=== PATIENT | female | born 1970 | race Caucasian/White ===

== ENCOUNTER → 2017-11-04 08:54 | Outpatient (CLI) | payer MEDICAID, SELFPAY ==
--- NOTE | 2017-11-04 08:58 | ECHOCS_ITS ---
Reason For Study: PULMONARY STENOSIS Procedure This was a 2D Doppler, Color Flow transthoracic echocardiogram. Contrast injection was performed. Exam performed in department. Left Ventricle Normal size and thickness. The estimated ejection fraction is 65 %. Normal diastology for age. No regional wall motion abnormalities noted. Right Ventricle Normal size and thickness. Normal systolic function. Atria Normal left atrium. Normal right atrium. Normal atrial septum. Mitral Valve The mitral valve is structurally normal. No prolapse or stenosis seen. Tricuspid Valve Normal tricuspid valve. Trivial tricuspid valve insufficiency. Right ventricular systolic pressure estimated to be 39 mmHg. Mild pulmonary hypertension. Aortic Valve Normal aortic valve. Trisinus/trileaflet aortic valve. Pulmonic Valve Normal pulmonic valve. Great Vessels Normal aortic root. Normal arch. Normal inferior vena cava. Inferior vena cava collapse with sniff. Pericardium/Pleural No pericardial effusion. Medication 22 gauge I.V. with prn adaptor inserted into right arm. Diluted definity 3ml given slow IV push to enhance endocardial definition. MMode/2D Measurements & Calculations LVIDd: 3.8 cm IVSd: 0.85 cm Ao root diam: 2.8 cm LVIDs: 2.4 cm LVPWd: 1.00 cm LA dimension: 3.1 cm RVDd: 3.0 cm FS: 38.1 % LAV(MOD-bp): 40.0 ml EDV(MOD-sp4): 90.1 ml EDV(MOD-sp2): 87.1 ml LAV(MOD-bp) Indexed: 22.1 ml/m2 ESV(MOD-sp4): 29.7 ml EF(MOD-sp2): 69.0 % LAV(MOD-sp2): 32.7 ml EF(MOD-sp4): 67.1 % LAV(MOD-sp4): 43.7 ml SV(MOD-sp4): 60.5 ml SV(MOD-sp2): 60.1 ml LA A4 area: 17.0 cm2 RA A4 area: 12.7 cm2 Doppler Measurements & Calculations MV E max alex: 89.2 cm/sec Ao V2 max: 160.3 cm/sec LV V1 max: 109.5 cm/sec MV A max alex: 74.1 cm/sec Ao max P.3 mmHg LV V1 max P.8 mmHg MV E/A: 1.2 Ao V2 mean: 101.9 cm/sec LV V1 mean P.7 mmHg Ao mean P.9 mmHg LV V1 mean: 77.6 cm/sec Ao V2 VTI: 30.3 cm LV V1 VTI: 23.4 cm TV V2 max: 67.8 cm/sec PA V2 max: 178.7 cm/sec TR max alex: 275.8 cm/sec TV max P.8 mmHg PA V2 mean: 171.9 cm/sec TR max P.5 mmHg TV V2 mean: 45.0 cm/sec PA V2 VTI: 52.9 cm TV mean P.91 mmHg Interpretation Summary The estimated ejection fraction is 65 %. Normal diastology for age. Trivial tricuspid valve insufficiency. Right ventricular systolic pressure estimated to be 39 mmHg. Mild pulmonary hypertension. The study was technically difficult. There is no comparison study available. Contrast injection was performed. Ordering Physician: ROGE QUILES Referring Physician: DOCTOR, OUT OF TOWN Performed By: Riddhi Webber, JACKY, RVT
== END ==
DX: I37.0 Nonrheumatic pulmonary valve stenosis (principal)
CPT/HCPCS: 93306; Q9957; A4216; C8929

== ENCOUNTER → 2017-12-16 | Outpatient (CLI) | payer MEDICAID, SELFPAY ==
[2017-12-16 08:59] LABS: Hemoglobin A1c 8.4 % (4.2-6.3)
[2017-12-16 09:24] LABS: ALB/GLOB Ratio 0.7 RATIO (0.9-2.4); AST(SGOT) 37 U/L (15-37); Alanine Aminotransfer ALT/SGPT 43 U/L (13-56); Albumin, Serum 3.5 g/dL (3.2-5.0); Alkaline Phosphatase 87 U/L (45-117); Anion Gap 9 (5-15); BUN 14 mg/dL (7-18); BUN/Creat Ratio 17.3 RATIO (10-20); Chloride 104 mmol/L (98-107); Cholesterol 142 mg/dL (200); Creatinine, Serum 0.81 mg/dL (0.55-1.02); EST Glomerular Filtration Rate 81 mL/min (>60); Est Glom Filt Rate - Afr Amer 98 mL/min (>60); Globulin 4.7 g/dL (2.2-4.2); Glucose 188 mg/dL (74-106); High Density Lipoprotein 31 mg/dL; Potassium 4.1 mmol/L (3.5-5.1); Protein, Total 8.2 g/dL (6.4-8.2); Sodium Level 139 mmol/L (136-145); Thyroid Stim Hormone (TSH) 5.99 uIU/mL (0.358-3.74); Triglycerides 212 mg/dL; Very Low Density Lipoprotein 42 mg/dL (5-40)
== END | disposition home or self-care (01) ==
LOC: LAB 07:59
PROVIDERS: Visit Provider Internal Medicine Endocrinology, Diabetes & Metabolism
DX: E11.65 Type 2 diabetes mellitus with hyperglycemia (principal)
CPT/HCPCS: 36415; 80053; 80061; 83036; 84443

== ENCOUNTER → 2018-02-28 10:35 | Outpatient (CLI) | payer MEDICAID, SELFPAY ==
[2018-02-28 11:33] LABS: Hemoglobin A1c 6.1 % (4.2-6.3)
[2018-02-28 11:43] LABS: AST(SGOT) 44 U/L (15-37); Alanine Aminotransfer ALT/SGPT 46 U/L (13-56); Albumin, Serum 3.9 g/dL (3.2-5.0); Alkaline Phosphatase 75 U/L (45-117); Anion Gap 8 (5-15); BUN 10 mg/dL (7-18); BUN/Creat Ratio 13.2 RATIO (10-20); Calcium,Total 9.1 mg/dL (8.5-10.1); Chloride 105 mmol/L (98-107); Cholesterol 136 mg/dL (200); Creatinine, Serum 0.76 mg/dL (0.55-1.02); EST Glomerular Filtration Rate 87 mL/min (>60); Est Glom Filt Rate - Afr Amer 106 mL/min (>60); Glucose 104 mg/dL (74-106); High Density Lipoprotein 36 mg/dL; Potassium 4.5 mmol/L (3.5-5.1); Protein, Total 7.9 g/dL (6.4-8.2); Sodium Level 140 mmol/L (136-145); T4 Free Direct 1.14 ng/dL (0.76-1.46); Thyroid Stim Hormone (TSH) 1.99 uIU/mL (0.358-3.74); Triglycerides 129 mg/dL; Very Low Density Lipoprotein 26 mg/dL (5-40)
== END ==
PROVIDERS: Visit Provider Internal Medicine Endocrinology, Diabetes & Metabolism
DX: E89.0 Postprocedural hypothyroidism (principal)
CPT/HCPCS: 36415; 80053; 80061; 83036; 84439; 84443

== ENCOUNTER → 2018-07-19 08:55 | Outpatient (CLI) | payer SELFPAY ==
[2018-07-19 10:47] LABS: Basophil# 0.02 X10^3/uL; Basophil% 0.3 % (0-1); Eosinophil# 0.19 X10^3/uL; Eosinophils% 2.4 % (0-5); Hematocrit 35.5 % (37-47); Hemoglobin 11.6 g/dl (12.0-15.0); Mean Corp Hgb Conc 32.7 g/gl (32-36); Mean Corpuscular Hgb 28.4 pg (27.0-32.0); Mean Corpuscular Volume 86.8 fL (81-99); Mean Platelet Vol. 11.7 fl (6.2-12.0); Monocyte# 0.44 X10^3/uL; Monocyte% 5.6 % (0-10); Neutrophil # 4.97 X10^3/uL (2.7-7.7); Neutrophil % 63.2 % (47-70); Platelet Count 284 K/mm3 (150-450); RBC Distribution Width CV 14.1 % (11.6-14.6); RBC Distribution Width SD 43.3 fl (35.1-43.9); Red Blood Count 4.09 M/mm3 (4.2-5.4); White Blood Count 7.9 K/mm3 (4.4-11.0)
[2018-07-19 10:48] LABS: POSITIVE COUNT NO; POSITIVE DIFFERENTIAL NO; POSITIVE MORPHOLOGY NO
[2018-07-19 11:17] LABS: AST(SGOT) 12 U/L (15-37); Alanine Aminotransfer ALT/SGPT 22 U/L (13-56); Albumin, Serum 3.8 g/dL (3.2-5.0); Alkaline Phosphatase 63 U/L (45-117); Anion Gap 7 (5-15); BUN 12 mg/dL (7-18); BUN/Creat Ratio 15.8 RATIO (10-20); Chloride 105 mmol/L (98-107); Creatinine, Serum 0.76 mg/dL (0.55-1.02); EST Glomerular Filtration Rate 87 mL/min (>60); Est Glom Filt Rate - Afr Amer 105 mL/min (>60); Glucose 170 mg/dL (74-106); Lipase 179 U/L (73-393); Potassium 4.2 mmol/L (3.5-5.1); Protein, Total 7.8 g/dL (6.4-8.2); Sodium Level 138 mmol/L (136-145)
== END ==
LOC: LAB.FUTURE 08:59
PROVIDERS: Family Provider Family Medicine; PCP Family Medicine; Referring Provider Internal Medicine Endocrinology, Diabetes & Metabolism; Visit Provider Internal Medicine Endocrinology, Diabetes & Metabolism
DX: R10.9 Unspecified abdominal pain (principal)
CPT/HCPCS: 36415; 80053; 83690; 85025

== ENCOUNTER → 2018-10-11 17:30 | Outpatient (CLI) | payer MEDICAID, SELFPAY ==
--- NOTE | 2018-10-11 17:11 | BI_ITS ---
MAMMOGRAPHY - BILATERAL SCREENING REASON FOR EXAM: Female, 48 years old. Routine annual screening examination. PERTINENT HISTORY: Mother with breast cancer. TECHNIQUE: Digital bilateral breast haleigh (3D mammographic acquisition) in the CC and MLO projections. 2-D mediolateral oblique (MLO) and craniocaudad (CC) views of both breasts were obtained. CAD: Full Field Digital Mammography with Computer Added Detection was performed. COMPARISON: Comparison is made with prior mammogram dated March 23, 2017. FINDINGS: Breast Composition: There are scattered areas of fibroglandular density. Stable 7 mm well-defined nodule in the upper lateral aspect of the left breast. Prior ultrasound demonstrated this to be a lymph node. Stable small bilateral axillary lymph nodes. No other significant abnormalities are identified. There has been no significant change since the prior study. BI/SCREENING MAMM (CAD), BILAT IMPRESSION: Stable bilateral screening mammogram. Yearly follow-up mammogram recommended. (A) ASSESSMENT CATEGORY: BIRADS Category 2: Benign. A letter regarding these results will be sent to the patient by the facility within 30 days. Approximately 10% of breast cancers are not detected by mammography. A normal mammogram should not delay biopsy of a clinically suspicious abnormality. [id number] Electronically Signed: Matthias Rashid MD at 9:00 EST , Service support ,
== END ==
PROVIDERS: Family Provider Family Medicine; PCP Family Medicine; Referring Provider Family Medicine; Visit Provider Family Medicine
DX: Z12.31 Encounter for screening mammogram for malignant neoplasm of breast (principal)
CPT/HCPCS: 77063; 77067

== ENCOUNTER 2018-11-17 18:24 | Emergency (ER) | payer MEDICAID, SELFPAY ==
[2018-11-17 18:25] VITALS: BP 188/108; PULSE 116; RESP 16; TEMP 36.8; O2SAT 98; BMI 34.4
--- NOTE | 2018-11-17 19:35 | RAD_ITS ---
STUDY: X-RAY CHEST REASON FOR EXAM: Female, 48 years old. Anxiety. Tightness in the chest. TECHNIQUE: Single AP portable view of the chest. COMPARISON: None. FINDINGS: Telemetry wires overlie the chest. The lungs are clear and expanded. There is no demonstrated pleural abnormality. Normal size heart. Normal mediastinum and paul. Normal visualized pulmonary arteries. Normal visualized aortic arch and descending thoracic aorta. Normal visualized thoracic spine. Normal visualized ribs, clavicles, and shoulders. There is no demonstrated abnormality of the visualized soft tissue structures of the upper abdomen. RAD/Chest 1 View (Portable) IMPRESSION: Normal x-ray examination of the chest. Electronically Signed: Chato Schrader DO at 19:56 EDT Tel [phone], Service support ,
--- NOTE | 2018-11-17 19:35 | EKG12_ITS ---
Test Reason : ANXIETY Blood Pressure : / mmHG Vent. Rate : 113 BPM Atrial Rate : 113 BPM P-R Int : 144 ms QRS Dur : 082 ms QT Int : 360 ms P-R-T Axes : 041 027 005 degrees QTc Int : 493 ms Sinus tachycardia Otherwise normal ECG Confirmed by CAS LEO ([id number]), science editor HALI LAZARO ([id number]) on 11/21/2018 4:48:48 PM Referred By: OCTAVIANO Confirmed By:CAS LEO
[2018-11-17] MEDS: Mag Hydrox/Al Hydrox/Simeth 30 ML UDC PO (19:45)
[2018-11-17 19:52] VITALS: O2SAT 98
[2018-11-17] MEDS: LORazepam 2 MG/ML Syringe 0.5 MG IV (19:53)
[2018-11-17 20:04] LABS: Absolute Neutrophil Count 5.5 X10^3/uL (2.0-7.7); Basophil# 0.02 X10^3/uL; Basophil% 0.3 % (0-1); Eosinophil# 0.08 X10^3/uL; Eosinophils% 1.1 % (0-5); Hematocrit 36.4 % (37-47); Hemoglobin 11.8 g/dl (12.0-15.0); Lymphocyte % 19.7 % (19-41); Mean Corp Hgb Conc 32.4 g/gl (32-36); Mean Corpuscular Hgb 27.5 pg (27.0-32.0); Mean Corpuscular Volume 84.8 fL (81-99); Monocyte# 0.45 X10^3/uL; Monocyte% 5.9 % (0-10); Neutrophil # 5.52 X10^3/uL (2.7-7.7); Neutrophil % 72.6 % (47-70); Platelet Count 314 K/mm3 (150-450); RBC Distribution Width CV 14.2 % (11.6-14.6); RBC Distribution Width SD 43.8 fl (35.1-43.9); Red Blood Count 4.29 M/mm3 (4.2-5.4); White Blood Count 7.6 K/mm3 (4.4-11.0)
--- NOTE | 2018-11-17 20:05 | CM.ED ---
SOCIAL WORK ASSESSMENT Referral Date: 11/17/18 Date of Assessment: 11/17/18 Informant: SELF REFERRAL Reason for Consult: ANXIETY Information obtained from: PATIENT AND PATIENT'S , LYLY Living Arrangements: PATIENT LIVES HOME WITH AND 6 Y/O DAUGHTER. Employment/Financial: PATIENT CURRENTLY UNEMPLOYED. PATIENT DENIES ANY FINANCIAL CONCERNS. Supports: PATIENT REPORTS GOOD SUPPORT FROM FAMILY. Social/Family Stressors: PATIENT STATES BROTHER IS BATTLING CANCER AND THIS HAS INCREASED HER ANXIETY. PATIENT STATES OWN HEALTH ISSUES AND CONCERNS. Mental Health History: PATIENT ADMITS TO HX OF ANXIETY. PATIENT WAS PRESCRIBED XANAX PREVIOUSLY. PATIENT HAS NOT TAKEN ANYTHING FOR HER ANXIETY IN OVER 2 YEARS. PATIENT WILL BE FOLLOWING UP WITH PRIMARY CARE TO DISCUSS MEDICATION. Substance Abuse History: PATIENT DENIES ANY HX OF SUBSTANCE ABUSE. Interventions: SOCIAL SERVICE ASSESSMENT RESOURCES ON OUTPATIENT COUNSELING SERVICES Assessment: PATIENT IS A 48 Y/O FEMALE WHO PRESENTS TO THE ED WITH COMPLAINTS OF DIZZINESS, CHEST PAIN AND ANXIETY. PATIENT LIVES HOME WITH AND DAUGHTER AND IS INDEPENDENT WITH ALL ADLS. PATIENT HAS BEEN DEALING WITH ANXIETY SINCE HER NOW 6 YEAR OLD DAUGHTER WAS 3 YEARS OLD. 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 PATIENT WILL BE FOLLOWING WITH NEW PRIMARY CARE, DR. Naldo AHUJA AND WILL DISCUSS ANXIETY AT THAT APPOINTMENT. EDUCATION PROVIDED ON OUTPATIENT SERVICES. LIST OF OUTPATIENT COUNSELING AGENCIES GIVEN. PATIENT DENIES ANY FURTHER NEEDS OR QUESTIONS AT THIS TIME. PLAN: HOME WITH FAMILY.
[2018-11-17 20:18] LABS: POSITIVE COUNT NO; POSITIVE DIFFERENTIAL NO; POSITIVE MORPHOLOGY NO
[2018-11-17 20:21] LABS: Anion Gap 7 (5-15); BUN 17 mg/dL (7-18); BUN/Creat Ratio 18.2 RATIO (10-20); Calcium,Total 9.2 mg/dL (8.5-10.1); Chloride 107 mmol/L (98-107); Creatinine, Serum 0.93 mg/dL (0.55-1.02); EST Glomerular Filtration Rate 68 mL/min (>60); Est Glom Filt Rate - Afr Amer 83 mL/min (>60); Estimated Creatinine Clearance 59.15 ml/min; Glucose 144 mg/dL (74-106); Potassium 3.6 mmol/L (3.5-5.1); Sodium Level 138 mmol/L (136-145)
[2018-11-17 21:37] VITALS: PULSE 105; RESP 22; O2SAT 98
--- NOTE | 2018-11-17 22:32 | ED.DCSUM_ITS ---
- ER Visit Summary Date of Service: 11/17/18 Chief Complaint: Epigastric pain History of Present Illness: The patient is a 48 F presents with feeling lightheaded for a few months as well as some anxiety and epigastric and lower chest pain. No fever or chills. She has had similar symptoms and was seen. In the emergency department and had an unremarkable workup. These resolve with antacids. There is no back pain, she does feel quite anxious. She has no pleuritic component, no shortness of breath. Physical Examination: Patient appears well she is anxious she is initially slightly tachycardic heart is regular lungs are clear abdomen is soft with some epigastric tenderness she has no edema no calf pain. Emergency Department Course and Treatment: EKG is unremarkable other than sinus tachycardia. Troponins negative CBC and chemistries are normal chest x-ray is unremarkable she has no PE risk factors. She appears well she improved with anxiolytics her vitals are now improved she will be discharged with reassurance to follow-up with her PCP Disposition: Discharge stable condition Impression: [Epigastric pain] This note was generated with [employer] dictation software. It may contain incorrect words, spelling, and punctuation that were not noted in review of the chart prior to signing ED Disposition - Plan for ED Patient: Disposition: Home or Assisted Living Instructions: ED Chest Pain Atypical Unkn Cause Prescriptions: Omeprazole 40 mg PO DAILY #30 capsule. Referrals: Cecilia Dubose MD [Primary Care Provider] - 3-5 Days
[2018-11-17 22:52] VITALS: PULSE 102; RESP 16; O2SAT 98
== END 2018-11-17 22:55 | disposition home or self-care (01) ==
PROVIDERS: Emergency Provider Emergency Medicine; Family Provider Family Medicine; PCP Family Medicine
DX: R10.13 Epigastric pain (principal); Z79.899 Other long term (current) drug therapy
CPT/HCPCS: 71045; 80048; 84484; 85025; 93005; 96374; 99285; A4216

== ENCOUNTER 2018-12-08 15:55 | Emergency (ER) | payer MEDICAID, SELFPAY ==
[2018-12-08 15:56] VITALS: BP 170/95; PULSE 116; RESP 17; TEMP 37; O2SAT 98; BMI 33.9
--- NOTE | 2018-12-08 15:59 | EKG12_ITS ---
Test Reason : CP Blood Pressure : / mmHG Vent. Rate : 108 BPM Atrial Rate : 108 BPM P-R Int : 132 ms QRS Dur : 082 ms QT Int : 348 ms P-R-T Axes : 058 039 037 degrees QTc Int : 466 ms Sinus tachycardia Otherwise normal ECG Confirmed by LEONEL CRAIG, KRISTINA ([id number]), order editor SILAS SANDOVAL ([id number]) on 12/12/2018 10:50:14 AM Referred By: MARIANO Confirmed By:KRISTINA CASTANEDA MD
--- NOTE | 2018-12-08 16:22 | RAD_ITS ---
STUDY: X-RAY CHEST REASON FOR EXAM: Female, 48 years old. Chest pain TECHNIQUE: Single frontal view of the chest. COMPARISON: 11/17/2018 FINDINGS: The lungs are clear and expanded. There is no demonstrated pleural abnormality. Normal size heart. Normal mediastinum and paul. Normal visualized pulmonary arteries. Normal visualized aortic arch and descending thoracic aorta. Normal visualized thoracic spine. Normal visualized ribs, clavicles, and shoulders. There is no demonstrated abnormality of the visualized soft tissue structures of the upper abdomen. RAD/Chest 1 View (Portable) IMPRESSION: Normal x-ray examination of the chest. Electronically Signed: Juan M Kaufman MD at 17:09 EDT Tel , Service support ,
--- NOTE | 2018-12-08 16:30 | ED.VISSUMM ---
- ER Visit Summary Date of Service: 12/08/18 Chief Complaint: Left arm, shoulder and upper back pain History of Present Illness: The patient is a 48 F prior cardiac history. Prior negative cardiac workup. She does have a history of insulin-dependent diabetes, pulmonary valve stenosis and anxiety. Patient states for the last several days she had intermittent aching of her left shoulder and upper back. Denies any trauma. Really no chest pain. No exertional symptoms no dyspnea. No nausea or diaphoresis. Worse with movement of the arm. No history of DVT or PE. No risk factors. Physical Examination: Middle-aged female no acute distress. Vital signs stable afebrile. HEENT exam unremarkable. Neck nontender no lymphadenopathy. Lungs clear to auscultation bilaterally. Chest nontender. Abdomen soft nontender. Normal bowel sounds no peritoneal signs. Heart regular rhythm rate about 90. Patient moving all 4 extremities. Neurovascular intact. She has normal equal symmetrical credit administration specialist strength. Equal radial pulses. She does have some reproducible soft tissue tenderness of her left upper arm and back consistent with a musculoskeletal etiology. Neurologically she is awake and alert with no focal motor deficits. Calves are nontender without edema or cords. Test Results: EKG shows a sinus tachycardia rate of 108 with no acute signs of KS or ischemia. Portable 1 view chest x-ray shows no acute abnormality and basically a normal cardiac silhouette mediastinum. CBC shows a white count of 9. Hemoglobin 11. Chemistries normal. Troponin normal. Emergency Department Course and Treatment: Patient will undergo cardiac workup clinically however I do feel this is musculoskeletal etiology. It is nonexertional. Repeat exam patient is doing well at 1708 is comfortable being discharged home. Treatment Plan: Follow-up with your primary care physician as needed. Motrin for pain. Disposition: Discharge Impression: Left arm and upper back pain secondary to musculoskeletal etiology History of insulin-dependent diabetes History of anxiety and hypertension This note was generated with [employer] dictation software. It may contain incorrect words, spelling, and punctuation that were not noted in review of the chart prior to signing ED Disposition - Plan for ED Patient: Referrals: [facility] Doctor,Out of [NON-STAFF] -
--- NOTE | 2018-12-08 16:34 | NURSING ---
CBCD WAS CLOTTED.
[2018-12-08 16:48] LABS: Anion Gap 8 (5-15); BUN 13 mg/dL (7-18); Calcium,Total 9.3 mg/dL (8.5-10.1); Chloride 106 mmol/L (98-107); Creatinine, Serum 0.93 mg/dL (0.55-1.02); EST Glomerular Filtration Rate 69 mL/min (>60); Est Glom Filt Rate - Afr Amer 83 mL/min (>60); Estimated Creatinine Clearance 59.15 ml/min; Glucose 128 mg/dL (74-106); Potassium 3.8 mmol/L (3.5-5.1); Sodium Level 139 mmol/L (136-145)
[2018-12-08 16:54] LABS: Absolute Lymphocyte Count 2.47 X10^3/ul (0.83-4.51); Basophil# 0.01 X10^3/uL; Basophil% 0.1 % (0-1); Eosinophil# 0.14 X10^3/uL; Eosinophils% 1.5 % (0-5); Hematocrit 35.7 % (37-47); Hemoglobin 11.9 g/dl (12.0-15.0); Lymphocyte # 2.47 X10^3/ul (4.0); Lymphocyte % 26.8 % (19-41); Mean Corp Hgb Conc 33.3 g/gl (32-36); Mean Platelet Vol. 10.8 fl (6.2-12.0); Monocyte# 0.54 X10^3/uL; Monocyte% 5.9 % (0-10); Neutrophil # 6.01 X10^3/uL (2.7-7.7); Platelet Count 269 K/mm3 (150-450); RBC Distribution Width CV 14.1 % (11.6-14.6); RBC Distribution Width SD 43.5 fl (35.1-43.9); Red Blood Count 4.25 M/mm3 (4.2-5.4); White Blood Count 9.2 K/mm3 (4.4-11.0)
[2018-12-08 16:57] LABS: POSITIVE COUNT NO; POSITIVE DIFFERENTIAL NO; POSITIVE MORPHOLOGY NO
--- NOTE | 2018-12-08 17:09 | ED.DEP ---
ED Disposition - Plan for ED Patient: Disposition: Home or Assisted Living Instructions: ED Strain Muscle Ext Referrals: Town Doctor,Out of [NON-STAFF] - 3-5 Days if not improving Additional Instructions: Hot shower warm bath to relax the muscles. Motrin for pain. Follow-up with your doctor if not improving.
[2018-12-08 17:35] VITALS: PULSE 105; PULSE 18; RESP 105; O2SAT 98
== END 2018-12-08 17:35 | disposition home or self-care (01) ==
PROVIDERS: Emergency Provider Emergency Medicine; Family Provider Family Medicine; PCP Family Medicine
DX: M25.512 Pain in left shoulder (principal); M54.9 Dorsalgia, unspecified; I10 Essential (primary) hypertension; F41.9 Anxiety disorder, unspecified; E11.9 Type 2 diabetes mellitus without complications; Z79.4 Long term (current) use of insulin; Z79.84 Long term (current) use of oral hypoglycemic drugs; Z79.82 Long term (current) use of aspirin; Z79.899 Other long term (current) drug therapy; Z87.891 Personal history of nicotine dependence
CPT/HCPCS: 71045; 80048; 84484; 85025; 93005; 99285; A4216

== ENCOUNTER → 2018-12-21 09:33 | Outpatient (CLI) | payer MEDICAID, SELFPAY ==
[2018-12-08 15:56] VITALS: BMI 33.9
--- NOTE | 2018-12-21 09:39 | STEWCON_ITS ---
Reason For Study: Chest Pain Stress Results Protocol: Jose Protocol Maximum Predicted HR: 173 bpm Target HR: 147 bpm % Maximum Predicted HR: 96 % Heart Stage Duration Rate BP Comment (mm:ss) (bpm) Mild Chest Pain; Mild Left Arm Pain; Definity 3 ML Baseline 110 150/88Given Jose Protocol Stage I 3:00 131 148/82No Chest Pain; Mild Left Arm Pain Jose Protocol Stage II 3:00 150 160/78No Chest Pain; Mild Left Arm Pain Jose Protocol Stage III 3:00 166 174/80No Chest Pain; Mild Left Arm Pain Recovery 117 146/86No Chest Pain; Mild Left Arm Pain Stress Duration: 9:00 mm:ss Maximum Stress HR: 166 bpm METS: 10 Baseline Echocardiogram Findings The estimated ejection fraction is 65 %. Stress Echo Wall motion Data Resting WM Intermediate WM Stress WM Resting Wall Motion Wall Motion Stress No regional wall motion No regional wall motion abnormalities noted. abnormalities noted. EKG Data Normal intervals are noted. The patient exercised according to the regular Jose protocol for a total duration of 9:00. The maximum heart rate attained was 166 beats per minute. This was 95% of maximum predicted heart rate. The patient exercised into stage 4 of the Jose protocol. During stress, there were no ST or T wave changes noted to suggest ischemia. No clinical angina was noted. No arrhythmias noted. Interpretation Summary The estimated ejection fraction is 65 %. Normal, adequate, treadmill echocardiogram. Negative for ischemia by EKG and echocardiographic criteria. No anginal symptoms noted. No arrhythmias noted. Appropriate blood pressure response to exercise. Average exercise capacity for age. Final LVEF is 75%. Decreased sensitivity due to poor echo windows requiring Definity enhancing agent. No complications. The study was technically difficult. Contrast injection was performed. Ordering Physician: CHARANJIT Marvin Referring Physician: Haris Saunders Performed By: Stan Roque RCS
== END ==
PROVIDERS: Referring Provider Nurse Practitioner Family; Visit Provider Nurse Practitioner Family
DX: R07.9 Chest pain, unspecified (principal)
CPT/HCPCS: 93017; 93350; Q9957; A4216; C8928

== ENCOUNTER → 2018-12-22 17:27 | Outpatient (CLI) | payer MEDICAID, SELFPAY ==
[2018-12-08 15:56] VITALS: BMI 33.9
[2018-12-27 17:10] LABS: HPV Reflexed? NOT INDICATED
== END ==
PROVIDERS: Referring Provider Obstetrics & Gynecology; Visit Provider Obstetrics & Gynecology
DX: Z12.4 Encounter for screening for malignant neoplasm of cervix (principal)
CPT/HCPCS: 88175; G0145

== ENCOUNTER → 2019-01-23 08:58 | Outpatient (CLI) | payer MEDICAID, SELFPAY ==
[2019-01-23 10:26] LABS: Hemoglobin A1c 6.7 % (4.2-6.3)
[2019-01-23 10:42] LABS: AST(SGOT) 19 U/L (15-37); Alanine Aminotransfer ALT/SGPT 26 U/L (13-56); Albumin, Serum 3.9 g/dL (3.2-5.0); Alkaline Phosphatase 79 U/L (45-117); Anion Gap 8 (5-15); BUN 12 mg/dL (7-18); BUN/Creat Ratio 14.7 RATIO (10-20); Calcium,Total 9.1 mg/dL (8.5-10.1); Chloride 106 mmol/L (98-107); Cholesterol 168 mg/dL (200); Creatinine, Serum 0.81 mg/dL (0.55-1.02); EST Glomerular Filtration Rate 80 mL/min (>60); Est Glom Filt Rate - Afr Amer 97 mL/min (>60); Globulin 4.1 g/dL (2.2-4.2); Glucose 139 mg/dL (74-106); High Density Lipoprotein 37 mg/dL; Potassium 4.1 mmol/L (3.5-5.1); Sodium Level 139 mmol/L (136-145); T4 Free Direct 1.19 ng/dL (0.76-1.46); Thyroid Stim Hormone (TSH) 1.48 uIU/mL (0.358-3.74); Triglycerides 154 mg/dL; Very Low Density Lipoprotein 31 mg/dL (5-40)
[2019-01-23 10:57] LABS: Vitamin D,25 Hydroxy 77.3 ng/mL (29.95-100.01)
== END ==
PROVIDERS: Family Provider Internal Medicine; PCP Internal Medicine; Referring Provider Internal Medicine Endocrinology, Diabetes & Metabolism; Visit Provider Internal Medicine Endocrinology, Diabetes & Metabolism
DX: E11.65 Type 2 diabetes mellitus with hyperglycemia (principal); E55.9 Vitamin D deficiency, unspecified; E89.0 Postprocedural hypothyroidism
CPT/HCPCS: 36415; 80053; 80061; 82306; 83036; 84439; 84443

== ENCOUNTER 2019-05-24 14:43 | Emergency (ER) | payer SELFPAY ==
[2019-02-03 11:47] VITALS: BMI 33.9
[2019-05-24 14:44] VITALS: BP 178/96; PULSE 104; RESP 16; TEMP 36.7; O2SAT 98; BMI 32.0
--- NOTE | 2019-05-24 15:11 | EKG12_ITS ---
Test Reason : DIZZINESS Blood Pressure : / mmHG Vent. Rate : 093 BPM Atrial Rate : 093 BPM P-R Int : 126 ms QRS Dur : 076 ms QT Int : 366 ms P-R-T Axes : 021 025 016 degrees QTc Int : 455 ms Normal sinus rhythm Normal ECG Confirmed by ERNESTINA CRAIG, HERLINDA ([id number]), writer editor SILAS SANDOVAL ([id number]) on 05/26/2019 1:42:30 PM Referred By: JORGE Confirmed By:HAIR DO MD
--- NOTE | 2019-05-24 15:13 | RAD_ITS ---
STUDY: X-RAY CHEST REASON FOR EXAM: Female, 49 years old. Chest pain. TECHNIQUE: Single AP portable view of the chest. COMPARISON: Comparison is made with prior study dated December 08, 2018. FINDINGS: The lungs are clear and expanded. There is no demonstrated pleural abnormality. Normal size heart. Normal mediastinum and paul. Normal visualized pulmonary arteries. Normal visualized aortic arch and descending thoracic aorta. Normal visualized thoracic spine. Normal visualized ribs, clavicles, and shoulders. There is no demonstrated abnormality of the visualized soft tissue structures of the upper abdomen. RAD/Chest 1 View (Portable) IMPRESSION: Normal x-ray examination of the chest. Electronically Signed: Matthias Rashid, at 15:34 EDT , Service support ,
[2019-05-24] MEDS: Ketorolac 15 MG/ML Vial IV (15:25)
[2019-05-24] MEDS: 0.9% Normal Saline 1,000 ML 1000 ML IV (15:26)
[2019-05-24 15:38] LABS: Absolute Lymphocyte Count 1.84 X10^3/uL (0.83-4.51); Absolute Neutrophil Count 5.8 X10^3/uL (2.0-7.7); Basophil# 0.03 X10^3/uL; Basophil% 0.4 % (0-1); Eosinophil# 0.12 X10^3/uL; Eosinophils% 1.4 % (0-5); Hematocrit 38.5 % (37-47); Hemoglobin 12.5 g/dL (12.0-15.0); Lymphocyte # 1.84 X10^3/ul (4.0); Lymphocyte % 22.2 % (19-41); Mean Corp Hgb Conc 32.5 g/dL (32-36); Mean Corpuscular Volume 86.1 fL (81-99); Mean Platelet Vol. 11.1 fl (6.2-12.0); Monocyte# 0.46 X10^3/uL; Monocyte% 5.6 % (0-10); NRBC Flagged by Analyzer 0 % (0-5); Neutrophil # 5.76 X10^3/uL (2.7-7.7); Neutrophil % 69.6 % (47-70); Platelet Count 307 K/mm3 (150-450); RBC Distribution Width CV 13.2 % (11.6-14.6); RBC Distribution Width SD 41.4 fl (35.1-43.9); Red Blood Count 4.47 M/mm3 (4.2-5.4); White Blood Count 8.3 K/mm3 (4.4-11.0)
[2019-05-24 15:43] VITALS: BP 171/92; BP 173/102; BP 174/101; PULSE 104; PULSE 105; PULSE 90
[2019-05-24 15:48] LABS: Bacteria 0 SEEN /hpf (None Seen); Mucous, Urine 0 SEEN /hpf (<or=2+); Red Blood Cells-Urine 0 SEEN /hpf (0-5); Squamous Epithelial Cells - UA 0 SEEN /hpf (5-10); White Blood Cells 0 SEEN /hpf (0-5)
[2019-05-24 15:57] LABS: Anion Gap 6 (5-15); BUN 12 mg/dL (7-18); BUN/Creat Ratio 12.3 RATIO (10-20); Calcium,Total 9.3 mg/dL (8.5-10.1); Chloride 103 mmol/L (98-107); Creatinine, Serum 0.97 mg/dL (0.55-1.02); EST Glomerular Filtration Rate 65 mL/min (>60); Est Glom Filt Rate - Afr Amer 79 mL/min (>60); Glucose 158 mg/dL (74-106); Potassium 3.9 mmol/L (3.5-5.1); Sodium Level 137 mmol/L (136-145)
[2019-05-24 16:14] LABS: Color, Urine Yellow (Yellow); Glucose, Dipstick Normal (Normal); Ketone-Dipstick Negative (Negative); Leukocyte Esterase-Dipstick Negative /ul (Negative); Nitrite-Dipstick Negative (Negative); Occult Blood-Urine Negative /ul (Negative); Protein-Dipstick Negative (Negative); Specific Gravity, Urine 1.005 (1.002-1.030); Urine Bilirubin Dipstick Negative (Negative); Urine Clarity Clear (Clear); Urine Urobilinogen Normal (Normal); Urine pH 6.5 (5.0 - 8.0)
[2019-05-24 16:43] VITALS: BP 178/93; PULSE 90; RESP 14; O2SAT 100
[2019-05-24] MEDS: LORazepam 2 MG/ML Syringe 1 MG IV (18:01)
[2019-05-24 18:06] VITALS: BP 165/113; PULSE 94; RESP 25; O2SAT 97
--- NOTE | 2019-05-24 19:11 | ED.VISSUMM ---
- ER Visit Summary Date of Service: 05/24/19 Chief Complaint: Chest pain and lightheaded History of Present Illness: The patient is a [address] Watts and Dr. Perez, her digital solution architect. She reports that approximately an hour ago while driving she became lightheaded. She denies any change with standing. She has not passed out. Patient reports that she has chest pain that began at the same time. Some aching pain is 5 out of 10 severity. Nothing makes this better. It is not unchanged by exertion. Is increased with lifting. She denies any associated nausea, vomiting, shortness of breath, or diaphoresis. Patient also reports that she had upper back pain is been present for the past 2 days. Some aching pain is 10 to 10 hours noted 10 currently. Nothing makes this worse. Is decreased with laying on her left side. Denies any trauma. No fall, MVA, or change in activity. Physical Examination: Vitals: Stable. Afebrile. General: Well-nourished and well-developed. Head: Normocephalic atraumatic. Neck: Supple, no lymphadenopathy. No JVD. Nontender. Cardiovascular: Regular rate and rhythm. No murmurs. Respiratory: No respiratory distress. Clear to auscultation bilaterally. Abdominal: Soft, nontender, nondistended, normal bowel sounds. No guarding, rebound, or peritoneal signs. Back: Nontender. Extremities: Nontender, no edema. Skin: Normal color, no rash. Neurologic: Alert and oriented ?3. Cranial nerves II through XII are intact. Normal strength and sensation. Psych: Normal affect. Test Results: EKG is sinus at 93. No acute changes. Is unchanged from December 2018. Troponin is negative. Repeat troponin is negative. UA is normal. Chem-7 shows a glucose 158. CBC is normal. Chest x-ray is normal. Emergency Department Course and Treatment: Patient was treated with Toradol and Ativan IV. She is resting comfortably. She had orthostatic vital signs that were negative. When I went back and discussed the findings with her she reports that she had this last week and took her Nexium and it completely resolved. Treatment Plan: Patient will be discharged with a prescription for Nexium. Instructed to follow-up with her primary care physician and her digital solution architect in 3 to 5 days for another exam. Return to emerge department for any worsening symptoms. Disposition: To home in improved and stable condition. Impression: 1. Atypical chest pain. 2. Lightheadedness. This note was generated with [employer] dictation software. It may contain incorrect words, spelling, and punctuation that were not noted in review of the chart prior to signing ED Disposition - Plan for ED Patient: Disposition: Home or Assisted Living Instructions: CHEST PAIN, Uncertain Cause Prescriptions: Esomeprazole Mag Trihydrate [Nexium] 40 mg PO DAILY #30 cap Prescription Printed Referrals: Nanette Watts MD [Primary Care Provider] - 3-5 Days
[2019-05-24 19:28] VITALS: BP 166/96; PULSE 93; RESP 15; O2SAT 94
--- NOTE | 2019-05-24 19:28 | ED.RN ---
PT GIVEN WRITTEN AND VERBAL DISCHARGE INSTRUCTIONS AND HOME GOING PRESCRIPTIONS. PT EDUCATED ON MEDICATION AND FOLLOW UP WITH PCP. PT IV D/C AND COVERED WITH 2X2 GAUZE. ANGIOCATH INTACT. PT DRESSES SELF AND AMBULATES OUT OF DEPT WITH SPOUSE.
== END 2019-05-24 19:33 | disposition home or self-care (01) ==
LOC: ED 15:27
PROVIDERS: Emergency Provider Emergency Medicine; Family Provider Internal Medicine; PCP Internal Medicine
DX: R07.89 Other chest pain (principal); R42 Dizziness and giddiness; M54.9 Dorsalgia, unspecified; E11.9 Type 2 diabetes mellitus without complications; I10 Essential (primary) hypertension; E04.1 Nontoxic single thyroid nodule; G43.909 Migraine, unspecified, not intractable, without status migrainosus; Z79.82 Long term (current) use of aspirin; Z79.4 Long term (current) use of insulin; Z79.84 Long term (current) use of oral hypoglycemic drugs; Z79.899 Other long term (current) drug therapy; Z87.891 Personal history of nicotine dependence
CPT/HCPCS: 71045; 80048; 81001; 84484; 85025; 93005; 96361; 96374; 96375; 99285; J7030; A4216

== ENCOUNTER → 2019-08-21 09:05 | Outpatient (CLI) | payer MEDICAID, SELFPAY ==
[2019-08-21 10:27] LABS: AST(SGOT) 24 U/L (15-37); Alanine Aminotransfer ALT/SGPT 27 U/L (13-56); Albumin, Serum 3.9 g/dL (3.2-5.0); Alkaline Phosphatase 83 U/L (45-117); Anion Gap 6 (5-15); BUN 18 mg/dL (7-18); BUN/Creat Ratio 18.9 RATIO (10-20); Calcium,Total 8.7 mg/dL (8.5-10.1); Chloride 105 mmol/L (98-107); Creatinine, Serum 0.95 mg/dL (0.55-1.02); EST Glomerular Filtration Rate 67 mL/min (>60); Est Glom Filt Rate - Afr Amer 81 mL/min (>60); Glucose 159 mg/dL (74-106); Potassium 4.3 mmol/L (3.5-5.1); Protein, Total 7.9 g/dL (6.4-8.2); Sodium Level 136 mmol/L (136-145); T4 Free Direct 1.14 ng/dL (0.76-1.46); Thyroid Stim Hormone (TSH) 5.01 uIU/mL (0.358-3.74)
== END ==
LOC: LAB.FUTURE 09:08 → LAB 09:11
PROVIDERS: Family Provider Internal Medicine; PCP Internal Medicine; Referring Provider Internal Medicine Endocrinology, Diabetes & Metabolism; Visit Provider Internal Medicine Endocrinology, Diabetes & Metabolism
DX: E89.0 Postprocedural hypothyroidism (principal); E11.65 Type 2 diabetes mellitus with hyperglycemia
CPT/HCPCS: 36415; 80053; 83036; 84439; 84443

== ENCOUNTER → 2019-10-04 09:46 | Outpatient (CLI) | payer MEDICAID, SELFPAY ==
[2019-10-04 11:01] LABS: Anion Gap 2 (5-15); BUN 15 mg/dL (7-18); BUN/Creat Ratio 16.3 RATIO (10-20); Chloride 105 mmol/L (98-107); Creatinine, Serum 0.92 mg/dL (0.55-1.02); EST Glomerular Filtration Rate 69 mL/min (>60); Est Glom Filt Rate - Afr Amer 84 mL/min (>60); Glucose 161 mg/dL (74-106); Potassium 4.3 mmol/L (3.5-5.1); Sodium Level 136 mmol/L (136-145); T4 Free Direct 1.17 ng/dL (0.76-1.46)
== END ==
PROVIDERS: PCP Internal Medicine; Referring Provider Internal Medicine Endocrinology, Diabetes & Metabolism; Visit Provider Internal Medicine Endocrinology, Diabetes & Metabolism
DX: E89.0 Postprocedural hypothyroidism (principal)
CPT/HCPCS: 36415; 80048; 84439; 84443

== ENCOUNTER → 2019-10-13 11:40 | Outpatient (CLI) | payer MEDICAID, SELFPAY ==
[2019-10-04 16:16] VITALS: BMI 32.0
--- NOTE | 2019-10-13 11:47 | BI_ITS ---
MAMMOGRAPHY - BILATERAL SCREENING 3-D TOMOSYNTHESIS REASON FOR EXAM: Female, 49 years old. Routine screening PERTINENT HISTORY: Mother with breast cancer.. TECHNIQUE: 2-D mammograms and 3-D Tomosynthesis of the breast (s) were performed. CAD was performed. COMPARISON: 10/11/2018 FINDINGS: The breast composition is composed of scattered fibroglandular density. Scattered benign calcifications are seen. No dense spiculated masses or suspicious microcalcifications are identified. No architectural distortion is identified. There is no skin thickening or retraction. Stable 7 mm nodule in the upper outer quadrant of the left breast. There has been no significant change since the prior study. BI/SCREEN MAMM (CAD) W/AARON BILAT IMPRESSION: No mammographic signs of malignancy. Routine yearly mammograms recommended. ASSESSMENT CATEGORY: BIRADS Category 2: Benign. A letter regarding these results will be sent to the patient by the facility within 30 days. FOLLOW UP RECOMMENDATION: Yearly follow up mammogram recommended. (A) Approximately 10% of breast cancers are not detected by mammography. A normal mammogram should not delay biopsy of a clinically suspicious abnormality. Electronically Signed: Jim Espinosa MD at 13:07 EST , Service support ,
== END ==
PROVIDERS: PCP Internal Medicine; Referring Provider Obstetrics & Gynecology; Visit Provider Obstetrics & Gynecology
DX: Z12.31 Encounter for screening mammogram for malignant neoplasm of breast (principal); Z80.3 Family history of malignant neoplasm of breast
CPT/HCPCS: 77063; 77067

== ENCOUNTER 2019-10-24 06:07 | Emergency (ER) | payer MEDICAID, SELFPAY ==
[2019-10-04 16:16] VITALS: BMI 32.0
[2019-10-24 06:09] VITALS: BP 194/96; PULSE 118; RESP 20; TEMP 37; O2SAT 97; BMI 32.9
--- NOTE | 2019-10-24 06:09 | ED.RN ---
CALLED FOR EKG PER RN REQUEST, PULLED OLD EKGS FOR
--- NOTE | 2019-10-24 06:20 | RAD_ITS ---
STUDY: X-RAY CHEST REASON FOR EXAM: Female, 49 years old. C/O NAUSEA AND HEARTBURN -- DENIES CP, SOB OR COUGH TECHNIQUE: Single AP portable view of the chest. COMPARISON: None. FINDINGS: The lungs are clear and expanded. There is no demonstrated pleural abnormality. Normal size heart. Normal mediastinum and paul. Normal visualized pulmonary arteries. Normal visualized aortic arch and descending thoracic aorta. Normal visualized thoracic spine. Normal visualized ribs, clavicles, and shoulders. There is no demonstrated abnormality of the visualized soft tissue structures of the upper abdomen. RAD/Chest 1 View (Portable) IMPRESSION: Normal x-ray examination of the chest. Electronically Signed: Solo Cox, at 7:00 EST Tel , Service support ,
--- NOTE | 2019-10-24 06:20 | EKG12_ITS ---
Test Reason : CP Blood Pressure : / mmHG Vent. Rate : 111 BPM Atrial Rate : 111 BPM P-R Int : 126 ms QRS Dur : 082 ms QT Int : 344 ms P-R-T Axes : 047 033 022 degrees QTc Int : 467 ms Sinus tachycardia Cannot rule out Anterior infarct , age undetermined Abnormal ECG Confirmed by CAS LEO ([id number]), advertising editor SILAS SANDOVAL ([id number]) on 10/26/2019 9:34:59 AM Referred By: JESUS Confirmed By:CAS LEO
[2019-10-24 06:27] LABS: Absolute Lymphocyte Count 2.31 X10^3/uL (0.83-4.51); Absolute Neutrophil Count 4.5 X10^3/uL (2.0-7.7); Basophil# 0.03 X10^3/uL; Basophil% 0.4 % (0-1); Eosinophil# 0.19 X10^3/uL; Eosinophils% 2.5 % (0-5); Hematocrit 38.3 % (37-47); Hemoglobin 12.5 g/dL (12.0-15.0); Lymphocyte # 2.31 X10^3/ul (4.0); Lymphocyte % 30.6 % (19-41); Mean Corp Hgb Conc 32.6 g/dL (32-36); Mean Corpuscular Volume 85.9 fL (81-99); Mean Platelet Vol. 11.1 fl (6.2-12.0); Monocyte# 0.45 X10^3/uL; NRBC Flagged by Analyzer 0 % (0-5); Neutrophil # 4.53 X10^3/uL (2.7-7.7); Neutrophil % 59.8 % (47-70); Platelet Count 361 K/mm3 (150-450); RBC Distribution Width CV 13.9 % (11.6-14.6); RBC Distribution Width SD 42.7 fl (35.1-43.9); Red Blood Count 4.46 M/mm3 (4.2-5.4); White Blood Count 7.6 K/mm3 (4.4-11.0)
[2019-10-24] MEDS: 0.9% Normal Saline 1,000 ML 1000 ML IV (06:27)
[2019-10-24] MEDS: Ondansetron 4 MG/2 ML Vial IV (06:29)
[2019-10-24] MEDS: Famotidine 200 MG/20 ML MDV 20 MG in 0.9% Normal Saline (Pres. free 8 ML 300 MG IV (06:30)
[2019-10-24] MEDS: Ketorolac 15 MG/ML Vial IV (06:32)
[2019-10-24 06:34] LABS: D-Dimer Quantitative (DVT/PE) 0.35 FEU/ug/m (0.27-0.49)
[2019-10-24 06:45] LABS: ALB/GLOB Ratio 0.9 RATIO (0.9-2.4); AST(SGOT) 15 U/L (15-37); Alanine Aminotransfer ALT/SGPT 29 U/L (13-56); Albumin, Serum 3.8 g/dL (3.2-5.0); Alkaline Phosphatase 79 U/L (45-117); Anion Gap 7 (5-15); BUN 17 mg/dL (7-18); BUN/Creat Ratio 17.4 RATIO (10-20); Calcium,Total 9.4 mg/dL (8.5-10.1); Chloride 105 mmol/L (98-107); Creatinine, Serum 0.98 mg/dL (0.55-1.02); EST Glomerular Filtration Rate 64 mL/min (>60); Est Glom Filt Rate - Afr Amer 78 mL/min (>60); Estimated Creatinine Clearance 55.52 ml/min; Globulin 4.4 g/dL (2.2-4.2); Glucose 245 mg/dL (74-106); Lipase 248 U/L (73-393); Potassium 3.9 mmol/L (3.5-5.1); Protein, Total 8.2 g/dL (6.4-8.2); Sodium Level 138 mmol/L (136-145)
[2019-10-24] MEDS: Mag Hydrox/Al Hydrox/Simeth 30 ML UDC PO (07:34)
--- NOTE | 2019-10-24 07:34 | ED.VIS.CHEST ---
History of Present Illness Chief Complaint: Chest Pain Informant: Patient, EMS Onset: Today Activity at onset: Sleep Timing: Continuous Quality: Burning Location: Substernal Worsened By: Nothing Relieved By: Antacids Associated Symptoms: Nausea, Vomiting, Acid Reflux Narrative: Patient is a 49-year-old female with history of anxiety, tobacco use, diabetes, hyperlipidemia and GERD presenting with chest pain. Patient states she developed chest pain last night. She states woke up from sleep. She states it feels like a burning sensation in the center of her chest. She has associated nausea, 2 episodes of vomiting and lightheadedness. She states her symptoms are actually starting to improve now. Her called 911 because he was concerned. Patient states she has had prior episodes like this and it has been her acid reflux in the past. She notes she also does have a history of anxiety and feels very nervous right now. She has been prescribed antacids in the past but only takes them intermittently. She states when she does take them they do help. Patient denies any history of heart attack or coronary artery disease. She states she had a normal stress test last year. She denies any other complaints at this time. Prior Similar Symptoms: Yes, - - GERD CVD Risk Factors: Diabetes, Hypercholesterolemia, Smoking PE Risk Factors: Negative for: Recent Travel/Surgery, Recenet Immobilization, Prior DVT or PE, Cancer, OCP + Smoking + >/=35 Past Medical History - Allergies and Home Meds Allergies/Adverse Reactions: Allergies No Known Allergies Allergy (Verified 10/24/19 06:08) Primary Care Physician: Nanette Watts MD [Primary Care Provider] - Past Medical History: - - Pulmonary stenosis, diabetes, hyperlipidemia, GERD Surgical History: noncontributory Lives: Spouse/ Significant Other Smoking Status: Former smoker Review of Systems General: Denies: Chills, Fever, Sweats Eyes: Denies: Visual changes - bilaterally, Diplopia ENT: Denies: Rhinorrhea, Sore throat Cardiovascular: Reports: Chest pain. Denies: Palpitations Respiratory: Denies: Dyspnea, Cough, Dyspnea on exertion Gastrointestinal: Reports: Nausea, Vomiting. Denies: Abdominal pain, Diarrhea, Melena, Hematochezia Genitourinary: Denies: Dysuria, Hematuria, Frequency Musculoskeletal: Denies: Back pain, Extremity Pain Skin: Denies: Rash, Wounds Neurological: Denies: Headache, Weakness, Numbness Psych: Reports: Anxiety Physical Exam Vital Signs/Narrative: Vital Signs Temp Pulse Resp BP Pulse Ox 10/24/19 06:09 98.6 F 118 H 20 H 194/96 H 97 Inital Vital Signs reviewed: Yes General: Well nourished, Well developed, No Acute Distress, - - Appears older than stated age Head: Normocephalic, Atraumatic Eyes: Perrl, EOMI ENT: Moist mucous membranes, No rhinorrhea Neck: Supple, Nontender, No JVD Cardiovascular: Regular rhythm, Tachycardia, Murmur Respiratory: No distress, CTA bilaterally, Chest nontender. Negative for: Rhonchi, Wheezing, Chest tenderness Abdomen: Soft, Nontender, Nondistended, Normal bowel sounds. Negative for: Guarding, Rebound tenderness Back: Nontender, Normal Inspection Extremities: Nontender, No edema Skin: Normal color, No rash Neurological: Alert, Oriented x3, Cranial nerves II-XII grossly intact, Normal Strength, Normal Sensation Psychological: Normal affect, Normal Mood, - - Anxious but otherwise acting appropriately Diagnostic/Tx/Re-eval Chest X-Ray - ED: 1 View, Read by ED Physician, Read by Radiologist, No Acute Disease Clinical Impression(s) from Imaging Studies Chest X-Ray 10/24/19 06:20 IMPRESSION: Normal x-ray examination of the chest. Electronically Signed: Solo Cox, at 7:00 EST Tel , Service support , Laboratory Data 10/24/19 10/24/19 10/24/19 06:10 06:10 06:10 WBC 7.6 RBC 4.46 Hgb 12.5 Hct 38.3 MCV 85.9 MCH 28.0 MCHC 32.6 RDW Std Deviation 42.7 RDW Coeff of Casey 13.9 Plt Count 361 MPV 11.1 Immature Gran % (Auto) 0.700 Neut % (Auto) 59.8 Lymph % (Auto) 30.6 [place] % (Auto) 6.0 Eos % (Auto) 2.5 Baso % (Auto) 0.4 Absolute Neuts (auto) 4.5 Absolute Lymphs (auto) 2.31 Nucleated RBC % 0 D-Dimer Quant (PE/DVT) 0.35 Sodium 138 Potassium 3.9 Chloride 105 Carbon Dioxide 26.0 Anion Gap 7 BUN 17 Creatinine 0.98 Estim Creat Clear Calc 55.52 Est GFR (MDRD) Af Amer 78 Est GFR (MDRD) Non-Af 64 BUN/Creatinine Ratio 17.4 Glucose 245 H Calcium 9.4 Total Bilirubin 0.30 AST 15 ALT 29 Alkaline Phosphatase 79 Troponin I < 0.015 Total Protein 8.2 Albumin 3.8 Globulin 4.4 H Albumin/Globulin Ratio 0.9 Lipase 248 - Rhythm Strip Rhythm Strip: Sinus Tach Rate: 111 Ectopy: None - EKG Initial EKG Interpretation: Sinus Tachycardia, - - Sinus tach at 111 Normal intervals Normal axis Nonspecific T wave inversion in lead III No change compared to prior EKG on 05/24/2019 YULISA Risk: No Positive YULISA Elements Score: 0 - Medical Decision Making Patient is evaluated for chest pain. Patient's chest pain is very atypical for ACS. I suspect it is from her reflux. She states she is had prior episodes of chest pain like this that have been her reflux. Her pain is actually resolving now that she is in the emergency room. She is given Zofran and Pepcid as well as Toradol and IV fluids. Patient is initially quite tachycardic. She is low risk per [place]. A d-dimer was obtained which is negative. Her tachycardia improved while she is in the emergency room. Patient did attribute her tachycardia to her anxiety. Patient's troponin is negative. Her EKG does not show any acute changes. She has minimal to no pain while in the emergency room. She is low risk and I believe stable for outpatient follow-up. Patient is counseled extensively that she needs to adhere to her antacid regiment. She actually has a prescription bottle with about a 2-week supply of omeprazole on her that she stopped taking. She commented that when she did take it her symptoms had gotten better but then she stopped taking it. Patient was told to resume taking it. She will also be prescribed a Zofran and Atarax. Patient was requesting something to help with her anxiety. Patient is counseled that she needs to follow-up with her PCP for these issues. She states she will call this week. Patient is counseled on signs and symptoms requiring return to the emergency room. Patient verbalizes agreement and understand this plan. Patient discharged home in stable and improved condition. ED Disposition - Plan for ED Patient: Disposition: Home or Assisted Living Diagnosis: Chest pain Instructions: CHEST PAIN, NonCardiac, GERD (Adult) Prescriptions: hydrOXYzine pamoate capsule [Vistaril] 25 mg PO TID PRN PRN #30 cap PRN Reason: Anxiety Transmission Status: Pending to [facility] Ondansetron [Zofran Odt] 4 mg PO Q8H PRN PRN #10 tab PRN Reason: Nausea Transmission Status: Pending to [facility] Referrals: Nanette Watts MD [Primary Care Provider] - Additional Instructions: Please take the omeprazole that you already have. Is a very important that you take it daily to help with your acid reflux. Your heart looks good today. Please follow-up with your primary care doctor for further evaluation of this episode of chest pain. You are safe to go home.
== END 2019-10-24 08:03 | disposition home or self-care (01) ==
PROVIDERS: Emergency Provider Emergency Medicine; PCP Internal Medicine
DX: R07.9 Chest pain, unspecified (principal); E11.9 Type 2 diabetes mellitus without complications; K21.9 Gastro-esophageal reflux disease without esophagitis; F41.9 Anxiety disorder, unspecified; E78.00 Pure hypercholesterolemia, unspecified; Z79.82 Long term (current) use of aspirin; Z79.4 Long term (current) use of insulin; Z87.891 Personal history of nicotine dependence
CPT/HCPCS: 71045; 80053; 83690; 84484; 85025; 85379; 93005; 96361; 96374; 96375; 99285; J7030; A4216; J2405; J3490

== ENCOUNTER → 2019-11-07 14:49 | Outpatient (CLI) | payer MEDICAID, SELFPAY ==
[2019-11-07 14:24] VITALS: BMI 32.9
[2019-11-07 17:15] LABS: Erythrocyte Sedimentation Rate 36 mm/hr (0-20)
[2019-11-07 17:27] LABS: Rheumatoid Factor < 10.0 IU/mL (<15)
== END ==
PROVIDERS: PCP Internal Medicine; Referring Provider Internal Medicine; Visit Provider Internal Medicine
DX: M19.90 Unspecified osteoarthritis, unspecified site (principal)
CPT/HCPCS: 36415; 85652; 86431

== ENCOUNTER → 2019-11-20 08:15 | Outpatient (CLI) | payer MEDICAID, SELFPAY ==
[2019-11-07 14:24] VITALS: BMI 32.9
--- NOTE | 2019-11-20 08:15 | US_ITS ---
STUDY: ABDOMINAL ULTRASOUND - RIGHT UPPER QUADRANT REASON FOR VISIT: Female, 49 years old RUQ -PAIN TECHNIQUE: Ultrasound evaluation of the right upper quadrant was performed with real-time and static carreno-scale imaging. TECHNICAL QUALITY: Adequate. COMPARISON: None. FINDINGS: Liver: The liver measures 15.3 cm. There is increased echogenicity consistent with fatty infiltration. The bile ducts are within normal limits. There is hepatic color flow. The direction of portal flow is hepatopetal. There is no demonstrated mass lesion. Gallbladder: Normal distended gallbladder. The gallbladder wall measures 3.0 mm. There is a negative sonographic Boss''s sign. There is no pericholecystic fluid. There are no gallstones. Common Bile Duct (C.B.D.): The common bile duct measures 4.0 mm. Pancreas: Normal size of the head, body and tail of the pancreas. There is normal echogenicity of the pancreas. There is no demonstrated pancreatic mass or cyst. Right Kidney: Normal size of the right kidney. The right kidney measures 10.9 cm x 5.6 cm by 4.4 cm. Normal renal cortex. The right cortex measures 1.4 cm. There is no demonstrated renal mass or cyst. There is no right hydronephrosis. US/Abdomen Limited IMPRESSION: Fatty infiltration of the liver. Electronically Signed: Matthias Rashid, at 14:14 EDT , Service support ,
== END ==
PROVIDERS: PCP Internal Medicine; Referring Provider Internal Medicine; Visit Provider Internal Medicine
DX: R10.11 Right upper quadrant pain (principal)
CPT/HCPCS: 76705

== ENCOUNTER 2019-11-20 16:53 | Emergency (ER) | payer MEDICAID, SELFPAY ==
[2019-11-07 14:24] VITALS: BMI 32.9
[2019-11-20 16:54] VITALS: BP 197/106; PULSE 102; RESP 16; TEMP 36.8; O2SAT 99; BMI 35.5
--- NOTE | 2019-11-20 17:06 | EKG12_ITS ---
Test Reason : CHEST PAIN Blood Pressure : / mmHG Vent. Rate : 086 BPM Atrial Rate : 086 BPM P-R Int : 140 ms QRS Dur : 084 ms QT Int : 404 ms P-R-T Axes : 042 013 014 degrees QTc Int : 483 ms Normal sinus rhythm Prolonged QT Abnormal ECG Confirmed by ERNESTINA CRAIG, HERLINDA ([id number]), medical transcription editor ZAID ENRIQUEZ ([id number]) on 11/27/2019 11:11:43 AM Referred By: CONNIE Confirmed By:HAIR DO MD
--- NOTE | 2019-11-20 17:07 | ED.VIS.GEN ---
History of Present Illness Chief Complaint: Hypertension Informant: Patient Onset: Today Narrative: Patient present secondary to hypertension. She states was outside working in her yard today. When she came in she felt a little funny. She checked her blood sugar that was normal so she checked her blood pressure. It was reading in the high 190s over 100. She takes lisinopril and metoprolol both at bedtime for blood pressure control. She recently had her metoprolol bumped from 25 to 50 mg. She states she started feeling kind of funny and had what she describes as brain fog. 3 days ago her doctor took her back down to 25 mg of metoprolol. She denies chest pain. She denies shortness of breath. - Past Medical History (1) GERD (gastroesophageal reflux disease) Status: Chronic (2) Hypertension Status: Chronic (3) Osteoarthritis Status: Chronic (4) Type II diabetes mellitus Status: Chronic (5) Anxiety and depression Status: Chronic Past Medical History - Allergies and Home Meds Allergies/Adverse Reactions: Allergies No Known Allergies Allergy (Verified 11/20/19 16:54) Primary Care Physician: Nanette Watts MD [Primary Care Provider] - Doctors: [facility] in [place] Prior records reviewed: Yes Surgical History: noncontributory Lives: Spouse/ Significant Other Smoking Status: Former smoker Review of Systems General: Denies: Chills, Fever Eyes: Denies: Visual changes - bilaterally ENT: Denies: Bilateral ear pain Cardiovascular: Denies: Chest pain, Palpitations Respiratory: Denies: Dyspnea, Cough Gastrointestinal: Denies: Abdominal pain, Nausea, Vomiting, Diarrhea Genitourinary: Denies: Dysuria Musculoskeletal: Denies: Extremity Pain Skin: Denies: Rash Neurological: Denies: Headache Allergy: Denies: Uticaria Physical Exam Vital Signs/Narrative: Vital Signs Temp Pulse Resp BP Pulse Ox 11/20/19 16:54 98.2 F 102 H 16 197/106 H 99 Inital Vital Signs reviewed: Yes General: Well nourished, Well developed Head: Normocephalic ENT: Moist mucous membranes Neck: Supple Cardiovascular: Regular rate, Regular rhythm Respiratory: No distress, CTA bilaterally Abdomen: Soft, Nontender, Nondistended Skin: Normal color Neurological: Alert, Oriented x3 Psychological: Normal affect Diagnostic/Tx/Re-eval Impressions Chest X-Ray 11/20/19 17:12 IMPRESSION: No acute cardiopulmonary pathology Electronically Signed: Ru Dawkins MD at 17:32 EDT , Service support , 11/20/19 17:12 Chest 1 View (Portable) [RAD] Stat Laboratory Results 11/20/19 11/20/19 11/20/19 17:20 17:20 17:20 WBC 8.0 RBC 4.05 L Hgb 11.2 L Hct 34.7 L MCV 85.7 MCH 27.7 MCHC 32.3 RDW Std Deviation 42.1 RDW Coeff of Casey 13.4 Plt Count 317 MPV 10.8 Immature Gran % (Auto) 0.400 Neut % (Auto) 64.4 Lymph % (Auto) 27.4 [place] % (Auto) 5.0 Eos % (Auto) 2.4 Baso % (Auto) 0.4 Absolute Neuts (auto) 5.2 Absolute Lymphs (auto) 2.19 Nucleated RBC % 0 Sodium 142 Potassium 3.4 L Chloride 110 H Carbon Dioxide 25.0 Anion Gap 7 BUN 12 Creatinine 0.95 Estim Creat Clear Calc 57.28 Est GFR (MDRD) Af Amer 80 Est GFR (MDRD) Non-Af 67 BUN/Creatinine Ratio 12.6 Glucose 104 Calcium 9.2 Troponin I < 0.015 Urine Color Urine Clarity Urine pH Ur Specific [place] Urine Protein Urine Glucose (UA) Urine Ketones Urine Occult Blood Urine Nitrite Urine Bilirubin Urine Urobilinogen Ur Leukocyte Esterase Urine RBC Urine WBC Ur Squamous Epith Cells Urine Bacteria Urine Mucus 11/20/19 17:25 WBC RBC Hgb Hct MCV MCH MCHC RDW Std Deviation RDW Coeff of Casey Plt Count MPV Immature Gran % (Auto) Neut % (Auto) Lymph % (Auto) [place] % (Auto) Eos % (Auto) Baso % (Auto) Absolute Neuts (auto) Absolute Lymphs (auto) Nucleated RBC % Sodium Potassium Chloride Carbon Dioxide Anion Gap BUN Creatinine Estim Creat Clear Calc Est GFR (MDRD) Af Amer Est GFR (MDRD) Non-Af BUN/Creatinine Ratio Glucose Calcium Troponin I Urine Color Straw Urine Clarity Clear Urine pH 7.0 Ur Specific [place] 1.005 Urine Protein Negative Urine Glucose (UA) Normal Urine Ketones Negative Urine Occult Blood 10 H Urine Nitrite Negative Urine Bilirubin Negative Urine Urobilinogen Normal Ur Leukocyte Esterase 25 H Urine RBC 0 SEEN Urine WBC 0 SEEN Ur Squamous Epith Cells 0 SEEN Urine Bacteria 0 SEEN Urine Mucus 0 SEEN - EKG Initial EKG Interpretation: Sinus Rhythm - Sinus at 100 with no acute ischemia. Follow-up EKG Interpretation: Sinus Rhythm - Sinus 86. No acute ischemia. - Medical Decision Making Patient was given 10 mg of labetalol for blood pressure. Pressure came down to 170s from 200. Initial blood work unremarkable. EKG unremarkable. Nursing staff states she was then holding her chest stating that she had a weird sensation in her chest and felt like her anxiety was getting worse. She was not sure if her chest was hurting because of her blood pressure or her anxiety. She was given 0.5 mg of Ativan p.o. along with another 10 mg of nadolol. Blood pressures remaining in the low 180s at this time. Patient be given 0.1 mg of clonidine. She will go home and take her regular dose of blood pressure medicine tonight. She is to call her senior medical transcriptionist tomorrow to update her on the present blood pressure and the patient symptoms. Patient states she already has anxiety medicine at home and does not need anything for anxiety. ED Disposition - Plan for ED Patient: Disposition: Home or Assisted Living Diagnosis: Hypertension Instructions: 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, Established Referrals: Nanette Watts MD [Primary Care Provider] - Lily Perez NP-C [NON-STAFF] - As soon as possible
--- NOTE | 2019-11-20 17:12 | RAD_ITS ---
STUDY: X-RAY CHEST REASON FOR EXAM: Female, 49 years old. 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 TECHNIQUE: AP portable COMPARISON: October 24, 2019 FINDINGS: The lungs are clear and expanded. There is no demonstrated pleural abnormality. Normal size heart. Normal mediastinum and paul. Normal visualized pulmonary arteries. Normal visualized aortic arch and descending thoracic aorta. Normal visualized thoracic spine. Normal visualized ribs, clavicles, and shoulders. There is no demonstrated abnormality of the visualized soft tissue structures of the upper abdomen. No significant change since prior exam RAD/Chest 1 View (Portable) IMPRESSION: No acute cardiopulmonary pathology Electronically Signed: Ru Dawkins MD at 17:32 EDT , Service support ,
[2019-11-20 17:29] LABS: Absolute Lymphocyte Count 2.19 X10^3/uL (0.83-4.51); Absolute Neutrophil Count 5.2 X10^3/uL (2.0-7.7); Basophil# 0.03 X10^3/uL; Basophil% 0.4 % (0-1); Eosinophil# 0.19 X10^3/uL; Eosinophils% 2.4 % (0-5); Hematocrit 34.7 % (37-47); Hemoglobin 11.2 g/dL (12.0-15.0); Lymphocyte # 2.19 X10^3/ul (4.0); Lymphocyte % 27.4 % (19-41); Mean Corp Hgb Conc 32.3 g/dL (32-36); Mean Corpuscular Hgb 27.7 pg (27.0-32.0); Mean Corpuscular Volume 85.7 fL (81-99); Mean Platelet Vol. 10.8 fl (6.2-12.0); NRBC Flagged by Analyzer 0 % (0-5); Neutrophil # 5.15 X10^3/uL (2.7-7.7); Neutrophil % 64.4 % (47-70); Platelet Count 317 K/mm3 (150-450); RBC Distribution Width CV 13.4 % (11.6-14.6); RBC Distribution Width SD 42.1 fl (35.1-43.9); Red Blood Count 4.05 M/mm3 (4.2-5.4)
[2019-11-20 17:31] VITALS: BP 198/112; PULSE 114; RESP 14; O2SAT 91
[2019-11-20 17:44] VITALS: BP 187/98; PULSE 89; RESP 14; O2SAT 97
[2019-11-20 17:48] LABS: Anion Gap 7 (5-15); BUN 12 mg/dL (7-18); BUN/Creat Ratio 12.6 RATIO (10-20); Calcium,Total 9.2 mg/dL (8.5-10.1); Chloride 110 mmol/L (98-107); Creatinine, Serum 0.95 mg/dL (0.55-1.02); EST Glomerular Filtration Rate 67 mL/min (>60); Est Glom Filt Rate - Afr Amer 80 mL/min (>60); Estimated Creatinine Clearance 57.28 ml/min; Glucose 104 mg/dL (74-106); Potassium 3.4 mmol/L (3.5-5.1); Sodium Level 142 mmol/L (136-145)
[2019-11-20 18:20] LABS: Bacteria 0 SEEN /hpf (None Seen); Mucous, Urine 0 SEEN /hpf (<or=2+); Red Blood Cells-Urine 0 SEEN /hpf (0-5); Squamous Epithelial Cells - UA 0 SEEN /hpf (5-10); White Blood Cells 0 SEEN /hpf (0-5)
[2019-11-20 18:21] LABS: Color, Urine Straw (Yellow); Glucose, Dipstick Normal (Normal); Ketone-Dipstick Negative (Negative); Leukocyte Esterase-Dipstick 25 /ul (Negative); Nitrite-Dipstick Negative (Negative); Occult Blood-Urine 10 /ul (Negative); Protein-Dipstick Negative (Negative); Specific Gravity, Urine 1.005 (1.002-1.030); Urine Bilirubin Dipstick Negative (Negative); Urine Clarity Clear (Clear); Urine Urobilinogen Normal (Normal)
--- NOTE | 2019-11-20 18:54 | EKG12_ITS ---
Test Reason : 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 Blood Pressure : / mmHG Vent. Rate : 100 BPM Atrial Rate : 100 BPM P-R Int : 162 ms QRS Dur : 084 ms QT Int : 380 ms P-R-T Axes : 041 020 026 degrees QTc Int : 490 ms Normal sinus rhythm Prolonged QT Abnormal ECG Confirmed by ERNESTINA CRAIG, HERLINDA ([id number]), assignment desk editor ZAID ENRIQUEZ ([id number]) on 11/27/2019 11:11:59 AM Referred By: Confirmed By:HAIR DO MD
[2019-11-20] MEDS: LORazepam 0.5 MG Tablet PO (19:06)
[2019-11-20 19:09] VITALS: BP 177/88; PULSE 79; RESP 14; O2SAT 98
[2019-11-20 19:56] LABS: Bedside Glucose 150 mg/dL (70-110)
[2019-11-20 19:57] VITALS: BP 185/94; PULSE 74; RESP 16; O2SAT 95
[2019-11-20] MEDS: cloNIDine HCl 0.1 MG Tablet PO (20:07)
== END 2019-11-20 20:13 | disposition home or self-care (01) ==
PROVIDERS: Emergency Provider Emergency Medicine; PCP Internal Medicine
DX: I10 Essential (primary) hypertension (principal); F41.9 Anxiety disorder, unspecified; F32.9 Major depressive disorder, single episode, unspecified; K21.9 Gastro-esophageal reflux disease without esophagitis; M19.90 Unspecified osteoarthritis, unspecified site; E11.9 Type 2 diabetes mellitus without complications; R10.11 Right upper quadrant pain; Z79.84 Long term (current) use of oral hypoglycemic drugs; Z79.82 Long term (current) use of aspirin; Z79.899 Other long term (current) drug therapy; Z87.891 Personal history of nicotine dependence
CPT/HCPCS: 71045; 76705; 80048; 81001; 82962; 84484; 85025; 93005; 96374; 96376; 99285; A4216

== ENCOUNTER → 2020-01-24 09:40 | Outpatient (CLI) | payer MEDICAID, SELFPAY ==
[2020-01-03 15:44] VITALS: BMI 35.5
[2020-01-24 11:04] LABS: AST(SGOT) 20 U/L (15-37); Alanine Aminotransfer ALT/SGPT 33 U/L (13-56); Albumin, Serum 3.9 g/dL (3.2-5.0); Alkaline Phosphatase 74 U/L (45-117); Anion Gap 6 (5-15); BUN 16 mg/dL (7-18); BUN/Creat Ratio 18.9 RATIO (10-20); Calcium,Total 9.3 mg/dL (8.5-10.1); Chloride 102 mmol/L (98-107); Cholesterol 172 mg/dL (200); Creatinine, Serum 0.85 mg/dL (0.55-1.02); EST Glomerular Filtration Rate 76 mL/min (>60); Est Glom Filt Rate - Afr Amer 92 mL/min (>60); Globulin 3.9 g/dL (2.2-4.2); Glucose 169 mg/dL (74-106); High Density Lipoprotein 39 mg/dL; Potassium 4.3 mmol/L (3.5-5.1); Protein, Total 7.8 g/dL (6.4-8.2); Sodium Level 135 mmol/L (136-145); T4 Free Direct 1.11 ng/dL (0.76-1.46); Triglycerides 197 mg/dL; Very Low Density Lipoprotein 39 mg/dL (5-40)
== END ==
PROVIDERS: PCP Internal Medicine; Referring Provider Internal Medicine Endocrinology, Diabetes & Metabolism; Visit Provider Internal Medicine Endocrinology, Diabetes & Metabolism
DX: E11.65 Type 2 diabetes mellitus with hyperglycemia (principal)
CPT/HCPCS: 36415; 80053; 80061; 83036; 84439; 84443

== ENCOUNTER → 2020-01-31 09:39 | Outpatient (CLI) | payer MEDICAID, SELFPAY ==
[2020-01-03 15:44] VITALS: BMI 35.5
[2020-01-31 10:44] LABS: Anion Gap 7 (5-15); BUN 17 mg/dL (7-18); BUN/Creat Ratio 19.7 RATIO (10-20); Calcium,Total 9.2 mg/dL (8.5-10.1); Chloride 103 mmol/L (98-107); Creatinine, Serum 0.86 mg/dL (0.55-1.02); EST Glomerular Filtration Rate 74 mL/min (>60); Est Glom Filt Rate - Afr Amer 90 mL/min (>60); Glucose 193 mg/dL (74-106); Potassium 4.4 mmol/L (3.5-5.1); Sodium Level 135 mmol/L (136-145)
== END ==
PROVIDERS: PCP Internal Medicine; Referring Provider Nurse Practitioner Family; Visit Provider Nurse Practitioner Family
DX: I10 Essential (primary) hypertension (principal)
CPT/HCPCS: 36415; 80048

== ENCOUNTER → 2020-02-02 12:41 | Outpatient (CLI) | payer MEDICAID, SELFPAY ==
[2020-01-03 15:44] VITALS: BMI 35.5
--- NOTE | 2020-02-02 12:47 | CT_ITS ---
STUDY: CARDIAC CALCIUM SCORING - CT CHEST REASON FOR EXAM: Female, 49 years old. Chest pain. RADIATION DOSAGE (If Supplied By Facility): CTDIvol = ( 23.56 ) mGy, DLP = ( 1038.68 ) mGycm TECHNIQUE: Axial non-enhanced images were acquired through the heart for the sole purpose of measuring coronary artery calcium. Individualized dose optimization techniques were used for this CT. COMPARISON: Chest, November 20, 2019. FINDINGS: This portion of the report is being generated solely for the evaluation of noncoronary artery structures which have been assessed on plain another report. The visualized lungs are well expanded and free of infiltrate or mass. 2. Heart is normal in size. No pericardial abnormality. Normal visualized mediastinum and paul. Normal visualized pulmonary arteries. Normal visualized thoracic aorta. There are degenerative changes of the thoracic spine. Subcentimeter nonspecific right axillary lymphadenopathy Normal visualized abdomen. CT/Limited Chest CT w/CCTA IMPRESSION: No visualized anatomic abnormality other than degenerative changes of the thoracic spine. Electronically Signed: Chato Schrader DO at 16:09 EDT Tel [phone], Service support ,
[2020-02-02 13:34] VITALS: BP 144/88; PULSE 82; RESP 16; TEMP 37.1; O2SAT 99; BMI 33.6
[2020-02-02 13:46] VITALS: BP 157/103; PULSE 86
[2020-02-02] MEDS: Metoprolol Tartrate 5 MG/5 ML Vial IV ×3 (13:46→14:00)
[2020-02-02 13:53] VITALS: BP 178/87; PULSE 77
[2020-02-02 14:00] VITALS: BP 144/78; PULSE 76
[2020-02-02 14:18] VITALS: PULSE 82
[2020-02-02] MEDS: Nitroglycerin SL (ED/IMG/CATH) 0.4 MG TABLET SUBLINGUAL (14:18)
[2020-02-02 14:29] VITALS: BP 150/81; PULSE 76; RESP 16; O2SAT 97
--- NOTE | 2020-02-03 09:29 | CCTA.WCONT ---
CCTA w/Cont Coronary Arteries Date of Study:: 02/02/20 Chest pain, diabetes, hypertension, evaluation of coronary anatomy Consent:: Obtained Patient went CT-guided coronary calcification and CT-guided coronary angiography. The image quality was satisfactory, with no significant motion artifact and good opacification of the cardiac chambers and coronary arteries. There was some mild motion artifact evaluating the right coronary artery in its midportion however overall it appears to be normal. Pericardium appears to be grossly normal without evidence of significant fluid. LEFT MAIN CORONARY ARTERY: Normal [] LEFT ANTERIOR DESCENDING CORONARY ARTERY: Normal, no obstructive disease noted. Bifurcates into an LAD and left circumflex. [] LEFT CIRCUMFLEX CORONARY ARTERY: Normal, runs down the interventricular septum, no obstructive disease noted. Interpretation is somewhat difficult in the midportion of left circumflex due to difficult image acquisition. [] RIGHT CORONARY ARTERY: Normal with mid right coronary artery motion artifact [] THORACIC AORTA: [] PULMONARY ARTERY: [] LEFT ATRIUM/APPENDAGE: [] MITRAL VALVE: [] AORTIC VALVE: [] LEFT VENTRICLE: [] CORONARY CALCIUM SCORE: 0 []
== END ==
PROVIDERS: PCP Internal Medicine; Referring Provider Nurse Practitioner Family; Visit Provider Nurse Practitioner Family
DX: R07.9 Chest pain, unspecified (principal)
CPT/HCPCS: 75571; 75574; 76380; 96374; Q9967; A4216

== ENCOUNTER → 2020-02-15 12:55 | Outpatient (CLI) | payer MEDICAID, SELFPAY ==
[2020-02-02 13:34] VITALS: BMI 33.6
--- NOTE | 2020-02-15 13:02 | CT_ITS ---
STUDY: CT BRAIN WITHOUT CONTRAST REASON FOR EXAM: Female, 49 years old. HEADACHE- SLIGHT X WEEKS, NOW GOING AWAY RADIATION DOSAGE (If Supplied By Facility): CTDIvol = ( 44.99 ) mGy, DLP = ( 728.62 ) mGycm TECHNIQUE: Transaxial CT imaging of the brain was performed without administration of intravenous contrast material. Individualized dose optimization techniques were used for this CT. COMPARISON: No relevant priors. FINDINGS: Normal soft tissue structures. Normal calvarium. Normal size ventricles and extra-axial spaces for the patient''s age. Normal white matter tracts of the cerebral hemispheres. Normal basal ganglia and thalami. Normal brainstem. Normal cerebellum. There is no intracranial hemorrhage. There are no findings of an acute ischemic infarction. Normal visualized paranasal sinuses. CT/Brain/Head without Contrast IMPRESSION: Normal unenhanced CT scan of the brain. Electronically Signed: Matthias Rashid, at 13:33 EDT , Service support ,
== END ==
PROVIDERS: PCP Internal Medicine; Referring Provider Nurse Practitioner Family; Visit Provider Nurse Practitioner Family
DX: R51 Headache (principal)
CPT/HCPCS: 70450

== ENCOUNTER → 2020-04-22 | Outpatient (CLI) | payer MEDICAID, SELFPAY ==
[2020-02-02 13:34] VITALS: BMI 33.6
[2020-04-22 10:42] LABS: Vitamin D,25 Hydroxy 65.4 ng/mL
[2020-04-22 11:10] LABS: AST(SGOT) 75 U/L (15-37); Alanine Aminotransfer ALT/SGPT 83 U/L (13-56); Albumin, Serum 4.1 g/dL (3.2-5.0); Alkaline Phosphatase 85 U/L (45-117); Anion Gap 5 (5-15); BUN 16 mg/dL (7-18); BUN/Creat Ratio 18.3 RATIO (10-20); Calcium,Total 9.6 mg/dL (8.5-10.1); Chloride 106 mmol/L (98-107); Creatinine, Serum 0.87 mg/dL (0.55-1.02); EST Glomerular Filtration Rate 73 mL/min (>60); Est Glom Filt Rate - Afr Amer 89 mL/min (>60); Free T3 2.7 pg/mL (2.18-3.98); Glucose 135 mg/dL (74-106); Potassium 4.4 mmol/L (3.5-5.1); Protein, Total 8.1 g/dL (6.4-8.2); Sodium Level 138 mmol/L (136-145); Thyroid Stim Hormone (TSH) 2.13 uIU/mL (0.358-3.74)
[2020-04-22 11:32] LABS: Microalbumin,Random Urine 7.9 mg/L (NO RANGE EST.)
== END | disposition home or self-care (01) ==
LOC: LAB 09:31
PROVIDERS: PCP Internal Medicine; Referring Provider Internal Medicine Endocrinology, Diabetes & Metabolism; Visit Provider Internal Medicine Endocrinology, Diabetes & Metabolism
DX: E11.65 Type 2 diabetes mellitus with hyperglycemia (principal); E03.9 Hypothyroidism, unspecified; I10 Essential (primary) hypertension; E55.9 Vitamin D deficiency, unspecified; E04.1 Nontoxic single thyroid nodule
CPT/HCPCS: 36415; 80053; 82043; 82306; 83036; 84443; 84481

== ENCOUNTER → 2020-04-30 09:42 | Outpatient (CLI) | payer MEDICAID, SELFPAY ==
[2020-02-02 13:34] VITALS: BMI 33.6
--- NOTE | 2020-04-30 09:46 | VDLE_ITS ---
Reason For Study: Swelling Procedure LEFT Exam performed in department. GSV is normal. A preliminary report was called and/or faxed CFV is compressible, spontaneous, phasic, to Purnima. competent, and demonstrates normal augmentation. FV is compressible, spontaneous, phasic, competent and demonstrates normal augmentation. POP V is compressible, spontaneous, phasic, competent and demonstrates normal augmentation. T/P Trunk is compressible. PTV is compressible. LT PerV is compressible. Interpretation Summary Deep veins of the left lower extremity are patent and compressible segmentally. There is no evidence of left lower extremity deep vein thrombosis. Valvular competence appears intact within the proximal deep venous system on the left . The left great saphenous vein appears patent and compressible segmentally. Ordering Physician: Gilma Felton Referring Physician: Nanette Watts Performed By: Daniela Francois RVT and Student
== END ==
PROVIDERS: PCP Internal Medicine; Referring Provider Internal Medicine Endocrinology, Diabetes & Metabolism; Visit Provider Internal Medicine Endocrinology, Diabetes & Metabolism
DX: M79.89 Other specified soft tissue disorders (principal); M79.662 Pain in left lower leg
CPT/HCPCS: 93971

== ENCOUNTER → 2020-05-07 11:10 | Outpatient (CLI) | payer MEDICAID, SELFPAY ==
[2020-05-07 09:57] VITALS: BMI 35.3
--- NOTE | 2020-05-07 11:10 | RAD_ITS ---
STUDY: X-RAY - CERVICAL SPINE REASON FOR EXAM: Female, 50 years old. CHRONIC NECK PAIN, NO KNOWN INJURY TECHNIQUE: 5 view(s) of the cervical spine were obtained. COMPARISON: None FINDINGS: Normal anterior atlantoaxial articulation. Normal odontoid process. Straightening of the cervical lordosis. Normal vertebral bodies with minimal spurring at the endplates. Normal disc space heights. Normal visualized intervertebral neuroforamina. The soft tissue structures are unremarkable. RAD/Cerv Spine 4 or 5 Views IMPRESSION: Minimal degenerative changes of the visualized cervical spine. Electronically Signed: Juan Khan DO at 17:49 EDT Tel [phone], Service support ,
== END ==
PROVIDERS: PCP Internal Medicine; Referring Provider Nurse Practitioner Family; Visit Provider Nurse Practitioner Family
DX: M54.2 Cervicalgia (principal); G89.29 Other chronic pain
CPT/HCPCS: 72050

== ENCOUNTER → 2020-07-03 09:18 | Outpatient (CLI) | payer MEDICAID, SELFPAY ==
[2020-05-07 14:08] VITALS: BMI 33.6
--- NOTE | 2020-07-03 09:33 | RAD_ITS ---
EXAMINATION: UPPER GI SERIES INDICATION: Female, 50 years right lower quadrant pain and gastroesophageal reflux. FLUOROSCOPY TIME (if supplied): (1:00) minutes/seconds TECHNIQUE: Radiographic and fluoroscopic images of the distal esophagus, stomach, and proximal small intestine were obtained following the oral ingestion of barium. COMPARISON: None. FINDINGS: There is no evidence for organomegaly, abnormal calcifications, or abnormal bowel gas pattern. The psoas margins and flank stripes are normal. The visualized osseous structures are normal. The mucosa of the esophagus, stomach and duodenum is normal in appearance without evidence for stricture, ulceration, mass or diverticulum. There is no evidence for hiatal hernia or gastroesophageal reflux. RAD/Upper GI Single Contrast IMPRESSION: 1. Normal upper gastrointestinal study. Electronically Signed: Matthias Rashdi, at 15:47 EDT , Service support ,
== END ==
PROVIDERS: PCP Internal Medicine
DX: K21.9 Gastro-esophageal reflux disease without esophagitis (principal)
CPT/HCPCS: 74240

== ENCOUNTER → 2020-07-16 09:02 | Outpatient (CLI) | payer MEDICAID, SELFPAY ==
[2020-05-07 14:08] VITALS: BMI 33.6
[2020-07-16 10:52] LABS: Hemoglobin A1c 7.1 % (3.8-5.6)
[2020-07-16 10:53] LABS: AST(SGOT) 48 U/L (15-37); Alanine Aminotransfer ALT/SGPT 66 U/L (13-56); Albumin, Serum 4.1 g/dL (3.2-5.0); Alkaline Phosphatase 87 U/L (45-117); Anion Gap 7 (5-15); BUN 16 mg/dL (7-18); BUN/Creat Ratio 17.7 RATIO (10-20); Calcium,Total 9.2 mg/dL (8.5-10.1); Chloride 103 mmol/L (98-107); Cholesterol 182 mg/dL (200); Creatinine, Serum 0.91 mg/dL (0.55-1.02); EST Glomerular Filtration Rate 70 mL/min (>60); Est Glom Filt Rate - Afr Amer 85 mL/min (>60); Free T3 2.7 pg/mL (2.18-3.98); Globulin 4.1 g/dL (2.2-4.2); Glucose 101 mg/dL (74-106); High Density Lipoprotein 39 mg/dL; Potassium 3.9 mmol/L (3.5-5.1); Protein, Total 8.2 g/dL (6.4-8.2); Sodium Level 138 mmol/L (136-145); T4 Free Direct 1.14 ng/dL (0.76-1.46); Thyroid Stim Hormone (TSH) 1.45 uIU/mL (0.358-3.74); Triglycerides 202 mg/dL; Very Low Density Lipoprotein 40 mg/dL (5-40)
== END ==
PROVIDERS: PCP Internal Medicine; Referring Provider Internal Medicine Endocrinology, Diabetes & Metabolism; Visit Provider Internal Medicine Endocrinology, Diabetes & Metabolism
DX: E11.65 Type 2 diabetes mellitus with hyperglycemia (principal); E03.9 Hypothyroidism, unspecified; E04.1 Nontoxic single thyroid nodule; I10 Essential (primary) hypertension; E55.9 Vitamin D deficiency, unspecified
CPT/HCPCS: 36415; 80053; 80061; 83036; 84439; 84443; 84481

== ENCOUNTER → 2020-09-03 | Outpatient (CLI) | payer MEDICAID, SELFPAY ==
[2020-08-16 13:35] VITALS: BMI 35.4
[2020-09-07 10:00] LABS: HPV Reflexed? NOT INDICATED
== END | disposition home or self-care (01) ==
LOC: LABSPEC 11:44
PROVIDERS: PCP Internal Medicine; Visit Provider Student in an Organized Health Care Education/Training Program
DX: Z12.4 Encounter for screening for malignant neoplasm of cervix (principal)
CPT/HCPCS: 88175; G0145

== ENCOUNTER → 2020-10-08 11:57 | Outpatient (CLI) | payer MEDICAID, SELFPAY ==
[2020-08-16 13:35] VITALS: BMI 35.4
--- NOTE | 2020-10-08 12:00 | EKG12_ITS ---
Test Reason : ABD PAIN Blood Pressure : / mmHG Vent. Rate : 093 BPM Atrial Rate : 093 BPM P-R Int : 130 ms QRS Dur : 080 ms QT Int : 354 ms P-R-T Axes : 043 022 028 degrees QTc Int : 440 ms Normal sinus rhythm Normal ECG Confirmed by GEN CRAIG, FRITZ ([id number]), newspaper editor ZAID ENRIQUEZ ([id number]) on 10/09/2020 9:15:00 AM Referred By: EVENS PANTOJA Confirmed By:FRITZ BLEVINS MD
== END ==
PROVIDERS: PCP Internal Medicine
DX: M19.90 Unspecified osteoarthritis, unspecified site (principal)
CPT/HCPCS: 93005

== ENCOUNTER → 2020-10-09 09:14 | Outpatient (CLI) | payer MEDICAID, SELFPAY ==
[2020-08-16 13:35] VITALS: BMI 35.4
[2020-10-09 10:49] LABS: Erythrocyte Sedimentation Rate 21 mm/hr (0-30)
[2020-10-09 11:17] LABS: CRP 5.16 mg/L (0.0-3.0); Rheumatoid Factor < 10.0 IU/mL (<15)
[2020-10-11 03:07] LABS: HEPATITIS B SURFACE AG Negative (Negative); Hepatitis A AB, Total Negative (Negative); Hepatitis A IgM Antibody Negative (Negative); Hepatitis B Core AB IgM Negative (Negative); Hepatitis B Core Ab Total Negative (Negative); Hepatitis C Ab <0.1 s/co ratio (0.0-0.9)
[2020-10-11 12:28] LABS: CCP IgG Antibodies 5 units (0-19); Hep B Surface Antibodies Non Reactive (.)
[2020-10-11 20:24] LABS: Anti-Nuclear Antibody Test Negative (.)
== END ==
PROVIDERS: PCP Internal Medicine
DX: M19.90 Unspecified osteoarthritis, unspecified site (principal)
CPT/HCPCS: 36415; 85652; 86038; 86140; 86200; 86431; 86704; 86705; 86706; 86708; 86709; 86803; 87340

== ENCOUNTER → 2020-10-15 09:25 | Outpatient (CLI) | payer MEDICAID, SELFPAY ==
[2020-08-16 13:35] VITALS: BMI 35.4
--- NOTE | 2020-10-15 09:28 | BI_ITS ---
MAMMOGRAPHY - BILATERAL SCREENING REASON FOR EXAM: Female, 50 years old. Routine annual screening examination. PERTINENT HISTORY: Mother with breast cancer. TECHNIQUE: Digital bilateral breast aaron (3D mammographic acquisition) in the CC and MLO projections. 2-D mediolateral oblique (MLO) and craniocaudad (CC) views of both breasts were obtained. CAD: Full Field Digital Mammography with Computer Added Detection was performed. COMPARISON: Comparison is made with prior examination dated 10/13/2019 and 10/11/2018. FINDINGS: Breast Composition: There are scattered areas of fibroglandular density. There are no dominant masses or suspicious calcifications. Stable 7 mm well-defined nodule in the upper outer quadrant of the left breast. Prior ultrasound demonstrated this nodule to be a small lymph node. Stable benign-appearing bilateral axillary lymph nodes. No other significant abnormalities are identified. There has been no significant change since the prior study. BI/SCRN MAMM (CAD)W/AARON BILAT IMPRESSION: Stable bilateral screening mammogram. Yearly follow-up mammogram recommended. (A) ASSESSMENT CATEGORY: BIRADS Category 2: Benign. A letter regarding these results will be sent to the patient by the facility within 30 days. Approximately 10% of breast cancers are not detected by mammography. A normal mammogram should not delay biopsy of a clinically suspicious abnormality. [id number] Electronically Signed: Matthias Rashid MD at 10:36 EST , Service support ,
== END ==
PROVIDERS: PCP Internal Medicine; Referring Provider Student in an Organized Health Care Education/Training Program; Visit Provider Student in an Organized Health Care Education/Training Program
DX: Z12.31 Encounter for screening mammogram for malignant neoplasm of breast (principal); Z80.3 Family history of malignant neoplasm of breast
CPT/HCPCS: 77063; 77067

== ENCOUNTER → 2020-10-24 09:17 | Outpatient (CLI) | payer MEDICAID, SELFPAY ==
[2020-08-16 13:35] VITALS: BMI 35.4
[2020-10-24 10:21] LABS: Hemoglobin A1c 7.4 % (3.8-5.6)
[2020-10-24 11:04] LABS: AST(SGOT) 30 U/L (15-37); Alanine Aminotransfer ALT/SGPT 37 U/L (13-56); Albumin, Serum 4.1 g/dL (3.2-5.0); Alkaline Phosphatase 95 U/L (45-117); Anion Gap 8 (5-15); BUN 15 mg/dL (7-18); Calcium,Total 9.4 mg/dL (8.5-10.1); Chloride 104 mmol/L (98-107); Creatinine, Serum 0.94 mg/dL (0.55-1.02); EST Glomerular Filtration Rate 67 mL/min (>60); Est Glom Filt Rate - Afr Amer 82 mL/min (>60); Globulin 4.2 g/dL (2.2-4.2); Glucose 127 mg/dL (74-106); Microalbumin,Random Urine 15.6 mg/L (NO RANGE EST.); Potassium 4.2 mmol/L (3.5-5.1); Protein, Total 8.3 g/dL (6.4-8.2); Sodium Level 137 mmol/L (136-145); T4 Free Direct 1.13 ng/dL (0.76-1.46); Thyroid Stim Hormone (TSH) 2.85 uIU/mL (0.358-3.74)
== END ==
PROVIDERS: PCP Internal Medicine; Referring Provider Internal Medicine Endocrinology, Diabetes & Metabolism; Visit Provider Internal Medicine Endocrinology, Diabetes & Metabolism
DX: I10 Essential (primary) hypertension (principal); E11.65 Type 2 diabetes mellitus with hyperglycemia; E03.9 Hypothyroidism, unspecified; E04.1 Nontoxic single thyroid nodule; E55.9 Vitamin D deficiency, unspecified
CPT/HCPCS: 36415; 80053; 82043; 82570; 83036; 84439; 84443

== ENCOUNTER → 2020-10-28 09:50 | Outpatient (CLI) | payer MEDICAID, SELFPAY ==
[2020-05-07 14:08] VITALS: BMI 33.6
[2020-08-16 13:35] VITALS: BMI 35.4
== END ==
PROVIDERS: PCP Internal Medicine
DX: R69 Illness, unspecified (principal)

== ENCOUNTER → 2020-12-27 08:58 | Outpatient (CLI) | payer MEDICAID, SELFPAY ==
[2020-08-16 13:35] VITALS: BMI 35.4
[2020-12-29 08:05] LABS: Deamidated Gliadin IgA 4 units (0-19); Deamidated Gliadin IgG 2 units (0-19); Immunoglobulin A 185 mg/dL (87-352); t-Transglutaminase IgA <2 U/mL (0-3)
== END ==
PROVIDERS: PCP Internal Medicine; Referring Provider Internal Medicine Endocrinology, Diabetes & Metabolism; Visit Provider Internal Medicine Endocrinology, Diabetes & Metabolism
DX: E11.65 Type 2 diabetes mellitus with hyperglycemia (principal); I10 Essential (primary) hypertension; E03.9 Hypothyroidism, unspecified; E04.1 Nontoxic single thyroid nodule; E55.9 Vitamin D deficiency, unspecified
CPT/HCPCS: 36415; 82784; 83516

== ENCOUNTER → 2020-12-30 10:07 | Outpatient (CLI) | payer MEDICAID, SELFPAY ==
[2020-08-16 13:35] VITALS: BMI 35.4
--- NOTE | 2020-12-30 10:10 | NM_ITS ---
CLINICAL: 50-year-old diabetic female with reported history of abdominal pain. SEMI-SOLID PHASE 99m Tc SULFUR COLLOID GASTRIC EMPTYING STUDY COMPARISON: Upper gastrointestinal series report 07/03/2020 FINDINGS: The patient was administered 1.1 mCi of 99m Tc sulfur colloid mixed with oatmeal and consumed per os. Image acquisitions in the anterior-posterior projections for a total of 60 minutes. There is prompt visualization of the stomach. There is no gastroesophageal reflux identified. The T ? linear fit was calculated to be 39.86 minutes, (Normal: 12-56 minutes). NM/Gastric Emptying Study IMPRESSION: 1. NORMAL 99m Tc sulfur colloid semi-solid phase (oatmeal) gastric emptying imaging examination. A. There is normal and preserved semi-solid phase gastric emptying compared to normal controls. (Yamile et al, J Nucl Med Tech 38: 186, 2010). Electronically Signed: Mello Gonzales DO at 13:42 EDT Tel , Service support ,
== END ==
PROVIDERS: PCP Internal Medicine; Referring Provider Internal Medicine Endocrinology, Diabetes & Metabolism; Visit Provider Internal Medicine Endocrinology, Diabetes & Metabolism
DX: R10.9 Unspecified abdominal pain (principal); E11.65 Type 2 diabetes mellitus with hyperglycemia
CPT/HCPCS: 78264; A9541

== ENCOUNTER 2021-03-13 13:03 | Emergency (ER) | payer MEDICAID, SELFPAY ==
[2021-02-27 12:15] VITALS: BMI 34.2
[2021-03-13 13:04] VITALS: BP 162/89; PULSE 115; RESP 16; TEMP 36.8; O2SAT 97; BMI 33.3
--- NOTE | 2021-03-13 13:28 | EKG12_ITS ---
Test Reason : CP Blood Pressure : / mmHG Vent. Rate : 105 BPM Atrial Rate : 105 BPM P-R Int : 120 ms QRS Dur : 076 ms QT Int : 348 ms P-R-T Axes : 047 045 036 degrees QTc Int : 459 ms Sinus tachycardia Otherwise normal ECG No previous ECGs available Confirmed by LEONEL CRAIG, KRISTINA ([id number]), research editor SILAS SANDOVAL ([id number]) on 03/21/2021 9:42:21 AM Referred By: MINERVA/RACHELE Confirmed By:KRISTINA CASTANEDA MD
--- NOTE | 2021-03-13 13:44 | RAD_ITS ---
STUDY: X-RAY CHEST REASON FOR EXAM: Female, 50 years old. Chest pain TECHNIQUE: Single frontal view of the chest. COMPARISON: 11/20/2019 FINDINGS: There is no new focal consolidation. Normal size heart. Normal mediastinum and paul. Normal visualized pulmonary arteries. Normal visualized aortic arch and descending thoracic aorta. Normal visualized thoracic spine. Normal visualized ribs, clavicles, and shoulders. There is no demonstrated abnormality of the visualized soft tissue structures of the upper abdomen. RAD/Chest 1 View (Portable) IMPRESSION: No acute cardiopulmonary process. Electronically Signed: Christie Ferrera MD at 14:17 EDT Tel , Service support ,
[2021-03-13 13:54] LABS: Absolute Neutrophil Count 4.7 X10^3/uL (2.0-7.7); Basophil# 0.03 X10^3/uL; Basophil% 0.4 % (0-1); Eosinophil# 0.17 X10^3/uL; Eosinophils% 2.4 % (0-5); Hemoglobin 11.3 g/dL (12.0-15.0); Lymphocyte % 24.2 % (19-41); Mean Corp Hgb Conc 31.4 g/dL (32-36); Mean Corpuscular Hgb 24.5 pg (27.0-32.0); Mean Corpuscular Volume 77.9 fL (81-99); Mean Platelet Vol. 10.8 fl (6.2-12.0); Monocyte# 0.41 X10^3/uL; Monocyte% 5.8 % (0-10); NRBC Flagged by Analyzer 0 % (0-5); Neutrophil # 4.65 X10^3/uL (2.7-7.7); Neutrophil % 66.3 % (47-70); Platelet Count 329 K/mm3 (150-450); RBC Distribution Width CV 16.1 % (11.6-14.6); RBC Distribution Width SD 45.5 fl (35.1-43.9); Red Blood Count 4.62 M/mm3 (4.2-5.4)
[2021-03-13 14:03] VITALS: BP 157/87; PULSE 96; RESP 12; O2SAT 99
[2021-03-13 14:03] LABS: D-Dimer Quantitative (DVT/PE) <= 0.27 FEU/ug/m (0.27-0.49)
[2021-03-13 14:08] LABS: ALB/GLOB Ratio 1.1 RATIO (0.9-2.4); AST(SGOT) 37 U/L (15-37); Alanine Aminotransfer ALT/SGPT 54 U/L (13-56); Albumin, Serum 4.5 g/dL (3.2-5.0); Alkaline Phosphatase 88 U/L (45-117); Anion Gap 8 (5-15); BUN 13 mg/dL (7-18); BUN/Creat Ratio 11.8 RATIO (10-20); Calcium,Total 9.8 mg/dL (8.5-10.1); Chloride 100 mmol/L (98-107); EST Glomerular Filtration Rate 56 mL/min (>60); Est Glom Filt Rate - Afr Amer 68 mL/min (>60); Estimated Creatinine Clearance 48.93 ml/min; Glucose 146 mg/dL (74-106); Potassium 4.1 mmol/L (3.5-5.1); Protein, Total 8.5 g/dL (6.4-8.2); Sodium Level 137 mmol/L (136-145); Troponin-I HS 3.2 pg/mL (3.0-53.7)
--- NOTE | 2021-03-13 14:10 | ED.VIS.CHEST ---
HPI History of Present Illness Chief Complaint: Chest Pain Informant: patient Narrative Narrative: Patient is a 50-year-old female with a past medical history of GERD, hypertension, diabetes, anxiety who presents to the emergency department for chest pain. She states that she does get the symptoms on and off. It flared up starting yesterday. It did go into her left shoulder. She is not sure if this is just her anxiety. She has no history of CAD, DVT/PE. She has a former smoking history. On arrival to the ED she feels like her symptoms are starting to improve. She did take her GERD medications which did not give her relief at home which made her more concerned. She denies any leg swelling or calf pain. No abdominal pain or vomiting. She does have baseline nausea which is no worse than normal. She has any change in bowel movements or urination. No recent prolonged periods of immobility or surgery. [facility] Medical History (Updated 03/13/21 @ 14:[address] Sai Shepherd, DO) Diabetes Fatty liver Gallbladder sludge Heart murmur History of migraine headaches Hypertension Thyroid nodule Home Medications aspirin 81 mg PO DAILY 11/17/18 [History Last Taken Unknown] ergocalciferol (vitamin D2) 50,000 mg PO QWEEK 11/17/18 [History Last Taken Unknown] lisinopril 30 mg PO DAILY 11/17/18 [History Last Taken Unknown] levothyroxine 75 mcg tablet 88 mcg PO DAILY tab 10/04/19 [History Last Taken Unknown] mv,with [id number] 1 ea PO DAILY 02/02/20 [History Last Taken Unknown] hydroxychloroquine 200 mg tablet 200 mg PO DAILY 08/19/20 [History Last Taken Unknown] metformin 500 mg tablet 500 mg PO BID tab 08/19/20 [History Last Taken Unknown] omeprazole 40 mg capsule,delayed release 40 mg PO DAILY #90 cap 09/10/20 [Rx Last Taken Unknown] diclofenac sodium 1 % topical gel 2 g TOPICAL ONCE #100 g 01/29/21 [Rx Last Taken Unknown] dulaglutide 1.5 mg/0.5 mL subcutaneous pen injector 1.5 mg SUBCUT QWEEK 01/29/21 [History Last Taken Unknown] hydroxyzine pamoate 25 mg capsule 25 mg PO TID PRN PRN #30 cap 02/27/21 [Rx Last Taken Unknown] tizanidine 2 mg tablet 2 mg PO TID PRN #90 tab 02/27/21 [Rx Last Taken Unknown] sucralfate [Carafate] 1 g PO BID #20 tab 03/13/21 [Rx Last Taken Unknown] Allergy/AdvReac Type Severity Reaction Status Date / Time No Known Allergies Allergy Verified 03/13/21 13:05 Family History Brother Lung cancer Seizures Mother Diabetes Breast cancer Father Seizures Dementia Other Fatty liver disease, nonalcoholic Gallbladder sludge Social History Smoking Status: Former smoker Tobacco: How many years used: 20 alcohol intake: current alcohol intake frequency: holidays/special occasions only substance use type: does not use what type of physical activity do you participate in: walking frequency: other ROS ROS ED Constitutional Constitutional ED: Denies chills or fever(s) Eyes Eyes: Denies change in vision ENT ENT ED: Denies epistaxis or rhinorrhea Cardiovascular Cardiovascular: Reports chest pain; Denies palpitations Respiratory/Chest Respiratory/Chest: Denies cough, dyspnea or dyspnea on exertion Gastrointestinal Gastrointestinal: Denies abdominal pain, diarrhea, nausea or vomiting Genitourinary Genitourinary ED: Denies dysuria, hematuria or urinary frequency Musculoskeletal Musculoskeletal: Denies back pain or neck pain Integumentary Denies rash Neurologic Neurologic: Denies dizziness, headache(s) or weakness EXAM Physical Exam Const Vital Signs: 03/13/21 13:04 03/13/21 13:20 03/13/21 14:03 Temperature 98.2 F Temperature Source Temporal Pulse Rate 115 H 96 Respiratory Rate 16 12 Respiratory Effort Normal Non-Labored Blood Pressure 162/89 H 157/87 H Blood Pressure Mean 113 110 Pulse Ox 97 99 Oxygen Delivery Method Room Air Room Air 03/13/21 15:01 Temperature Temperature Source Pulse Rate 95 Respiratory Rate 16 Respiratory Effort Blood Pressure 146/92 H Blood Pressure Mean Pulse Ox 99 Oxygen Delivery Method Positive well nourished and well developed General Appearance ED: well developed and NAD HEENT Reports normocephalic and head/scalp atraumatic Eyes PERRL and EOMs intact bilaterally Neck supple Chest Wall inspection of chest normal Resp normal respiratory effort and clear to auscultation bilaterally Auscultation: Negative for rales, rhonchi or wheezes Cardio regular rate, regular rhythm and no murmurs GI normal to inspection, nondistended, normoactive bowel sounds and non-tender Palpation: soft; Negative for guarding or rebound tenderness present Extremity normal to inspection General Extremety ED: Negative for edema or tenderness General Extremity: Negative for edema Neuro CN's II-XII intact bilaterally and no sensory deficits noted Sensorium / Orientation: alert Motor Exam: strength 5/5 throughout Psych mental status grossly normal Skin no rashes or lesions noted Heart Score History: Slightly/Non-Suspicious ECG: Normal Age: >45 - <65 years Risk Factors: >/= 3 Risk Factors or History of CAD Troponin: </= Normal Limit Score: 3 MDM MDM MDM Narrative Medical decision making narrative: Patient presents to the emergency department for chest pain which is resolving at this time. On arrival her heart rate is in the 150s but states she feels very anxious. She is hypertensive but she states it is always high whenever she comes to the emergency department. She is satting well on room air. In no acute distress. Will do cardiac work-up including EKG, chest x-ray and basic lab work. CBC did not reveal her to be significantly anemic. No electrolyte disturbance. Chest x-ray did not reveal acute cardiopulmonary abnormality. She is a low heart score. Low concern for DVT/PE or aortic catastrophe. She is still requesting something for pain so she is given a GI cocktail which she states has helped her before in the past. We will write her a prescription for Carafate to continue with her other medications. She is to follow-up with her PCP. Return precautions are reviewed. Lab Data Labs: Laboratory Results - last 24 hr 03/13/21 03/13/21 03/13/21 13:18 13:18 13:18 WBC 7.0 RBC 4.62 Hgb 11.3 L Hct 36.0 L MCV 77.9 L MCH 24.5 L MCHC 31.4 L RDW Std Deviation 45.5 H RDW Coeff of Casey 16.1 H Plt Count 329 MPV 10.8 Immature Gran % (Auto) 0.900 Neut % (Auto) 66.3 Lymph % (Auto) 24.2 [place] % (Auto) 5.8 Eos % (Auto) 2.4 Baso % (Auto) 0.4 Absolute Neuts (auto) 4.7 Absolute Lymphs (auto) 1.70 Nucleated RBC % 0 D-Dimer Quant (PE/DVT) <= 0.27 Sodium 137 Potassium 4.1 Chloride 100 Carbon Dioxide 29.0 Anion Gap 8 BUN 13 Creatinine 1.10 H Estim Creat Clear Calc 48.93 Est GFR (MDRD) Af Amer 68 Est GFR (MDRD) Non-Af 56 L BUN/Creatinine Ratio 11.8 Glucose 146 H Calcium 9.8 Total Bilirubin 0.40 AST 37 ALT 54 Alkaline Phosphatase 88 Troponin I High Sens 3.2 Total Protein 8.5 H Albumin 4.5 Globulin 4.0 Albumin/Globulin Ratio 1.1 Radiography Diagnostic Testing: Radiology Impression Chest X-Ray 03/13/21 13:44 IMPRESSION: No acute cardiopulmonary process. Electronically Signed: Christie Ferrera MD at 14:17 EDT Tel , Service support , EKG Initial EKG: Attestation: I personally reviewed and interpreted this EKG as follows: (Rate of 105 bpm in sinus tachycardia. Normal intervals. Normal axis. No significant ST elevations or depressions. No T wave abnormalities.) Discharge Plan Triage Chief Complaint: Chest Pain ED Provider: Sai Shepherd Dx/Rx/DC Orders Clinical Impression: Chest pain Instructions: ED Chest Pain, Noncardiac Prescriptions: New sucralfate [Carafate] 1 gram tablet 1 g PO BID Qty: 20 RF: 0 No Action hydroxychloroquine [Plaquenil] 200 mg tablet 200 mg PO DAILY RF: 0 Trulicity 1.5 mg/0.5 mL pen injector 1.5 mg subcut QWEEK RF: 0 diclofenac sodium [Voltaren] 1 % gel 2 g topical ONCE Qty: 100 RF: 0 hydroxyzine pamoate 25 mg capsule 25 mg PO TID PRN PRN (Reason: Anxiety) Qty: 30 RF: 1 tizanidine 2 mg tablet 2 mg PO TID PRN (Reason: muscle spasticity) Qty: 90 RF: 0 aspirin 81 MG tablet,delayed release (DR/EC) 81 mg PO DAILY RF: 0 lisinopril 30 tablet 30 mg PO DAILY RF: 0 ergocalciferol (vitamin D2) 50,000 capsule 50,000 mg PO QWEEK RF: 0 levothyroxine 75 mcg tablet 88 mcg PO DAILY RF: 0 metformin 500 mg tablet 500 mg PO BID RF: 0 mv,with [id number] 1 EACH tablet 1 ea PO DAILY RF: 0 omeprazole 40 mg capsule,delayed release(DR/EC) 40 mg PO DAILY Qty: 90 RF: 2 Primary Care Provider: Nanette Watts Referrals: Nanette Watts MD [Primary Care Provider] - 3-5 Days Disposition Disposition: Home, Self Care Discharge Date/Time: 03/13/21 15:09
[2021-03-13 15:01] VITALS: BP 146/92; PULSE 95; RESP 16; O2SAT 99
[2021-03-13] MEDS: Mag Hydrox/Al Hydrox/Simeth 30 ML UDC PO (15:05)
== END 2021-03-13 15:09 | disposition home or self-care (01) ==
PROVIDERS: Emergency Provider Emergency Medicine; PCP Internal Medicine
DX: R07.9 Chest pain, unspecified (principal); I25.10 Atherosclerotic heart disease of native coronary artery without angina pectoris; Z87.891 Personal history of nicotine dependence
CPT/HCPCS: 71045; 80053; 84484; 85025; 85379; 93005; 99284

== ENCOUNTER → 2021-04-01 09:43 | Outpatient (CLI) | payer MEDICAID, SELFPAY ==
[2021-03-13 13:04] VITALS: BMI 33.3
[2021-04-01 11:54] LABS: Hemoglobin A1c 7.5 % (3.8-5.6)
[2021-04-01 12:03] LABS: Vitamin D,25 Hydroxy 86.9 ng/mL
[2021-04-01 12:12] LABS: ALB/GLOB Ratio 1.1 RATIO (0.9-2.4); AST(SGOT) 34 U/L (15-37); Alanine Aminotransfer ALT/SGPT 56 U/L (13-56); Albumin, Serum 4.2 g/dL (3.2-5.0); Alkaline Phosphatase 78 U/L (45-117); Anion Gap 6 (5-15); BUN 17 mg/dL (7-18); BUN/Creat Ratio 17.8 RATIO (10-20); Chloride 104 mmol/L (98-107); Cholesterol 165 mg/dL (200); Creatinine, Serum 0.95 mg/dL (0.55-1.02); EST Glomerular Filtration Rate 66 mL/min (>60); Est Glom Filt Rate - Afr Amer 80 mL/min (>60); Globulin 3.7 g/dL (2.2-4.2); Glucose 160 mg/dL (74-106); High Density Lipoprotein 36 mg/dL; Potassium 5.1 mmol/L (3.5-5.1); Protein, Total 7.9 g/dL (6.4-8.2); Sodium Level 137 mmol/L (136-145); T4 Free Direct 1.18 ng/dL (0.76-1.46); Thyroid Stim Hormone (TSH) 1.05 uIU/mL (0.358-3.74); Triglycerides 205 mg/dL; Very Low Density Lipoprotein 41 mg/dL (5-40)
== END ==
PROVIDERS: PCP Internal Medicine; Referring Provider Internal Medicine Endocrinology, Diabetes & Metabolism; Visit Provider Internal Medicine Endocrinology, Diabetes & Metabolism
DX: E11.65 Type 2 diabetes mellitus with hyperglycemia (principal); E03.9 Hypothyroidism, unspecified; I10 Essential (primary) hypertension; E55.9 Vitamin D deficiency, unspecified; R10.9 Unspecified abdominal pain
CPT/HCPCS: 36415; 80053; 80061; 82306; 83036; 84439; 84443

== ENCOUNTER 2021-05-06 14:17 | Emergency (ER) | payer MEDICAID, SELFPAY ==
[2021-05-06 14:18] VITALS: BP 193/105; PULSE 112; RESP 18; O2SAT 100
[2021-05-06 14:19] VITALS: BP 193/105; PULSE 113; RESP 18; TEMP 36.4; O2SAT 100; BMI 36.4
--- NOTE | 2021-05-06 14:35 | EKG12_ITS ---
Test Reason : PALP Blood Pressure : / mmHG Vent. Rate : 118 BPM Atrial Rate : 118 BPM P-R Int : 132 ms QRS Dur : 080 ms QT Int : 330 ms P-R-T Axes : 046 042 017 degrees QTc Int : 462 ms Sinus tachycardia with Premature supraventricular complexes Low voltage QRS (Precordial Leads) Borderline ECG Confirmed by GEN CRAIG, FRITZ ([id number]), story editor SILAS SANDOVAL ([id number]) on 05/07/2021 9:59:09 AM Referred By: Confirmed By:FRITZ BLEVINS MD
--- NOTE | 2021-05-06 14:45 | RAD_ITS ---
HISTORY: palpitations EXAMINATION/TECHNIQUE: XR Chest 1 View: Portable upright AP chest x-ray COMPARISON: 03/13/21 FINDINGS: LINES/DEVICES: None. LUNGS: No consolidation, edema or effusion. No pneumothorax. MEDIASTINUM AND CARDIOVASCULAR STRUCTURES: Cardiac silhouette not enlarged. Central airways and mediastinal contour are unremarkable. BONES AND SOFT TISSUES: No acute bony abnormalities. RAD/Chest 1 View (Portable) IMPRESSION: No radiographic evidence of acute cardiopulmonary disease. at 1511 Reported and signed by: Doug Brunson MD Electronically Signed: Doug Brunson MD at 15:08 EDT Tel , Service support ,
[2021-05-06 14:49] LABS: Absolute Neutrophil Count 4.7 X10^3/uL (2.0-7.7); Basophil# 0.03 X10^3/uL; Basophil% 0.4 % (0-1); Eosinophil# 0.08 X10^3/uL; Eosinophils% 1.2 % (0-5); Hematocrit 35.8 % (37-47); Hemoglobin 11.4 g/dL (12.0-15.0); Lymphocyte % 23.3 % (19-41); Mean Corp Hgb Conc 31.8 g/dL (32-36); Mean Corpuscular Hgb 25.3 pg (27.0-32.0); Mean Corpuscular Volume 79.6 fL (81-99); Mean Platelet Vol. 10.5 fl (6.2-12.0); Monocyte# 0.43 X10^3/uL; Monocyte% 6.3 % (0-10); NRBC Flagged by Analyzer 0 % (0-5); Neutrophil # 4.69 X10^3/uL (2.7-7.7); Neutrophil % 68.1 % (47-70); Platelet Count 371 K/mm3 (150-450); RBC Distribution Width CV 14.2 % (11.6-14.6); RBC Distribution Width SD 40.8 fl (35.1-43.9); White Blood Count 6.9 K/mm3 (4.4-11.0)
--- NOTE | 2021-05-06 15:03 | EDS_ITS ---
HPI History of Present Illness Chief Complaint: Palpitations Narrative Narrative: 51-year-old female presenting for evaluation of palpitations. She states that started a couple of days ago did not have been intermittent. Patient states that today she had more of a sensation of this. Patient states she called her sole filler who stated that she could see her in office next week and possibly do a Holter monitor however the patient felt she need to be evaluated. She is not having chest pain or shortness of breath. Intermittently she feels lightheaded and when she is having palpitations. Patient denies cough, fever, chills. She states he does not normally have electrolyte abno rmalities. She does state that sometimes when she is having palpitations she drinks more fluids and her symptoms go away and she is unsure if she dehydrated. [facility] Medical History Diabetes Fatty liver Gallbladder sludge Heart murmur History of migraine headaches Hypertension Thyroid nodule Home Medications aspirin 81 mg PO DAILY 11/17/18 [History Last Taken Unknown] ergocalciferol (vitamin D2) 50,000 mg PO QWEEK 11/17/18 [History Last Taken Unknown] lisinopril 30 mg PO DAILY 11/17/18 [History Last Taken Unknown] levothyroxine 75 mcg tablet 88 mcg PO DAILY tab 10/04/19 [History Last Taken Unknown] mv,with [id number] 1 ea PO DAILY 02/02/20 [History Last Taken Unknown] hydroxychloroquine 200 mg tablet 200 mg PO DAILY 08/19/20 [History Last Taken Unknown] metformin 500 mg tablet 500 mg PO BID tab 08/19/20 [History Last Taken Unknown] omeprazole 40 mg capsule,delayed release 40 mg PO DAILY #90 cap 09/10/20 [Rx Last Taken Unknown] diclofenac sodium 1 % topical gel 2 g TOPICAL ONCE #100 g 01/29/21 [Rx Last Taken Unknown] dulaglutide 1.5 mg/0.5 mL subcutaneous pen injector 1.5 mg SUBCUT QWEEK 01/29/21 [History Last Taken Unknown] hydroxyzine pamoate 25 mg capsule 25 mg PO TID PRN PRN #30 cap 02/27/21 [Rx Last Taken Unknown] tizanidine 2 mg tablet 2 mg PO TID PRN #90 tab 02/27/21 [Rx Last Taken Unknown] sucralfate [Carafate] 1 g PO BID #20 tab 03/13/21 [Rx Last Taken Unknown] Allergy/AdvReac Type Severity Reaction Status Date / Time No Known Allergies Allergy Verified 05/06/21 14:19 Family History Brother Lung cancer Seizures Mother Diabetes Breast cancer Father Seizures Dementia Other Fatty liver disease, nonalcoholic Gallbladder sludge Social History Smoking Status: Former smoker Tobacco: How many years used: 20 alcohol intake: current alcohol intake frequency: holidays/special occasions only substance use type: does not use what type of physical activity do you participate in: walking frequency: other ROS ROS ED Constitutional Constitutional ED: Denies chills, fever(s) or sweats Eyes Eyes: Denies blurry vision or diplopia ENT ENT ED: Denies rhinorrhea or sore throat Cardiovascular Cardiovascular: Reports palpitations; Denies chest pain Respiratory/Chest Respiratory/Chest: Denies cough, dyspnea, dyspnea on exertion or sputum Gastrointestinal Gastrointestinal: Denies abdominal pain, nausea or vomiting Genitourinary Genitourinary ED: Denies dysuria, hematuria or urinary frequency Musculoskeletal Musculoskeletal: Denies arthralgias or myalgias Integumentary Denies Abrasions or rash Neurologic Neurologic: Denies headache(s) or paresthesias EXAM Physical Exam Const Vital Signs: 05/06/21 14:18 05/06/21 14:19 05/06/21 14:22 Temperature 97.6 F L Temperature Source Temporal Pulse Rate 112 H 113 H Respiratory Rate 18 18 Respiratory Effort Normal Respiratory Pattern Normal Blood Pressure 193/105 H 193/105 H Blood Pressure Mean 134 134 Pulse Ox 100 100 Oxygen Delivery Method Room Air Room Air 05/06/21 14:44 Temperature Temperature Source Pulse Rate Respiratory Rate Respiratory Effort Respiratory Pattern Blood Pressure Blood Pressure Mean Pulse Ox Oxygen Delivery Method Room Air Positive well nourished General Appearance ED: NAD HEENT Reports moist mucous membranes Negative for trauma Eyes PERRL and EOMs intact bilaterally General Eye ED: Negative for pale conjunctiva or scleral icterus Resp normal respiratory effort and clear to auscultation bilaterally Cardio regular rhythm Rate: tachycardic Extremity normal to inspection General Extremety ED: Negative for edema or tenderness General Extremity: Negative for edema Neuro oriented x3, CN's II-XII intact bilaterally and no sensory deficits noted Sensorium / Orientation: alert Motor Exam: strength 5/5 throughout Psych mental status grossly normal Skin no rashes or lesions noted and no wounds MDM MDM MDM Narrative Medical decision making narrative: Patient presenting with palpitations. She is seen ambulating throughout the ED without difficulty. On examination I did look at the monitor and noticed occasional PVCs. EKG on my interpretation shows a sinus tachycardia at a ventricular rate of 118/min with occasional PVC. NJ interval 130 ms, QRS duration 80 ms, QTC 460 ms. Chest x-ray on my interpret ation shows no acute cardiopulmonary process. CBC, BMP are normal. There are no electrolyte abnormalities. Troponin is negative at 4. Again is not complaining of chest pain. Patient will follow up with her sole filler for Holter monitor. She is given return precautions for worsening symptoms. Impression: 1. Palpitations 2. PVC's Lab Data Attestation: I reviewed the patient's lab results. Labs: Laboratory Results - last 24 hr 05/06/21 05/06/21 14:43 14:43 WBC 6.9 RBC 4.50 Hgb 11.4 L Hct 35.8 L MCV 79.6 L MCH 25.3 L MCHC 31.8 L RDW Std Deviation 40.8 RDW Coeff of [place] 14.2 Plt Count 371 MPV 10.5 Immature Gran % (Auto) 0.700 Neut % (Auto) 68.1 Lymph % (Auto) 23.3 [place] % (Auto) 6.3 Eos % (Auto) 1.2 Baso % (Auto) 0.4 Absolute Neuts (auto) 4.7 Absolute Lymphs (auto) 1.60 Nucleated RBC % 0 Sodium 137 Potassium 4.0 Chloride 104 Carbon Dioxide 28.0 Anion Gap 5 BUN 17 Creatinine 0.94 Estim Creat Clear Calc 56.63 Est GFR (MDRD) Af Amer 81 Est GFR (MDRD) Non-Af 67 BUN/Creatinine Ratio 18.1 Glucose 144 H Calcium 10.1 Troponin I High Sens 4 Radiography Diagnostic Testing: Radiology Impression Chest X-Ray 05/06/21 14:45 IMPRESSION: No radiographic evidence of acute cardiopulmonary disease. at 1511 Reported and signed by: Doug Brunson MD Electronically Signed: Doug Brunson MD at 15:08 EDT Tel , Service support , Discharge Plan Triage Chief Complaint: Palpitations ED Provider: Campos Villavicencio Dx/Rx/DC Orders Instructions: ED Palpitations Prescriptions: No Action hydroxychloroquine [Plaquenil] 200 mg tablet 200 mg PO DAILY RF: 0 Trulicity 1.5 mg/0.5 mL pen injector 1.5 mg subcut QWEEK RF: 0 diclofenac sodium [Voltaren] 1 % gel 2 g topical ONCE Qty: 100 RF: 0 hydroxyzine pamoate 25 mg capsule 25 mg PO TID PRN PRN (Reason: Anxiety) Qty: 30 RF: 1 tizanidine 2 mg tablet 2 mg PO TID PRN (Reason: muscle spasticity) Qty: 90 RF: 0 aspirin 81 MG tablet,delayed release (DR/EC) 81 mg PO DAILY RF: 0 lisinopril 30 tablet 30 mg PO DAILY RF: 0 ergocalciferol (vitamin D2) 50,000 capsule 50,000 mg PO QWEEK RF: 0 levothyroxine 75 mcg tablet 88 mcg PO DAILY RF: 0 metformin 500 mg tablet 500 mg PO BID RF: 0 mv,with [id number] 1 EACH tablet 1 ea PO DAILY RF: 0 sucralfate [Carafate] 1 gram tablet 1 g PO BID Qty: 20 RF: 0 omeprazole 40 mg capsule,delayed release(DR/EC) 40 mg PO DAILY Qty: 90 RF: 2 Primary Care Provider: Nanette Watts Referrals: Nanette Watts MD [Primary Care Provider] - Disposition Disposition: Home, Self Care
[2021-05-06 15:06] LABS: Anion Gap 5 (5-15); BUN 17 mg/dL (7-18); BUN/Creat Ratio 18.1 RATIO (10-20); Calcium,Total 10.1 mg/dL (8.5-10.1); Chloride 104 mmol/L (98-107); Creatinine, Serum 0.94 mg/dL (0.55-1.02); EST Glomerular Filtration Rate 67 mL/min (>60); Est Glom Filt Rate - Afr Amer 81 mL/min (>60); Estimated Creatinine Clearance 56.63 ml/min; Glucose 144 mg/dL (74-106); Sodium Level 137 mmol/L (136-145); Troponin-I HS 4 pg/mL (3.0-54.0)
[2021-05-06 16:15] VITALS: PULSE 75; RESP 18; O2SAT 98
== END 2021-05-06 16:15 | disposition home or self-care (01) ==
PROVIDERS: Emergency Provider Student in an Organized Health Care Education/Training Program; PCP Internal Medicine
DX: R00.2 Palpitations (principal); I49.3 Ventricular premature depolarization; Z87.891 Personal history of nicotine dependence
CPT/HCPCS: 71045; 80048; 84484; 85025; 93005; 99285

== ENCOUNTER → 2021-05-29 09:31 | Outpatient (CLI) | payer MEDICAID, SELFPAY ==
--- NOTE | 2021-05-29 09:32 | ECHOCS_ITS ---
Reason For Study: PULMONIC STENOSIS Procedure This was a 2D Doppler, Color Flow transthoracic echocardiogram. The study was technically difficult. Contrast injection was performed. Exam performed in department. Left Ventricle Normal LV size. The estimated ejection fraction is 65 %. Normal diastology for age. No regional wall motion abnormalities noted. Right Ventricle Normal RV size. Normal systolic function. Atria Normal left atrium. Normal right atrium. No doppler evidence for ASD. Mitral Valve There is no mitral valve stenosis. No mitral valve insufficiency. Tricuspid Valve There is no tricuspid stenosis. Unable to estimate RV systolic pressure due to inadequate jet, pulmonary artery pressure probably normal. Aortic Valve Trisinus/trileaflet aortic valve. There is no aortic stenosis. No aortic valve insufficiency. Pulmonic Valve Mild stenosis of the pulmonic valve. No pulmonic valve insufficiency. Great Vessels Normal aortic root. Pericardium/Pleural No pericardial effusion. Medication 22 gauge I.V. with prn adaptor inserted into right arm. Diluted definity 2.5ml given slow IV push to enhance endocardial definition. MMode/2D Measurements & Calculations LVIDd: 3.6 cm IVSd: 0.69 cm Ao root diam: 3.3 cm LVIDs: 2.4 cm LVPWd: 0.71 cm FS: 33.4 % LAV(MOD-bp): 21.8 ml RVOT diam: 2.0 cm EDV(MOD-sp4): 72.9 ml LAV(MOD-bp) Indexed: 11.9 ml/m2 ESV(MOD-sp4): 31.5 ml LAV(MOD-sp2): 23.9 ml EF(MOD-sp4): 56.7 % LAV(MOD-sp4): 21.2 ml EDV(MOD-sp2): 54.5 ml SV(MOD-sp4): 41.4 ml SV(MOD-sp2): 32.6 ml ESV(MOD-sp2): 21.9 ml EF(MOD-sp2): 59.7 % LA dimension(2D): 3.2 cm LA A4 area: 11.4 cm2 RA A4 area: 9.4 cm2 Doppler Measurements & Calculations MV E max ramez: 59.3 cm/sec Lat Peak E' Ramez: 7.6 cm/sec Med Peak E' Ramez: 5.4 cm/sec MV A max ramez: 84.2 cm/sec E/E' lat: 7.8 E/E' med: 10.9 MV E/A: 0.70 Ao V2 max: 143.9 cm/sec LV V1 max: 111.0 cm/sec PA V2 max: 150.8 cm/sec Ao max P.3 mmHg LV V1 max P.9 mmHg PA V2 mean: 155.5 cm/sec PA V2 VTI: 39.8 cm ECHO/Echo Complete W/ Contrast Interpretation Summary The estimated ejection fraction is 65 %. Mild stenosis of the pulmonic valve. Ordering Physician: Lily Perez Referring Physician: Nanette Watts Performed By: Riddhi Webber, JACKY, RVT
== END ==
PROVIDERS: PCP Internal Medicine; Referring Provider Nurse Practitioner Family; Visit Provider Nurse Practitioner Family
DX: I49.3 Ventricular premature depolarization (principal); I37.0 Nonrheumatic pulmonary valve stenosis; R07.9 Chest pain, unspecified
CPT/HCPCS: 93306; Q9957; A4216; C8929; J3490

== ENCOUNTER → 2021-06-18 14:56 | Outpatient (CLI) | payer MEDICAID, SELFPAY ==
[2021-06-18 16:49] LABS: Absolute Lymphocyte Count 1.28 X10^3/uL (0.83-4.51); Absolute Neutrophil Count 5.7 X10^3/uL (2.0-7.7); Basophil# 0.04 X10^3/uL; Basophil% 0.5 % (0-1); Eosinophil# 0.16 X10^3/uL; Eosinophils% 2.1 % (0-5); Hematocrit 36.7 % (37-47); Hemoglobin 11.4 g/dL (12.0-15.0); Lymphocyte # 1.28 X10^3/ul (0.83-4.51); Lymphocyte % 16.6 % (19-41); Mean Corp Hgb Conc 31.1 g/dL (32-36); Mean Corpuscular Hgb 25.5 pg (27.0-32.0); Mean Corpuscular Volume 82.1 fL (81-99); Mean Platelet Vol. 11.3 fl (6.2-12.0); Monocyte# 0.46 X10^3/uL; NRBC Flagged by Analyzer 0 % (0-5); Neutrophil # 5.71 X10^3/uL (2.7-7.7); Neutrophil % 74.2 % (47-70); Platelet Count 313 K/mm3 (150-450); RBC Distribution Width CV 14.2 % (11.6-14.6); RBC Distribution Width SD 42.1 fl (35.1-43.9); Red Blood Count 4.47 M/mm3 (4.2-5.4); White Blood Count 7.7 K/mm3 (4.4-11.0)
[2021-06-18 17:12] LABS: Vitamin D,25 Hydroxy 77.7 ng/mL
[2021-06-18 17:18] LABS: AST(SGOT) 29 U/L (15-37); Alanine Aminotransfer ALT/SGPT 50 U/L (13-56); Albumin, Serum 4.2 g/dL (3.2-5.0); Alkaline Phosphatase 83 U/L (45-117); Anion Gap 9 (5-15); BUN 16 mg/dL (7-18); BUN/Creat Ratio 15.1 RATIO (10-20); Calcium,Total 10.1 mg/dL (8.5-10.1); Chloride 101 mmol/L (98-107); Creatinine, Serum 1.06 mg/dL (0.55-1.02); EST Glomerular Filtration Rate 58 mL/min (>60); Est Glom Filt Rate - Afr Amer 71 mL/min (>60); Ferritin 10 ng/mL (8-252); Globulin 4.4 g/dL (2.2-4.2); Glucose 189 mg/dL (74-106); Iron 43 ug/dL (50-170); Iron Binding Capacity,Total 484 ug/dL (250-450); PERCENT IRON SATURATION 8.9 % (15.0-55.0); Potassium 4.2 mmol/L (3.5-5.1); Protein, Total 8.6 g/dL (6.4-8.2); Sodium Level 138 mmol/L (136-145); Thyroid Stim Hormone (TSH) 0.78 uIU/mL (0.358-3.74)
[2021-06-20 13:22] LABS: Transferrin 401 mg/dL (192-364)
== END ==
PROVIDERS: PCP Internal Medicine; Referring Provider Physician Assistant; Visit Provider Physician Assistant
DX: R42 Dizziness and giddiness (principal); R00.0 Tachycardia, unspecified; R53.83 Other fatigue; E55.9 Vitamin D deficiency, unspecified; F32.9 Major depressive disorder, single episode, unspecified; F41.9 Anxiety disorder, unspecified
CPT/HCPCS: 36415; 80053; 82306; 82728; 83540; 83550; 84443; 84466; 85025

== ENCOUNTER 2021-06-26 16:46 | Emergency (ER) | payer MEDICAID, SELFPAY ==
[2021-06-26 16:46] VITALS: BP 175/109; PULSE 100; RESP 18; TEMP 36.7; O2SAT 100; BMI 32.5
[2021-06-26 17:05] VITALS: BP 164/121; PULSE 105; RESP 16
--- NOTE | 2021-06-26 17:14 | EKG12_ITS ---
Test Reason : CP Blood Pressure : / mmHG Vent. Rate : 099 BPM Atrial Rate : 099 BPM P-R Int : 132 ms QRS Dur : 076 ms QT Int : 364 ms P-R-T Axes : 042 027 037 degrees QTc Int : 467 ms Normal sinus rhythm Low voltage QRS Borderline ECG Confirmed by LEONEL CRAIG, KRISTINA ([id number]), news copy editor SILAS SANDOVAL ([id number]) on 07/01/2021 8:29:46 AM Referred By: BB Confirmed By:KRISTINA CASTANEDA MD
--- NOTE | 2021-06-26 17:15 | EDS_ITS ---
HPI History of Present Illness Chief Complaint: Hypertension Informant: patient Onset/Context/Timing Onset: Today Quality: see below Narrative Narrative: Patient states she is feeling funny in her head and funny in her chest. She gets the chest discomfort off and on chronically, she states today it started around 3 hours prior to evaluation, and denies getting worse but state as time went on the discomfort in her chest became weirder. She denies any shortness of breath, palpitations, pleuritic discomfort. No neurologic symptoms, changes in her vision or photophobia, trouble speaking, trouble walking. States she was feeling anxious but she has a history of anxiety so she took some anxiety medication which helped some. She checked her blood pressure and it was over 200, so she presents the emergency department mainly for that reason. She states she is on lisinopril every night for blood pressure, she has been compliant with it no changes of that lately, but she was on she thinks verapamil for PVCs that was making her itch, so it was discontinued around 3 weeks ago, and she has been off of it ever since, and has basically not felt any palpitations or PVCs since then. [facility] Medical History Colon cancer screening Diabetes Fatty liver Gallbladder sludge Heart murmur History of migraine headaches Hypertension Muscle spasm Preventative health care Thyroid nodule Home Medications aspirin 81 mg PO DAILY 11/17/18 [History Last Taken Unknown] ergocalciferol (vitamin D2) 50,000 mg PO QWEEK 11/17/18 [History Last Taken Unknown] lisinopril 30 mg PO DAILY 11/17/18 [History Last Taken Unknown] levothyroxine 75 mcg tablet 88 mcg PO DAILY tab 10/04/19 [History Last Taken Unknown] mv,with [id number] 1 ea PO DAILY 02/02/20 [History Last Taken Unknown] hydroxychloroquine 200 mg tablet 200 mg PO DAILY 08/19/20 [History Last Taken Unknown] metformin 500 mg tablet 500 mg PO BID tab 08/19/20 [History Last Taken Unknown] diclofenac sodium 1 % topical gel 2 g TOPICAL ONCE #100 g 01/29/21 [Rx Last Taken Unknown] dulaglutide 1.5 mg/0.5 mL subcutaneous pen injector 1.5 mg SUBCUT QWEEK 01/29/21 [History Last Taken Unknown] hydroxyzine pamoate 25 mg capsule 25 mg PO TID PRN PRN #30 cap 02/27/21 [Rx Last Taken Unknown] triamcinolone acetonide 0.1 % topical cream 1 applic TOPICAL BID PRN #80 g 05/07/21 [Rx Last Taken Unknown] baclofen 10 mg tablet 10 mg PO BID PRN #60 tab 05/21/21 [Rx Last Taken Unknown] omeprazole 40 mg capsule,delayed release 40 mg PO DAILY PRN cap 06/18/21 [History Last Taken Unknown] amlodipine 10 mg PO DAILY #30 tab 06/26/21 [Rx Last Taken Unknown] Allergy/AdvReac Type Severity Reaction Status Date / Time No Known Allergies Allergy Verified 06/26/21 16:49 Family History Brother Lung cancer Seizures Mother Diabetes Breast cancer Father Seizures Dementia Other Fatty liver disease, nonalcoholic Gallbladder sludge Social History Smoking Status: Former smoker Tobacco: How many years used: 20 alcohol intake: current alcohol intake frequency: holidays/special occasions only substance use type: does not use what type of physical activity do you participate in: walking frequency: other ROS ROS ED Constitutional Constitutional ED: Reports other Details: Just do not feel well ; Denies chills or fever(s) Eyes Eyes: Denies change in vision or diplopia ENT ENT ED: Denies rhinorrhea or sore throat Cardiovascular Cardiovascular: Reports chest pain; Denies palpitations Respiratory/Chest Respiratory/Chest: Denies cough or dyspnea Gastrointestinal Gastrointestinal: Denies abdominal pain, diarrhea, nausea or vomiting Genitourinary Genitourinary ED: Denies dysuria or hematuria Musculoskeletal Musculoskeletal: Denies back pain or neck pain Integumentary Denies abscess or rash Neurologic Neurologic: Reports as per HPI and headache(s); Denies paresthesias or weakness Psychiatric Psychiatric: Reports anxiety; Denies suicidal thoughts EXAM Physical Exam Const Vital Signs: 06/26/21 16:46 06/26/21 17:05 06/26/21 17:28 Temperature 98.0 F Temperature Source Temporal Pulse Rate 100 105 H Respiratory Rate 18 16 Respiratory Pattern Normal Blood Pressure 175/109 H 164/121 H Blood Pressure Mean 131 135 Pulse Ox 100 Oxygen Delivery Method Room Air Room Air 06/26/21 17:37 06/26/21 17:50 Temperature Temperature Source Pulse Rate 96 Respiratory Rate 17 Respiratory Pattern Blood Pressure 160/89 H 157/93 H Blood Pressure Mean 112 114 Pulse Ox Oxygen Delivery Method Room Air Positive well nourished, well developed and obese Constitutional Narrative: Well-appearing NAD General Appearance ED: well developed and NAD Nutritional Appearance: obese HEENT Reports moist mucous membranes normocephalic and atraumatic Eyes PERRL and EOMs intact bilaterally Neck full ROM and supple Resp normal respiratory effort and clear to auscultation bilaterally Cardio regular rate, regular rhythm and no murmurs Cardio Narrative: Mild tachycardia. No splinting on deep inspiration. GI non-tender and non-distended Auscultation: normoactive bowel sounds Palpation: soft Back/Spine no CVA tenderness General Back: other FROM Extremity normal to inspection General Extremety ED: Negative for edema, pulses abnormal or tenderness General Extremity: Negative for edema or pulses abnormal Neuro oriented x3, CN's II-XII intact bilaterally and no sensory deficits noted Sensorium / Orientation: awake and alert Motor Exam: strength 5/5 throughout Skin no rashes or lesions noted and no wounds MDM MDM MDM Narrative Medical decision making narrative: Work-up is unremarkable here. EKG, chest x- ray, troponin all negative. I do not think she needs a delta. Her blood pressure came down prior to treatment here, to 160 systolic. I allowed her to have the clonidine anyway, but just 0.1 instead of 0.2 mg. Her blood pressure is continuing to come down now in the 150s. I do not think she needs to be monitored any longer. Think it would be reasonable to start her on something else for her blood pressure since she is on a higher dose of lisinopril, and have her follow-up with her doctor within the next week or 2 for repeat evaluation and blood pressure medication management. Discussed with her she is comfortable with that plan. Lab Data Attestation: I reviewed the patient's lab results. Labs: Laboratory Results - last 24 hr 06/26/21 06/26/21 17:00 17:00 WBC 6.9 RBC 4.38 Hgb 11.3 L Hct 35.5 L MCV 81.1 MCH 25.8 L MCHC 31.8 L RDW Std Deviation 41.3 RDW Coeff of Casey 14.3 Plt Count 362 MPV 10.9 Immature Gran % (Auto) 1.600 H Neut % (Auto) 60.6 Lymph % (Auto) 28.5 [place] % (Auto) 6.4 Eos % (Auto) 2.3 Baso % (Auto) 0.6 Absolute Neuts (auto) 4.2 Absolute Lymphs (auto) 1.95 Nucleated RBC % 0 Sodium 137 Potassium 4.4 Chloride 102 Carbon Dioxide 28.0 Anion Gap 7 BUN 21 H Creatinine 1.14 H Estim Creat Clear Calc 46.69 Est GFR (MDRD) Af Amer 65 Est GFR (MDRD) Non-Af 54 L BUN/Creatinine Ratio 18.4 Glucose 185 H Calcium 9.9 Troponin I High Sens 4 Radiography Chest X-Ray - ED: 1 View, Read by ED Physician, Normal and No Acute Disease Diagnostic Testing: Clinical Impression(s) from Imaging Studies Chest X-Ray 06/26/21 17:25 IMPRESSION: No acute radiographic abnormalities. Electronically Signed: Chevy Mora MD at 17:53 EDT Tel , Service support , EKG Initial EKG: Attestation: I personally reviewed and interpreted this EKG as follows: Interpretation: Sinus Rhythm (99) and No Acute Injury Pattern Comments: Normal EKG Discharge Plan Triage Chief Complaint: Hypertension ED Provider: Brian Alarcon Dx/Rx/DC Orders Clinical Impression: Chest pain, unspecified, Episode of hypertension Instructions: Controlling High Blood Pressure Prescriptions: New amlodipine 10 mg tablet 10 mg PO DAILY Qty: 30 RF: 0 Continued hydroxychloroquine [Plaquenil] 200 mg tablet 200 mg PO DAILY RF: 0 Trulicity 1.5 mg/0.5 mL pen injector 1.5 mg subcut QWEEK RF: 0 diclofenac sodium [Voltaren] 1 % gel 2 g topical ONCE Qty: 100 RF: 0 hydroxyzine pamoate 25 mg capsule 25 mg PO TID PRN PRN (Reason: Anxiety) Qty: 30 RF: 1 baclofen 10 mg tablet 10 mg PO BID PRN (Reason: muscle spasticity) Qty: 60 RF: 2 triamcinolone acetonide 0.1 % cream 1 applic topical BID PRN (Reason: rash, itching) Qty: 80 RF: 1 omeprazole 40 mg capsule,delayed release(DR/EC) 40 mg PO DAILY PRNRF: 0 aspirin 81 MG tablet,delayed release (DR/EC) 81 mg PO DAILY RF: 0 lisinopril 30 tablet 30 mg PO DAILY RF: 0 ergocalciferol (vitamin D2) 50,000 capsule 50,000 mg PO QWEEK RF: 0 levothyroxine 75 mcg tablet 88 mcg PO DAILY RF: 0 metformin 500 mg tablet 500 mg PO BID RF: 0 mv,with [id number] 1 EACH tablet 1 ea PO DAILY RF: 0 Primary Care Provider: Nanette Watts Referrals: Nanette Watts MD [Primary Care Provider] - 1-2 Weeks Disposition Disposition: Home, Self Care
--- NOTE | 2021-06-26 17:25 | RAD_ITS ---
INDICATION: chest pain EXAMINATION/TECHNIQUE: X-RAY - XR Chest 1 View COMPARISON: 05/06/2021. FINDINGS: The lungs are clear. The cardiomediastinal silhouette is unremarkable. No pleural effusion or pneumothorax. No acute osseous abnormalities. RAD/Chest 1 View (Portable) IMPRESSION: No acute radiographic abnormalities. Electronically Signed: Chevy Mora MD at 17:53 EDT Tel , Service support ,
[2021-06-26 17:33] LABS: Absolute Lymphocyte Count 1.95 X10^3/uL (0.83-4.51); Absolute Neutrophil Count 4.2 X10^3/uL (2.0-7.7); Basophil# 0.04 X10^3/uL; Basophil% 0.6 % (0-1); Eosinophil# 0.16 X10^3/uL; Eosinophils% 2.3 % (0-5); Hematocrit 35.5 % (37-47); Hemoglobin 11.3 g/dL (12.0-15.0); Lymphocyte # 1.95 X10^3/ul (0.83-4.51); Lymphocyte % 28.5 % (19-41); Mean Corp Hgb Conc 31.8 g/dL (32-36); Mean Corpuscular Hgb 25.8 pg (27.0-32.0); Mean Corpuscular Volume 81.1 fL (81-99); Mean Platelet Vol. 10.9 fl (6.2-12.0); Monocyte# 0.44 X10^3/uL; Monocyte% 6.4 % (0-10); NRBC Flagged by Analyzer 0 % (0-5); Neutrophil # 4.15 X10^3/uL (2.7-7.7); Neutrophil % 60.6 % (47-70); Platelet Count 362 K/mm3 (150-450); RBC Distribution Width CV 14.3 % (11.6-14.6); RBC Distribution Width SD 41.3 fl (35.1-43.9); Red Blood Count 4.38 M/mm3 (4.2-5.4); White Blood Count 6.9 K/mm3 (4.4-11.0)
[2021-06-26 17:37] VITALS: BP 160/89
[2021-06-26] MEDS: cloNIDine HCl 0.1 MG Tablet PO (17:41)
[2021-06-26 17:48] LABS: Anion Gap 7 (5-15); BUN 21 mg/dL (7-18); BUN/Creat Ratio 18.4 RATIO (10-20); Calcium,Total 9.9 mg/dL (8.5-10.1); Chloride 102 mmol/L (98-107); Creatinine, Serum 1.14 mg/dL (0.55-1.02); EST Glomerular Filtration Rate 54 mL/min (>60); Est Glom Filt Rate - Afr Amer 65 mL/min (>60); Estimated Creatinine Clearance 46.69 ml/min; Glucose 185 mg/dL (74-106); Potassium 4.4 mmol/L (3.5-5.1); Sodium Level 137 mmol/L (136-145); Troponin-I HS 4 pg/mL (3.0-54.0)
[2021-06-26 17:50] VITALS: BP 157/93; PULSE 96; RESP 17
[2021-06-26 18:29] VITALS: BP 154/96
== END 2021-06-26 18:30 | disposition home or self-care (01) ==
PROVIDERS: Emergency Provider Emergency Medicine; PCP Internal Medicine
DX: I10 Essential (primary) hypertension (principal); R07.9 Chest pain, unspecified; E11.9 Type 2 diabetes mellitus without complications; F41.9 Anxiety disorder, unspecified; E66.9 Obesity, unspecified; Z68.32 Body mass index [BMI] 32.0-32.9, adult; Z79.82 Long term (current) use of aspirin; Z79.84 Long term (current) use of oral hypoglycemic drugs; Z79.899 Other long term (current) drug therapy; Z87.891 Personal history of nicotine dependence
CPT/HCPCS: 71045; 80048; 84484; 85025; 93005; 99284; A4216

== ENCOUNTER → 2021-08-02 09:01 | Outpatient (CLI) | payer MEDICAID, SELFPAY ==
[2021-08-02 09:50] LABS: Absolute Lymphocyte Count 1.43 X10^3/uL (0.83-4.51); Absolute Neutrophil Count 5.7 X10^3/uL (2.0-7.7); Basophil# 0.06 X10^3/uL; Basophil% 0.7 % (0-1); Eosinophil# 0.23 X10^3/uL; Eosinophils% 2.8 % (0-5); Hematocrit 36.3 % (37-47); Hemoglobin 11.7 g/dL (12.0-15.0); Lymphocyte # 1.43 X10^3/ul (0.83-4.51); Lymphocyte % 17.5 % (19-41); Mean Corp Hgb Conc 32.2 g/dL (32-36); Mean Corpuscular Hgb 27.1 pg (27.0-32.0); Mean Corpuscular Volume 84.2 fL (81-99); Mean Platelet Vol. 10.5 fl (6.2-12.0); Monocyte# 0.58 X10^3/uL; Monocyte% 7.1 % (0-10); NRBC Flagged by Analyzer 0 % (0-5); Neutrophil # 5.67 X10^3/uL (2.7-7.7); Neutrophil % 69.6 % (47-70); Platelet Count 310 K/mm3 (150-450); RBC Distribution Width CV 15.9 % (11.6-14.6); RBC Distribution Width SD 48.8 fl (35.1-43.9); Red Blood Count 4.31 M/mm3 (4.2-5.4); White Blood Count 8.2 K/mm3 (4.4-11.0)
[2021-08-02 10:11] LABS: Hemoglobin A1c 6.9 % (3.8-5.6)
[2021-08-02 10:15] LABS: ALB/GLOB Ratio 0.9 RATIO (0.9-2.4); AST(SGOT) 34 U/L (15-37); Alanine Aminotransfer ALT/SGPT 50 U/L (13-56); Albumin, Serum 3.8 g/dL (3.2-5.0); Alkaline Phosphatase 96 U/L (45-117); Anion Gap 6 (5-15); BUN 14 mg/dL (7-18); BUN/Creat Ratio 16.9 RATIO (10-20); Calcium,Total 9.5 mg/dL (8.5-10.1); Chloride 103 mmol/L (98-107); Cholesterol 175 mg/dL (200); Creatinine, Serum 0.83 mg/dL (0.55-1.02); EST Glomerular Filtration Rate 78 mL/min (>60); Est Glom Filt Rate - Afr Amer 94 mL/min (>60); Ferritin 16 ng/mL (8-252); Globulin 4.2 g/dL (2.2-4.2); Glucose 209 mg/dL (74-106); High Density Lipoprotein 35 mg/dL; Iron 76 ug/dL (50-170); Iron Binding Capacity,Total 457 ug/dL (250-450); PERCENT IRON SATURATION 16.6 % (15.0-55.0); Potassium 4.9 mmol/L (3.5-5.1); Sodium Level 135 mmol/L (136-145); Thyroid Stim Hormone (TSH) 1.96 uIU/mL (0.358-3.74); Triglycerides 288 mg/dL; Very Low Density Lipoprotein 58 mg/dL (5-40)
== END ==
PROVIDERS: PCP Internal Medicine; Visit Provider Physician Assistant
DX: E11.65 Type 2 diabetes mellitus with hyperglycemia (principal); E03.9 Hypothyroidism, unspecified; E55.9 Vitamin D deficiency, unspecified; I10 Essential (primary) hypertension; D50.9 Iron deficiency anemia, unspecified; R10.9 Unspecified abdominal pain
CPT/HCPCS: 36415; 80053; 80061; 82043; 82728; 83036; 83540; 83550; 84443; 85025

== ENCOUNTER 2021-08-04 11:00 | Outpatient (RCR) | payer MEDICAID, SELFPAY ==
--- NOTE | 2021-07-01 11:55 | HP.PTEVAL_ITS ---
Patient's Visit Information DARREL MONSIVAIS is a 51 year old F referred to Physical Therapy by MICKEY Simon with a diagnosis of NECK PAIN. Date of Evaluation: 07/01/21 Physical Therapist: Shruthi Medina PT, Cert MDT - Visit Plan Frequency: 2-3x /Week Duration: 4-6 Weeks Plan: US TO NECK. POSTURE CORRECTION/STRENGTHENING, INSTRUCTION IN APPROPRIATE BODY MECHANICS AND ACTIVITY MODIFICATIONS. NECK ROM AND STRENGTHENING. ESTEBAN UE ROM, STRETCHING AND STRENGTHENING. HEP INSTRUCTION. - Subjective Diagnosis: NECK PAIN. Work/Leisure: UNEMPLOYEED. Disability: NO. Present symptoms: ESTEBAN NECK AND HEAD PAIN. ESTEBAN UE NUMBNESS AND TINGLING. NECK CRUNCHING. Present since: ABOUT A YEAR. Pain Scale: Worst - 8/10 Least - 2/10. Currently: 01/13. Commenced as a result of: NO APPARENT REASON. Symptoms at onset: NECK PAIN. Worse: AM, LOOKING DOWN, TURNING HEAD, DRIVING. Better: HEATING PAD, [place]. Disturbed sleep: UNSURE. Previous history/Previous treatment: UNREMARKABLE. This episode: MUSCLE RELAXERS - THEY DID HELP. PRESCRIPTION NOT RE-NEWED DUE TO POSSIBLE MEDICATION INTERACTION PROBLEMS. CHANGED TO NEW ONE AND IT DIDN'T HELP. Dizziness: YES - NOT NEW BUT MAYBE INCREASED. Tinnitis: SOMETIMES. Nausea: SOMETIMES. Shortness of Breath: NO. Difficulty Swollowing: NO. Gait: NORMAL. Accidents: NO. Unexplained weight loss: NO. Imaging: MAY 2020 NECK X-RAY: STUDY: X-RAY - CERVICAL SPINE. REASON FOR EXAM: Female, 50 years old. CHRONIC NECK PAIN, NO KNOWN. INJURY. TECHNIQUE: 5 view(s) of the cervical spine were obtained. COMPARISON: None. . FINDINGS: Normal anterior atlantoaxial articulation. Normal odontoid process. Straightening of the cervical lordosis. Normal vertebral bodies with. minimal spurring at the endplates. Normal disc space heights. Normal. visualized intervertebral neuroforamina. The soft tissue structures are unremarkable. . RAD/Cerv Spine 4 or 5 Views. IMPRESSION: Minimal degenerative changes of the visualized cervical spine. PMH/Recent major surgery: NIDDM, RA, THROID NODULES, HTN, IRON DEFICIENCY ANEMIA. NO SURGERIES. ANXIETY. OTHER: PATIENT REPORTS THAT ABOUT 2 WEEKS AGO THEY MOVED HER HEAD TO DO A TEST FOR HER DIZZINESS AND SHE HAD A LOT OF INCREAED NECK PAIN AFTER. - Objective Sitting Posture/Standing Posture: POOR. FH AND RS'S. NO TORTICOLLIS. Active Correction of posture: A LITTLE BETTER. Other Observations: INDEP GAIT AND TRANSFERS. PATIENT IS PLEASANT AND COOPERATIVE TO WORK WITH. PATIENT DOES HAVE A HARD TIME DESCRIBING THE ABNORMAL FEELING SHE HAS IN HER HEAD. Motor deficit: ESTEBAN UE'S GROSSLY 5/5 WITH MMT'ING EXCEPT SHLDS 4/5. 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 Sensory deficit: ESTEBAN UE LIGHT TOUCH SENSATION INTACT AND SYMMETRICAL. ROM deficit: ESTEBAN UE'S WFL. Reflexes: 2/3 ESTEBAN UE'S. Dural Signs: NEGATIVE ESTEBAN UE'S. Cervical Mvmt Loss: Flex: MIN. Pro: NIL. Ext: MOD. Ret: MOD. RSB: NIL. LSB: MIN. R Rot: MIN. L Rot: MOD. Postural strength: POOR. Palpation: NO ACUTE UPPER THORACIC, CERVICAL OR OCCIPUT TENDERNESS. INCREASED MUSCLE TONE ESTEBAN [place] REGIONS. TREATMENT: NEUROMUSCULAR REEDUCATION - RETRAINING OF MVMT AND POSTURE FOR SITTING, LYING AND STANDING ACTIVITIES. - Balance/Special Test Scores Oswestry Neck Score: 17 - Goals Goal 1:: DECREASE C/O HEAD AND NECK PAIN. Goal Time Frame: 4-6 Weeks Goal 2:: IMPROVE LIFTING, READING, SLEEP, WORK, DRIVING AND RECREATIONAL FUNCTION. Goal Time Frame: 4-6 Weeks Goal 3:: INSTRUCT IN PROPHYLAXIS Goal Time Frame: 4-6 Weeks - Anticipated Interventions Patient/Client Instruction: Educate patient on: Condition, Plan of Care, Risk Factors For the Purpose of:: To improve self management Therapeutic Exercise to Include: Strength training, Body mechanics, Postural training, Flexibilty training, Neuromotor development, Scapular Strength/Stabilization For the Purpose of:: To decrease pain, To increase ROM, To improve muscle performance and motor function, To increase tolerance to activity/condi tion/position, To improve ability of physical actions for home/community/work/leisure TENS: Yes IF ES: Yes Cryotherapy (ice pack, ice massage): Yes Thermo therapy (hot pack): Yes Ultrasound (thermal/non thermal): Yes For the Purpose of:: To decrease pain, To improve nutrient delivery to tissue Thank you for the opportunity to evaluate your patient. For Medicare and Medicare HMO plans, please review the plan of care and approve it. It will need to be FAXED BACK to us at [phone] for Medicare purposes. For Medicare only, by signing this I certify the plan of care. Please let me know if there are questions or concerns regarding this plan of care. Physician Signature: Date:
== END 2021-08-04 19:00 | disposition home or self-care (01) ==
LOC: PT 11:00
PROVIDERS: PCP Internal Medicine; Referring Provider Physician Assistant; Visit Provider Physician Assistant
DX: M54.2 Cervicalgia (principal); G89.29 Other chronic pain
CPT/HCPCS: 97014; 97035; 97110; 97112; 97162; 97530; G0283

== ENCOUNTER 2021-09-29 08:59 | Outpatient (CLI) | payer MEDICAID, SELFPAY ==
[2021-09-29 09:45] LABS: Hematocrit 37.1 % (37-47); Hemoglobin 12.3 g/dL (12.0-15.0); Mean Corp Hgb Conc 33.2 g/dL (32-36); Mean Corpuscular Hgb 28.5 pg (27.0-32.0); Mean Corpuscular Volume 86.1 fL (81-99); Mean Platelet Vol. 10.3 fl (6.2-12.0); Platelet Count 267 K/mm3 (150-450); RBC Distribution Width CV 13.7 % (11.6-14.6); RBC Distribution Width SD 43.5 fl (35.1-43.9); Red Blood Count 4.31 M/mm3 (4.2-5.4); White Blood Count 5.2 K/mm3 (4.4-11.0)
[2021-09-29 10:20] LABS: AST(SGOT) 42 U/L (15-37); Alanine Aminotransfer ALT/SGPT 54 U/L (13-56); Albumin, Serum 4.2 g/dL (3.2-5.0); Alkaline Phosphatase 80 U/L (45-117); Anion Gap 7 (5-15); BUN 19 mg/dL (7-18); BUN/Creat Ratio 18.1 RATIO (10-20); Calcium,Total 9.4 mg/dL (8.5-10.1); Chloride 101 mmol/L (98-107); Cholesterol 178 mg/dL (200); Creatinine, Serum 1.05 mg/dL (0.55-1.02); EST Glomerular Filtration Rate 59 mL/min (>60); Est Glom Filt Rate - Afr Amer 71 mL/min (>60); Globulin 4.2 g/dL (2.2-4.2); Glucose 176 mg/dL (74-106); High Density Lipoprotein 38 mg/dL; Potassium 4.2 mmol/L (3.5-5.1); Protein, Total 8.4 g/dL (6.4-8.2); Sodium Level 135 mmol/L (136-145); Triglycerides 302 mg/dL; Very Low Density Lipoprotein 60 mg/dL (5-40)
== END 2021-09-29 23:59 | disposition short-term general hospital (02) ==
LOC: LAB 09:01
PROVIDERS: PCP Internal Medicine; Visit Provider Nurse Practitioner Family
DX: E78.5 Hyperlipidemia, unspecified (principal); I10 Essential (primary) hypertension
CPT/HCPCS: 36415; 80053; 80061; 85027

== ENCOUNTER 2021-10-05 01:04 | Emergency (ER) | payer MEDICAID, SELFPAY ==
[2021-10-05 01:05] VITALS: PULSE 119; RESP 18; TEMP 36.8; O2SAT 98; BMI 32.7
[2021-10-05 01:13] VITALS: BP 201/110
--- NOTE | 2021-10-05 01:30 | EKG12_ITS ---
Test Reason : HTN Blood Pressure : / mmHG Vent. Rate : 106 BPM Atrial Rate : 106 BPM P-R Int : 142 ms QRS Dur : 076 ms QT Int : 356 ms P-R-T Axes : 045 031 028 degrees QTc Int : 472 ms Sinus tachycardia Otherwise normal ECG Confirmed by LEONEL CRAIG, KRISTINA ([id number]), editor at large SILAS SANDOVAL ([id number]) on 10/06/2021 11:03:19 AM Referred By: JOEL Confirmed By:KRISTINA CASTANEDA MD
--- NOTE | 2021-10-05 01:43 | NURSING ---
labetolol 20mg ivp given and clonidine 0.2mg po
[2021-10-05 01:44] LABS: Absolute Lymphocyte Count 1.87 X10^3/uL (0.83-4.51); Absolute Neutrophil Count 3.6 X10^3/uL (2.0-7.7); Basophil# 0.04 X10^3/uL; Basophil% 0.6 % (0-1); Eosinophil# 0.15 X10^3/uL; Eosinophils% 2.4 % (0-5); Hematocrit 38.2 % (37-47); Hemoglobin 12.5 g/dL (12.0-15.0); Lymphocyte # 1.87 X10^3/ul (0.83-4.51); Lymphocyte % 30.3 % (19-41); Mean Corp Hgb Conc 32.7 g/dL (32-36); Mean Corpuscular Volume 85.5 fL (81-99); Mean Platelet Vol. 10.4 fl (6.2-12.0); Monocyte# 0.44 X10^3/uL; Monocyte% 7.1 % (0-10); NRBC Flagged by Analyzer 0 % (0-5); Neutrophil # 3.63 X10^3/uL (2.7-7.7); Platelet Count 308 K/mm3 (150-450); RBC Distribution Width CV 13.5 % (11.6-14.6); RBC Distribution Width SD 41.9 fl (35.1-43.9); Red Blood Count 4.47 M/mm3 (4.2-5.4); White Blood Count 6.2 K/mm3 (4.4-11.0)
[2021-10-05 01:45] VITALS: BP 173/105; PULSE 113; RESP 18; O2SAT 97
[2021-10-05] MEDS: cloNIDine HCl 0.2 MG Tablet PO (01:52)
[2021-10-05] MEDS: Labetalol (Compound) 20 MG/4 ML SYRINGE IV (01:53)
[2021-10-05 02:03] LABS: Anion Gap 9 (5-15); BUN 16 mg/dL (7-18); BUN/Creat Ratio 14.7 RATIO (10-20); Calcium,Total 9.6 mg/dL (8.5-10.1); Chloride 104 mmol/L (98-107); Creatinine, Serum 1.09 mg/dL (0.55-1.02); EST Glomerular Filtration Rate 56 mL/min (>60); Est Glom Filt Rate - Afr Amer 68 mL/min (>60); Estimated Creatinine Clearance 48.84 ml/min; Glucose 228 mg/dL (74-106); Sodium Level 138 mmol/L (136-145); Troponin-I HS 4 pg/mL (3.0-54.0)
[2021-10-05 02:12] VITALS: BP 152/103; PULSE 82; RESP 18; O2SAT 97
--- NOTE | 2021-10-05 03:10 | EDS_ITS ---
HPI History of Present Illness Chief Complaint: Hypertension Narrative Narrative: Patient is a 51-year-old female with past medical history of hypertension. She states that she was actually taken off one of her blood pressure medications because it was dropping her blood pressure too low. She states that this evening she began to feel off and she took her blood pressure and it was elevated. She states she began to feel anxious at this time and does have a history of this so she took her antianxiety medication. Despite doing this her symptoms of feeling off persisted and her blood pressure did not improve despite taking the medication so therefore she presents to the hospital for evaluation. The patient denies any excessive stimulant use or illicit drug use. [facility] Medical History (Updated 10/05/21 @ 03:[address] Marcial Zelaya, DO) Chronic neck pain Colon cancer screening Diabetes Encounter for screening for COVID-19 Fatty liver Gallbladder sludge Heart murmur History of migraine headaches Hypertension Iron deficiency anemia Muscle spasm Preventative health care Thyroid nodule Home Medications aspirin 81 mg PO DAILY 11/17/18 [History Last Taken Unknown] ergocalciferol (vitamin D2) 50,000 mg PO QWEEK 11/17/18 [History Last Taken Unknown] lisinopril 30 mg PO DAILY 11/17/18 [History Last Taken Unknown] levothyroxine 75 mcg tablet 88 mcg PO DAILY tab 10/04/19 [History Last Taken Unknown] mv,with [id number] 1 ea PO DAILY 02/02/20 [History Last Taken Unknown] metformin 500 mg tablet 500 mg PO BID tab 08/19/20 [History Last Taken Unknown] diclofenac sodium 1 % topical gel 2 g TOPICAL ONCE #100 g 01/29/21 [Rx Last Taken Unknown] dulaglutide 1.5 mg/0.5 mL subcutaneous pen injector 1.5 mg SUBCUT QWEEK 01/29/21 [History Last Taken Unknown] hydroxyzine pamoate 25 mg capsule 25 mg PO TID PRN PRN #30 cap 02/27/21 [Rx Last Taken Unknown] triamcinolone acetonide 0.1 % topical cream 1 applic TOPICAL BID PRN #80 g 0 05/07/21 [Rx Last Taken Unknown] baclofen 10 mg tablet 10 mg PO BID PRN #60 tab 05/21/21 [Rx Last Taken Unknown] omeprazole 40 mg capsule,delayed release 40 mg PO DAILY PRN cap 06/18/21 [History Last Taken Unknown] amlodipine 5 mg tablet 5 mg PO DAILY #30 tab 06/27/21 [Rx Last Taken Unknown] duloxetine 30 mg capsule,delayed release 30 mg PO BID #60 cap 07/28/21 [Rx Last Taken Unknown] pravastatin 10/05/21 [History Last Taken Unknown] Allergy/AdvReac Type Severity Reaction Status Date / Time No Known Allergies Allergy Verified 09/15/21 10:28 Family History Brother Lung cancer Seizures Mother Diabetes Breast cancer Father Seizures Dementia Other Fatty liver disease, nonalcoholic Gallbladder sludge Social History Smoking Status: Former smoker Tobacco: How many years used: 20 alcohol intake: current alcohol intake frequency: holidays/special occasions only substance use type: does not use what type of physical activity do you participate in: walking frequency: other ROS ROS ED Constitutional Constitutional ED: Denies chills or fever(s) ENT ENT ED: Denies sore throat Cardiovascular Cardiovascular: Denies chest pain Respiratory/Chest Respiratory/Chest: Denies cough or dyspnea Gastrointestinal Gastrointestinal: Denies abdominal pain, diarrhea, nausea or vomiting Genitourinary Genitourinary ED: Denies dysuria Musculoskeletal Musculoskeletal: Denies myalgias Integumentary Denies rash Neurologic Neurologic: Denies headache(s) Psychiatric Psychiatric: Reports anxiety Hematologic/Lymphatic Hematologic/Lymphatic: Denies easy bleeding or easy bruising EXAM Physical Exam Const Vital Signs: 10/05/21 01:05 10/05/21 01:13 10/05/21 01:45 Temperature 98.3 F Temperature Source Oral Pulse Rate 119 H 113 H Respiratory Rate 18 18 Respiratory Effort Respiratory Pattern Blood Pressure 201/110 H 173/105 H Blood Pressure Mean 140 127 Pulse Ox 98 97 Oxygen Delivery Method Room Air Room Air 10/05/21 01:46 10/05/21 02:12 10/05/21 03:13 Temperature Temperature Source Pulse Rate 82 83 Respiratory Rate 18 18 Respiratory Effort Normal Non-Labored Respiratory Pattern Normal Blood Pressure 152/103 H 128/89 H Blood Pressure Mean 119 Pulse Ox 97 95 Oxygen Delivery Method Room Air Positive well nourished and well developed General Appearance ED: well developed HEENT Reports moist mucous membranes Eyes PERRL and EOMs intact bilaterally Neck supple Resp normal respiratory effort and clear to auscultation bilaterally Cardio regular rate and regular rhythm Cardio Narrative: Radial pulses are +2-4 bilaterally are equal and symmetric GI non-tender and non-distended GI Narrative: No pulsatile mass noted Auscultation: normoactive bowel sounds Palpation: soft Extremity normal to inspection Neuro oriented x3 and CN's II-XII intact bilaterally Sensorium / Orientation: alert Psych mental status grossly normal Skin no rashes or lesions noted MDM MDM MDM Narrative Medical decision making narrative: Patient presented to the ER hypertensive but otherwise with normal neurologic exam and no findings to suggest endorgan damage. As she did not have a headache or alteration in mental status I felt no need for head CT and basic blood work was obtained to rule out signs of endorgan damage. Blood work revealed no signs of acute kidney injury or cardiac event. Patient was given medication in the ER and the blood pressure reduced to a near normal value. On reevaluation she reports feeling much better and neuro exam remains normal. Therefore at this time with improvement of her blood pressure and no signs of endorgan damage patient can continue her normal medications and is safe for discharge Lab Data Attestation: I reviewed the patient's lab results. Labs: Laboratory Results - last 24 hr 10/05/21 10/05/21 01:36 01:36 WBC 6.2 RBC 4.47 Hgb 12.5 Hct 38.2 MCV 85.5 MCH 28.0 MCHC 32.7 RDW Std Deviation 41.9 RDW Coeff of [place] 13.5 Plt Count 308 MPV 10.4 Immature Gran % (Auto) 0.600 Neut % (Auto) 59.0 Lymph % (Auto) 30.3 [place] % (Auto) 7.1 Eos % (Auto) 2.4 Baso % (Auto) 0.6 Absolute Neuts (auto) 3.6 Absolute Lymphs (auto) 1.87 Nucleated RBC % 0 Sodium 138 Potassium 4.0 Chloride 104 Carbon Dioxide 25.0 Anion Gap 9 BUN 16 Creatinine 1.09 H Estim Creat Clear Calc 48.84 Est GFR (MDRD) Af Amer 68 Est GFR (MDRD) Non-Af 56 L BUN/Creatinine Ratio 14.7 Glucose 228 H Calcium 9.6 Troponin I High Sens 4 Discharge Plan Triage Chief Complaint: Hypertension ED Provider: Marcial Zelaya Dx/Rx/DC Orders Clinical Impression: Accelerated hypertension Instructions: Blood Pressure Check Steps, ED Hypertension, Established Prescriptions: No Action Trulicity 1.5 mg/0.5 mL pen injector 1.5 mg subcut QWEEK RF: 0 diclofenac sodium [Voltaren] 1 % gel 2 g topical ONCE Qty: 100 RF: 0 hydroxyzine pamoate 25 mg capsule 25 mg PO TID PRN PRN (Reason: Anxiety) Qty: 30 RF: 1 baclofen 10 mg tablet 10 mg PO BID PRN (Reason: muscle spasticity) Qty: 60 RF: 2 triamcinolone acetonide 0.1 % cream 1 applic topical BID PRN (Reason: rash, itching) Qty: 80 RF: 1 omeprazole 40 mg capsule,delayed release(DR/EC) 40 mg PO DAILY PRNRF: 0 duloxetine [Cymbalta] 30 mg capsule,delayed release(DR/EC) 30 mg PO BID Qty: 60 RF: 1 amlodipine 5 mg tablet 5 mg PO DAILY Qty: 30 RF: 1 aspirin 81 MG tablet,delayed release (DR/EC) 81 mg PO DAILY RF: 0 lisinopril 30 tablet 30 mg PO DAILY RF: 0 ergocalciferol (vitamin D2) 50,000 capsule 50,000 mg PO QWEEK RF: 0 levothyroxine 75 mcg tablet 88 mcg PO DAILY RF: 0 metformin 500 mg tablet 500 mg PO BID RF: 0 mv,with [id number] 1 EACH tablet 1 ea PO DAILY RF: 0 pravastatin 20 mg tablet RF: 0 Primary Care Provider: Nanette Watts Referrals: Nanette Watts MD [Primary Care Provider] - Disposition Disposition: Home, Self Care Discharge Date/Time: 10/05/21 03:18
[2021-10-05 03:13] VITALS: BP 128/89; PULSE 83; RESP 18; O2SAT 95
--- NOTE | 2021-10-06 10:45 | CASEMGMT ---
JAMES MAYER ED follow-up: JAMES MAYER placed call to patient's telephone number listed on demographics, patient answered. Patient states feeling a little better today with BP 107/72 today. Patient reports low blood pressure yesterday 89/50 and felt somewhat dizzy. Patient called PCP yesterday to discuss symptoms and reports was instructed to take it easy, drink lots of water and rise slowly. Patient reports she has had these symptoms in the past as PCP adjusting BP medications and we just haven't got it right yet. PCP follow-up appointment scheduled for 10/15. JAMES MAYER instructed patient to keep BP log to take to PCP appointment. Patient again encouraged to perform position changes slowly to prevent dizziness and fall. Patient verbalized understanding. Patient denies questions or concerns and expressed appreciation for follow-up call. JAMES Rollins CM
== END 2021-10-05 03:18 | disposition home or self-care (01) ==
PROVIDERS: Emergency Provider Emergency Medicine; PCP Internal Medicine; Visit Provider Emergency Medicine
DX: I10 Essential (primary) hypertension (principal); E11.9 Type 2 diabetes mellitus without complications; D50.9 Iron deficiency anemia, unspecified; Z87.891 Personal history of nicotine dependence; Z79.82 Long term (current) use of aspirin; Z79.84 Long term (current) use of oral hypoglycemic drugs; Z79.899 Other long term (current) drug therapy
CPT/HCPCS: 80048; 84484; 85025; 93005; 96374; 99285; A4216

== ENCOUNTER 2021-10-09 12:50 | Emergency (ER) | payer MEDICAID, SELFPAY ==
[2021-10-09 12:50] VITALS: BP 174/111; PULSE 117; RESP 18; TEMP 36.6; O2SAT 99; BMI 32.7
--- NOTE | 2021-10-09 13:15 | EKG12_ITS ---
Test Reason : HTN Blood Pressure : / mmHG Vent. Rate : 097 BPM Atrial Rate : 097 BPM P-R Int : 134 ms QRS Dur : 074 ms QT Int : 338 ms P-R-T Axes : 048 027 043 degrees QTc Int : 429 ms Normal sinus rhythm Low voltage QRS Borderline ECG Confirmed by LEONEL CRAIG, KRISTINA ([id number]), society editor SILAS SANDOVAL ([id number]) on 10/13/2021 12:32:26 PM Referred By: ARIANA Confirmed By:KRISTINA CASTANEDA MD
--- NOTE | 2021-10-09 13:18 | RAD_ITS ---
STUDY: X-RAY CHEST REASON FOR EXAM: Female, 51 years old. Chest pain TECHNIQUE: Single AP portable view of the chest. COMPARISON: Comparison is made with prior study dated 06/26/2021. FINDINGS: EKG electrodes are seen. The lungs are clear and expanded. There is no demonstrated pleural abnormality. Normal size heart. Normal mediastinum and paul. Normal visualized pulmonary arteries. Normal visualized aortic arch and descending thoracic aorta. Normal visualized thoracic spine. Normal visualized ribs, clavicles, and shoulders. There is no demonstrated abnormality of the visualized soft tissue structures of the upper abdomen. RAD/Chest 1 View (Portable) IMPRESSION: Normal x-ray examination of the chest. Electronically Signed: Matthias Rashid MD at 13:36 EST ,
--- NOTE | 2021-10-09 13:18 | EX.ED.DYSGE1 ---
HPI History of Present Illness Chief Complaint: Hypertension Informant: patient Narrative Narrative: Patient is a 51-year-old female with history of hypertension, diabetes mellitus and anxiety presenting with lightheadedness, dizziness and chest pain. Patient states when she woke up she was feeling okay this morning. She then started to feel lightheaded/dizzy. She states it felt like the room was spinning. Worse when she moves her head. This made her feel anxious and she started feel nauseous. She developed a little bit of chest pain. She took her anxiety medicine which she believes is hydroxyzine and it started to feel better. She checked her blood pressure and found it to be elevated so she came to the emergency room for further evaluation. Patient notes that she was seen in the ER over the weekend for high blood pressure. At that time she had a work-up that was largely negative and she was given a dose of labetalol as well as clonidine. The following day her blood pressure was actually low but that it has normalized since. She is on lisinopril 30 mg daily for blood pressure and used to be on amlodipine 5 mg but was taken off of it because her blood pressure was going down to 109 systolic. Patient did not take any of her amlodipine today. Patient notes she has had these episodes of dizziness in the past. She denies any ringing in her ears or hearing changes. No other complaints at this time. [facility] Medical History Chronic neck pain Colon cancer screening Diabetes Encounter for screening for COVID-19 Fatty liver Gallbladder sludge Heart murmur History of migraine headaches Hypertension Iron deficiency anemia Muscle spasm Preventative health care Thyroid nodule Home Medications aspirin 81 mg PO DAILY 11/17/18 [History Last Taken Unknown] ergocalciferol (vitamin D2) 50,000 mg PO QWEEK 11/17/18 [History Last Taken Unknown] lisinopril 30 mg PO DAILY 11/17/18 [History Last Taken Unknown] levothyroxine 75 mcg tablet 88 mcg PO DAILY tab 10/04/19 [History Last Taken Unknown] mv,with [id number] 1 ea PO DAILY 02/02/20 [History Last Taken Unknown] metformin 500 mg tablet 500 mg PO BID tab 08/19/20 [History Last Taken Unknown] diclofenac sodium 1 % topical gel 2 g TOPICAL ONCE #100 g 01/29/21 [Rx Last Taken Unknown] dulaglutide 1.5 mg/0.5 mL subcutaneous pen injector 1.5 mg SUBCUT QWEEK 01/29/21 [History Last Taken Unknown] hydroxyzine pamoate 25 mg capsule 25 mg PO TID PRN PRN #30 cap 02/27/21 [Rx Last Taken Unknown] baclofen 10 mg tablet 10 mg PO BID PRN #60 tab 05/21/21 [Rx Last Taken Unknown] omeprazole 40 mg capsule,delayed release 40 mg PO DAILY PRN cap 06/18/21 [History Last Taken Unknown] duloxetine 30 mg capsule,delayed release 30 mg PO BID #60 cap 07/28/21 [Rx Last Taken Unknown] pravastatin 10/05/21 [History Last Taken Unknown] meclizine 25 mg PO TID PRN #20 tab 10/09/21 [Rx Last Taken Unknown] Allergy/AdvReac Type Severity Reaction Status Date / Time No Known Allergies Allergy Verified 10/09/21 12:51 Family History Brother Lung cancer Seizures Mother Diabetes Breast cancer Father Seizures Dementia Other Fatty liver disease, nonalcoholic Gallbladder sludge Social History Smoking Status: Former smoker Tobacco: How many years used: 20 alcohol intake: current alcohol intake frequency: holidays/special occasions only substance use type: does not use what type of physical activity do you participate in: walking frequency: other ROS ROS ED Constitutional Constitutional ED: Reports other Details: Dizziness ; Denies fatigue or weakness Eyes Eyes: Denies blurry vision ENT ENT ED: Reports dizziness; Denies hearing loss Cardiovascular Cardiovascular: Reports chest pain; Denies dyspnea or leg edema Respiratory/Chest Respiratory/Chest: Denies cough or dyspnea Gastrointestinal Gastrointestinal: Reports nausea; Denies abdominal pain or vomiting Genitourinary Genitourinary ED: Denies decreased urination or dysuria Musculoskeletal Musculoskeletal: Denies extremity pain Integumentary Denies new lesions or rash Neurologic Neurologic: Reports dizziness; Denies focal weakness, paresthesias or weakness Psychiatric Psychiatric: Reports anxiety; Denies depression Hematologic/Lymphatic Hematologic/Lymphatic: Denies easy bleeding or easy bruising EXAM Physical Exam Const Vital Signs: 10/09/21 12:50 10/09/21 12:57 10/09/21 13:23 Temperature 97.8 F Temperature Source Temporal Pulse Rate 117 H Pulse Rate [Lying] 113 H Pulse Rate [Sitting] 116 H Pulse Rate [Standing] 124 H Respiratory Rate 18 Respiratory Effort Normal Non-Labored Respiratory Pattern Normal Blood Pressure 174/111 H Blood Pressure [Lying] 163/89 H Blood Pressure [Sitting] 176/106 H Blood Pressure [Standing] 152/95 H Blood Pressure Mean 132 Blood Pressure Mean [Lying] 113 Blood Pressure Mean [Sitting] 129 Blood Pressure Mean [Standing] 114 Pulse Ox 99 Oxygen Delivery Method Room Air 10/09/21 14:34 Temperature Temperature Source Pulse Rate 105 H Pulse Rate [Lying] Pulse Rate [Sitting] Pulse Rate [Standing] Respiratory Rate Respiratory Effort Respiratory Pattern Blood Pressure 146/92 H Blood Pressure [Lying] Blood Pressure [Sitting] Blood Pressure [Standing] Blood Pressure Mean 110 Blood Pressure Mean [Lying] Blood Pressure Mean [Sitting] Blood Pressure Mean [Standing] Pulse Ox 95 Oxygen Delivery Method Room Air Positive well nourished and well developed General Appearance ED: well developed HEENT normocephalic Mouth ED: Yes moist mucous membranes normal Eyes PERRL and EOMs intact bilaterally Eyes Narrative: Mild horizontal fatiguing nystagmus with leftward gaze, symptoms exacerbated with left Lansing-Hallpike maneuver General Eye ED: Yes normal appearance of both eyes Pupil: PERRL Neck full ROM, supple and no JVD Lymph Lymphatic: no lymphadenopathy noted Chest Wall inspection of chest normal and palpation of chest normal Resp normal respiratory effort and normal air movement Cardio regular rate and regular rhythm Peripheral Pulses: pulses 2+ throughout GI non-tender and non-distended Back/Spine no CVA tenderness and normal to inspection Extremity normal to inspection and full ROM Neuro oriented x3, moves all extremities and no focal motor deficits Coordination: [id number] test normal Psych mental status grossly normal and thought process normal Mood & Affect: anxious Insight: insight good Skin no rashes or lesions noted and no petechiae MDM MDM MDM Narrative Medical decision making narrative: Patient evaluated for lightheadedness, dizziness and chest pain. Symptoms seem to start when she was cleaning the house and then started to feel dizzy. This made her feel anxious which made her feel like she had chest pain. On evaluation patient is tearful and extremely anxious. She appears nontoxic in no acute distress. She is hemodynamically stable. She is intermittently tachycardic however chart review shows that patient is often tachycardic while in the emergency room. She is hypertensive as well however I suspect this is more secondary to her anxiety and not a more malignant cause. Work-up including CBC, CMP, lipase and troponin are grossly normal. She is mildly elevated creatinine of 1.15 however this is her baseline. Orthostatics are nonspecific. Patient clinically is not appear dehydrated. She is given a dose of her 5 mg amlodipine. On reevaluation patient is now crying and even more anxious. She is given a 0.5 mg of IV Ativan. She has improvement of almost all of her symptoms including her hypertension. I suspect her anxiety is because of her symptoms. She does have a positive Tennille-Hallpike maneuver on the left and I suspect her initial dizziness and nausea is associated with peripheral vertigo. She states he has longstanding history of this. She does not have any truncal ataxia or ataxia of her limbs. I do not think this is a cerebellar stroke. Patient is given a prescription for meclizine but counseled to avoid using it with her hydroxyzine as it might be too sedating. Patient has outpatient follow-up with GI scheduled for November 2021. She has outpatient follow-up with her PCP next week. She is encouraged to keep that and discuss her anxiety with her. Patient and significant other are agreeable this plan of care. Patient discharged home in stable condition. Lab Data Attestation: I reviewed the patient's lab results. Labs: Laboratory Results - last 24 hr 10/09/21 10/09/21 13:07 13:07 WBC 5.8 RBC 4.64 Hgb 13.3 Hct 39.9 MCV 86.0 MCH 28.7 MCHC 33.3 RDW Std Deviation 42.1 RDW Coeff of Casey 13.5 Plt Count 295 MPV 10.4 Immature Gran % (Auto) 0.700 Neut % (Auto) 59.8 Lymph % (Auto) 29.7 Warrick % (Auto) 6.5 Eos % (Auto) 2.6 Baso % (Auto) 0.7 Absolute Neuts (auto) 3.5 Absolute Lymphs (auto) 1.73 Nucleated RBC % 0 Sodium 136 Potassium 3.8 Chloride 101 Carbon Dioxide 27.0 Anion Gap 8 BUN 19 H Creatinine 1.15 H Estim Creat Clear Calc 46.29 Est GFR (MDRD) Af Amer 64 Est GFR (MDRD) Non-Af 53 L BUN/Creatinine Ratio 16.5 Glucose 234 H Calcium 9.6 Total Bilirubin 0.30 AST 46 H ALT 64 H Alkaline Phosphatase 74 Troponin I High Sens < 3 L Total Protein 8.5 H Albumin 4.6 Globulin 3.9 Albumin/Globulin Ratio 1.2 Lipase 275 Radiography Chest X-Ray - ED: 1 View, Read by ED Physician, Read by Radiologist and No Acute Disease Diagnostic Testing: Clinical Impression(s) from Imaging Studies Chest X-Ray 10/09/21 13:18 IMPRESSION: Normal x-ray examination of the chest. Electronically Signed: Matthias Rashid MD at 13:36 EST , Rhythm Strip Rhythm Strip: Sinus Rhythm Rate: 97 Ectopy: None EKG Initial EKG: Attestation: I personally reviewed and interpreted this EKG as follows: Interpretation: Sinus Rhythm Comments: Normal sinus rhythm rate of 97 Normal axis Normal intervals Normal ST segments Discharge Plan Triage Chief Complaint: Hypertension ED Provider: Shereen Chavez Dx/Rx/DC Orders Clinical Impression: Episodic peripheral vertigo, Anxiety and depression, Hypertension Instructions: ED Anxiety Reaction, ED BPV Vertigo, ED Hypertension, Established Prescriptions: New meclizine 25 mg tablet 25 mg PO TID PRN (Reason: dizziness) Qty: 20 RF: 0 No Action Trulicity 1.5 mg/0.5 mL pen injector 1.5 mg subcut QWEEK RF: 0 diclofenac sodium [Voltaren] 1 % gel 2 g topical ONCE Qty: 100 RF: 0 hydroxyzine pamoate 25 mg capsule 25 mg PO TID PRN PRN (Reason: Anxiety) Qty: 30 RF: 1 baclofen 10 mg tablet 10 mg PO BID PRN (Reason: muscle spasticity) Qty: 60 RF: 2 omeprazole 40 mg capsule,delayed release(DR/EC) 40 mg PO DAILY PRN (Reason: Abdominal Discomfort) RF: 0 duloxetine [Cymbalta] 30 mg capsule,delayed release(DR/EC) 30 mg PO BID Qty: 60 RF: 1 aspirin 81 MG tablet,delayed release (DR/EC) 81 mg PO DAILY RF: 0 lisinopril 30 tablet 30 mg PO DAILY RF: 0 ergocalciferol (vitamin D2) 50,000 capsule 50,000 mg PO QWEEK RF: 0 levothyroxine 75 mcg tablet 88 mcg PO DAILY RF: 0 metformin 500 mg tablet 500 mg PO BID RF: 0 mv,with [id number] 1 EACH tablet 1 ea PO DAILY RF: 0 pravastatin 20 mg tablet RF: 0 Primary Care Provider: Nanette Watts Referrals: Noam Vee MD [STAFF PHYSICIAN] - Nanette Watts MD [Primary Care Provider] - Activity Restrictions/Additional Instructions: Your work-up was normal today. There does not appear to be any emergent process. I suspect you have a cold pulmonate of peripheral vertigo in your left ear that is contributing to your dizziness symptoms. You been referred to an ENT for this. Please follow-up with the GI doctor as scheduled and with your primary care doctor is scheduled. I suspect a lot of your elevated blood pressures are associated with your anxiety. Please discuss further with your primary care doctor further ways to help limit your anxiety/medications I can help. Avoid mixing your hydroxyzine with the meclizine (Antivert) as this can be too sedating. Disposition Disposition: Home, Self Care Discharge Date/Time: 10/09/21 15:29
[2021-10-09] MEDS: amLODIPine 5 MG Tablet PO (13:20)
[2021-10-09 13:23] VITALS: BP 152/95; BP 163/89; BP 176/106; PULSE 113; PULSE 116; PULSE 124
[2021-10-09 13:26] LABS: Absolute Lymphocyte Count 1.73 X10^3/uL (0.83-4.51); Absolute Neutrophil Count 3.5 X10^3/uL (2.0-7.7); Basophil# 0.04 X10^3/uL; Basophil% 0.7 % (0-1); Eosinophil# 0.15 X10^3/uL; Eosinophils% 2.6 % (0-5); Hematocrit 39.9 % (37-47); Hemoglobin 13.3 g/dL (12.0-15.0); Lymphocyte # 1.73 X10^3/ul (0.83-4.51); Lymphocyte % 29.7 % (19-41); Mean Corp Hgb Conc 33.3 g/dL (32-36); Mean Corpuscular Hgb 28.7 pg (27.0-32.0); Mean Platelet Vol. 10.4 fl (6.2-12.0); Monocyte# 0.38 X10^3/uL; Monocyte% 6.5 % (0-10); NRBC Flagged by Analyzer 0 % (0-5); Neutrophil # 3.48 X10^3/uL (2.7-7.7); Neutrophil % 59.8 % (47-70); Platelet Count 295 K/mm3 (150-450); RBC Distribution Width CV 13.5 % (11.6-14.6); RBC Distribution Width SD 42.1 fl (35.1-43.9); Red Blood Count 4.64 M/mm3 (4.2-5.4); White Blood Count 5.8 K/mm3 (4.4-11.0)
[2021-10-09 13:39] LABS: ALB/GLOB Ratio 1.2 RATIO (0.9-2.4); AST(SGOT) 46 U/L (15-37); Alanine Aminotransfer ALT/SGPT 64 U/L (13-56); Albumin, Serum 4.6 g/dL (3.2-5.0); Alkaline Phosphatase 74 U/L (45-117); Anion Gap 8 (5-15); BUN 19 mg/dL (7-18); BUN/Creat Ratio 16.5 RATIO (10-20); Calcium,Total 9.6 mg/dL (8.5-10.1); Chloride 101 mmol/L (98-107); Creatinine, Serum 1.15 mg/dL (0.55-1.02); EST Glomerular Filtration Rate 53 mL/min (>60); Est Glom Filt Rate - Afr Amer 64 mL/min (>60); Estimated Creatinine Clearance 46.29 ml/min; Globulin 3.9 g/dL (2.2-4.2); Glucose 234 mg/dL (74-106); Lipase 275 U/L (73-393); Potassium 3.8 mmol/L (3.5-5.1); Protein, Total 8.5 g/dL (6.4-8.2); Sodium Level 136 mmol/L (136-145); Troponin-I HS < 3 pg/mL (3.0-54.0)
[2021-10-09] MEDS: LORazepam 2 MG/ML Syringe 0.5 MG IV (14:09)
[2021-10-09 14:34] VITALS: BP 146/92; PULSE 105; O2SAT 95
== END 2021-10-09 15:29 | disposition home or self-care (01) ==
PROVIDERS: Emergency Provider Emergency Medicine; PCP Internal Medicine; Visit Provider Emergency Medicine
DX: I10 Essential (primary) hypertension (principal); E11.9 Type 2 diabetes mellitus without complications; H81.392 Other peripheral vertigo, left ear; F32.A Depression, unspecified; F41.9 Anxiety disorder, unspecified; Z79.82 Long term (current) use of aspirin; Z79.84 Long term (current) use of oral hypoglycemic drugs; Z79.899 Other long term (current) drug therapy; Z87.891 Personal history of nicotine dependence
CPT/HCPCS: 71045; 80053; 83690; 84484; 85025; 93005; 96374; 99285

== ENCOUNTER 2021-12-08 11:43 | Outpatient (CLI) | payer MEDICAID, SELFPAY ==
--- NOTE | 2021-12-08 11:47 | BI_ITS ---
MAMMOGRAPHY - BILATERAL SCREENING REASON FOR EXAM: Female, 51 years old. Routine annual screening examination. PERTINENT HISTORY: Mother with breast cancer. TECHNIQUE: Digital bilateral breast aaron (3D mammographic acquisition) in the CC and MLO projections. 2-D mediolateral oblique (MLO) and craniocaudad (CC) views of both breasts were obtained. CAD: Full Field Digital Mammography with Computer Added Detection was performed. COMPARISON: Comparison is made with prior study dated 10/15/2020 and 10/13/2019. FINDINGS: Breast Composition: There are scattered areas of fibroglandular density. There are no dominant masses or suspicious calcifications. Stable 7 mm well-defined nodule in the upper outer quadrant of the left breast. Prior sonogram demonstrated this to be a small lymph node. No other significant abnormalities are identified. There has been no significant change since the prior study. BI/SCRN MAMM (CAD)W/AARON BILAT IMPRESSION: Stable bilateral screening mammogram. Yearly follow-up mammogram recommended. (A) ASSESSMENT CATEGORY: BIRADS Category 2: Benign. A letter regarding these results will be sent to the patient by the facility within 30 days. Approximately 10% of breast cancers are not detected by mammography. A normal mammogram should not delay biopsy of a clinically suspicious abnormality. [id number] Electronically Signed: Matthias Rashid MD at 12:45 EDT ,
== END 2021-12-08 23:59 | disposition home or self-care (01) ==
LOC: OPBI 11:45
PROVIDERS: PCP Internal Medicine; Visit Provider Physician Assistant
DX: Z12.31 Encounter for screening mammogram for malignant neoplasm of breast (principal); Z80.3 Family history of malignant neoplasm of breast
CPT/HCPCS: 77063; 77067

== ENCOUNTER 2021-12-10 10:52 | Outpatient (CLI) | payer MEDICAID, SELFPAY ==
[2021-12-10 12:56] LABS: Microalbumin,Random Urine 86.3 mg/L (NO RANGE EST.); Microalbumin:Creatinine Ratio 64.4 mg/g CRE (<30 mg/g CRE)
== END 2021-12-10 23:59 | disposition home or self-care (01) ==
LOC: LABSPEC 10:53
PROVIDERS: PCP Internal Medicine; Referring Provider Nurse Practitioner Family; Visit Provider Nurse Practitioner Family
DX: E11.65 Type 2 diabetes mellitus with hyperglycemia (principal)
CPT/HCPCS: 82043; 82570

== ENCOUNTER → 2022-01-19 | Outpatient (CLI) | payer MEDICAID, SELFPAY ==
[2022-01-19 10:28] LABS: Erythrocyte Sedimentation Rate 24 mm/hr (0-30)
[2022-01-19 10:30] LABS: Absolute Lymphocyte Count 1.75 X10^3/uL (0.83-4.51); Absolute Neutrophil Count 2.7 X10^3/uL (2.0-7.7); Basophil# 0.03 X10^3/uL; Basophil% 0.6 % (0-1); Eosinophil# 0.16 X10^3/uL; Eosinophils% 3.2 % (0-5); Hematocrit 38.6 % (37-47); Hemoglobin 12.5 g/dL (12.0-15.0); Lymphocyte # 1.75 X10^3/ul (0.83-4.51); Lymphocyte % 34.8 % (19-41); Mean Corp Hgb Conc 32.4 g/dL (32-36); Mean Corpuscular Hgb 29.3 pg (27.0-32.0); Mean Corpuscular Volume 90.4 fL (81-99); Mean Platelet Vol. 10.6 fl (6.2-12.0); Monocyte# 0.38 X10^3/uL; Monocyte% 7.6 % (0-10); NRBC Flagged by Analyzer 0 % (0-5); Neutrophil % 53.6 % (47-70); Platelet Count 317 K/mm3 (150-450); RBC Distribution Width CV 13.2 % (11.6-14.6); RBC Distribution Width SD 43.6 fl (35.1-43.9); Red Blood Count 4.27 M/mm3 (4.2-5.4)
[2022-01-19 11:29] LABS: ALB/GLOB Ratio 1.2 RATIO (0.9-2.4); AST(SGOT) 59 U/L (15-37); Alanine Aminotransfer ALT/SGPT 65 U/L (13-56); Albumin, Serum 4.4 g/dL (3.2-5.0); Alkaline Phosphatase 83 U/L (45-117); Anion Gap 10 (5-15); BUN 20 mg/dL (7-18); BUN/Creat Ratio 20.1 RATIO (10-20); Calcium,Total 9.7 mg/dL (8.5-10.1); Chloride 100 mmol/L (98-107); EST Glomerular Filtration Rate 62 mL/min (>60); Est Glom Filt Rate - Afr Amer 76 mL/min (>60); Globulin 3.6 g/dL (2.2-4.2); Glucose 191 mg/dL (74-106); Potassium 4.4 mmol/L (3.5-5.1); Sodium Level 134 mmol/L (136-145)
== END | disposition home or self-care (01) ==
LOC: LAB 08:56
PROVIDERS: PCP Internal Medicine
DX: L40.50 Arthropathic psoriasis, unspecified (principal)
CPT/HCPCS: 36415; 80053; 85025; 85652

== ENCOUNTER → 2022-01-27 | Outpatient (CLI) | payer MEDICAID, SELFPAY ==
[2022-01-27 10:33] LABS: International Normalized Ratio 1.1; Prothrombin Time (Protime)PT. 13.5 SECONDS (11.7-14.9)
[2022-01-27 10:42] LABS: Hemoglobin A1c 6.9 % (3.8-5.6)
[2022-01-27 10:47] LABS: ALB/GLOB Ratio 1.1 RATIO (0.9-2.4); AST(SGOT) 57 U/L (15-37); Alanine Aminotransfer ALT/SGPT 84 U/L (13-56); Albumin, Serum 4.7 g/dL (3.2-5.0); Alkaline Phosphatase 86 U/L (45-117); Anion Gap 7 (5-15); BUN 17 mg/dL (7-18); BUN/Creat Ratio 17.6 RATIO (10-20); CRP < 2.90 mg/L (0.0-3.0); Calcium,Total 9.7 mg/dL (8.5-10.1); Chloride 103 mmol/L (98-107); Creatinine, Serum 0.97 mg/dL (0.55-1.02); EST Glomerular Filtration Rate 65 mL/min (>60); Est Glom Filt Rate - Afr Amer 78 mL/min (>60); Ferritin 52 ng/mL (8-252); Globulin 4.1 g/dL (2.2-4.2); Glucose 225 mg/dL (74-106); LDH 182 U/L (84-246); Potassium 4.5 mmol/L (3.5-5.1); Protein, Total 8.8 g/dL (6.4-8.2); Sodium Level 136 mmol/L (136-145)
[2022-01-27 10:55] LABS: Erythrocyte Sedimentation Rate 20 mm/hr (0-30)
[2022-01-27 10:56] LABS: Absolute Lymphocyte Count 1.92 X10^3/uL (0.83-4.51); Absolute Neutrophil Count 3.6 X10^3/uL (2.0-7.7); Basophil# 0.04 X10^3/uL; Basophil% 0.6 % (0-1); Eosinophil# 0.22 X10^3/uL; Eosinophils% 3.6 % (0-5); Hematocrit 38.8 % (37-47); Hemoglobin 12.9 g/dL (12.0-15.0); Lymphocyte # 1.92 X10^3/ul (0.83-4.51); Lymphocyte % 31.1 % (19-41); Mean Corp Hgb Conc 33.2 g/dL (32-36); Mean Corpuscular Hgb 29.4 pg (27.0-32.0); Mean Corpuscular Volume 88.4 fL (81-99); Mean Platelet Vol. 10.7 fl (6.2-12.0); Monocyte# 0.37 X10^3/uL; NRBC Flagged by Analyzer 0 % (0-5); Neutrophil # 3.57 X10^3/uL (2.7-7.7); Neutrophil % 57.9 % (47-70); Platelet Count 319 K/mm3 (150-450); RBC Distribution Width CV 12.8 % (11.6-14.6); Red Blood Count 4.39 M/mm3 (4.2-5.4); White Blood Count 6.2 K/mm3 (4.4-11.0)
[2022-01-27 11:07] LABS: HIV - WCH Non-Reactive (Nonreactive)
[2022-01-28 14:10] LABS: Anti-Centromere B Ab <0.2 AI (0.0-0.9); Anti-Chromatin <0.2 AI (0.0-0.9); Anti-Jo <0.2 AI (0.0-0.9); Anti-Scleroderma-70 AB <0.2 AI (0.0-0.9); RNP Ab 0.2 AI (0.0-0.9); SJOGREN'S Anti-SS-A test < 0.2 AI (0.0-0.9); SJOGREN'S Anti-SS-B test < 0.2 AI (0.0-0.9); Smith Ab <0.2 AI (0.0-0.9)
[2022-01-28 15:53] LABS: Anti-Mitochondrial AB <20.0 Units (0.0-20.0); Anti-dsDNA Ab <1 IU/mL (0-9)
[2022-01-29 08:10] LABS: Angiotensin Convert Enzyme < 15 U/L (14-82); Ceruloplasmin 24.6 mg/dL (19.0-39.0); Cytoplasmic Ab (C-ANCA) <1:20 titer (Neg:<1:20); HEPATITIS B SURFACE AG Negative (Negative); Hep C Antibodies <0.1 s/co ratio (0.0-0.9); Hepatitis A IgM Antibody Negative (Negative); Hepatitis B Core AB IgM Negative (Negative)
[2022-01-29 09:33] LABS: AFP, Tumor Marker 1.3 ng/mL (0.0-6.4); Anti-Smooth Muscle ABS 3 Units (0-19); Copper, Serum or Plasma 118 ug/dL (80-158); Haptoglobin 194 mg/dL (42-296); Perinuclear Ab (P-ANCA) <1:20 titer (Neg:<1:20)
== END | disposition home or self-care (01) ==
LOC: LAB 09:56
PROVIDERS: PCP Internal Medicine; Referring Provider Internal Medicine Gastroenterology; Visit Provider Internal Medicine Gastroenterology
DX: K76.0 Fatty (change of) liver, not elsewhere classified (principal); K21.9 Gastro-esophageal reflux disease without esophagitis; E66.09 Other obesity due to excess calories; Z68.32 Body mass index [BMI] 32.0-32.9, adult
CPT/HCPCS: 36415; 80053; 80074; 82105; 82140; 82164; 82390; 82525; 82728; 83010; 83036; 83516; 83615; 85025; 85610; 85652; 86140; 86225; 86235; 86256; 86703

== ENCOUNTER → 2022-02-27 | Outpatient (CLI) | payer MEDICAID, SELFPAY ==
--- NOTE | 2022-02-27 09:02 | US_ITS ---
STUDY: ABDOMINAL ULTRASOUND - RIGHT UPPER QUADRANT REASON FOR VISIT: Female, 51 years old RUQ and LUQ abdominal discomfort TECHNIQUE: Ultrasound evaluation of the right upper quadrant was performed with real-time and static carreno-scale imaging. TECHNICAL QUALITY: Adequate. COMPARISON: None. FINDINGS: Liver: The liver measures 17.3 cm. There is increased echogenicity consistent with fatty infiltration. The bile ducts are within normal limits. There is hepatic color flow. The direction of portal flow is hepatopetal. There is no demonstrated mass lesion. Gallbladder: Normal distended gallbladder. The gallbladder wall measures 1.9 mm. There is a negative sonographic Boss''s sign. There is no pericholecystic fluid. There are no gallstones. Common Bile Duct (C.B.D.): The common bile duct measures 3.8 mm. Pancreas: Normal size of the head, body and tail of the pancreas. There is normal echogenicity of the pancreas. There is no demonstrated pancreatic mass or cyst. Right Kidney: Normal size of the right kidney. The right kidney measures 10.2 cm x 5 cm x 3.6 cm. Normal renal cortex. The right cortex measures 1.3 cm. There is no demonstrated renal mass or cyst. There is no right hydronephrosis. US/Abdomen Limited IMPRESSION: Fatty infiltration of the liver. Electronically Signed: Matthias Rashid MD at 11:20 EDT ,
--- NOTE | 2022-02-27 09:02 | US_ITS ---
STUDY: ABDOMINAL ULTRASOUND - ELASTOGRAPHY REASON FOR VISIT: Female, 51 years old. Fatty infiltration of the liver. TECHNIQUE: Liver stiffness measurements were obtained on a PraXcell RS 85 ultrasound machine using a CA 1-7 probe following the SRU guidelines. 3 measurements were obtained using a 2-D-SWE method. The IQR/M was 18% suggesting a quality data set. TECHNICAL QUALITY: Adequate. COMPARISON: Comparison is made with prior study done earlier today. FINDINGS: Liver: Fatty infiltration liver. Median liver stiffness measured 8.3 kPa. US/Elastography Parenchyma/Organ IMPRESSION: Liver stiffness measures 8.3 kPa compatible with F2-F3 (Mild to moderate liver fibrosis) Metavir score. Electronically Signed: Matthias Rashid MD at 12:18 EDT ,
== END | disposition home or self-care (01) ==
LOC: US 09:02
PROVIDERS: PCP Internal Medicine; Referring Provider Internal Medicine Gastroenterology; Visit Provider Internal Medicine Gastroenterology
DX: K76.0 Fatty (change of) liver, not elsewhere classified (principal); K21.9 Gastro-esophageal reflux disease without esophagitis; E66.09 Other obesity due to excess calories; Z68.32 Body mass index [BMI] 32.0-32.9, adult
CPT/HCPCS: 76705; 76981

== ENCOUNTER → 2022-04-20 | Outpatient (CLI) | payer MEDICAID, SELFPAY ==
[2022-04-20 09:50] LABS: Microalbumin,Random Urine 47.8 mg/L (NO RANGE EST.)
[2022-04-20 10:00] LABS: Insulin 32.6 mU/L (2.6-37.6); Vitamin D,25 Hydroxy 74.4 ng/mL
[2022-04-20 10:29] LABS: ALB/GLOB Ratio 1.1 RATIO (0.9-2.4); AST(SGOT) 33 U/L (15-37); Alanine Aminotransfer ALT/SGPT 57 U/L (13-56); Albumin, Serum 4.2 g/dL (3.2-5.0); Alkaline Phosphatase 79 U/L (45-117); Anion Gap 7 (5-15); BUN 19 mg/dL (7-18); BUN/Creat Ratio 20.9 RATIO (10-20); Calcium,Total 9.6 mg/dL (8.5-10.1); Chloride 103 mmol/L (98-107); Cholesterol 189 mg/dL (200); Creatinine, Serum 0.91 mg/dL (0.55-1.02); EST Glomerular Filtration Rate 70 mL/min (>60); Est Glom Filt Rate - Afr Amer 84 mL/min (>60); Globulin 3.8 g/dL (2.2-4.2); Glucose 203 mg/dL (74-106); High Density Lipoprotein 35 mg/dL; Potassium 4.4 mmol/L (3.5-5.1); Sodium Level 136 mmol/L (136-145); Thyroid Stim Hormone (TSH) 2.01 uIU/mL (0.358-3.74); Triglycerides 355 mg/dL; Very Low Density Lipoprotein 71 mg/dL (5-40)
[2022-04-22 12:35] LABS: C-Peptide 5.9 ng/mL (1.1-4.4)
== END | disposition home or self-care (01) ==
LOC: LAB 09:06
PROVIDERS: PCP Internal Medicine; Referring Provider Internal Medicine Endocrinology, Diabetes & Metabolism; Visit Provider Internal Medicine Endocrinology, Diabetes & Metabolism
DX: E11.65 Type 2 diabetes mellitus with hyperglycemia (principal); E04.1 Nontoxic single thyroid nodule; E55.9 Vitamin D deficiency, unspecified; E78.5 Hyperlipidemia, unspecified; I10 Essential (primary) hypertension
CPT/HCPCS: 36415; 80053; 80061; 82043; 82306; 83525; 84443; 84681

== ENCOUNTER → 2022-04-29 | Outpatient (CLI) | payer MEDICAID, SELFPAY ==
[2022-05-06 16:41] LABS: HPV Reflexed? NOT INDICATED
== END | disposition home or self-care (01) ==
LOC: LABSPEC 12:29
PROVIDERS: PCP Internal Medicine; Visit Provider Student in an Organized Health Care Education/Training Program
DX: Z12.4 Encounter for screening for malignant neoplasm of cervix (principal)
CPT/HCPCS: 88175; G0145

== ENCOUNTER → 2022-07-14 | Outpatient (CLI) | payer MEDICAID, SELFPAY ==
[2022-07-14 09:47] LABS: Hemoglobin A1c 7.4 % (3.8-5.6)
[2022-07-14 09:50] LABS: Microalbumin,Random Urine 53.5 mg/L (NO RANGE EST.)
[2022-07-14 10:04] LABS: ALB/GLOB Ratio 1.2 RATIO (0.9-2.4); AST(SGOT) 27 U/L (15-37); Alanine Aminotransfer ALT/SGPT 35 U/L (13-56); Albumin, Serum 4.3 g/dL (3.2-5.0); Alkaline Phosphatase 48 U/L (45-117); Anion Gap 6 (5-15); BUN 26 mg/dL (7-18); Calcium,Total 9.8 mg/dL (8.5-10.1); Chloride 103 mmol/L (98-107); Cholesterol 161 mg/dL (200); Creatinine, Serum 1.18 mg/dL (0.55-1.02); EST Glomerular Filtration Rate 51 mL/min (>60); Est Glom Filt Rate - Afr Amer 62 mL/min (>60); Globulin 3.6 g/dL (2.2-4.2); Glucose 185 mg/dL (74-106); High Density Lipoprotein 39 mg/dL; Potassium 4.3 mmol/L (3.5-5.1); Protein, Total 7.9 g/dL (6.4-8.2); Sodium Level 137 mmol/L (136-145); T4 Free Direct 1.53 ng/dL (0.76-1.46); Thyroid Stim Hormone (TSH) 0.55 uIU/mL (0.358-3.74); Triglycerides 118 mg/dL; Very Low Density Lipoprotein 24 mg/dL (5-40)
== END | disposition home or self-care (01) ==
LOC: LAB 08:54
PROVIDERS: PCP Internal Medicine; Referring Provider Internal Medicine Endocrinology, Diabetes & Metabolism; Visit Provider Internal Medicine Endocrinology, Diabetes & Metabolism
DX: E11.65 Type 2 diabetes mellitus with hyperglycemia (principal); E55.9 Vitamin D deficiency, unspecified; E78.5 Hyperlipidemia, unspecified; I10 Essential (primary) hypertension
CPT/HCPCS: 36415; 80053; 80061; 82043; 83036; 84439; 84443

== ENCOUNTER 2022-07-22 11:00 | Outpatient (RCR) | payer MEDICAID, SELFPAY ==
--- NOTE | 2022-04-21 09:11 | HP.PTEVAL_ITS ---
Patient's Visit Information DARREL MONSIVAIS is a 52 year old F referred to Physical Therapy by Dr. Brandon Saunders DO with a diagnosis of CERVICAL DDD. Date of Evaluation: 04/21/22 Physical Therapist: Arturo Andres PT, Cert MDT, OCS - Visit Plan Frequency: 2x /Week Duration: 4 Weeks Plan: PT INTERVETIONS CERVICAL/POSTURAL EX,CERVICAL ROM ,MODALTIES AND MANUAL THERAPY - Subjective This 52 y/o female presents physical therapy with cervical pain. Patient has had cervical pain with symptoms to shoulders. Patient has had PT last year but had to stop. Patient seen Dr Saunders surgeon ,recommended MRI. Patient insidious onset cervical pain with trauma. Patient aggravating factors turning neck ,flexion and general motion. Location of symptoms base of occiput. Alleviating rest and heat. C/O SIMON occiput and frontal . Patient c/o paresthesia in hands and feet from possible DM. Denies dizziness/nausea . Patient symptoms affects sleeping. Patient symptoms affects ADLS ,housework tasks. VOCATION: UNEMPLOYED. SOCIAL: single - Pain Bilateral Neck Pain Intensity (Out of 10): 5 Pain Intensity Range: 10 - Objective POSTURE: rounded shoulders head forward. NEURO: c/o paresthesia/tingling ,reflexes C5-6-7 1/3. PALAPTION: tender UT/levator. BUE AROM: WFL. MMT: BUE 4/5. 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 50# - Special Tests C/S Radiculapathy - Left Upper limb tension test: Positive C/S Radiculapathy - Right Upper limb tension test: Positive C/S Radiculapathy - Left Spurlings: Positive C/S Radiculapathy - Right Spurlings: Positive C/S Radiculapathy - Left Cervical distraction: Positive C/S Radiculapathy - Right Cervical distraction: Positive Sharp Jennifer: Positive Vertebral Artery Test: Positive Alar Ligament Test: Positive Cervical Sitting: Protrusion - Mechanical Response: No effect Cervical Sitting: Protrusion - Symptoms During Testing: Increases Cervical Sitting: Protrusion - Symptoms After Testing: Worse Cervical Sitting: Retraction - Mechanical Response: No effect Cervical Sitting: Retraction - Symptoms During Testing: Increases Cervical Sitting: Retraction - Symptoms After Testing: No worse Cervical Sitting: Retraction-Extension - Mechanical Response: No effect Cerv Sitting: Retraction-Extension - Symptoms During Testing: Increases Cerv Sitting: Retraction-Extension - Symptoms After Testing: No worse Cervical Sitting: Sidebend Right - Mechanical Response: No effect Cervical Sitting: Sidebend Right - Symptoms During Testing: Increases Cervical Sitting: Sidebend Right - Symptoms After Testing: No worse Cervical Sitting: Sidebend Left - Mechanical Response: No effect Cervical Sitting: Sidebend Left - Symptoms During Testing: Increases Cervical Sitting: Sidebend Left - Symptoms After Testing: No worse Cervical Sitting: Rotation Right - Mechanical Response: No effect Cervical Sitting: Rotation Right - Symptoms During Testing: Increases Cervical Sitting: Rotation Right - Symptoms After Testing: No worse Cervical Sitting: Rotation Left - Mechanical Response: No effect Cervical Sitting: Rotation Left - Symptoms During Testing: Increases Cervical Sitting: Rotation Left - Symptoms After Testing: No worse Cervical Sitting: Flexion - Mechanical Response: No effect Cervical Sitting: Flexion - Symptoms During Testing: Increases Cervical Sitting: Flexion - Symptoms After Testing: Worse - Balance/Special Test Scores Oswestry Neck Score: 22 - Goals Goal 1:: I with HEP Goal Time Frame: 4-6 Weeks Goal 2:: Patient to demonstrate 50% improvement with less pain and improved function Goal Time Frame: 4-6 Weeks Goal 3:: Patient to improve cervical ROM for function to turn neck to drive car Goal Time Frame: 4-6 Weeks Goal 4:: Patient to improve neck oswestry score by 5 points to improve QOL. Goal Time Frame: 4-6 Weeks Goal 5:: Patient to decrease SIMON by 50 % to improve function Goal Time Frame: 4-6 Weeks - Rehabilitation Potential Physical Therapy Diagnosis: This patient has cervical pain with pain with positioning, motion testing ,affecting function along with SIMON thus benefit from skilled PT Rehabilitation Potential: Good - Anticipated Interventions Patient/Client Instruction: Educate patient on: Condition, Plan of Care For the Purpose of:: To decrease pain, To increase ROM, To improve muscle performance and motor function, To improve ability to perform ADL's, To increase tolerance to activity/condition/position, To improve ability of physical actions for home/community/work/leisure, To improve health of tissue, To decrease soft tissue restriction, To increase flexibility/ROM Therapeutic Exercise to Include: Strength training, Postural training, Flexibilty training, Active ROM For the Purpose of:: To decrease pain, To increase ROM, To improve ability to perform ADL's, To increase tolerance to activity/condition/position, To improve performance and independence with ADL's, To improve ability of physical actions for home/community/work/leisure, To improve health of tissue, To decrease soft tissue restriction, To increase flexibility/ROM Manual Therapy Techniques to Include: Mobilization Comment: NECK For the Purpose of:: To decrease pain, To increase ROM TENS: Yes IF ES: Yes Cryotherapy (ice pack, ice massage): Yes Thermo therapy (hot pack): Yes Ultrasound (thermal/non thermal): Yes For the Purpose of:: To decrease pain, To increase ROM, To improve nutrient delivery to tissue, To increase oxygenation perfusion, To improve health of tis kristine, To decrease soft tissue restriction Thank you for the opportunity to evaluate your patient. For Medicare and Medicare HMO plans, please review the plan of care and approve it. It will need to be FAXED BACK to us at [phone] for Medicare purposes. For Medicare only, by signing this I certify the plan of care. Please let me know if there are questions or concerns regarding this plan of care. Physician Signature: Date:
--- NOTE | 2022-08-25 12:32 | HP.PT.NRP ---
DARREL MONSIVAIS was seen in my office for initial evaluation on 04/21/22. The following Plan of Care was established for this patient: Initial Frequency: 2x /Week Initial Duration: 4 Weeks Patient/Client Instruction: Educate patient on: Condition, Plan of Care For the Purpose of:: To decrease pain, To increase ROM, To improve muscle performance and motor function, To improve ability to perform ADL's, To increase tolerance to activity/condition/position, To improve ability of physical actions for home/community/work/leisure, To improve health of tissue, To decrease soft tissue restriction, To increase flexibility/ROM Therapeutic Exercise to Include: Strength training, Postural training, Flexibilty training, Active ROM For the Purpose of:: To decrease pain, To increase ROM, To improve ability to perform ADL's, To increase tolerance to activity/condition/position, To improve performance and independence with ADL's, To improve ability of physical actions for home/community/work/leisure, To improve health of tissue, To decrease soft tissue restriction, To increase flexibility/ROM Manual Therapy Techniques to Include: Mobilization Comment: NECK For the Purpose of:: To decrease pain, To increase ROM TENS: Yes IF ES: Yes Cryotherapy (ice pack, ice massage): Yes Thermo therapy (hot pack): Yes Ultrasound (thermal/non thermal): Yes For the Purpose of:: To decrease pain, To increase ROM, To improve nutrient delivery to tissue, To increase oxygenation perfusion, To improve health of tissue, To decrease soft tissue restriction This patient was last seen in our office . Pertinent comments regarding their Physical therapy will appear below: Patient was seen for PT for cervical pain for postural ex's and strengthening thus is d/c . Plan to have MRI At this point I will be discontinuing this patient from physical therapy. I would be happy to see this patient again in the future if found appropriate by the physician. Thank you! Arturo Andres, PT, Cert MDT, OCS Balance/Gait/Functional tests - Balance/Special Test Scores Oswestry Neck Score: 6
== END 2022-07-22 19:00 | disposition home or self-care (01) ==
LOC: PT 11:00
PROVIDERS: PCP Internal Medicine; Referring Provider Orthopaedic Surgery; Visit Provider Orthopaedic Surgery
DX: M50.30 Other cervical disc degeneration, unspecified cervical region (principal)
CPT/HCPCS: 97110; 97162

== ENCOUNTER → 2022-09-02 | Outpatient (CLI) | payer MEDICAID, SELFPAY ==
--- NOTE | 2022-09-02 08:17 | US_ITS ---
STUDY: ABDOMINAL ULTRASOUND - RIGHT UPPER QUADRANT REASON FOR VISIT: Female, 52 years old NAFLD TECHNIQUE: Ultrasound evaluation of the right upper quadrant was performed with real-time and static carreno-scale imaging. TECHNICAL QUALITY: Adequate. COMPARISON: Comparison is made with prior study dated 02/27/2022. FINDINGS: Liver: The liver measures 17.5 cm. There is increased echogenicity consistent with fatty infiltration. The bile ducts are within normal limits. There is hepatic color flow. The direction of portal flow is hepatopetal. There is no demonstrated mass lesion. Gallbladder: Normal distended gallbladder. The gallbladder wall measures 1.5 mm. There is a negative sonographic Boss''s sign. There is no pericholecystic fluid. There are no gallstones. Common Bile Duct (C.B.D.): The common bile duct measures 4.2 mm. Pancreas: Normal size of the head, body and tail of the pancreas. There is normal echogenicity of the pancreas. There is no demonstrated pancreatic mass or cyst. Right Kidney: Normal size of the right kidney. The right kidney measures 10.6 cm x 4.7 cm x 3.7 cm. Normal renal cortex. The right cortex measures 1.4 cm. There is no demonstrated renal mass or cyst. There is no right hydronephrosis. US/Abdomen Limited IMPRESSION: Mild hepatomegaly and fatty infiltration of the liver. Electronically Signed: Matthias Rashid MD at 9:35 EST ,
--- NOTE | 2022-09-02 08:17 | US_ITS ---
STUDY: ABDOMINAL ULTRASOUND - ELASTOGRAPHY REASON FOR VISIT: Female, 52 years old. Fatty infiltration of the liver. TECHNIQUE: Liver stiffness measurements were obtained on a [employer] RS 85 ultrasound machine using a CA 1-7 probe following the SRU guidelines. 3 measurements were obtained using a 2-D-SWE method. The IQR/M was 20% suggesting a quality data set. TECHNICAL QUALITY: Adequate. COMPARISON: None. FINDINGS: Liver: Fatty infiltration of the liver. Median liver stiffness measured 9.4 kPa. US/Elastography Parenchyma/Organ IMPRESSION: Liver stiffness measures 9.4 kPa compatible with F2-F3 (Mild to moderate liver fibrosis) Metavir score. Electronically Signed: Matthias Rashid MD at 9:36 EST ,
== END | disposition home or self-care (01) ==
LOC: US 08:17
PROVIDERS: PCP Internal Medicine; Visit Provider Nurse Practitioner Adult Health
DX: K76.0 Fatty (change of) liver, not elsewhere classified (principal)
CPT/HCPCS: 76705; 76981

== ENCOUNTER → 2022-09-15 | Outpatient (CLI) | payer MEDICAID, SELFPAY ==
[2022-09-19 14:54] LABS: Pancreatic Elastase, Fecal 156 (>200)
== END | disposition home or self-care (01) ==
LOC: LABSPEC 14:12
PROVIDERS: PCP Internal Medicine; Visit Provider Nurse Practitioner Adult Health
DX: R10.13 Epigastric pain (principal)
CPT/HCPCS: 82653

== ENCOUNTER → 2022-10-06 | Outpatient (CLI) | payer MEDICAID, SELFPAY ==
--- NOTE | 2022-10-06 11:57 | MRI_ITS ---
STUDY: MRI CERVICAL SPINE WITHOUT CONTRAST REASON FOR EXAM: Female, 52 years old. neck pain TECHNIQUE: Standardized fat and water weighted pulse sequences were obtained in the sagittal and axial planes. COMPARISON: Cervical spine x-rays April 08, 2022 FINDINGS: Normal foramen magnum and brainstem-cervical cord junction. Normal craniovertebral junction. Normal anterior atlantoaxial articulation. Normal odontoid process. Normal cervical lordosis. Normal vertebral bodies and posterior osseous elements. C2-3: Normal endplates. Normal disc height, signal and morphology. Normal central canal and intervertebral neural foramina. C3-4: Normal endplates. Normal disc height, signal and morphology. Normal central canal and intervertebral neural foramina. C4-5: Normal endplates. Normal disc height, signal and small central disc protrusion.. Mild narrowing of the spinal canal and cord compression.. Normal bilateral intervertebral neural foramina C5-6: Normal endplates. Normal disc height, signal and minor bulging disc osteophyte complex.. Mild narrowing the central canal and impingement upon the cord.. Moderate bilateral neural foraminal encroachment secondary to disc and bony hypertrophy. C6-7: Normal endplates. Normal disc height, signal and broad-based left paracentral/posterolateral disc protrusion narrowing the spinal canal and compressing the cord on the left.. Mild to moderate left neural foraminal stenosis secondary to disc and bony hypertrophy C7-T1: Normal endplates. Normal disc height, signal and morphology. Normal central canal and intervertebral neural foramina. Normal cervical cord. Probable sebaceous cyst within the subcutaneous fat posteriorly at the level of the upper thoracic spine No significant change since prior exam given differences in imaging modalities MRI/Spine Cervical (Routine) IMPRESSION: No evidence for acute fracture or other significant bony pathology. Multilevel spinal stenosis and mild cord compression secondary to disc disease and bony hypertrophy most severe at C5-6 and C6-7 Electronically Signed: Ru Dawkins MD at 16:48 EST ,
== END | disposition home or self-care (01) ==
LOC: MRI 11:57
PROVIDERS: PCP Internal Medicine; Referring Provider Orthopaedic Surgery; Visit Provider Orthopaedic Surgery
DX: M50.30 Other cervical disc degeneration, unspecified cervical region (principal)
CPT/HCPCS: 72141

== ENCOUNTER → 2022-11-16 | Outpatient (CLI) | payer MEDICAID, SELFPAY ==
[2022-11-16 10:27] LABS: Hemoglobin A1c 5.9 % (3.8-5.6)
[2022-11-16 10:30] LABS: Microalbumin,Random Urine 11.1 mg/L (NO RANGE EST.)
[2022-11-16 10:35] LABS: Vitamin D,25 Hydroxy 75.5 ng/mL
[2022-11-16 10:45] LABS: ALB/GLOB Ratio 1.2 RATIO (0.9-2.4); AST(SGOT) 26 U/L (15-37); Alanine Aminotransfer ALT/SGPT 29 U/L (13-56); Albumin, Serum 4.2 g/dL (3.2-5.0); Alkaline Phosphatase 41 U/L (45-117); Anion Gap 5 (5-15); BUN 21 mg/dL (7-18); BUN/Creat Ratio 19.1 RATIO (10-20); Calcium,Total 9.6 mg/dL (8.5-10.1); Chloride 106 mmol/L (98-107); Cholesterol 162 mg/dL (200); EST Glomerular Filtration Rate 56 mL/min (>60); Est Glom Filt Rate - Afr Amer 67 mL/min (>60); Globulin 3.5 g/dL (2.2-4.2); Glucose 126 mg/dL (74-106); High Density Lipoprotein 40 mg/dL; Potassium 4.2 mmol/L (3.5-5.1); Protein, Total 7.7 g/dL (6.4-8.2); Sodium Level 140 mmol/L (136-145); T4 Free Direct 1.27 ng/dL (0.76-1.46); Thyroid Stim Hormone (TSH) 1.45 uIU/mL (0.358-3.74); Triglycerides 118 mg/dL; Very Low Density Lipoprotein 24 mg/dL (5-40)
== END | disposition home or self-care (01) ==
LOC: LAB 09:07
PROVIDERS: PCP Internal Medicine; Referring Provider Internal Medicine Endocrinology, Diabetes & Metabolism; Visit Provider Internal Medicine Endocrinology, Diabetes & Metabolism
DX: E11.65 Type 2 diabetes mellitus with hyperglycemia (principal); I10 Essential (primary) hypertension; E78.5 Hyperlipidemia, unspecified; E55.9 Vitamin D deficiency, unspecified
CPT/HCPCS: 36415; 80053; 80061; 82043; 82306; 83036; 84439; 84443

== ENCOUNTER → 2022-12-09 | Outpatient (CLI) | payer MEDICAID, SELFPAY ==
--- NOTE | 2022-12-09 10:30 | BI_ITS ---
MAMMOGRAPHY - BILATERAL SCREENING REASON FOR EXAM: Female, 52 years old. Routine annual screening examination. PERTINENT HISTORY: Mother with breast cancer. TECHNIQUE: Digital bilateral breast aaron (3D mammographic acquisition) in the CC and MLO projections. 2-D mediolateral oblique (MLO) and craniocaudad (CC) views of both breasts were obtained. CAD: Full Field Digital Mammography with Computer Added Detection was performed. COMPARISON: Comparison is made with prior study December 08, 2021 and October 15, 2020. FINDINGS: Breast Composition: The breasts are almost entirely fatty. There are no dominant masses or suspicious calcifications. Stable 7 mm well-defined nodule in the upper outer quadrant of the left breast. Prior sonogram demonstrated this to be a small left lymph node. Stable small benign-appearing bilateral axillary. No other significant abnormalities are identified. There has been no significant change since the prior study. BI/SCRN MAMM (CAD)W/AARON BILAT IMPRESSION: Stable bilateral screening mammogram. Yearly follow-up mammogram recommended. (A) ASSESSMENT CATEGORY: BIRADS Category 2: Benign. A letter regarding these results will be sent to the patient by the facility within 30 days. Approximately 10% of breast cancers are not detected by mammography. A normal mammogram should not delay biopsy of a clinically suspicious abnormality. [id number] Electronically Signed: Matthias Rashid MD at 13:54 EDT ,
== END | disposition home or self-care (01) ==
LOC: OPBI 10:29
PROVIDERS: PCP Internal Medicine; Visit Provider Student in an Organized Health Care Education/Training Program
DX: Z12.31 Encounter for screening mammogram for malignant neoplasm of breast (principal); Z80.3 Family history of malignant neoplasm of breast
CPT/HCPCS: 77063; 77067

== ENCOUNTER → 2023-01-20 | Outpatient (CLI) | payer MEDICAID, SELFPAY ==
[2023-01-20 12:32] LABS: Ferritin 36 ng/mL (8-252); Iron 101 ug/dL (50-170); Iron Binding Capacity,Total 526 ug/dL (250-450); PERCENT IRON SATURATION 19.2 % (15.0-55.0)
[2023-01-20 12:34] LABS: Vitamin B12 1413 pg/mL (211-911); Vitamin D,25 Hydroxy 87.8 ng/mL
[2023-01-20 12:38] LABS: Absolute Lymphocyte Count 2.04 X10^3/uL (0.83-4.51); Absolute Neutrophil Count 3.5 X10^3/uL (2.0-7.7); Basophil# 0.04 X10^3/uL; Basophil% 0.7 % (0-1); Eosinophil# 0.23 X10^3/uL; Eosinophils% 3.7 % (0-5); Hematocrit 36.8 % (37-47); Hemoglobin 11.9 g/dL (12.0-15.0); Lymphocyte # 2.04 X10^3/ul (0.83-4.51); Lymphocyte % 33.2 % (19-41); Mean Corp Hgb Conc 32.3 g/dL (32-36); Mean Corpuscular Hgb 28.7 pg (27.0-32.0); Mean Corpuscular Volume 88.9 fL (81-99); Mean Platelet Vol. 11.2 fl (6.2-12.0); Monocyte# 0.34 X10^3/uL; Monocyte% 5.5 % (0-10); NRBC Flagged by Analyzer 0 % (0-5); Neutrophil # 3.46 X10^3/uL (2.7-7.7); Neutrophil % 56.2 % (47-70); Platelet Count 362 K/mm3 (150-450); RBC Distribution Width CV 13.7 % (11.6-14.6); RBC Distribution Width SD 44.6 fl (35.1-43.9); Red Blood Count 4.14 M/mm3 (4.2-5.4); White Blood Count 6.2 K/mm3 (4.4-11.0)
== END | disposition home or self-care (01) ==
PROVIDERS: PCP Internal Medicine; Referring Provider Nurse Practitioner Family; Visit Provider Nurse Practitioner Family
DX: D50.9 Iron deficiency anemia, unspecified (principal); E56.9 Vitamin deficiency, unspecified
CPT/HCPCS: 36415; 82306; 82607; 82728; 83540; 83550; 85025

== ENCOUNTER 2023-03-12 12:11 | Day surgery (SDC) | payer MEDICAID, SELFPAY ==
[2023-03-12 12:37] VITALS: BP 134/80; PULSE 97; RESP 12; TEMP 36.7; O2SAT 96; BMI 29.0
[2023-03-12 12:50] LABS: Internal QC Validated? YES +Cl - CLEAR BKGD; Pregnancy, Urine Negative Negative
[2023-03-12] MEDS: Lactated Ringers 1,000 ML 15 ML IV (12:53)
--- NOTE | 2023-03-12 13:23 | HP.PCM_ITS ---
History and Physical Date of Admission: 03/12/23 52 F who presents to the office today for 4 month f/u NAFLD, GERD and a positive Cologuard She reports mild epigastric pain, no radiating pain, relieved with mylanta, certain foods cause it--spicy, tomato sauce. Still gets intermittent sternal pain, thinks might be related to anxiety. Not having RUQ pain any more. Reflux controlled with PPI. No nausea, vomiting, dysphagia. Bowels are regular, no constipation or diarrhea, no melena or hematochezia NAFLD -- started on vitamin E and ursodiol 03/03/22. 01/27/22 labs: AST 57, ALT 84, remaining labs for fatty liver w/u were unremarkable. She decreased ursodiol from BID to daily due to abdominal pain; decreasing to once a day resolved the pain. She also takes vitamin E. Repeat liver elastography in 08/2022 showed increase in liver stiffness from 8.3 kpa to 9.4 kpa. She continues to lose weight intentionally. NAFLD related to obesity, DM2. 07/2022 hgb a1c 7.4, normal bili/ast/alt/alk phos GERD -- well controlled with pantoprazole 40 mg daily She has not had a colonoscopy but underwent a Cologuard and it was positive. She arrives today to set up a colonoscopy. 09/02/22 US/Elastography Parenchyma/Organ IMPRESSION: Liver stiffness measures 9.4 kPa compatible with F2-F3 (Mild to moderate liver fibrosis) Metavir score. ROS Const Constitutional: No fatigue ENT ENT: No difficulty swallowing Gastro GI: No abdominal pain, belching, bloating, change in bowel habits, change in stool character, coffee ground emesis, constipation, cramping, diarrhea, heartburn, difficulty swallowing, feeling full early, excessive flatus, incontinent of stools, Vomiting blood/hematemesis, Blood in stool, loose stools, Black,tarry stools, nausea/dyspepsia, pain with swallowing, vomiting or other Musc Musculoskeletal: Positive for numbness, tingling and Arthritis; No joint pain or stiffness Skin Skin: No yellowing of the eye or itchy eyes Neuro Neurology: Positive for numbness and tingling Psych Psychiatric: Positive for anxiety and No depression Endo Endocrine: No fatigue Aller/Imm Allergy/Immunologic: No itchy eyes Yung/Lymp Hematologic/Lymphatic: No easy bleeding or easy bruising Exam Const General: cooperative and comfortable Orientation: alert, awake and oriented x3 GI Inspection: normal to inspection Palpation: soft, no hepatosplenomegaly, no masses and tender in the epigastrum Quality Reporting Tobacco Screening ([facility] 138) Smoking Status: Former smoker Assessment and Plan Assessment and Plan (1) Epigastric abdominal pain: Status: Acute Plan: She is very anxious about anesthesia and procedures, but would like to schedule EGD and colonoscopy. Will rx anxiolytic to take the morning of the procedure. 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 She was explained alternatives, risk, benefits including outstanding bleeding, infection, sepsis, perforation, need for emergent . She will have an ASA of 3. Pancreatic Elastase, Fecal 09/15/22 R10.13 - Epigastric pain Medications: New alprazolam take 1 tablet by mouth 1 hour before procedure 1 TAB 0RF Discontinued famotidine Discontinued Reason: Pt no longer taking 20 mg PO
--- NOTE | 2023-03-12 13:49 | OP.COLON_ITS ---
Patient Name: Liliam Bennett Procedure Date: 03/12/2023 1:20 PM Date of : 1970 Age: 52 Procedure: Colonoscopy Indications: Screening for colorectal malignant neoplasm Providers: Derek Anglin DO Referring MD: Nanette Watts MD Medicines: Monitored Anesthesia Care Patient Profile: This is a 52 year old female. Refer to note in patient chart for documentation of history and physical. Last Colonoscopy: none. The patient's first colonoscopy is today. Complications: No immediate complications. Procedure: Pre-Anesthesia Assessment: - Prior to the procedure, a History and Physical was performed, and patient medications and allergies were reviewed. The patient is competent. The risks and benefits of the procedure and the sedation options and risks were discussed with the patient. All questions were answered and informed consent was obtained. Patient identification and proposed procedure were verified by the physician in the pre-procedure area. Mental Status Examination: normal. Prophylactic Antibiotics: The patient does not require prophylactic antibiotics. Prior Anticoagulants: The patient has taken no previous anticoagulant or antiplatelet agents. After reviewing the risks and benefits, the patient was deemed in satisfactory condition to undergo the procedure. The anesthesia plan was to use monitored anesthesia care (MAC). Immediately prior to administration of medications, the patient was re-assessed for adequacy to receive sedatives. The heart rate, respiratory rate, oxygen saturations, blood pressure, adequacy of pulmonary ventilation, and response to care were monitored throughout the procedure. The physical status of the patient was re-assessed after the procedure. After I obtained informed consent, the scope was passed under direct vision. Throughout the procedure, the patient's blood pressure, pulse, and oxygen saturations were monitored continuously. The pediatric colonoscope was introduced through the anus and advanced to the cecum, identified by appendiceal orifice and ileocecal valve. The colonoscopy was performed without difficulty. The patient tolerated the procedure well. The quality of the bowel preparation was adequate. Scope In: 1:28:36 PM Scope Withdrawal Time 0 hours 9 minutes 2 seconds Scope Out: 1:44:18 PM Total Procedure Duration Time 0 hours 15 minutes 42 seconds Findings: The perianal and digital rectal examinations were normal. A few small-mouthed diverticula were found in the recto-sigmoid colon. The exam was otherwise without abnormality on direct and retroflexion views. Impression: - Diverticulosis in the recto-sigmoid colon. - The examination was otherwise normal on direct and retroflexion views. - No specimens collected. Recommendation: - Discharge patient to home. - Resume previous diet. - Continue present medications. - Repeat colonoscopy in 10 years for screening purposes. Procedure Code(s): --- Professional --- G0121, Colorectal cancer screening; colonoscopy on individual not meeting criteria for high risk CPT copyright 2017 [employer]. All rights reserved. The codes documented in this report are preliminary and upon medical records coder review may be revised to meet current compliance requirements. Derek Anglin DO 03/12/2023 1:49:16 PM This report has been signed electronically. Number of Addenda: 0 Note Initiated On: 03/12/2023 1:20 PM
[2023-03-12 13:50] VITALS: BP 130/84; BP 134/80; PULSE 68; RESP 16; TEMP 36.4; O2SAT 99
--- NOTE | 2023-03-12 13:50 | OP.CCLET_ITS ---
03/12/2023 Nanette Watts MD [address] [place] [address] [place] [address] Re : Colonoscopy procedure for Liliam De Souzars Dear Dr. Watts This procedure was performed on Sunday, March 12, 2023. My impressions and recommendations are as follows: Impressions : - Diverticulosis in the recto-sigmoid colon. - The examination was otherwise normal on direct and retroflexion views. - No specimens collected. Recommendations : - Discharge patient to home. - Resume previous diet. - Continue present medications. - Repeat colonoscopy in 10 years for screening purposes. My findings are described in the full procedure note, which is enclosed. If I can be of further assistance, please feel free to contact me at . Sincerely, Derek Anglin, 03/12/2023 1:49:16 PM This report has been signed electronically.
[2023-03-12 13:55] VITALS: BP 104/67; BP 134/80; PULSE 77; RESP 14; O2SAT 99
[2023-03-12 13:59] VITALS: BP 107/71; BP 134/80; PULSE 86; RESP 16; O2SAT 98
[2023-03-12 14:04] VITALS: BP 113/73; BP 134/80; PULSE 79; RESP 16; TEMP 36.4; O2SAT 99
[2023-03-12 14:13] LABS: Bedside Glucose 109 mg/dL (74-106)
[2023-03-12 14:20] VITALS: BP 134/80
== END 2023-03-12 14:40 | disposition home or self-care (01) ==
LOC: EN 12:13 → AC 12:15
PROVIDERS: Anesthesiology; PCP Internal Medicine; Referring Provider Internal Medicine; Visit Provider Internal Medicine Gastroenterology
PROC: 0DJD8ZZ Inspection of Lower Intestinal Tract, Via Natural or Artificial Opening Endoscopic (ICD-10-PCS; CPT 45378; principal; 2023-03-12 13:10)
DX: Z12.11 Encounter for screening for malignant neoplasm of colon (principal); E11.9 Type 2 diabetes mellitus without complications; K57.30 Diverticulosis of large intestine without perforation or abscess without bleeding; K76.0 Fatty (change of) liver, not elsewhere classified; K21.9 Gastro-esophageal reflux disease without esophagitis; I10 Essential (primary) hypertension; E78.2 Mixed hyperlipidemia; E04.1 Nontoxic single thyroid nodule; Z79.82 Long term (current) use of aspirin; Z79.84 Long term (current) use of oral hypoglycemic drugs; Z79.85 Long-term (current) use of injectable non-insulin antidiabetic drugs; Z79.899 Other long term (current) drug therapy; Z87.891 Personal history of nicotine dependence
CPT/HCPCS: 45378; 81025; 82962; J7120; J2405

== ENCOUNTER → 2023-04-19 | Outpatient (CLI) | payer MEDICAID, SELFPAY ==
[2023-04-19 10:36] LABS: Hemoglobin A1c 6.2 % (3.8-5.6); Vitamin D,25 Hydroxy 83.4 ng/mL
[2023-04-19 10:42] LABS: ALB/GLOB Ratio 1.1 RATIO (0.9-2.4); AST(SGOT) 16 U/L (15-37); Alanine Aminotransfer ALT/SGPT 22 U/L (13-56); Albumin, Serum 4.1 g/dL (3.2-5.0); Alkaline Phosphatase 52 U/L (45-117); Anion Gap 5 (5-15); BUN 19 mg/dL (7-18); BUN/Creat Ratio 16.4 RATIO (10-20); Calcium,Total 9.2 mg/dL (8.5-10.1); Chloride 104 mmol/L (98-107); Cholesterol 157 mg/dL (200); Creatinine, Serum 1.16 mg/dL (0.55-1.02); EST Glomerular Filtration Rate 52 mL/min (>60); Est Glom Filt Rate - Afr Amer 63 mL/min (>60); Globulin 3.7 g/dL (2.2-4.2); Glucose 124 mg/dL (74-106); High Density Lipoprotein 38 mg/dL; Potassium 4.5 mmol/L (3.5-5.1); Protein, Total 7.8 g/dL (6.4-8.2); Sodium Level 136 mmol/L (136-145); Thyroid Stim Hormone (TSH) 1.97 uIU/mL (0.358-3.74); Triglycerides 98 mg/dL; Very Low Density Lipoprotein 20 mg/dL (5-40)
== END | disposition home or self-care (01) ==
LOC: LAB 09:25
PROVIDERS: PCP Internal Medicine; Referring Provider Internal Medicine Endocrinology, Diabetes & Metabolism; Visit Provider Internal Medicine Endocrinology, Diabetes & Metabolism
DX: E11.65 Type 2 diabetes mellitus with hyperglycemia (principal); I10 Essential (primary) hypertension; E78.5 Hyperlipidemia, unspecified; E55.9 Vitamin D deficiency, unspecified
CPT/HCPCS: 36415; 80053; 80061; 82306; 83036; 84443

== ENCOUNTER → 2023-09-07 | Outpatient (CLI) | payer MEDICAID, SELFPAY ==
--- OUTSIDE RECORDS SUMMARY | 2023-09-07 10:17 | XMS RPT_ITS | CCD ---
Author Name Unknown Address [address] [facility] [address] [place] [address] Organization [facility] Care Team Providers Care Cyberathlete Name Role Phone Unavailable Primary Care Provider Unavailabl e EVENS PANTOJA Referring Unavailable EVENS PANTOJA Attending Unavailable EVENS PANTOJA Referring Unavailable EVENS PANTOJA Attending Unavailable Medications Current Medications Medication Drug Class(es) Dates Sig (Normalized) Sig (Original) meloxicam 15 mg oral tablet (1 source) Nonsteroidal Anti-inflammatory Drug Start: 07-29-2022 End: 10-27-2022 take 1 tablet by mouth once daily meloxicam (MOBIC) 15 mg tablet Indications: Chronic neck pain Take 1 tablet by mouth once daily. 30 tablet 2 07/29/2022 10/27/2022 Active Completed/Discontinued Medications Medication Drug Class(es) Dates Sig (Normalized) Sig (Original) ascorbic acid 250 mg oral tablet (2 sources) Vitamin C Start: 08-05-2021 take 1 tablet by mouth every other day ascorbic acid, vitamin C, (VITAMIN C) 250 mg tablet mg = tab(s), Oral, qDay, 1 tab every other day, 0 Refill(s) 0 08/05/2021 Active Problems Active Problems Problem Classification Problem Date Documented Da te Episodic/Chronic Diabetes mellitus without complication (1 source) Type 2 diabetes mellitus without complication; Translations: [Controlled type 2 diabetes mellitus without complication, with long-term current use of insulin (HCC)] Chronic Osteoarthritis (2 sources) Arthritis; Translations: [Inflammatory arthritis] Chronic Other inflammatory condition of skin (2 sources) Psoriasis with arthropathy; Translations: [Arthropathic psoriasis, unspecified] Chronic Other nervous system disorders (1 source) Other chronic pain; Translations: [Chronic neck pain] Onset: 01-21-2022 Chronic Other nervous system disorders (1 source) Bilateral carpal tunnel syndrome; Translations: [Carpal tunnel syndrome, bilateral] Rheumatoid arthritis and related disease (15 sources) Seronegative rheumatoid arthritis; Translations: [Rheumatoid arthritis without rheumatoid factor, unspecified site] Onset: 10-14-2020 10-14-2020 Chronic Past or Other Problems Problem Classification Problem Date Documented Da te Episodic/Chronic Abdominal pain (4 sources) Upper abdominal pain; Translations: [Upper abdominal pain, unspecified] Onset: 01-21-2022 Episodic Other liver diseases (3 sources) Elevated liver enzymes level; Translations: [Abnormal levels of other serum enzymes] Onset: 01-21-2022 Episodic Other liver diseases (1 source) Abnormal levels of other serum enzymes; Translations: [Elevated liver enzymes] Onset: 01-21-2022 Episodic Spondylosis; intervertebral disc disorders; other back problems (5 sources) Chronic neck pain; Translations: [Cervicalgia] Onset: 01-21-2022 Episodic Results Test Name Value Interpretation Reference Range Facil ity Vital Signs Date Time Vital Sign Value Performing Clinician Faci lity 07-29-2022 11:33-0500 Body height 157.5 cm Evens Pantoja MD Work Phone: [facility] 07-29-2022 11:33-0500 Body temperature 98.2 [degF] Evens Pantoja MD Work Phone: [facility] 07-29-2022 11:33-0500 Body weight 74.39 kg Evens Pantoja MD Work Phone: [facility] 07-29-2022 11:33-0500 Diastolic blood pressure 89 mm[Hg] Evens Pantoja MD Work Phone: [facility] 07-29-2022 11:33-0500 Heart rate 79 /min Evens Pantoja MD Work Phone: [facility] 07-29-2022 11:33-0500 Systolic blood pressure 135 mm[Hg] Evens Pantoja MD Work Phone: [facility] 01-21-2022 10:49-0400 Body height 157.5 cm Evens Pantoja MD Work Phone: [facility] 01-21-2022 10:49-0400 Body temperature 98.71 [degF] Evens Pantoja MD Work Phone: [facility] 01-21-2022 10:49-0400 Body weight 78.02 kg Evens Pantoja MD Work Phone: [facility] 01-21-2022 10:49-0400 Diastolic blood pressure 98 mm[Hg] Evens Pantoja MD Work Phone: [facility] 01-21-2022 10:49-0400 Heart rate 96 /min Evens Pantoja MD Work Phone: [facility] 01-21-2022 10:49-0400 Systolic blood pressure 130 mm[Hg] Evens Pantoja MD Work Phone: [facility] 07-21-2021 11:03-0500 Body height 157.5 cm Evens Pantoja MD Work Phone: [facility] 07-21-2021 11:03-0500 Body temperature 99.1 [degF] Evens Pantoja MD Work Phone: [facility] 07-21-2021 11:03-0500 Body weight 82.42 kg Evens Pantoja MD Work Phone: [facility] 07-21-2021 11:03-0500 Diastolic blood pressure 80 mm[Hg] Evens Pantoja MD Work Phone: [facility] 07-21-2021 11:03-0500 Heart rate 92 /min Evens Pantoja MD Work Phone: [facility] 07-21-2021 11:03-0500 Systolic blood pressure 150 mm[Hg] Evens Pantoja MD Work Phone: [facility] 10-14-2020 11:01-0500 Body Temperature 98.71 [degF] [facility] 10-14-2020 11:01-0500 Body weight 87.54 kg Evens Pantoja [facility] 10-14-2020 11:01-0500 BP Diastolic 108 mm[Hg] Inderp[facility] 10-14-2020 11:01-0500 BP Systolic 169 mm[Hg] Inderp[facility] 10-14-2020 11:01-0500 Height 157.[address] [facility] 10-14-2020 11:01-0500 Pulse (Heart Rate) 103 /min Inderprit Pantoja [facility] 07-23-2020 11:14-0500 Body Temperature 98.29 [degF] Inderprit Pantoja [facility] 07-23-2020 11:14-0500 Body weight 85.[address] [facility] 07-23-2020 11:14-0500 BP Diastolic 103 mm[Hg] Inderp[facility] 07-23-2020 11:14-0500 BP Systolic 144 mm[Hg] Inderp[facility] 07-23-2020 11:14-0500 [facility] 07-23-2020 11:14-0500 Pulse (Heart Rate) 90 /min [facility] Encounters Encounter Date Encounter Type Care Provider Facility Start: 07-29-2022 End: 07-29-2022 ambulatory EVENS PANTOJA [facility] Start: 07-29-2022 End: 07-29-2022 Patient encounter procedure Evens Pantoja MD [facility] [place] Procedures Date Procedure Procedure Detail Performing Clinician Start: 12-11-2020 EXTERNAL CARDIOLOGY Ext ernal Provider Start: 11-08-2020 EXTERNAL LAB External P rovider Start: 07-30-2020 EXTERNAL LAB External P rovider Plan of Treatment Date Care Activity Detail Author Start: 05-07-2022 Influenza vaccination [facility] Start: 09-06-2021 DEPRESSION ASSESSMENT DEPRESSION ASSESSMENT [facility] Start: 08-20-2021 End: 07-21-2022 CBC W Auto Differential panel - Blood CBC + DIFF Lab Routine Psoriatic arthropathy (HCC) Expected: 08/20/2021, Expires: 07/21/2022 [facility] Work Phone: Payers Date Payer Category Payer Medicaid [id number] 2003 Medicaid [facility] TERM 08/05 [facility] MEDICAID [id number] 2003-2022 [address] [place] [address] Medicaid [id number] 2003 Medicaid [id number] Social History Date Type Detail Facility Start: 07-23-2020 End: 07-29-2022 Tobacco smoking status NHIS Former smoker [facility] Start: 07-23-2020 End: 07-29-2022 Tobacco use and exposure Never used [facility] Start: 07-23-2020 End: 07-29-2022 Alcohol intake Current drinker of alcohol (finding) [facility] Start: 07-23-2020 History SDOH Alcohol Frequency 2 [facility] Start: 1970 Sex Assigned At Not on file C [facility] Start: 01-11-2022 End: 07-29-2022 Exposure to SARS-CoV-2 (event) Not sure [facility] History of tobacco use Current smoker [facility] History of tobacco use Cigarette Smoker C [facility] Start: 07-29-2022 Alcohol Comment once a year: mixed d deenak [facility] Clinical Notes 07-21-2021 to 07-28-2022 Evens Pantoja MD - 07/28/2022 9:28 PM Magi Pantoja MD - 01/21/2022 11:20 AM EDTTelephone Encounter - Evens Pantoja MD - 07/31/2021 3:46 PM Magi Pantoja MD - 07/21/2021 11:13 AM EST Note Date & Type Note Facility 07-28-2022 Note HNO ID: [id number] Author: Evens Pantoja MD Service: ? Author Type: Physician Type: Progress Notes Filed: 07/29/2022 12:40 PM Note Text: This note was created using NoteWriter. Subjective Darrel Monsivais is a 52 year old female. 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 Not in the mid back Chest pain Center of chest Daily Long standing Better with GERD med Not pepcid At time elbow pain Not as bad Still with tingling in hand Not with tingling in the feet Cramps legs rare not long lasting Getting daily headache Ears are hurting Pain is overwhelming and poor quality of life from pain 29/03 Review of Systems Objective Blood Pressure 135/89 Pulse 79 Temperature 36.8 ?C (98.2 ?F) Height 157.5 cm (5' 2 ) Weight 74.4 kg (164 lb) Body Mass Index 30.00 kg/m? Physical Exam Vitals reviewed. Constitutional: General: She is not in acute distress. Appearance: She is not ill-appearing or toxic-appearing. Cardiovascular: Rate and Rhythm: Normal rate and regular rhythm. Heart sounds: Normal heart sounds. No murmur heard. No friction rub. No gallop. Pulmonary: Effort: No respiratory distress. Breath sounds: Normal breath sounds. No stridor. No wheezing or rhonchi. Abdominal: General: There is no distension. Palpations: Abdomen is soft. There is no mass. Tenderness: There is no abdominal tenderness. Hernia: No hernia is present. Musculoskeletal: Right shoulder: Normal. Left shoulder: Normal. Right elbow: Normal. Left elbow: Normal. Right wrist: Normal. Left wrist: Normal. Right hand: Normal. Left hand: Normal. Cervical back: No rigidity or tenderness. Decreased range of motion. Thoracic back: Normal. Lumbar back: Normal. Right hip: Normal. Left hip: Normal. Right knee: Normal. Left knee: Normal. Right ankle: Normal. Left ankle: Normal. Right foot: Normal. Left foot: Normal. Lymphadenopathy: Cervical: No cervical adenopathy. Skin: Findings: No rash. Assessment and Plan First visit 07/23/2020 ( in clinic ) ( right handed PCP ) sero negative RA / Psoriatic arthritis Hep B S Ag, Hep B Core Ab, Hep C Antibody, Hep B S Antibody negative. 2020 2021 Covarrubias: ESR 36 high (<20) RF negative 11/2019 uric acid 4.6 10/14/2020 CRP 5.16 mg.L ( Normal < 3) RF CCP SEAMUS negative, ESR 21 mm normal , 01/25 ANCA neg MICHAEL < 15 AAA SEAMUS neg ((( (07/2020 aching arm, elbow, hand pain, cramping, cannot grasp, worse am, ) ( knee pain at times, no swelling ) ( no ankle pain no feet pain ) ( hand pain 04/2020 onset, arm pain onset 07/2019 ) ( shoulder achy not bad) ( hip pain at times not mild, )))) 07/2020 exam : tender wrist MCP no clear swelling TREATMENT plaquenil 300 mg daily 07/23/2020 EKG in 7 day. ( lot better on plaquenil ) 07/21/2021 stopped as changed to sulfasalazine ( did have improvement ) 07/21/2021 now predominant lower ext pains + chest wall enthesitis, sulfasalazine 1.5 gm 07/29/2021 sulfasalazine 250 tid ( could not tolerate higher doses ) ( stop LFT elevation ) 01/25 OFF 07/29/2022 disease process in remission , if flares resume plaquenil ( most of issue today centered around CS ) 06/2021 cmp cbc normal cr 1.14 high 01/25 cbc normal ESR 24 mm .normal cmp AST 59 ASLT 65 07/28 cmp prot 7.9 alb 4.3, alk pohs 48, alt 35, ast 27 , cr 1.18 high ( < 1.02 ) high tsh normal HgAic 7.4 normal Dermatology note: [facility] : Diagnosis : Psoriasis plaque. ( recent diagnosis ) 05/2021 ( scalp, neck legs ) ( using topical med ) 07/21/2021 Chest pain ( center of chest , ) right rib pain few years ECHO Stress test all done 07/21/2021 07/29/2022 GERD related on PPI observe Chronic neck pain ( no jaw pain ) ( mid back pain mild issue ) ( no low back pain ) 02/2020 started ( localized, radiates to back of head) ( getting headache from this ) )) 2020 xr done told Degenerative disc disease TREATMENT zanaflex some help, using mostly for sleep 07/28 PT 2021 done Ortho seen 07/28 note reviewed ( Does not want epidural steroid ) Paresthesia hand bilateral ( onset 09/2019 ) Paresthesia feet 2020 reported 07/28 visit not present. No NCS done 07/23/2020 CTS mild just observe. Trigger finger ( left 4th ) 07/23/2020 observe Insomnia 2019 onset TREATMENT tylenol pm used with relief past OFF zanaflex prn use ( off and ) helps sleep no help with pain 07/29/2022 Never on ambien 07/23/2020 Diabetes Mellitus Type II 2012 diagnosis when preg ( no med follow up before ) ( HgA1C 7 per patient ) HTN ( worse in office ) : 2015 ? ( no [place] stroke ) Belly pain ( 2019 ) ( right upp (more content not included)... [facility] 07-28-2022 History of Presen t illness Narrative This note was created using DApps Fundriter. Subjective Darrel Monsivais is a 52 year old female. 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 Not in the mid back Chest pain Center of chest Daily Long standing Better with GERD med Not pepcid At time elbow pain Not as bad Still with tingling in hand Not with tingling in the feet Cramps legs rare not long lasting Getting daily headache Ears are hurting Pain is overwhelming and poor quality of life from pain 29/03 Review of Systems Objective Blood Pressure 135/89 Pulse 79 Temperature 36.8 C (98.2 F) Height 157.5 cm (5' 2 ) Weight 74.4 kg (164 lb) Body Mass Index 30.00 kg/m Physical Exam Vitals reviewed. Constitutional: General: She is not in acute distress. Appearance: She is not ill-appearing or toxic-appearing. Cardiovascular: Rate and Rhythm: Normal rate and regular rhythm. Heart sounds: Normal heart sounds. No murmur heard. No friction rub. No gallop. Pulmonary: Effort: No respiratory distress. Breath sounds: Normal breath sounds. No stridor. No wheezing or rhonchi. Abdominal: General: There is no distension. Palpations: Abdomen is soft. There is no mass. Tenderness: There is no abdominal tenderness. Hernia: No hernia is present. Musculoskeletal: Right shoulder: Normal. Left shoulder: Normal. Right elbow: Normal. Left elbow: Normal. Right wrist: Normal. Left wrist: Normal. Right hand: Normal. Left hand: Normal. Cervical back: No rigidity or tenderness. Decreased range of motion. Thoracic back: Normal. Lumbar back: Normal. Right hip: Normal. Left hip: Normal. Right knee: Normal. Left knee: Normal. Right ankle: Normal. Left ankle: Normal. Right foot: Normal. Left foot: Normal. Lymphadenopathy: Cervical: No cervical adenopathy. Skin: Findings: No rash. Assessment and Plan First visit 07/23/2020 ( in clinic ) ( right handed PCP ) sero negative RA / Psoriatic arthritis Hep B S Ag, Hep B Core Ab, Hep C Antibody, Hep B S Antibody negative. 2020 2021 Covarrubias: ESR 36 high (<20) RF negative 11/2019 uric acid 4.6 10/14/2020 CRP 5.16 mg.L ( Normal < 3) RF CCP SEAMUS negative, ESR 21 mm normal , 01/25 ANCA neg MICHAEL < 15 AAA SEAMUS neg ((( (07/2020 aching arm, elbow, hand pain, cramping, cannot grasp, worse am, ) ( knee pain at times, no swelling ) ( no ankle pain no feet pain ) ( hand pain 04/2020 onset, arm pain onset 07/2019 ) ( shoulder achy not bad) ( hip pain at times not mild, )))) 07/2020 exam : tender wrist MCP no clear swelling TREATMENT plaquenil 300 mg daily 07/23/2020 EKG in 7 day. ( lot better on plaquenil ) 07/21/2021 stopped as changed to sulfasalazine ( did have improvement ) 07/21/2021 now predominant lower ext pains + chest wall enthesitis, sulfasalazine 1.5 gm 07/29/2021 sulfasalazine 250 tid ( could not tolerate higher doses ) ( stop LFT elevation ) 01/25 OFF 07/29/2022 disease process in remission , if flares resume plaquenil ( most of issue today centered around CS ) 06/2021 cmp cbc normal cr 1.14 high 01/25 cbc normal ESR 24 mm .normal cmp AST 59 ASLT 65 07/28 cmp prot 7.9 alb 4.3, alk pohs 48, alt 35, ast 27 , cr 1.18 high ( < 1.02 ) high tsh normal HgAic 7.4 normal Dermatology note: [facility] : Diagnosis : Psoriasis plaque. ( recent diagnosis ) 05/2021 ( scalp, neck legs ) ( using topical med ) 07/21/2021 Chest pain ( center of chest , ) right rib pain few years ECHO Stress test all done 07/21/2021 07/29/2022 GERD related on PPI observe Chronic neck pain ( no jaw pain ) ( mid back pain mild issue ) ( no low back pain ) 02/2020 started ( localized, radiates to back of head) ( getting headache from this ) )) 2020 xr done told Degenerative disc disease TREATMENT zanaflex some help, using mostly for sleep 07/28 PT 2021 done Ortho seen 07/28 note reviewed ( Does not want epidural steroid ) Paresthesia hand bilateral ( onset 09/2019 ) Paresthesia feet 2020 reported 07/28 visit not present. No NCS done 07/23/2020 CTS mild just observe. Trigger finger ( left 4th ) 07/23/2020 observe Insomnia 2019 onset TREATMENT tylenol pm used with relief past OFF zanaflex prn use ( off and ) helps sleep no help with pain 07/29/2022 Never on ambien 07/23/2020 Diabetes Mellitus Type II 2012 diagnosis when preg ( no med follow up before ) ( HgA1C 7 per patient ) HTN ( worse in office ) : 2015 ? ( no [place] stroke ) Belly pain ( 2019 ) ( right upper quandrant ) ( Intermittent worse with bending and has extend till better ) Fatty liver 05/2020 GI seen : Ultrasound 08/04/2018: Gallbladder sludge without cholecystitis. Mild steatosis. 2. HIDA scan 11/11/2018: Normal gallbladder filling with somewhat hyperkinetic contraction with EF 89%. 3. Jessica ER 10/24/2019 epigastric and chest pain: Negative chest x-ray, EKG, d-dimer, and troponin. 4. RUQ ultrasound 11/20/2019: Fatty infiltration of the liver. 01/21/22 just observe for now, high LFT and off sulfasalazine (trulicity was stopped but still with pain ) 01/21/22 MRI elasto graphy ? 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 2 brother alive ( oldest brother brain aneurysm ) One brother healthy 07/23/2020 Mom 76 Diabetes Mellitus Type II breast cancer surg done 07/23/2020 Father dementia issue epilepsy past 80 07/23/2020 documented in this encounter [facility] 01-21-2022 Note HNO ID: [id number] Author: Evens Pantoja MD Service: ? Author Type: Physician Type: Progress Notes Filed: 01/21/2022 11:44 AM Note Text: This note was created using DApps Fundriter. Subjective Darrel Monsivais is a 51 year old female. Not getting worse Not sure if better Neck pain is getting Worse Cannot move neck At time cannot do overhead activity on account of neck pain Shoulder pain bilateral and elbow pain No lower ext pain today No wrist hand pain Low back pain not active Still with pain in the right chest wall pain At time pain in the epigastric area not bad but enough to notice This is for 2 yr 2019 started Review of Systems Objective Blood Pressure 130/98 Pulse 96 Temperature 37.1 ?C (98.7 ?F) (Temporal) Height 157.5 cm (5' 2 ) Weight 78 kg (172 lb) Body Mass Index 31.46 kg/m? Physical Exam Vitals reviewed. Constitutional: General: She is not in acute distress. Appearance: She is not ill-appearing or toxic-appearing. Cardiovascular: Rate and Rhythm: Normal rate and regular rhythm. Heart sounds: No murmur heard. No friction rub. No gallop. Pulmonary: Effort: No respiratory distress. Breath sounds: No stridor. No wheezing or rhonchi. Abdominal: General: There is no distension. Palpations: Abdomen is soft. There is no mass. Tenderness: There is no abdominal tenderness. Hernia: No hernia is present. Musculoskeletal: Right shoulder: Normal. Left shoulder: Normal. Right elbow: Normal. Left elbow: Normal. Right wrist: Normal. Left wrist: Normal. Right hand: Normal. Left hand: Normal. Cervical back: No rigidity or tenderness. Thoracic back: Normal. Lumbar back: Normal. Right hip: Normal. Left hip: Normal. Right knee: Normal. Left knee: Normal. Right lower leg: No edema. Left lower leg: No edema. Right ankle: Normal. Left ankle: Normal. Right foot: Normal. Left foot: Normal. Comments: Tender neck area No clear enthesitis noted today Lymphadenopathy: Cervical: No cervical adenopathy. Skin: Findings: No rash. Assessment and Plan First visit 07/23/2020 ( in clinic ) ( right handed PCP ) sero negative RA / Psoriatic arthritis Hep B S Ag, Hep B Core Ab, Hep C Antibody, Hep B S Antibody negative. 10/2020 ((( (07/2020 aching arm, elbow, hand pain, cramping, cannot grasp, worse am, ) ( knee pain at times, no swelling ) ( no ankle pain no feet pain ) ( hand pain 04/2020 onset, arm pain onset 07/2019 ) ( shoulder achy not bad) ( hip pain at times not mild, )))) Covarrubias: ESR 36 high (<20) RF negative 11/2019 uric acid 4.6 10/14/2020 CRP 5.16 mg.L ( Normal < 3) RF CCP SEAMUS negative, ESR 21 mm normal , TREATMENT plaquenil 300 mg daily 07/23/2020 EKG in 7 day. ( lot better on plaquenil ) 07/21/2021 stop Labs done get them, right foot pain observe could be RA related Three months, wear tennis she indoor 07/21/2021 now predominant lower ext pains + chest wall enthesitis, sulfasalazine 1.5 gm 07/29/2021 sulfasalazine 250 tid ( could not tolerate higher doses ) ( stop LFT elevation ) 01/21/22 appears to be in remission but high LFT stop sulfasalazine 06/2021 cmp cbc normal cr 1.14 high 01/25 cbc normal ESR 24 mm .normal cmp AST 59 ASLT 65 10/28 was high also but no visit . Dermatology note: [facility] : Diagnosis : Psoriasis plaque. ( recent diagnosis ) 05/2021 ( scalp, neck legs ) ( using topical med ) 07/21/2021 Chest pain ( center of chest , ) right rib pain few years ECHO Stress test all done 07/21/2021 Chronic neck pain ( no jaw pain ) ( mid back pain mild issue ) ( no low back pain ) 02/2020 started ( localized, radiates to back of head) ( getting headache from this ) )) 2020 xr done told Degenerative disc disease TREATMENT zanaflex some help, using mostly for sleep 07/23/2020 observe. 01/21/22 resume zanaflex Paresthesia hand bilateral ( onset 09/2019 ) Paresthesia feet ( attributed to Peripheral neuropathy ? From Diabetes Mellitus Type II ) No NCS done 07/23/2020 ( CTS from Diabetes Mellitus Type II ? Or from RA seronegative ? ) Trigger finger ( left 4th ) 07/23/2020 observe Insomnia 2019 onset TREATMENT tylenol pm used with relief past OFF zanaflex prn use Never on ambien 07/23/2020 Diabetes Mellitus Type II 2012 diagnosis when preg ( no med follow up before ) ( HgA1C 7 per patient ) HTN ( worse in office ) : 2015 ? ( no [place] ) Belly pain ( 2019 ) ( right upper quandrant ) ( Intermittent worse with bending and has extend till better ) Fatty liver 05/2020 GI seen : Ultrasound 08/04/2018: Gallbladder sludge without cholecystitis. Mild steatosis. 2. HIDA scan 11/11/2018: Normal gallbladder filling with somewhat hyperkinetic contraction with EF 89%. 3. Jessica ER 10/24/2019 epigastric and chest pain: Negative chest x-ray, EKG, d-dimer, and troponin. 4. RUQ ultrasound 11/20/2019: Fatty infiltration of the liver. 01/21/22 just observe for no (more content not included)... [facility] 01-21-2022 History of Presen t illness Narrative This note was created using NoteWriter. Subjective Darrel Monsivais is a 51 year old female. Not getting worse Not sure if better Neck pain is getting Worse Cannot move neck At time cannot do overhead activity on account of neck pain Shoulder pain bilateral and elbow pain No lower ext pain today No wrist hand pain Low back pain not active Still with pain in the right chest wall pain At time pain in the epigastric area not bad but enough to notice This is for 2 yr 2020 started Review of Systems Objective Blood Pressure 130/98 Pulse 96 Temperature 37.1 C (98.7 F) (Temporal) Height 157.5 cm (5' 2 ) Weight 78 kg (172 lb) Body Mass Index 31.46 kg/m Physical Exam Vitals reviewed. Constitutional: General: She is not in acute distress. Appearance: She is not ill-appearing or toxic-appearing. Cardiovascular: Rate and Rhythm: Normal rate and regular rhythm. Heart sounds: No murmur heard. No friction rub. No gallop. Pulmonary: Effort: No respiratory distress. Breath sounds: No stridor. No wheezing or rhonchi. Abdominal: General: There is no distension. Palpations: Abdomen is soft. There is no mass. Tenderness: There is no abdominal tenderness. Hernia: No hernia is present. Musculoskeletal: Right shoulder: Normal. Left shoulder: Normal. Right elbow: Normal. Left elbow: Normal. Right wrist: Normal. Left wrist: Normal. Right hand: Normal. Left hand: Normal. Cervical back: No rigidity or tenderness. Thoracic back: Normal. Lumbar back: Normal. Right hip: Normal. Left hip: Normal. Right knee: Normal. Left knee: Normal. Right lower leg: No edema. Left lower leg: No edema. Right ankle: Normal. Left ankle: Normal. Right foot: Normal. Left foot: Normal. Comments: Tender neck area No clear enthesitis noted today Lymphadenopathy: Cervical: No cervical adenopathy. Skin: Findings: No rash. Assessment and Plan First visit 07/23/2020 ( in clinic ) ( right handed PCP ) sero negative RA / Psoriatic arthritis Hep B S Ag, Hep B Core Ab, Hep C Antibody, Hep B S Antibody negative. 10/2020 ((( (07/2020 aching arm, elbow, hand pain, cramping, cannot grasp, worse am, ) ( knee pain at times, no swelling ) ( no ankle pain no feet pain ) ( hand pain 04/2020 onset, arm pain onset 07/2019 ) ( shoulder achy not bad) ( hip pain at times not mild, )))) Covarrubias: ESR 36 high (<20) RF negative 11/2019 uric acid 4.6 10/14/2020 CRP 5.16 mg.L ( Normal < 3) RF CCP SEAMUS negative, ESR 21 mm normal , TREATMENT plaquenil 300 mg daily 07/23/2020 EKG in 7 day. ( lot better on plaquenil ) 07/21/2021 stop Labs done get them, right foot pain observe could be RA related Three months, wear tennis she indoor 07/21/2021 now predominant lower ext pains + chest wall enthesitis, sulfasalazine 1.5 gm 07/29/2021 sulfasalazine 250 tid ( could not tolerate higher doses ) ( stop LFT elevation ) 01/21/22 appears to be in remission but high LFT stop sulfasalazine 06/2021 cmp cbc normal cr 1.14 high 01/25 cbc normal ESR 24 mm .normal cmp AST 59 ASLT 65 10/28 was high also but no visit . Dermatology note: [facility] : Diagnosis : Psoriasis plaque. ( recent diagnosis ) 05/2021 ( scalp, neck legs ) ( using topical med ) 07/21/2021 Chest pain ( center of chest , ) right rib pain few years ECHO Stress test all done 07/21/2021 Chronic neck pain ( no jaw pain ) ( mid back pain mild issue ) ( no low back pain ) 02/2020 started ( localized, radiates to back of head) ( getting headache from this ) )) 2020 xr done told Degenerative disc disease TREATMENT zanaflex some help, using mostly for sleep 07/23/2020 observe. 01/21/22 resume zanaflex Paresthesia hand bilateral ( onset 09/2019 ) Paresthesia feet ( attributed to Peripheral neuropathy ? From Diabetes Mellitus Type II ) No NCS done 07/23/2020 ( CTS from Diabetes Mellitus Type II ? Or from RA seronegative ? ) Trigger finger ( left 4th ) 07/23/2020 observe Insomnia 2019 onset TREATMENT tylenol pm used with relief past OFF zanaflex prn use Never on ambien 07/23/2020 Diabetes Mellitus Type II 2012 diagnosis when preg ( no med follow up before ) ( HgA1C 7 per patient ) HTN ( worse in office ) : [place] ? ( no [place] ) Belly pain ( 2019 ) ( right upper quandrant ) ( Intermittent worse with bending and has extend till better ) Fatty liver 05/2020 GI seen : Ultrasound 08/04/2018: Gallbladder sludge without cholecystitis. Mild steatosis. 2. HIDA scan 11/11/2018: Normal gallbladder filling with somewhat hyperkinetic contraction with EF 89%. 3. [facility] 10/24/2019 epigastric and chest pain: Negative chest x-ray, EKG, d-dimer, and troponin. 4. RUQ ultrasound 11/20/2019: Fatty infiltration of the liver. 01/21/22 just observe for now, high LFT and off sulfasalazine (trulicity was stopped but still with pain ) 01/21/22 MRI elasto graphy ? 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 2 brother alive ( oldest brother brain aneurysm ) One brother healthy 07/23/2020 Mom 76 Diabetes Mellitus Type II breast cancer surg done 07/23/2020 Father dementia issue epilepsy past 80 07/23/2020 documented in this encounter [facility] 07-31-2021 Miscellaneous Notes GI upset Evens Pantoja MD OK to try 1/2 tid on sulfasalazine Agrees Evens Pantoja MD Pt left message stating sulfa is giving her stomach ache,headache and side pain. documented in this encounter [facility] 07-30-2021 Miscellaneous Notes Hilda hobson [facility] medical records returned release of information sheet with the note that there are no xrays of the neck there and they have no record of the pt being seen there. Chelita Cruz LPN documented in this encounter [facility] 07-21-2021 History of Presen t illness Narrative This note was created using [employer]. Subjective Darrel Monsivais is a 51 year old female. I am doing OK Neck pain Getting therapy Feet achy Mild stiffness am Lot better than before Knee pain is there Feet pain is there. Review of Systems Respiratory: Negative. Cardiovascular: Positive for chest pain. Objective Blood Pressure 150/80 Pulse 92 Temperature 37.3 C (99.1 F) (Temporal) Height 157.5 cm (5' 2 ) Weight 82.4 kg (181 lb 11.2 oz) Body Mass Index 33.23 kg/m Physical Exam Vitals reviewed. Constitutional: General: She is not in acute distress. Appearance: She is not ill-appearing or toxic-appearing. Cardiovascular: Rate and Rhythm: Normal rate and regular rhythm. Heart sounds: Normal heart sounds. No murmur heard. No friction rub. No gallop. Pulmonary: Effort: No respiratory distress. Breath sounds: No stridor. No wheezing or rhonchi. Abdominal: Tenderness: There is no abdominal tenderness. Hernia: No hernia is present. Musculoskeletal: Right shoulder: Normal. Left shoulder: Normal. Right elbow: Normal. Left elbow: Normal. Right wrist: Normal. Left wrist: Normal. Right hand: Normal. Left hand: Normal. Cervical back: No rigidity or tenderness. Thoracic back: Normal. Lumbar back: Normal. Right hip: Normal. Left hip: Normal. Right knee: Normal. Left knee: Normal. Right ankle: Normal. Left ankle: Normal. Right foot: Normal. Left foot: Normal. Comments: Rib not tender MTP pain is there. Lymphadenopathy: Cervical: No cervical adenopathy. Assessment and Plan First visit 07/23/2020 ( in clinic ) ( right handed PCP ) sero negative RA / Psoriatic arthritis Hep B S Ag, Hep B Core Ab, Hep C Antibody, Hep B S Antibody negative. 10/2020 ( aching arm, elbow, hand pain, cramping, cannot grasp, worse am, ) ( knee pain at times, no swelling ) ( no ankle pain no feet pain ) ( hand pain 04/2020 onset, arm pain onset 07/2019 ) ( shoulder achy not bad) ( hip pain at times not mild, Covarrubias: ESR 36 high (<20) RF negative 11/2019 uric acid 4.6 10/14/2020 CRP 5.16 mg.L ( Normal < 3) RF CCP SEAMUS negative, ESR 21 mm normal , TREATMENT plaquenil 300 mg daily 07/23/2020 EKG in 7 day. ( lot better on plaquenil ) 07/21/2021 stop Labs done get them, right foot pain observe could be RA related Three months, wear tennis she indoor 07/21/2021 now predominant lower ext pains + chest wall enthesitis, change to sulfasalazine 06/2021 cmp cbc normal cr 1.14 high Dermatology note: [facility] : Diagnosis : Psoriasis plaque. ( recent diagnosis ) 05/2021 ( scalp, neck legs ) ( using topical med ) 07/21/2021 Chest pain ( center of chest , ) right rib pain few years ECHO Stress test all done 07/21/2021 Chronic neck pain ( no jaw pain ) ( mid back pain mild issue ) ( no low back pain ) 02/2020 started ( localized, radiates to back of head) ( getting headache from this ) TREATMENT zanaflex some help, using mostly for sleep 07/23/2020 observe. Paresthesia hand bilateral ( onset 09/2019 ) Paresthesia feet ( attributed to Peripheral neuropathy ? From Diabetes Mellitus Type II ) No NCS done 07/23/2020 ( CTS from Diabetes Mellitus Type II ? Or from RA seronegative ? ) Trigger finger ( left 4th ) 07/23/2020 observe Insomnia 2019 onset TREATMENT tylenol pm used with relief past OFF zanaflex prn use Never on ambien 07/23/2020 Diabetes Mellitus Type II 2012 diagnosis when preg ( no med follow up before ) ( HgA1C 7 per patient ) HTN ( worse in office ) : [place] ? 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 2 brother alive ( oldest brother brain aneurysm ) One brother healthy 07/23/2020 Mom 76 Diabetes Mellitus Type II breast cancer surg done 07/23/2020 Father dementia issue epilepsy past 80 07/23/2020 documented in this encounter [facility] Psoriatic arthropathy (HCC) Psoriatic arthropathy [facility] Diagnosis Seronegative rheumatoid arthritis (HCC)- Primary Rheumatoid arthritis Pain of upper abdomen Abdominal pain, other specified site Elevated liver enzymes Other nonspecific abnormal serum enzyme levels Chronic neck pain Cervicalgia [facility] Chronic neck pain- Primary Cervicalgia Seronegative rheumatoid arthritis (HCC) Rheumatoid arthritis documented in this encounter [facility] Summary Purpose Family History No Family History Records FoundNo Family History Records FoundNo Family History Records Found Advance Directives No Advanced Directives Records FoundNo Advanced Directives Records FoundNo Advanced Directives Records Found History of Present Illness * Evens Pantoja - 07/23/2020 11:32 AM EST This note was created using [employer]. Subjective Darrel Monsivais is a 50 year old female. Am hand will hurt and will wake her up Hurt Hand am stiff Painful range of motion always hurt Am is terrible Polyarthralgia ( aching arm, elbow, hand pain, cramping, cannot grasp, worse am, ) ( knee pain at times, no swelling ) ( no ankle pain no feet pain ) ( hand pain 04/2020 onset, arm pain onset 07/2019 ) ( shoulder achy not bad) ( hip pain at times not mild, No history of any recurrent thrombotic events. No history of Raynaud or Livedo reticularis. No history of any recurrent miscarriages is there. Patient does not have a history of dry eyes, dry mouth, dryness in the mucosal membranes. There is no history of salivary gland enlargement. Patient has no history of pleuritis, pericarditis, seizures, psychosis, malar or discoid rashes. Has no history of hematologic issues, renal issues ( proteinuria or hematuria) . No history of photosensitivity is there. No history of recurrent oral or genital ulcers, no history of superficial or deep vein thrombosis, no history of iritis, uveitis, no history of erythema nodosum is there. No history of Hidradenitis Suppurativa . Review of Systems Constitutional: Positive for fatigue. HENT: Negative. Eyes: Negative. Respiratory: Negative. Cardiovascular: Negative. Gastrointestinal: Negative. Endocrine: Negative. Genitourinary: Negative. Skin: Negative. Allergic/Immunologic: Negative. Neurological: Positive for numbness. Hematological: Negative. Psychiatric/Behavioral: Negative. Objective Blood Pressure 144/103 Pulse 90 Temperature 36.8 C (98.3 F) (Oral) Height 158.9 cm (5' 2.55 ) Weight 85.5 kg (188 lb 9.6 oz) Body Mass Index 33.89 kg/m Physical Exam Vitals signs reviewed. Constitutional: General: She is not in acute distress. Appearance: Normal appearance. She is not ill-appearing or toxic-appearing. Neck: Musculoskeletal: No neck rigidity or muscular tenderness. Cardiovascular: Rate and Rhythm: Normal rate and regular rhythm. Heart sounds: Normal heart sounds. No murmur. No friction rub. No gallop. Pulmonary: Effort: No respiratory distress. Breath sounds: No stridor. No wheezing or rhonchi. Abdominal: General: Abdomen is flat. There is no distension. Palpations: Abdomen is soft. There is no mass. Tenderness: There is no abdominal tenderness. Hernia: No hernia is present. Musculoskeletal: Right shoulder: Normal. Left shoulder: Normal. Right elbow: Normal. Left elbow: Normal. Right wrist: Normal. Left wrist: Normal. Right hip: Normal. Left hip: Normal. Right knee: Normal. Left knee: Normal. Right ankle: Normal. Left ankle: Normal. Cervical back: She exhibits decreased range of motion. Thoracic back: Normal. Lumbar back: Normal. Right hand: Normal. Left hand: Normal. Right lower leg: No edema. Left lower leg: No edema. Right foot: Normal. Left foot: Normal. Comments: Tender at digital sabi Tender at the mcp wrist but no swelling Lower ext knee crepitus no swelling No saliva gland swelling Phalen sign positive in hand Lymphadenopathy: Cervical: No cervical adenopathy. Skin: Findings: No rash. Neurological: Mental Status: She is alert. Motor: No weakness. Coordination: Coordination normal. Psychiatric: Mood and Affect: Mood normal. Behavior: Behavior normal. Thought Content: Thought content normal. Judgment: Judgment normal. Assessment and Plan First visit 07/23/2020 ( right handed PCP ) Polyarthralgia Inflammatory polyarthropathy sero negative RA likely ( aching arm, elbow, hand pain, cramping, cannot grasp, worse am, ) ( knee pain at times, no swelling ) ( no ankle pain no feet pain ) ( hand pain 04/2020 onset, arm pain onset 07/2019 ) ( shoulder achy not bad) ( hip pain at times not mild, Covarrubias: ESR 36 high (<20) RF negative 11/2019 uric acid 4.6 TREATMENT None at present 07/23/2020 plaquenil 300 mg daily 07/23/2020 EKG in 7 day. Risk and benefit of plaquenil treatment reinforced with patient including the need for yearly opthalmologic exam. Patient make aware of the risk of retinal toxicity with plaquenil. To take this pill with food. ( other rare side effects include hypo-hyper pigmentation, pyschosis ). Nausea and vomit are common side effects, can cut back on dose if this happens, if cannot tolerate nausea then may have to stop the drugs. Chronic neck pain ( no jaw pain ) ( mid back pain mild issue ) ( no low back pain ) 02/2020 started ( localized, radiates to back of head) TREATMENT zanaflex some help, using mostly for sleep 07/23/2020 observe. Paresthesia hand bilateral ( onset 09/2019 ) Paresthesia feet ( attributed to Peripheral neuropathy ? From Diabetes Mellitus Type II ) No NCS done 07/23/2020 ( CTS from Diabetes Mellitus Type II ? Or from RA seronegative ? ) Trigger finger ( left 4th ) 07/23/2020 observe Insomnia 2019 onset TREATMENT tylenol pm used with relief past OFF zanaflex prn use Never on ambien 07/23/2020 Diabetes Mellitus Type II 2011 diagnosis when preg ( no med follow up before ) ( HgA1C 7 per patient ) HTN ( worse in office ) : 2015 ? 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 2 brother alive ( oldest brother brain aneurysm ) One brother healthy 07/23/2020 Mom 76 Diabetes Mellitus Type II breast cancer surg done 07/23/2020 Father dementia issue epilepsy past 80 07/23/2020 No history of psoriasis, ulcerative colitis, Chron's disease, celiac disease or iritis / uveitis infamily. No history of lupus, Sjogren syndrome, scleroderma, mixed connective tissue disease, Sarcoidosis infamily. No history of rheumatoid arthritis in family. documented in this encounter* Evens Pantoja - 10/14/2020 11:16 AM EST This note was created using [employer]. Subjective Darrel Monsivais is a 50 year old female. I am not to bad Hand are lot better Right foot pain No swelling Upper mid back pain Morning stiffness is lasting about 30 minutes to one hour. Better Still with pain in the MCP area. Review of Systems Constitutional: Positive for fatigue. Negative for fever. Respiratory: Negative. Cardiovascular: Negative. Objective Blood Pressure 169/108 Pulse 103 Temperature 37.1 C (98.7 F) (Temporal) Height 157.5 cm (5' 2 ) Weight 87.5 kg (193 lb) Body Mass Index 35.30 kg/m Physical Exam Vitals reviewed. Constitutional: General: She is not in acute distress. Appearance: She is not ill-appearing or toxic-appearing. Cardiovascular: Heart sounds: No murmur. No friction rub. No gallop. Pulmonary: Effort: No respiratory distress. Breath sounds: Normal breath sounds. No stridor. No wheezing or rhonchi. Abdominal: General: There is no distension. Palpations: Abdomen is soft. There is no mass. Tenderness: There is no abdominal tenderness. Hernia: No hernia is present. Musculoskeletal: Right shoulder: Normal. Left shoulder: Normal. Right elbow: Normal. Left elbow: Normal. Right wrist: Normal. Left wrist: Normal. Right hand: Normal. Left hand: Normal. Cervical back: No rigidity or tenderness. Thoracic back: Normal. Lumbar back: Normal. Right hip: Normal. Left hip: Normal. Right knee: Normal. Left knee: Normal. Right ankle: Normal. Left ankle: Normal. Right foot: Normal. Left foot: Normal. Comments: MTP pain at present only on right side Lymphadenopathy: Cervical: No cervical adenopathy. Psychiatric: Mood and Affect: Mood normal. Behavior: Behavior normal. Thought Content: Thought content normal. Judgment: Judgment normal. Assessment and Plan First visit 07/23/2020 ( in clinic ) ( right handed PCP ) Polyarthralgia Inflammatory polyarthropathy sero negative RA Hep B S Ag, Hep B Core Ab, Hep C Antibody, Hep B S Antibody negative. 10/2020 ( aching arm, elbow, hand pain, cramping, cannot grasp, worse am, ) ( knee pain at times, no swelling ) ( no ankle pain no feet pain ) ( hand pain 04/2020 onset, arm pain onset 07/2019 ) ( shoulder achy not bad) ( hip pain at times not mild, Covarrubias: ESR 36 high (<20) RF negative 11/2019 uric acid 4.6 10/14/2020 CRP 5.16 mg.L ( Normal < 3) RF CCP SEAMUS negative, ESR 21 mm normal , TREATMENT plaquenil 300 mg daily 07/23/2020 EKG in 7 day. ( lot better on plaquenil ) Labs done get them, right foot pain observe could be RA related Three months, wear tennis she indoor Chronic neck pain ( no jaw pain ) ( mid back pain mild issue ) ( no low back pain ) 02/2020 started ( localized, radiates to back of head) TREATMENT zanaflex some help, using mostly for sleep 07/23/2020 observe. Paresthesia hand bilateral ( onset 09/2019 ) Paresthesia feet ( attributed to Peripheral neuropathy ? From Diabetes Mellitus Type II ) No NCS done 07/23/2020 ( CTS from Diabetes Mellitus Type II ? Or from RA seronegative ? ) Trigger finger ( left 4th ) 07/23/2020 observe Insomnia 2019 onset TREATMENT tylenol pm used with relief past OFF zanaflex prn use Never on ambien 07/23/2020 Diabetes Mellitus Type II 2012 diagnosis when preg ( no med follow up before ) ( HgA1C 7 per patient ) HTN ( worse in office ) : 2015 ? 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 2 brother alive ( oldest brother brain aneurysm ) One brother healthy 07/23/2020 Mom 76 Diabetes Mellitus Type II breast cancer surg done 07/23/2020 Father dementia issue epilepsy past 80 07/23/2020 documented in this encounter Assessments Diagnosis Inflammatory arthritis- Primary Unspecified inflammatory polyarthropathy Carpal tunnel syndrome, bilateral Carpal tunnel syndrome Controlled type 2 diabetes mellitus without complication, with long-term current use of insulin (HCC) Diagnosis Seronegative rheumatoid arthritis (HCC)- Primary Rheumatoid arthritis Diagnosis Inflammatory arthritis Unspecified inflammatory polyarthropathy Additional Source Comments INFORMATION SOURCE (unrecogn ized section and content) DATE CREATED AUTHOR AUTHOR'S ORGANIZ ATION 09/10/2021 [facility] [place] ([place] DATE CREATED AUTHOR AUTHOR'S ORGANIZ ATION 07/30/2022 [facility] Source Comments (unrecognize d section and content) In the event this informatio n is protected by the Federal Confidentiality of Alcohol and Drug Abuse Patient Records regulations: The Federal rules restrict any use of the information to criminally investigate or prosecute any alcohol or drug abuse patient.[facility] the event this information is protected by the Federal Confidentiality of Alcohol and Drug Abuse Patient Records regulations: The Federal rules restrict any use of the information to criminally investigate or prosecute any alcohol or drug abuse patient.[facility] the event this information is protected by the Federal Confidentiality of Alcohol and Drug Abuse Patient Records regulations: The Federal rules restrict any use of the information to criminally investigate or prosecute any alcohol or drug abuse patient.[facility] the event this information is protected by the Federal Confidentiality of Alcohol and Drug Abuse Patient Records regulations: The Federal rules restrict any use of the information to criminally investigate or prosecute any alcohol or drug abuse patient.[facility] the event this information is protected by the Federal Confidentiality of Alcohol and Drug Abuse Patient Records regulations: The Federal rules restrict any use of the information to criminally investigate or prosecute any alcohol or drug abuse patient.[facility] the event this information is protected by the Federal Confidentiality of Alcohol and Drug Abuse Patient Records regulations: The Federal rules restrict any use of the information to criminally investigate or prosecute any alcohol or drug abuse patient.[facility] the event this information is protected by the Federal Confidentiality of Alcohol and Drug Abuse Patient Records regulations: The Federal rules restrict any use of the information to criminally investigate or prosecute any alcohol or drug abuse patient.[facility] the event this information is protected by the Federal Confidentiality of Alcohol and Drug Abuse Patient Records regulations: The Federal rules restrict any use of the information to criminally investigate or prosecute any alcohol or drug abuse patient.[facility] the event this information is protected by the Federal Confidentiality of Alcohol and Drug Abuse Patient Records regulations: The Federal rules restrict any use of the information to criminally investigate or prosecute any alcohol or drug abuse patient.[facility] the event this information is protected by the Federal Confidentiality of Alcohol and Drug Abuse Patient Records regulations: The Federal rules restrict any use of the information to criminally investigate or prosecute any alcohol or drug abuse patient.[facility] the event this information is protected by the Federal Confidentiality of Alcohol and Drug Abuse Patient Records regulations: The Federal rules restrict any use of the information to criminally investigate or prosecute any alcohol or drug abuse patient.[facility] HospitalIn the event this information is protected by the Federal Confidentiality of Alcohol and Drug Abuse Patient Records regulations: The Federal rules restrict any use of the information to criminally investigate or prosecute any alcohol or drug abuse patient.[facility] HospitalIn the event this information is protected by the Federal Confidentiality of Alcohol and Drug Abuse Patient Records regulations: The Federal rules restrict any use of the information to criminally investigate or prosecute any alcohol or drug abuse patient.[facility] Reason for Visit (unrecogniz ed section and content) Reason Comments Follow Up no pain Reason Comments Future Appointment Reason Comments Results Reason Comments Refill Request Reason Comments Pain neck Reason Comments Medication Problem Reason Comments Pain neck,arms,elbows Reason Comments Rheumatoid Arthritis Telephone Encounter - Evens Pantoja - 10/14/2020 1:00 PM ESTTelephone Encounter - Brittney Walker - 10/14/2020 12:03 PM ESTTelephone Encounter - Brittney Walker - 10/14/2020 12:44 PM EST Miscellaneous Notes (unrecog nized section and content) 6 months OK Patient wanted to know if she could come back in 6 months instead of 3 months. She would come back with Campos when he has his 6 month follow up. They live an hour away and she doesn't drive. rBittney Lugo - Call patient either way. I have a 3 month and a 6 month scheduled. documented in this encounter This has been received. Brittney Walker I called [facility] and they are faxing this over to us. Brittney Walker EKG done at [place] get report Evens Pantoja MD documented in this encounter Pharmacy faxed requesting the following refill. Pending Prescriptions Disp Refills HYDROXYCHLOROQUINE 200 MG TABLET 90 tablet 1 Sig: Take 1.5 tablets by mouth once daily. GATO: Yes Patient last appointment: 10/14/2020 Next Appointment: 04/14/2021 Patient Phone numbers: [phone] (home) Request is for script(s) to be escript to pharmacy. Sudarshan Powell CMA documented in this encounter FOR RECORDS PERTAINING TO PATIENTS WHO ARE OR HAVE BEEN ENROLLED IN A CHEMICAL DEPENDENCY/SUBSTANCEABUSE PROGRAM, SOME INFORMATION MAY BE OMITTED. This clinical summary was aggregated from multiple sources. Caution should be exercised in using it in the provision of clinical care. This summary normalizes information from multiple sources, and as a consequence, information in this document may materially change the coding, format and clinical context of patient data. In addition, data may be omitted in some cases. CLINICAL DECISIONS SHOULD BE BASED ON THE PRIMARY CLINICAL RECORDS. [employer] provides no warranty or guarantee of the accuracy or completeness of information in this document.
[2023-09-07 10:50] LABS: Microalbumin,Random Urine 17.3 mg/L (NO RANGE EST.); Microalbumin:Creatinine Ratio 19.3 mg/g CRE (<30 mg/g CRE)
[2023-09-07 11:05] LABS: ALB/GLOB Ratio 1.1 RATIO (0.9-2.4); AST(SGOT) 17 U/L (15-37); Alanine Aminotransfer ALT/SGPT 20 U/L (13-56); Albumin, Serum 4.1 g/dL (3.2-5.0); Alkaline Phosphatase 44 U/L (45-117); Anion Gap 5 (5-15); BUN 22 mg/dL (7-18); BUN/Creat Ratio 19.5 RATIO (10-20); Calcium,Total 9.1 mg/dL (8.5-10.1); Chloride 106 mmol/L (98-107); Cholesterol 146 mg/dL (200); Creatinine, Serum 1.13 mg/dL (0.55-1.02); EST Glomerular Filtration Rate 54 mL/min (>60); Est Glom Filt Rate - Afr Amer 65 mL/min (>60); Globulin 3.6 g/dL (2.2-4.2); Glucose 136 mg/dL (74-106); High Density Lipoprotein 35 mg/dL; Potassium 4.7 mmol/L (3.5-5.1); Protein, Total 7.7 g/dL (6.4-8.2); Sodium Level 139 mmol/L (136-145); Thyroid Stim Hormone (TSH) 1.54 uIU/mL (0.358-3.74); Triglycerides 161 mg/dL; Very Low Density Lipoprotein 32 mg/dL (5-40)
[2023-09-07 11:35] LABS: Hemoglobin A1c 5.9 % (3.8-5.6)
== END | disposition home or self-care (01) ==
LOC: LAB 09:53
PROVIDERS: PCP Internal Medicine; Referring Provider Internal Medicine Endocrinology, Diabetes & Metabolism; Visit Provider Internal Medicine Endocrinology, Diabetes & Metabolism
DX: E11.65 Type 2 diabetes mellitus with hyperglycemia (principal)
CPT/HCPCS: 36415; 80053; 80061; 82043; 82570; 83036; 84443

== ENCOUNTER → 2023-10-01 | Outpatient (CLI) | payer MEDICAID, SELFPAY ==
--- OUTSIDE RECORDS SUMMARY | 2023-10-01 07:55 | XMS RPT_ITS | CCD ---
Author Name Unknown Address [address] [place] [address] Organization [facility] Care Team Providers Care [employer] Name Role Phone Unavailable Primary Care Provider [...] 157.5 cm Evens Pantoja MD Work Phone: [facility] 07-29-2022 11:33-0500 Body temperature 98.2 [degF] Evens Pantoja MD Work Phone: [facility] 07-29-2022 11:33-0500 Body weight 74.39 kg Evens Pantoja MD Work Phone: [facility] 07-29-2022 11:33-0500 Diastolic blood pressure 89 mm[Hg] Evens Pantoja MD Work Phone: [facility] 07-29-2022 11:33-0500 Heart rate 79 /min Evens Pantoja MD Work Phone: [facility] 07-29-2022 11:33-0500 Systolic blood pressure 135 mm[Hg] Evens Pantoja MD Work Phone: [facility] 01-21-2022 10:49-0400 Body height 157.5 cm Evens Pantoja MD Work Phone: [facility] 01-21-2022 10:49-0400 Body temperature 98.71 [degF] Evens Pantoja MD Work Phone: [facility] 01-21-2022 10:49-0400 Body weight 78.02 kg Evens Pantoja MD Work Phone: [facility] 01-21-2022 10:49-0400 Diastolic blood pressure 98 mm[Hg] Evens Pantoja MD Work Phone: [facility] 01-21-2022 10:49-0400 Heart rate 96 /min Evens Pantoja MD Work Phone: [facility] 01-21-2022 10:49-0400 Systolic blood pressure 130 mm[Hg] Evens Pantoja MD Work Phone: [facility] 07-21-2021 11:03-0500 Body height 157.5 cm Evens Pantoja MD Work Phone: [facility] 07-21-2021 11:03-0500 Body temperature 99.1 [degF] Evens Pantoja MD Work Phone: [facility] 07-21-2021 11:03-0500 Body weight 82.42 kg Evens Pantoja MD Work Phone: [facility] 07-21-2021 11:03-0500 Diastolic blood pressure 80 mm[Hg] Evens Pantoja MD Work Phone: [facility] 07-21-2021 11:03-0500 Heart rate 92 /min Evens Pantoja MD Work Phone: [facility] 07-21-2021 11:03-0500 Systolic blood pressure 150 mm[Hg] Evens Pantoja MD Work Phone: [facility] 10-14-2020 11:01-0500 Body Temperature 98.71 [degF] [facility] 10-14-2020 11:01-0500 Body weight 87.54 kg Evens Pantoja [facility] 10-14-2020 11:01-0500 BP Diastolic 108 mm[Hg] [facility] 10-14-2020 11:01-0500 BP Systolic 169 mm[Hg] [facility] 10-14-2020 11:01-0500 Height 157.5 cm [facility] 10-14-2020 11:01-0500 Pulse (Heart Rate) 103 /min [facility] Pantoja [facility] 07-23-2020 11:14-0500 Body Temperature 98.29 [degF] [facility] Pantoja [facility] 07-23-2020 11:14-0500 Body weight 85.55 kg [facility] 07-23-2020 11:14-0500 BP Diastolic 103 mm[Hg] [facility] 07-23-2020 11:14-0500 BP Systolic 144 mm[Hg] [facility] 07-23-2020 11:14-0500 Height 158.9 cm [facility] 07-23-2020 11:14-0500 Pulse (Heart Rate) 90 /min [facility] En[facility]ters Encounter Date Encounter Type Care Provider Facility Start: 07-29-2022 End: 07-29-2022 ambulatory EVENS PANTOJA Facility:[facility] Start: 07-29-2022 End: 07-29-2022 Patient encounter procedure [facility]ens P[facility] [place] Procedures Date Procedure Procedure Detail Performing Clinician Start: 12-11-2020 EXTERNAL CARDIOLOGY Ext ernal Provider Start: 11-08-2020 EXTERNAL LAB External P rovider Start: 07-30-2020 EXTERNAL LAB External P rovider Plan of Treatment Date Care Activity Detail Author Start: 05-07-2022 Influenza vaccination [facility] Start: 09-06-2021 DEPRESSION ASSESSMENT DEPRESSION ASSESSMENT [facility] Start: 08-20-2021 End: 07-21-2022 CBC W Auto Differential panel - Blood CBC + DIFF Lab Routine Psoriatic arthropathy (HCC) Expected: 08/20/2021, Expires: 07/21/2022 [facility] Work Phone: Payers Date Payer Category Payer Medicaid [id number] 2003 Medicaid [facility] MEDICAID TERM 08/05 [facility] MEDICAID [id number] 2003-2022 [address] [place] [address] Medicaid [id number] 2003 Medicaid [id number] Social History Date Type Detail Facility Start: 07-23-2020 End: 07-29-2022 Tobacco smoking status NHIS Former smoker [facility] Start: 07-23-2020 End: 07-29-2022 Tobacco use and exposure Never used [facility] Start: 07-23-2020 End: 07-29-2022 Alcohol intake Current drinker of alcohol (finding) [facility] Start: 07-23-2020 History SDOH Alcohol Frequency 2 [facility] Start: 1970 Sex Assigned At Not on file [facility] Start: 01-11-2022 End: 07-29-2022 Exposure to SARS-CoV-2 (event) Not sure [facility] History of tobacco use Current smoker [facility] History of tobacco use Cigarette Smoker [facility] Start: 07-29-2022 Alcohol Comment once a year: mixed d deenak [facility] Clinical Notes 07-21-2021 to 07-28-2022 Evens Pantoja MD - 07/28/2022 9:28 PM Magi Pantoja MD - 01/21/2022 11:20 AM EDTTelephone Encounter - Evens Pantoja MD - 07/31/2021 3:46 PM Magi Pantoja MD - 07/21/2021 11:13 AM EST Note Date & Type Note Facility 07-28-2022 Note HNO ID: [id number] Author: Evens Pantoja MD Service: ? Author [...] on account of the neck pain Seen digital marketing specialist MRI planned Decreased range of motion [...] normal HgAic 7.4 normal Dermatology note: [facility] : Diagnosis : Psoriasis plaque. ( recent [...] office ) : 2015 ? ( no [place] ) Belly pain ( 2019 ) ( right upp (more content not included)... [facility] 07-28-2022 History of Presen t illness Narrative This note was created using [employer]riter. Subjective Darrel Monsivais is a 52 year old female. Neck pain Main issue Done PT Moderate better TENS + heat done and better Pain all the time Stressed from pain Daily pain Daily headache from this Issue getting sleep on account of the neck pain Seen digital marketing specialist MRI planned Decreased range of motion [...] normal HgAic 7.4 normal Dermatology note: [facility] : Diagnosis : Psoriasis plaque. ( recent [...] office ) : 2015 ? ( no [place] stroke ) Belly pain ( 2019 ) [...] past 80 07/23/2020 documented in this encounter [facility] 01-21-2022 Note HNO ID: [id number] Author: Evens Pantoja MD Service: ? Author Type: Physician Type: Progress Notes Filed: 01/21/2022 11:44 AM Note Text: This note was created using [employer]riter. Subjective Darrel Monsivais is a 51 year [...] but no visit . Dermatology note: [facility] : Diagnosis : Psoriasis plaque. ( recent [...] office ) : 2015 ? ( no [place] stroke ) Belly pain ( 2019 ) [...] observe for no (more content not included)... [facility] 01-21-2022 History of Presen t illness [...] but no visit . Dermatology note: [facility] : Diagnosis : Psoriasis plaque. ( recent [...] office ) : 2015 ? ( no [place] stroke ) Belly pain ( 2019 ) [...] past 80 07/23/2020 documented in this encounter [facility] 07-31-2021 Miscellaneous Notes GI upset Evens Pantoja MD OK to try 1/2 tid on sulfasalazine Agrees Evens Pantoja MD Pt left message stating sulfa is giving her stomach ache,headache and side pain. documented in this encounter [facility] 07-30-2021 Miscellaneous Notes Hilda hobson [facility] medical records returned release of information sheet with the note that there are no xrays of the neck there and they have no record of the pt being seen there. Chelita Cruz LPN documented in this encounter [facility] 07-21-2021 History of Presen t illness Narrative This note was created using [employer]riter. Subjective Darrel Monsivais is a 51 year [...] normal cr 1.14 high Dermatology note: [facility] : Diagnosis : Psoriasis plaque. ( recent [...] office ) : 2015 ? ( no [place] stroke ) Fatty liver 07/23/2020 Brief Personal [...] past 80 07/23/2020 documented in this encounter [facility] Psoriatic arthropathy (HCC) Psoriatic arthropathy [facility] Seronegative rheumatoid arthritis (HCC)- Primary Rheumatoid arthritis Pain of upper abdomen Abdominal pain, other specified site Elevated liver enzymes Other nonspecific abnormal serum enzyme levels Chronic neck pain Cervicalgia [facility] Chronic neck pain- Primary Cervicalgia Seronegative rheumatoid arthritis (HCC) Rheumatoid arthritis documented in this encounter [facility] Summary Purpose Family History No Family History Records FoundNo Family History Records FoundNo Family History Records Found Advance Directives No Advanced Directives Records FoundNo Advanced Directives Records FoundNo Advanced Directives Records Found History of Present Illness * Evens Pantoja - 07/23/2020 11:32 AM EST This note was created using [employer]. Subjective Darrel Monsivais is a 50 year [...] office ) : 2015 ? 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 Subjective Darrel Monsivais is a 50 year [...] office ) : 2015 ? 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,( also seeing me Camposdiana De Souzars) [...] DATE CREATED AUTHOR AUTHOR'S ORGANIZ ATION 09/10/2021 [facility] DATE CREATED AUTHOR AUTHOR'S ORGANIZ ATION 07/30/2022 [facility] Source Comments (unrecognize d section and content) In the event this informatio n is protected by the Federal Confidentiality of Alcohol and Drug Abuse Patient Records regulations: The Federal rules restrict any use of the information to criminally investigate or prosecute any alcohol or drug abuse patient.[facility] the event this information is protected by the Federal Confidentiality of Alcohol and Drug Abuse Patient Records regulations: The Federal rules restrict any use of the information to criminally investigate or prosecute any alcohol or drug abuse patient.[facility] the event this information is protected by the Federal Confidentiality of Alcohol and Drug Abuse Patient Records regulations: The Federal rules restrict any use of the information to criminally investigate or prosecute any alcohol or drug abuse patient.[facility] the event this information is protected by the Federal Confidentiality of Alcohol and Drug Abuse Patient Records regulations: The Federal rules restrict any use of the information to criminally investigate or prosecute any alcohol or drug abuse patient.[facility] the event this information is protected by the Federal Confidentiality of Alcohol and Drug Abuse Patient Records regulations: The Federal rules restrict any use of the information to criminally investigate or prosecute any alcohol or drug abuse patient.[facility] the event this information is protected by the Federal Confidentiality of Alcohol and Drug Abuse Patient Records regulations: The Federal rules restrict any use of the information to criminally investigate or prosecute any alcohol or drug abuse patient.[facility] the event this information is protected by the Federal Confidentiality of Alcohol and Drug Abuse Patient Records regulations: The Federal rules restrict any use of the information to criminally investigate or prosecute any alcohol or drug abuse patient.[facility] Center[facility] the event this information is protected by the Federal Confidentiality of Alcohol and Drug Abuse Patient Records regulations: The Federal rules restrict any use of the information to criminally investigate or prosecute any alcohol or drug abuse patient.[facility] the event this information is protected by the Federal Confidentiality of Alcohol and Drug Abuse Patient Records regulations: The Federal rules restrict any use of the information to criminally investigate or prosecute any alcohol or drug abuse patient.[facility] CenterIn the event this information is protected by the Federal Confidentiality of Alcohol and Drug Abuse Patient Records regulations: The Federal rules restrict any use of the information to criminally investigate or prosecute any alcohol or drug abuse patient.[facility] Center[facility] the event this information is protected by the Federal Confidentiality of Alcohol and Drug Abuse Patient Records regulations: The Federal rules restrict any use of the information to criminally investigate or prosecute any alcohol or drug abuse patient.[facility] Center[facility] the event this information is protected by the Federal Confidentiality of Alcohol and Drug Abuse Patient Records regulations: The Federal rules restrict any use of the information to criminally investigate or prosecute any alcohol or drug abuse patient.[facility] Center[facility] the event this information is protected by the Federal Confidentiality of Alcohol and Drug Abuse Patient Records regulations: The Federal rules restrict any use of the information to criminally investigate or prosecute any alcohol or drug abuse patient.[facility] Reason for Visit (unrecogniz ed section and [...] an hour away and she doesn't drive. Brittney Lugo - Call patient either way. I have a 3 month and a 6 month scheduled. documented in this encounter This has been received. Brittney Walker I called [facility] and they are faxing this over to us. Brittney Walker EKG done at [place] get report Evens Pantoja MD documented in this encounter Pharmacy faxed requesting the following refill. Pending Prescriptions Disp Refills HYDROXYCHLOROQUINE 200 MG TABLET 90 tablet 1 Sig: Take 1.5 tablets by mouth once daily. GATO: Yes Patient last appointment: 10/14/2020 Next Appointment: 04/14/2021 Patient Phone numbers: [phone] (home) Request is for script(s) to be [...] BE BASED ON THE PRIMARY CLINICAL RECORDS. [employer] provides no warranty or guarantee of the accuracy or completeness of information in this document.
[2023-10-01 08:39] LABS: Hemoglobin A1c 5.9 % (3.8-5.6)
[2023-10-01 09:02] LABS: ALB/GLOB Ratio 1.1 RATIO (0.9-2.4); AST(SGOT) 19 U/L (15-37); Alanine Aminotransfer ALT/SGPT 25 U/L (13-56); Albumin, Serum 4.1 g/dL (3.2-5.0); Alkaline Phosphatase 43 U/L (45-117); Anion Gap 5 (5-15); BUN 25 mg/dL (7-18); BUN/Creat Ratio 20.5 RATIO (10-20); Calcium,Total 9.4 mg/dL (8.5-10.1); Chloride 106 mmol/L (98-107); Cholesterol 167 mg/dL (200); Creatinine, Serum 1.22 mg/dL (0.55-1.02); EST Glomerular Filtration Rate 49 mL/min (>60); Est Glom Filt Rate - Afr Amer 59 mL/min (>60); Globulin 3.7 g/dL (2.2-4.2); Glucose 132 mg/dL (74-106); High Density Lipoprotein 39 mg/dL; Potassium 4.2 mmol/L (3.5-5.1); Protein, Total 7.8 g/dL (6.4-8.2); Sodium Level 137 mmol/L (136-145); Thyroid Stim Hormone (TSH) 1.14 uIU/mL (0.358-3.74); Triglycerides 112 mg/dL; Very Low Density Lipoprotein 22 mg/dL (5-40)
[2023-10-01 10:03] LABS: Microalbumin,Random Urine 22.6 mg/L (NO RANGE EST.); Microalbumin:Creatinine Ratio 12.6 mg/g CRE (<30 mg/g CRE)
== END | disposition home or self-care (01) ==
LOC: LAB 07:49
PROVIDERS: PCP Internal Medicine; Referring Provider Internal Medicine Endocrinology, Diabetes & Metabolism; Visit Provider Internal Medicine Endocrinology, Diabetes & Metabolism
DX: E11.65 Type 2 diabetes mellitus with hyperglycemia (principal)
CPT/HCPCS: 36415; 80053; 80061; 82043; 82570; 83036; 84443

== ENCOUNTER → 2023-10-22 | Outpatient (CLI) | payer MEDICAID, SELFPAY ==
--- OUTSIDE RECORDS SUMMARY | 2023-10-22 11:30 | XMS RPT_ITS | CCD ---
Author Name Unknown Address [address] [facility] [address] [place] [address] Organization [facility] Care Team Providers Care Redrawer Name Role Phone Unavailable Primary Care Provider [...] 157.5 cm Evens Pantoja MD Work Phone: [facility] 07-29-2022 11:33-0500 Body temperature 98.2 [degF] Evens Pantoja MD Work Phone: [facility] 07-29-2022 11:33-0500 Body weight 74.39 kg Evens Pantoja MD Work Phone: [facility] 07-29-2022 11:33-0500 Diastolic blood pressure 89 mm[Hg] Evens Pantoja MD Work Phone: [facility] 07-29-2022 11:33-0500 Heart rate 79 /min Evens Pantoja MD Work Phone: [facility] 07-29-2022 11:33-0500 Systolic blood pressure 135 mm[Hg] Evens Pantoja MD Work Phone: [facility] 01-21-2022 10:49-0400 Body height 157.5 cm Evens Pantoja MD Work Phone: [facility] 01-21-2022 10:49-0400 Body temperature 98.71 [degF] Evens Pantoja MD Work Phone: [facility] 01-21-2022 10:49-0400 Body weight 78.02 kg Evens Pantoja MD Work Phone: [facility] 01-21-2022 10:49-0400 Diastolic blood pressure 98 mm[Hg] Evens Pantoja MD Work Phone: [facility] 01-21-2022 10:49-0400 Heart rate 96 /min Evens Pantoja MD Work Phone: [facility] 01-21-2022 10:49-0400 Systolic blood pressure 130 mm[Hg] Evens Pantoja MD Work Phone: [facility] 07-21-2021 11:03-0500 Body height 157.5 cm Evens Pantoja MD Work Phone: [facility] 07-21-2021 11:03-0500 Body temperature 99.1 [degF] Evens Pantoja MD Work Phone: [facility] 07-21-2021 11:03-0500 Body weight 82.42 kg Evens Pantoja MD Work Phone: [facility] 07-21-2021 11:03-0500 Diastolic blood pressure 80 mm[Hg] Evens Pantoja MD Work Phone: [facility] 07-21-2021 11:03-0500 Heart rate 92 /min Evens Pantoja MD Work Phone: [facility] 07-21-2021 11:03-0500 Systolic blood pressure 150 mm[Hg] Evens Pantoja MD Work Phone: [facility] 10-14-2020 11:01-0500 Body Temperature 98.71 [degF] [facility] 10-14[facility]2020 11:01-0500 Body weight 87.54 kg Evens Pantoja [facility] 10-14-2020 11:01-0500 BP Diastolic 108 mm[Hg] Inderprit [facility] 10-14-2020 11:01-0500 BP Systolic 169 mm[Hg] Inderprit [facility] 10-14-2020 11:01-0500 Height 157.5 cm Inderprit [facility] 10-14-2020 11:01-0500 Pulse (Heart Rate) 103 /min Inderprit Panto[facility] 07-23-2020 11:14-0500 Body Temperature 98.29 [degF] Inder[facility]rit [facility] 07-23-2020 11:14-0500 Body weight 85.55 kg Inderprit [facility] 07-23-2020 11:14-0500 BP Diastolic 103 mm[Hg] Inderprit [facility] 07-23-2020 11:14-0500 BP Systolic 144 mm[Hg] Inderprit [facility] 07-23-2020 11:14-0500 Height 158.9 cm [facility] 07-23-2020 11:14-0500 Pulse (Heart Rate) 90 /min [facility] Encounters Encounter Date Encounter Type Care Provider Facility Start: 07-29-2022 End: 07-29-2022 ambulatory EVENS PANTOJA [facility] Start: 07-29-2022 End: 07-29-2022 Patient encounter procedure Ev[facility] [place] Procedures Date Procedure Procedure Detail Performing Clinician Start: 12-11-2020 EXTERNAL CARDIOLOGY Ext ernal Provider Start: 11-08-2020 EXTERNAL LAB External P rovider Start: 07-30-2020 EXTERNAL LAB External P rovider Plan of Treatment Date Care Activity Detail Author Start: 05-07-2022 Influenza vaccination [facility] Start: 09-06-2021 DEPRESSION ASSESSMENT DEPRESSION ASSESSMENT [facility] Start: 08-20-2021 End: 07-21-2022 CBC W Auto Differential panel - Blood CBC + DIFF Lab Routine Psoriatic arthropathy (HCC) Expected: 08/20/2021, Expires: 07/21/2022 [facility] Work Phone: Payers Date Payer Category Payer Medicaid [id number] 2003 Medicaid [facility] MEDICAID TERM 08/05 [facility] MEDICAID [id number] 2003-2022 [address] [place] [address] Medicaid [id number] 2003 Medicaid [id number] Social History Date Type Detail Facility Start: 07-23-2020 End: 07-29-2022 Tobacco smoking status NHIS Former smoker [facility] Start: 07-23-2020 End: 07-29-2022 Tobacco use and exposure Never used [facility] Start: 07-23-2020 End: 07-29-2022 Alcohol intake Current drinker of alcohol (finding) [facility] Start: 07-23-2020 History SDOH Alcohol Frequency 2 [facility] Start: 1970 Sex Assigned At Not on file [facility] Start: 01-11-2022 End: 07-29-2022 Exposure to SARS-CoV-2 (event) Not sure [facility] History of tobacco use Current smoker [facility] History of tobacco use Cigarette Smoker [facility] Start: 07-29-2022 Alcohol Comment once a year: mixed d deenak [facility] Clinical Notes 07-21-2021 to 07-28-2022 Evens Pantoja MD - 07/28/2022 9:28 PM Magi Pantoja MD - 01/21/2022 11:20 AM EDTTelephone Encounter - Evens Pantoja MD - 07/31/2021 3:46 PM Magi Pantoja MD - 07/21/2021 11:13 AM EST Note Date & Type Note Facility 07-28-2022 Note HNO ID: [id number] Author: Evens Pantoja MD Service: ? 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 ( [...] office ) : 2015 ? ( no [place] stroke ) Belly pain ( 2019 ) ( right upp (more content not included)... [facility] 07-28-2022 History of Presen t illness Narrative This note was created using [employer]. Subjective Darrel Monsivais is a 52 year old female. 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 ( [...] office ) : 2015 ? 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 2 brother alive ( oldest brother brain aneurysm ) One brother healthy 07/23/2020 Mom 76 Diabetes Mellitus Type II breast cancer surg done 07/23/2020 Father dementia issue epilepsy past 80 07/23/2020 documented in this encounter [facility] 01-21-2022 Note HNO ID: [id number] Author: Evens Pantoja MD Service: ? Author Type: Physician Type: Progress Notes Filed: 01/21/2022 11:44 AM Note Text: This note was created using [employer]. Subjective Darrel Monsivais is a 51 year [...] but no visit . Dermatology note: [facility] : Diagnosis : Psoriasis plaque. ( [...] office ) : 2015 ? ( no [place] stroke ) Belly pain ( 2019 ) [...] for no (more content not included)... [facility] 01-21-2022 History of Presen t illness Narrative [...] but no visit . Dermatology note: [facility] : Diagnosis : Psoriasis plaque. ( [...] office ) : 2015 ? ( no [place] stroke ) Belly pain ( 2019 ) [...] past 81 07/23/2020 documented in this encounter [facility] 07-31-2021 Miscellaneous Notes GI upset Evens Pantoja MD OK to try 1/2 tid on sulfasalazine Agrees Evens Pantoja MD Pt left message stating sulfa is giving her stomach ache,headache and side pain. documented in this encounter [facility] 07-30-2021 Miscellaneous Notes [facility] returned release of information sheet with the note that there are no xrays of the neck there and they have no record of the pt being seen there. Chelita Cruz LPN documented in this encounter [facility] 07-21-2021 History of Presen t illness Narrative This note was created using [employer]. Subjective Darrel Monsivais is a 51 year [...] normal cr 1.14 high Dermatology note: [facility] : Diagnosis : Psoriasis plaque. ( [...] office ) : 2015 ? ( no [place] stroke ) Fatty liver 07/23/2020 Brief Personal [...] past 81 07/23/2020 documented in this encounter [facility] Psoriatic arthropathy (HCC) Psoriatic arthropathy [facility] Diagnosis Seronegative rheumatoid arthritis (HCC)- Primary Rheumatoid arthritis Pain of upper abdomen Abdominal pain, other specified site Elevated liver enzymes Other nonspecific abnormal serum enzyme levels Chronic neck pain Cervicalgia [facility] Chronic neck pain- Primary Cervicalgia Seronegative rheumatoid arthritis (HCC) Rheumatoid arthritis documented in this encounter [facility] Summary Purpose Family History No Family History Records FoundNo Family History Records FoundNo Family History Records Found Advance Directives No Advanced Directives Records FoundNo Advanced Directives Records FoundNo Advanced Directives Records Found History of Present Illness * Evens Pantoja - 07/23/2020 11:32 AM EST This note was created using [employer]. Subjective Darrel Monsivais is a 50 year [...] office ) : 2015 ? 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 Subjective Darrel Monsivais is a 50 year [...] office ) : 2015 ? 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,( also seeing me Camposdiana De Souzars) [...] DATE CREATED AUTHOR AUTHOR'S ORGANIZ ATION 09/10/2021 [facility] [place] [facility] DATE CREATED AUTHOR AUTHOR'S ORGANIZ ATION 07/30/2022 [facility] Source Comments (unrecognize d section and content) In the event this informatio n is protected by the Federal Confidentiality of Alcohol and Drug Abuse Patient Records regulations: The Federal rules restrict any use of the information to criminally investigate or prosecute any alcohol or drug abuse patient.[facility] the event this information is protected by the Federal Confidentiality of Alcohol and Drug Abuse Patient Records regulations: The Federal rules restrict any use of the information to criminally investigate or prosecute any alcohol or drug abuse patient.[facility] the event this information is protected by the Federal Confidentiality of Alcohol and Drug Abuse Patient Records regulations: The Federal rules restrict any use of the information to criminally investigate or prosecute any alcohol or drug abuse patient.[facility] the event this information is protected by the Federal Confidentiality of Alcohol and Drug Abuse Patient Records regulations: The Federal rules restrict any use of the information to criminally investigate or prosecute any alcohol or drug abuse patient.[facility] the event this information is protected by the Federal Confidentiality of Alcohol and Drug Abuse Patient Records regulations: The Federal rules restrict any use of the information to criminally investigate or prosecute any alcohol or drug abuse patient.[facility] the event this information is protected by the Federal Confidentiality of Alcohol and Drug Abuse Patient Records regulations: The Federal rules restrict any use of the information to criminally investigate or prosecute any alcohol or drug abuse patient.[facility] the event this information is protected by the Federal Confidentiality of Alcohol and Drug Abuse Patient Records regulations: The Federal rules restrict any use of the information to criminally investigate or prosecute any alcohol or drug abuse patient.[facility] the event this information is protected by the Federal Confidentiality of Alcohol and Drug Abuse Patient Records regulations: The Federal rules restrict any use of the information to criminally investigate or prosecute any alcohol or drug abuse patient.[facility] the event this information is protected by the Federal Confidentiality of Alcohol and Drug Abuse Patient Records regulations: The Federal rules restrict any use of the information to criminally investigate or prosecute any alcohol or drug abuse patient.[facility] the event this information is protected by the Federal Confidentiality of Alcohol and Drug Abuse Patient Records regulations: The Federal rules restrict any use of the information to criminally investigate or prosecute any alcohol or drug abuse patient.[facility] the event this information is protected by the Federal Confidentiality of Alcohol and Drug Abuse Patient Records regulations: The Federal rules restrict any use of the information to criminally investigate or prosecute any alcohol or drug abuse patient.[facility] the event this information is protected by the Federal Confidentiality of Alcohol and Drug Abuse Patient Records regulations: The Federal rules restrict any use of the information to criminally investigate or prosecute any alcohol or drug abuse patient.[facility] the event this information is protected by the Federal Confidentiality of Alcohol and Drug Abuse Patient Records regulations: The Federal rules restrict any use of the information to criminally investigate or prosecute any alcohol or drug abuse patient.[facility] Reason for Visit (unrecogniz ed section [...] to us. Brittney Walker EKG done at [facility] get report Evens Pantoja MD documented in this encounter Pharmacy faxed requesting the following refill. Pending Prescriptions Disp Refills HYDROXYCHLOROQUINE 200 MG TABLET 90 tablet 1 Sig: Take 1.5 tablets by mouth once daily. GATO: Yes Patient last appointment: 10/14/2020 Next Appointment: 04/14/2021 Patient Phone numbers: [phone] (home) Request is for script(s) to be [...] BE BASED ON THE PRIMARY CLINICAL RECORDS. [employer] provides no warranty or guarantee of the accuracy or completeness of information in this document.
[2023-10-22 12:18] LABS: Absolute Neutrophil Count 3.7 X10^3/uL (2.0-7.7); Basophil# 0.03 X10^3/uL; Basophil% 0.5 % (0-1); Eosinophil# 0.17 X10^3/uL; Eosinophils% 2.6 % (0-5); Hematocrit 35.9 % (37-47); Hemoglobin 11.5 g/dL (12.0-15.0); Lymphocyte % 32.6 % (19-41); Mean Corpuscular Hgb 27.9 pg (27.0-32.0); Mean Corpuscular Volume 87.1 fL (81-99); Mean Platelet Vol. 11.7 fl (6.2-12.0); Monocyte# 0.41 X10^3/uL; Monocyte% 6.4 % (0-10); NRBC Flagged by Analyzer 0 % (0-5); Neutrophil # 3.72 X10^3/uL (2.7-7.7); Neutrophil % 57.6 % (47-70); Platelet Count 342 K/mm3 (150-450); RBC Distribution Width CV 13.5 % (11.6-14.6); RBC Distribution Width SD 42.2 fl (35.1-43.9); Red Blood Count 4.12 M/mm3 (4.2-5.4); White Blood Count 6.5 K/mm3 (4.4-11.0)
== END | disposition home or self-care (01) ==
LOC: BIMLAB 11:09
PROVIDERS: PCP Internal Medicine; Visit Provider Internal Medicine
DX: I10 Essential (primary) hypertension (principal)
CPT/HCPCS: 36415; 85025

== ENCOUNTER → 2023-12-13 | Outpatient (CLI) | payer MEDICAID, SELFPAY ==
--- NOTE | 2023-12-13 07:55 | BI_ITS ---
MAMMOGRAPHY - BILATERAL SCREENING REASON FOR EXAM: Female, 53 years old. Routine annual screening examination. PERTINENT HISTORY: Mother with breast cancer. TECHNIQUE: Digital bilateral breast aaron (3D mammographic acquisition) in the CC and MLO projections. 2-D mediolateral oblique (MLO) and craniocaudad (CC) views of both breasts were obtained. CAD: Full Field Digital Mammography with Computer Added Detection was performed. COMPARISON: Comparison is made with prior examination dated December 09, 2022 and December 08, 2021. FINDINGS: Breast Composition: There are scattered areas of fibroglandular density. There are no dominant masses or suspicious calcifications. Stable 7 mm well-defined nodule in the upper outer quadrant of the left breast. Prior sonogram demonstrated is a small intramammary lymph node. Stable small benign appearing bilateral axillary lymph nodes. No other significant abnormalities are identified. There has been no significant change since the prior study. BI/SCRN MAMM (CAD)W/AARON BILAT IMPRESSION: Stable bilateral screening mammogram. Yearly follow-up mammogram recommended. (A) ASSESSMENT CATEGORY: BIRADS Category 2: Benign. A letter regarding these results will be sent to the patient by the facility within 30 days. Approximately 10% of breast cancers are not detected by mammography. A normal mammogram should not delay biopsy of a clinically suspicious abnormality. [id number] Electronically Signed: Matthias Rashid MD at 8:49 EDT ,
== END | disposition home or self-care (01) ==
LOC: OPBI 07:54
PROVIDERS: PCP Internal Medicine; Referring Provider Nurse Practitioner; Visit Provider Nurse Practitioner
DX: Z12.31 Encounter for screening mammogram for malignant neoplasm of breast (principal)
CPT/HCPCS: 77063; 77067

== ENCOUNTER → 2023-12-14 | Outpatient (CLI) | payer MEDICAID, SELFPAY ==
--- NOTE | 2023-12-14 09:44 | ECHOD_ITS ---
Reason For Study: HTN Procedure This was a 2D Doppler, Color Flow transthoracic echocardiogram. The study was technically difficult. Contrast injection was performed. Exam performed in department. Left Ventricle Normal size and thickness. The left ventricular ejection fraction is 65 %. Normal diastololic function. Right Ventricle Normal right ventricle. Atria The left and right atria are normal. Bubble contrast study is negative for PFO/ASD. Mitral Valve Trivial mitral valve insufficiency. Tricuspid Valve Trivial tricuspid valve insufficiency. Unable to estimate RV systolic pressure due to insufficient tricuspid regurgitant envelope. Aortic Valve Trisinus/trileaflet aortic valve. Pulmonic Valve The pulmonic valve is not well visualized. Trivial pulmonic valve insufficiency. Mild to moderately elevated gradients across the pulmonic valve. Great Vessels Normal sized aortic root. Pericardium/Pleural No pericardial effusion. Medication 22 gauge I.V. with prn adaptor inserted into right arm. Diluted definity 1.5ml given slow IV push to enhance endocardial definition. Performed a rapid injection of agitated mix of 9 cc saline and 1cc air to assess for atrial septal defect. MMode/2D Measurements & Calculations LVIDd: 4.1 cm IVSd: 0.95 cm Ao root diam: 3.0 cm LVIDs: 2.7 cm LVPWd: 1.0 cm LA dimension: 3.2 cm RVDd: 3.0 cm FS: 33.7 % LAV(MOD-bp): 36.1 ml RVOT diam: 1.7 cm LVAd ap4: 27.9 cm2 LAV(MOD-bp) Indexed: 20.7 ml/m2 LVLd ap4: 8.2 cm LAV(MOD-sp2): 34.7 ml EDV(MOD-sp4): 77.6 ml LAV(MOD-sp4): 34.1 ml EDV(sp4-el): 80.4 ml LVAs ap4: 14.2 cm2 LVLs ap4: 6.3 cm ESV(MOD-sp4): 28.5 ml ESV(sp4-el): 27.1 ml EF(MOD-sp4): 63.3 % EF(sp4-el): 66.3 % SV(MOD-sp4): 49.1 ml SV(sp4-el): 53.3 ml LA A4 area: 13.7 cm2 RA A4 area: 13.9 cm2 TAPSE: 2.2 cm Time Measurements MV dec time: 0.20 sec Doppler Measurements & Calculations MV E max ramez: 68.7 cm/sec Lat Peak E' Ramez: 11.5 cm/sec Med Peak E' Ramez: 8.2 cm/sec MV A max ramez: 69.5 cm/sec E/E' lat: 6.0 E/E' med: 8.3 MV E/A: 0.99 MV V2 max: 83.9 cm/sec MV P1/2t max ramez: 85.3 cm/sec Ao V2 max: 151.0 cm/sec MV max P.8 mmHg MV P1/2t: 69.3 msec Ao max P.1 mmHg MV V2 mean: 49.5 cm/sec MV dec slope: 360.2 cm/sec2 Ao V2 mean: 98.2 cm/sec MV mean P.1 mmHg MVA(P1/2t): 3.2 cm2 Ao mean P.5 mmHg MV V2 VTI: 22.0 cm Ao V2 VTI: 30.6 cm AV (velocity ratio): 0.74 LV V1 max: 100.2 cm/sec PA V2 max: 186.3 cm/sec SV(RVOT): 48.5 ml LV V1 max P.0 mmHg PA max PG (full): 10.5 mmHg LV V1 mean P.4 mmHg PA V2 mean: 124.9 cm/sec LV V1 mean: 72.9 cm/sec PA mean PG (full): 5.4 mmHg LV V1 VTI: 22.5 cm ECHO/Echo Complete W/ Contrast Interpretation Summary The left ventricular ejection fraction is 65 %. Mild to moderately elevated gradients across the pulmonic valve.. Consider card iac MRI for further evaluation. Ordering Physician: Dheeraj Bird Referring Physician: Nanette Watts Performed By: Stan Roque RCS
== END | disposition home or self-care (01) ==
LOC: CVS 09:43
PROVIDERS: PCP Internal Medicine; Referring Provider Internal Medicine Cardiovascular Disease; Visit Provider Internal Medicine Cardiovascular Disease
DX: I49.3 Ventricular premature depolarization (principal)
CPT/HCPCS: 93306; Q9957; A4216; C8929

== ENCOUNTER → 2024-01-12 | Outpatient (CLI) | payer MEDICAID, SELFPAY ==
[2024-01-12 08:17] LABS: Hematocrit 36.5 % (37-47); Hemoglobin 11.6 g/dL (12.0-15.0); Mean Corp Hgb Conc 31.8 g/dL (32-36); Mean Corpuscular Hgb 28.2 pg (27.0-32.0); Mean Corpuscular Volume 88.8 fL (81-99); Mean Platelet Vol. 11.4 fl (6.2-12.0); Platelet Count 303 K/mm3 (150-450); RBC Distribution Width CV 13.4 % (11.6-14.6); RBC Distribution Width SD 43.9 fl (35.1-43.9); Red Blood Count 4.11 M/mm3 (4.2-5.4); White Blood Count 5.5 K/mm3 (4.4-11.0)
[2024-01-12 08:42] LABS: ALB/GLOB Ratio 1.2 RATIO (0.9-2.4); AST(SGOT) 13 U/L (15-37); Alanine Aminotransfer ALT/SGPT 20 U/L (13-56); Albumin, Serum 4.2 g/dL (3.2-5.0); Alkaline Phosphatase 45 U/L (45-117); Anion Gap 4 (5-15); BUN 30 mg/dL (7-18); BUN/Creat Ratio 24.2 RATIO (10-20); Calcium,Total 9.8 mg/dL (8.5-10.1); Chloride 107 mmol/L (98-107); Cholesterol 147 mg/dL (200); Creatinine, Serum 1.24 mg/dL (0.55-1.02); EST Glomerular Filtration Rate 48 mL/min (>60); Est Glom Filt Rate - Afr Amer 58 mL/min (>60); Globulin 3.4 g/dL (2.2-4.2); Glucose 152 mg/dL (74-106); High Density Lipoprotein 37 mg/dL; Potassium 4.3 mmol/L (3.5-5.1); Protein, Total 7.6 g/dL (6.4-8.2); Sodium Level 139 mmol/L (136-145); Triglycerides 168 mg/dL; Very Low Density Lipoprotein 34 mg/dL (5-40)
[2024-01-12 08:45] LABS: Vitamin D,25 Hydroxy 79.4 ng/mL
[2024-01-12 08:51] LABS: Hemoglobin A1c 5.4 % (3.8-5.6)
[2024-01-12 10:14] LABS: Microalbumin:Creatinine Ratio 16.9 mg/g CRE (<30 mg/g CRE)
== END | disposition home or self-care (01) ==
LOC: LAB 07:43
PROVIDERS: PCP Internal Medicine; Referring Provider Internal Medicine Endocrinology, Diabetes & Metabolism; Visit Provider Internal Medicine Endocrinology, Diabetes & Metabolism
DX: I10 Essential (primary) hypertension (principal); E11.65 Type 2 diabetes mellitus with hyperglycemia; E55.9 Vitamin D deficiency, unspecified; G47.00 Insomnia, unspecified; E78.5 Hyperlipidemia, unspecified
CPT/HCPCS: 36415; 80053; 80061; 82043; 82306; 82570; 83036; 85027

== ENCOUNTER → 2024-06-01 | Outpatient (CLI) | payer MEDICAID, SELFPAY ==
--- NOTE | 2024-06-01 07:57 | US_ITS ---
STUDY: ABDOMINAL ULTRASOUND - RIGHT UPPER QUADRANT; ELASTOGRAPHY REASON FOR VISIT: Female, 54 years old. Fatty infiltration of the liver. TECHNIQUE: Ultrasound evaluation of the right upper quadrant was performed with real-time and static carreno-scale imaging. Point quantification shear wave elastography was performed ([place]). TECHNICAL QUALITY: Adequate. COMPARISON: Comparison is made with prior study dated June 03, 2022. FINDINGS: Liver: The liver measures 16.9 cm. There is increased echogenicity consistent with fatty infiltration. The bile ducts are within normal limits. There is hepatic color flow. The direction of portal flow is hepatopetal. There is no demonstrated mass lesion. Median liver stiffness measured 7.8 kPa. Gallbladder: Normal distended gallbladder. The gallbladder wall measures 2.3 mm. There is a negative sonographic Boss''s sign. There is no pericholecystic fluid. There are no gallstones. Common Bile Duct (C.B.D.): The common bile duct measures 4.3 mm. Pancreas: There is normal echogenicity of the visualized pancreas. There is no demonstrated pancreatic mass or cyst. Right Kidney: Normal size of the right kidney. The right kidney measures 10.6 cm x 4.7 cm x 3.7 cm. Normal renal cortex. The right cortex measures 1.3 cm. There is no demonstrated renal mass or cyst. There is no right hydronephrosis. US/ABD Limited w/ Elastography IMPRESSION: 1. Liver stiffness measures 7.8 kPa compatible with F2-F3 (Mild to moderate liver fibrosis) Metavir score. Electronically Signed: Matthias Rashid MD at 12:25 EDT ,
== END | disposition home or self-care (01) ==
LOC: US 07:55
PROVIDERS: PCP Internal Medicine; Referring Provider Internal Medicine Gastroenterology; Visit Provider Internal Medicine Gastroenterology
DX: K76.0 Fatty (change of) liver, not elsewhere classified (principal)
CPT/HCPCS: 76705; 76981

== ENCOUNTER → 2024-07-24 | Outpatient (CLI) | payer MEDICAID, SELFPAY ==
[2024-07-24 08:49] LABS: Vitamin D,25 Hydroxy 57.3 ng/mL
[2024-07-24 09:01] LABS: ALB/GLOB Ratio 1.3 RATIO (0.9-2.4); AST(SGOT) 16 U/L (15-37); Alanine Aminotransfer ALT/SGPT 25 U/L (13-56); Albumin, Serum 4.3 g/dL (3.2-5.0); Alkaline Phosphatase 47 U/L (45-117); Anion Gap 5 (5-15); BUN 24 mg/dL (7-18); BUN/Creat Ratio 22.2 RATIO (10-20); Calcium,Total 9.4 mg/dL (8.5-10.1); Chloride 107 mmol/L (98-107); Cholesterol 153 mg/dL (200); Creatinine, Serum 1.08 mg/dL (0.55-1.02); EST Glomerular Filtration Rate 56 mL/min (>60); Est Glom Filt Rate - Afr Amer 68 mL/min (>60); Free T3 2.5 pg/mL (2.18-3.98); Globulin 3.3 g/dL (2.2-4.2); Glucose 123 mg/dL (74-106); High Density Lipoprotein 48 mg/dL; Protein, Total 7.6 g/dL (6.4-8.2); Sodium Level 140 mmol/L (136-145); T4 Free Direct 1.12 ng/dL (0.76-1.46); Triglycerides 89 mg/dL; Very Low Density Lipoprotein 18 mg/dL (5-40)
[2024-07-24 10:28] LABS: Microalbumin,Random Urine 17.6 mg/L (NO RANGE EST.); Microalbumin:Creatinine Ratio 21.1 mg/g CRE (<30 mg/g CRE)
== END | disposition home or self-care (01) ==
PROVIDERS: PCP Internal Medicine; Referring Provider Internal Medicine Endocrinology, Diabetes & Metabolism; Visit Provider Internal Medicine Endocrinology, Diabetes & Metabolism
DX: E11.65 Type 2 diabetes mellitus with hyperglycemia (principal); I10 Essential (primary) hypertension; E78.5 Hyperlipidemia, unspecified; E55.9 Vitamin D deficiency, unspecified; E03.9 Hypothyroidism, unspecified
CPT/HCPCS: 36415; 80053; 80061; 82043; 82306; 82570; 83036; 84439; 84443; 84481

== ENCOUNTER → 2024-09-15 | Outpatient (CLI) | payer MEDICAID, SELFPAY ==
--- NOTE | 2024-09-15 14:34 | US_ITS ---
STUDY: THYROID ULTRASOUND REASON FOR EXAM: Female, 54 years old. TYROID NODULE TECHNIQUE: Ultrasound evaluation of the thyroid was performed with real-time and static carreno-scale imaging. COMPARISON: None. FINDINGS: RIGHT LOBE: The right lobe of the thyroid gland measures 3.2 x 1.1 x 0.6 cm. There is a homogeneous echotexture. There are no demonstrated solid, cystic or complex lesions. LEFT LOBE: The left lobe of the thyroid gland measures 1.7 x 1.1 x 1.7 cm. There is a homogeneous echotexture. Heterogeneous circumscribed nodule measures 1.7 x 1.1 x 1.1 cm and is located in the midpole with mildly increased peripheral vascularity. Fine-needle aspiration/biopsy is recommended for definitive diagnosis. Hyperplastic nodule is favored. ISTHMUS: The isthmus measures . No demonstrated masses or fluid collections or cysts or lymphadenopathy in the surrounding tissues. US/Thyroid IMPRESSION: 1. Heterogeneous circumscribed nodule measures 1.7 x 1.1 x 1.1 cm and is located in the midpole with mildly increased peripheral vascularity. Fine-needle aspiration/biopsy is recommended for definitive diagnosis. Hyperplastic nodule is favored. 2. TR3: 3 points = mildly suspicious 3. If physical symptoms, abnormal thyroid values or other findings warrant further radiologic assessment repeat the study and consider nuclear medicine iodine 123 or PET/CT if there is concern for malignancy. 4. Targeted image guided biopsy of nodules of interest can also be performed with definitive pathologic assessment and diagnosis. ACR Thyroid Imaging Reporting and Data System (ACR TI-RADS) Reference: COMPOSITION (choose 1): Cystic or almost completely cystic - 0 points Spongiform- 0 points Mixed cystic and solid - 1 point Solid almost completely solid - 2 points ECHOGENICITY (choose 1): Anechoic space - 0 points Hyperechoic or isoechoic-1 point Hypoechoic-2 points Very hypoechoic-3 points SHAPE (choose 1): : Wider than tall-0 points Taller than wide-3 points MARGINS ( smooth, lobular, ill-defined) ECHOGENIC FOCI (macro or microcalcifications) Scoring and classification TR1: 0 points = benign TR2: 2 points = not suspicious TR3: 3 points = mildly suspicious TR4: 4-6 points = moderately suspicious TR5: ?7 points = highly suspicious Recommendations TR1: no FNA required TR2: no FNA required TR3: ?1.5 cm follow up, ?2.5 cm FNA = follow up: 1, 3 and 5 years TR4: ?1.0 cm follow up, ?1.5 cm FNA = follow up: 1, 2, 3 and 5 years TR5: ?0.5 cm follow up, ?1.0 cm FNA = annual follow up for up to 5 years FNA biopsy is recommended for suspicious lesions (TR3-TR5) with the above size criteria. If there are multiple nodules, the two with the highest ACR TI-RADS scores should be sampled (rather than the two largest), with largest size being used a tie-breaker if there are multiple nodules of the same classification. Electronically Signed: Jamil Ladd MD at 15:41 EST Reading Location ID and State: [facility] / [place] , Service support ,
== END | disposition home or self-care (01) ==
LOC: US 14:33
PROVIDERS: PCP Internal Medicine; Referring Provider Internal Medicine Endocrinology, Diabetes & Metabolism; Visit Provider Internal Medicine Endocrinology, Diabetes & Metabolism
DX: E11.65 Type 2 diabetes mellitus with hyperglycemia (principal); I10 Essential (primary) hypertension; E78.5 Hyperlipidemia, unspecified; E55.9 Vitamin D deficiency, unspecified; E03.9 Hypothyroidism, unspecified
CPT/HCPCS: 76536

== ENCOUNTER → 2024-11-27 | Outpatient (CLI) | payer MEDICAID, SELFPAY ==
--- NOTE | 2024-11-27 15:39 | MRI_ITS ---
EXAM: Noncontrast MRI of the right shoulder. CLINICAL HISTORY: Right shoulder pain. Limited range of motion. Evaluate for rotator cuff tear. COMPARISON: No comparison studies are available. TECHNIQUE: Multi planar, multisequence MRI images of the right shoulder were obtained without IV contrast. FINDINGS: No acute fracture or dislocation of the right shoulder. Mild degenerative change and small effusion of the right glenohumeral joint. No loose intra-articular body. Moderate degenerative change of the right glenohumeral joint. No os acromiale. There is some mild patchy marrow edema involving the superior right humeral head. No discrete fracture line. Mild atrophy of the supraspinatus muscle. No Hill-Sachs lesion or bony Bankart deformity. No right axillary mass or adenopathy. There is some heterogeneous increased signal of the posterior/superior labrum on images 10-12 of the coronal T2 fat saturated sequence. There is a thickened somewhat globular appearance of the anterior inferior labrum. The long head of the biceps tendon is grossly intact. There is focal abnormal increased signal involving the anterior insertional fibers of the distal supraspinatus tendon images 12-13 of the coronal T2 fat saturated sequence, suspicious for focal high-grade full-thickness tear. No evidence of significant tendon retraction. There are additional areas of patchy abnormal increased signal of the distal infraspinatus and supraspinatus tendons, which could be due to areas of tendinopathy or partial undersurface tears. The distal subscapularis tendon appears intact. MRI/Upper Ext Joint Only(Routine) IMPRESSION: 1. No acute bony abnormality of the right shoulder. 2. Mild degenerative change and small effusion of the right glenohumeral joint. Moderate degenerative change right AC joint. 3. Abnormal heterogeneous signal involving the posterior/superior labrum, which is suspicious for either labral tear or labral degeneration. There is also a globular heterogeneous appearance of the anterio r inferior labrum, which could be due to ill-defined tear. 4. Abnormal increased ill-defined signal of the anterior insertional fibers of the distal supraspinatus tendon, concerning for focal full-thickness tear. No significant tendon retraction. Additional more mild areas of increased signal involving the distal infraspinatus and supraspinatus tendons may be due to tendinopathy or pa rtial undersurface tears. Reading Location: [facility]
== END | disposition home or self-care (01) ==
LOC: MRI 15:34
PROVIDERS: PCP Internal Medicine; Referring Provider Orthopaedic Surgery Sports Medicine; Visit Provider Orthopaedic Surgery Sports Medicine
DX: M79.601 Pain in right arm (principal); M77.9 Enthesopathy, unspecified; M25.811 Other specified joint disorders, right shoulder
CPT/HCPCS: 73221

== ENCOUNTER → 2025-01-27 | Outpatient (CLI) | payer MEDICAID, SELFPAY ==
[2025-01-27 09:05] LABS: Hematocrit 36.1 % (37-47); Hemoglobin 12.1 g/dL (12.0-15.0); Mean Corp Hgb Conc 33.5 g/dL (32-36); Mean Corpuscular Hgb 29.2 pg (27.0-32.0); Mean Platelet Vol. 11.2 fl (6.2-12.0); Platelet Count 322 K/mm3 (150-450); RBC Distribution Width CV 13.3 % (11.6-14.6); RBC Distribution Width SD 41.7 fl (35.1-43.9); Red Blood Count 4.15 M/mm3 (4.2-5.4); White Blood Count 6.3 K/mm3 (4.4-11.0)
[2025-01-27 10:08] LABS: Hemoglobin A1c 6.9 % (<=5.6)
[2025-01-27 10:11] LABS: Cholesterol 166 mg/dL (<=200); High Density Lipoprotein 43 mg/dL; Low Density Lipoprotein Calc. 102 mg/dL; Triglycerides 107 mg/dL; Very Low Density Lipoprotein 21 mg/dL (5-40); cholesterol:hdl ratio screen 3.91
[2025-01-27 10:13] LABS: ALB/GLOB Ratio 1.7 RATIO (0.9-2.4); AST(SGOT) 22 U/L (<=31); Alanine Aminotransfer ALT/SGPT 18 U/L (<=34); Albumin, Serum 4.8 g/dL (3.5-5.0); Alkaline Phosphatase 54 U/L (35-104); Anion Gap 11 (5-15); BUN 26 mg/dL (4-19); BUN/Creat Ratio 23.3 RATIO (10-20); Calcium,Total 9.8 mg/dL (7.6-11.0); Carbon Dioxide 25.1 mmol/L (21.0-32.0); Chloride 102 mmol/L (98-108); Creatinine, Serum 1.11 mg/dL (0.70-1.20); EST Glomerular Filtration Rate 59 (>60); Globulin 2.8 g/dL (2.2-4.2); Glucose 147 mg/dL (70-99); Potassium 4.6 mmol/L (3.3-5.1); Protein, Total 7.6 g/dL (5.9-8.4); Sodium Level 138 mmol/L (133-145); Total Bilirubin 0.31 mg/dL (0.00-1.30); Vitamin D,25 Hydroxy 57.3 ng/mL (30-100)
[2025-01-27 12:36] LABS: Microalbumin,Random Urine 44.4 mg/L (NO RANGE EST.); Microalbumin:Creatinine Ratio 358.1 mg/g CRE
== END | disposition home or self-care (01) ==
LOC: LAB 08:40
PROVIDERS: PCP Internal Medicine; Referring Provider Internal Medicine Endocrinology, Diabetes & Metabolism; Visit Provider Internal Medicine Endocrinology, Diabetes & Metabolism
DX: E11.65 Type 2 diabetes mellitus with hyperglycemia (principal); I10 Essential (primary) hypertension; E78.5 Hyperlipidemia, unspecified; E55.9 Vitamin D deficiency, unspecified; E03.9 Hypothyroidism, unspecified
CPT/HCPCS: 36415; 80053; 80061; 82043; 82306; 82570; 83036; 84439; 84443; 85027

== ENCOUNTER → 2025-03-05 | Outpatient (CLI) | payer MEDICAID, SELFPAY ==
--- NOTE | 2025-03-05 12:41 | ECHOCS_ITS ---
Reason For Study Reason For Study: PALPITATIONS Procedure This was a 2D Doppler, Color Flow transthoracic echocardiogram. The study was technically difficult. Contrast injection was performed. Exam performed in department. Left Ventricle Normal LV size. Mild concentric left ventricular hypertrophy. The LV ejection fraction is 65 %. Stage 1 diastolic dysfunction. Right Ventricle Normal right ventricle. Atria The left and right atria are normal. Mitral Valve Normal mitral valve. Tricuspid Valve Normal tricuspid valve. Unable to estimate RV systolic pressure due to inadequate jet, pulmonary artery pressure probably normal. Aortic Valve Trisinus/trileaflet aortic valve. Pulmonic Valve Mildly increased gradients across the pulmonic valve. Mean peak gradient 9 mmHg, suggestive of mild pulmonic stenosis. Great Vessels Normal sized aortic root. Pericardium/Pleural No pericardial effusion. Medication 22 gauge I.V. with prn adaptor inserted into left arm. Diluted definity 1.5ml given slow IV push to enhance endocardial definition. MMode/2D Measurements & Calculations LVIDd: 4.1 cm IVSd: 1.2 cm LVOT diam: 2.0 cm LVIDs: 2.4 cm LVPWd: 1.1 cm RVDd: 2.4 cm FS: 40.4 % LVOT area: 3.1 cm2 Ao root diam: 3.0 cm LAV(MOD-bp): 20.2 ml RVOT diam: 2.0 cm LAV(MOD-bp) Indexed: 11.6 ml/m2 LAV(MOD-sp2): 19.2 ml LAV(MOD-sp4): 16.9 ml SV(MOD-sp4): 45.2 ml SV(sp4-el): 47.4 ml LVAd ap4: 26.0 cm2 LVLd ap4: 7.8 cm SI(MOD-sp4): 25.9 ml/m2 EDV(MOD-sp4): 72.4 ml EDV(sp4-el): 73.5 ml LVAs ap4: 13.3 cm2 LVLs ap4: 5.7 cm ESV(MOD-sp4): 27.3 ml ESV(sp4-el): 26.1 ml EF(MOD-sp4): 62.3 % EF(sp4-el): 64.5 % LA A4 area: 10.6 cm2 LA dimension(2D): 3.4 cm RA A4 area: 11.0 cm2 Time Measurements MV dec time: 0.21 sec Doppler Measurements & Calculations MV E max ramez: 83.1 cm/sec Lat Peak E' Ramez: 14.1 cm/sec Med Peak E' Ramez: 9.1 cm/sec MV A max ramez: 84.1 cm/sec E/E' lat: 5.9 E/E' med: 9.1 MV E/A: 0.99 MV V2 max: 108.7 cm/sec MV dec slope: 395.3 cm/sec2 Ao V2 max: 158.9 cm/sec MV max P.7 mmHg Ao max P.1 mmHg MV V2 mean: 72.7 cm/sec Ao V2 mean: 110.7 cm/sec MV mean P.3 mmHg Ao mean P.6 mmHg MV V2 VTI: 25.5 cm Ao V2 VTI: 35.0 cm MVA(VTI): 3.4 cm2 AV (velocity ratio): 0.80 TROY(I,D): 2.5 cm2 TROY(V,D): 2.5 cm2 LV V1 max: 127.7 cm/sec SV(LVOT): 85.7 ml PA V2 max: 230.0 cm/sec LV V1 max P.5 mmHg PA V2 mean: 157.2 cm/sec LV V1 mean P.8 mmHg PA mean PG (full): 9.1 mmHg LV V1 mean: 77.0 cm/sec LV V1 VTI: 27.9 cm SV(RVOT): 62.4 ml Qp/Qs: 1.0/1.4 ECHO/Echo Complete W/ Contrast Interpretation Summary Mild concentric left ventricular hypertrophy. The LV ejection fraction is 65 %. Stage 1 diastolic dysfunction. Mildly increased gradients across the pulmonic valve. Mean peak gradient 9 mmHg , suggestive of mild pulmonic stenosis. Ordering Physician: Dheeraj Bird Referring Physician: Dheeraj Bird Performed By: Karen Newberry and Student
== END | disposition home or self-care (01) ==
LOC: CVS 12:40
PROVIDERS: PCP Internal Medicine; Referring Provider Internal Medicine Cardiovascular Disease; Visit Provider Internal Medicine Cardiovascular Disease
DX: I49.3 Ventricular premature depolarization (principal)
CPT/HCPCS: 93306; Q9957; A4216; C8929

== ENCOUNTER 2025-03-25 21:46 | Emergency (ER) | payer MEDICAID, SELFPAY ==
[2025-03-25 21:47] VITALS: BP 180/79; PULSE 83; RESP 15; TEMP 36.1; O2SAT 100
--- NOTE | 2025-03-25 22:03 | EX.ED.DYSGE1 ---
HPI History of Present Illness Chief Complaint: Hyperglycemia Informant: patient Narrative Narrative: 54-year-old female type II diabetic states her doctor changed her from Trulicity to Ozempic and she was on it for about a couple weeks and she was getting chest pain and nausea from that so she discontinued it and was told to be off of it for about a week before she restarted her Trulicity. She has been off of it now for more than a week, she has not yet received a call back about when she is going to be on her new medication she is just taking her glimepiride half a tablet for diabetes and nothing else, and tonight her blood sugar went up to 350 at home so she presents for evaluation, she states this is just been for the last couple hours. She has some mild blurry vision and mild gradual onset headache but no other symptoms. [facility] Medical History Superior labrum [id number] (SLAP) tear of right shoulder Primary osteoarthritis, right shoulder Arthrosis of right acromioclavicular joint Right rotator cuff tear Impingement of right shoulder Tendinitis Right arm pain Type 2 diabetes mellitus Vertigo Headache Elevated LFTs PVCs (premature ventricular contractions) Nonrheumatic pulmonary valve stenosis URI (upper respiratory infection) Acute pharyngitis, unspecified Wears glasses Complete edentulism, class III Anxiety Thyroid disease Arthritis Diabetes Fatty liver Low iron Anemia Injury of head and neck Syncope Dietary restriction Gastric reflux Former smoker History of echocardiogram History of stress test Cardiology follow-up encounter History of irregular heartbeat Positive colorectal cancer screening using Cologuard test Vitamin deficiency JO ANN (iron deficiency anemia) HNP (herniated nucleus pulposus), cervical Epigastric abdominal pain Irritant dermatitis [employer]'s nodules NAFLD (nonalcoholic fatty liver disease) Degenerative disc disease, cervical Cervical pain Obesity Mixed hyperlipidemia Postprocedural hypothyroidism Diabetes Encounter for screening for COVID-19 Chronic neck pain Iron deficiency anemia Muscle spasm Preventative health care Colon cancer screening Chest pain Contact dermatitis due to detergents GERD (gastroesophageal reflux disease) Hypertension Osteoarthritis Anxiety and depression Gallbladder sludge Fatty liver Thyroid nodule Heart murmur Hypertension History of migraine headaches Home Medications ?Medication ?Instructions ?Recorded ?Last Taken ?Type aspirin 81 mg tablet,delayed 81 mg PO DAILY 11/17/18 Unknown History release lisinopril 30 mg tablet 30 mg PO DAILY 11/17/18 03/12/23 History levothyroxine 88 mcg tablet 88 mcg PO DAILY 01/22/22 03/12/23 History glimepiride 1 mg tablet 0.5 mg PO QAM 09/14/22 Unknown History ascorbic acid (vitamin C) 250 mg 250 mg PO .EVERY OTHER DAY 01/20/23 Unknown History tablet ergocalciferol (vitamin D2) 1,250 50,000 unit PO .EVERY OTHER WEEK 01/20/23 Unknown History mcg (50,000 unit) capsule ferrous sulfate 325 mg (65 mg 325 mg PO .EVERY OTHER DAY 01/20/23 Unknown History iron) tablet,delayed release tizanidine 4 mg capsule 2 mg PO DAILY PRN muscle spasticity 01/20/23 Unknown History vitamin E 268 mg (400 unit) capsule 536 mg PO DAILY 10/06/23 Unknown History hydroxyzine pamoate 25 mg capsule 25 mg PO TID PRN PRN Anxiety #30 12/23/23 Unknown Rx caps clotrimazole-betamethasone 1 1 applic topical BID 2 weeks #45 02/16/24 Unknown Rx %-0.05 % topical cream grams pantoprazole 40 mg tablet,delayed 40 mg PO DAILY #90 TABLETS 04/21/24 Unknown Rx release dulaglutide 3 mg/0.5 mL 3 mg subcut QWEEK 05/16/24 Unknown History subcutaneous pen injector (Trulicity) ursodiol 250 mg tablet 250 mg PO DAILY #90 tabs 01/16/25 Unknown Rx Allergy/AdvReac Type Severity Reaction Status Date / Time No Known Allergies Allergy Verified 03/25/25 21:47 Family History Brother Lung cancer Seizures Mother Diabetes Breast cancer Father Seizures Dementia Other Fatty liver disease, nonalcoholic Gallbladder sludge Surgical History No history of previous surgery Social History Smoking Status: Former smoker Tobacco: How many years used: 20 alcohol intake: never substance use type: does not use caffeine: Yes what type of physical activity do you participate in: walking frequency: other ROS ROS ED Constitutional Constitutional ED: Denies chills or fever(s) Eyes Eyes: Reports blurry vision bilateral; Denies diplopia ENT ENT ED: Denies rhinorrhea or sore throat Cardiovascular Cardiovascular: Denies chest pain or palpitations Respiratory/Chest Respiratory/Chest: Denies cough or dyspnea Gastrointestinal Gastrointestinal: Denies abdominal pain, diarrhea, nausea or vomiting Genitourinary Genitourinary ED: Denies dysuria or hematuria Musculoskeletal Musculoskeletal: Denies back pain or neck pain Integumentary Denies abscess or rash Neurologic Neurologic: Reports headache(s); Denies paresthesias or weakness Psychiatric Psychiatric: Denies anxiety or suicidal thoughts EXAM Physical Exam Const Vital Signs: 03/25/25 21:47 03/25/25 21:57 03/25/25 23:07 Temperature 97 F L Temperature Source Temporal Pulse Rate 83 73 Respiratory Rate 15 16 Respiratory Effort Normal Respiratory Pattern Normal Blood Pressure 180/79 H 127/79 H Blood Pressure Mean 112 95 Pulse Ox 100 99 Oxygen Delivery Method Room Air Room Air Positive well nourished and well developed Constitutional Narrative: Well-appearing in no distress General Appearance ED: well developed and NAD HEENT Reports moist mucous membranes normocephalic and atraumatic Eyes PERRL and EOMs intact bilaterally Eyes Narrative: No visual field cuts Neck full ROM and supple Resp normal respiratory effort and clear to auscultation bilaterally Cardio regular rate, regular rhythm and no murmurs Rate: Negative for tachycardic GI non-tender and non-distended Auscultation: normoactive bowel sounds Palpation: soft Back/Spine General Back: other FROM Extremity normal to inspection General Extremety ED: Negative for edema, pulses abnormal or tenderness General Extremity: Negative for edema or pulses abnormal Neuro oriented x3, CN's II-XII intact bilaterally and no sensory deficits noted Sensorium / Orientation: awake and alert Motor Exam: strength 5/5 throughout Psych mental status grossly normal Skin no rashes or lesions noted and no wounds MDM MDM MDM Narrative Medical decision making narrative: Patient is a little hypertensive, unclear if she is having symptoms from that or not, working a monitor that, we checked her blood sugar was 217, some giving her insulin 6 units and were going to observe her for a little while and recheck her blood sugar. She is not dyspneic, she is not tachycardic, she is not having any symptoms of DKA. This has been for a couple hours I do not think we need to obtain emergent blood work at this time. With observation, repeat blood pressure is 127/79 which is reassuring. Her blood sugar after an hour after insulin 6 units subcu, actually went up some giving her another 6 units. Repeat blood sugar 89. Blood pressure holding stable patient stable for discharge and close outpatient follow-up advised to call her doctor in the morning for prescription recommendations/renewals. Lab Data Attestation: I reviewed the patient's lab results. Labs: Laboratory Results - last 24 hr 03/25/25 03/25/25 22:00 23:05 POC Glucose 217 H 234 H Discharge Plan Triage Chief Complaint: Hyperglycemia ED Provider: Brian Alarcon Dx/Rx/DC Orders Clinical Impression: Hyperglycemia due to type 2 diabetes mellitus, Accelerated hypertension Instructions: ED Diabetic Hyperglycemia Prescriptions: No Action ferrous sulfate 325 mg (65 mg iron) tablet,delayed release (DR/EC) 325 mg PO .EVERY OTHER DAY levothyroxine 88 mcg tablet 88 mcg PO DAILY glimepiride 1 mg tablet 0.5 mg PO QAM Rx Instructions: administer with breakfast ascorbic acid (vitamin C) 250 mg tablet 250 mg PO .EVERY OTHER DAY tizanidine 4 mg capsule 2 mg PO DAILY PRN (Reason: muscle spasticity) vitamin E 268 mg (400 unit) capsule 536 mg PO DAILY Trulicity 3 mg/0.5 mL pen injector 3 mg subcut QWEEK aspirin 81 MG tablet,delayed release (DR/EC) 81 mg PO DAILY lisinopril 30 tablet 30 mg PO DAILY ergocalciferol (vitamin D2) 1,250 mcg (50,000 unit) capsule 50,000 unit PO .EVERY OTHER WEEK hydroxyzine pamoate 25 mg capsule 25 mg PO TID PRN PRN (Reason: Anxiety) Qty: 30 1RF clotrimazole-betamethasone 1-0.05 % cream 1 applic topical BID 14 Days Qty: 45 1RF pantoprazole 40 mg tablet,delayed release (DR/EC) 40 mg PO DAILY Qty: 90 3RF ursodiol 250 mg tablet 250 mg PO DAILY Qty: 90 3RF Primary Care Provider: Nanette Watts Referrals: Nanette Watts MD [Primary Care Provider] - As soon as possible (call tomorrow for prescription update) Print Language: Icelandic Disposition Disposition: Home, Self Care
--- OUTSIDE RECORDS SUMMARY | 2025-03-25 22:12 | XMS RPT_ITS | CCD ---
Author Organization [facility] Care Team Providers Care Mice Raiser Name Role Phone Unavailable Primary Care Provider Dr. Herbert Vizcarra Primary Care Provider [phone] Dr. Herbert Watts Referring Provider [phone] Lashawn AREVALO, MICKEY Guzman Attending Provider Dr. Lalit Genao Attending Provider [phone] Zane FOREST ENGINEER, FOREST ENGINEER-C Jericho Attending Provider [phone] Unavailable Primary Care Provider Dr. Herbert Vizcarra Primary Care Provider [phone]) Dr. Herbert Watts Referring Provider [phone] Dr. Derek Anglin Attending Provider [phone]) Dr. Herbert Watts Primary Care Provider 1(33 0) Dr. Herbert Watts Referring Provider [phone] Zane ROME, FOREST ENGINEER-C Jericho Attending Provider [phone]) Dr. Brandon Saunders Attending Provider [phone] Dr. Surya Markham Attending Provider Natali FOREST ENGINEER, FOREST ENGINEER-C Darrel Guzman Attending Provider Unavailable Primary Care Provider Unavailrickey FERGUSON INDERPRIT Referring Unavailable FERGUSON, INDERPRIT Attending Unavailable KIT, INDERPRIT Referring Unavailable KIT, INDERPRIT Attending Unavailable Dr. Herbert Watts Primary Care Provider [phone]) Dr. Herbert Watts Referring Provider [phone] MICKEY Pratt Attending Provider [phone] Brandon Saunders Attending Provider [phone] Stefanie, Dr. Fitzpatrick Primary Care Provider [phone] Stefanie, Dr. Fitzpatrick Referring Provider [phone] Natali FOREST ENGINEER, FOREST ENGINEER-C Darrel Guzman Attending Provider [phone] Dr. Herbert Watts Primary Care Provider [phone] Stefanie, Dr. Fitzpatrick Referring Provider [phone] Dr. Brandon Saunders Attending Provider [phone] Natali FOREST ENGINEER, FOREST ENGINEER-C Darrel Guzman Attending Provider 1(3 [phone]) Stefanie, Dr. Fitzpatrick Primary Care Provider [phone] 0) Stefanie, Dr. Fitzpatrick Referring Provider [phone] Dr. Brandon Saunders Attending Provider [phone] Dr. Herbert Watts Primary Care Provider [phone] 0) Stefanie, Dr. Fitzpatrick Referring Provider [phone] Zane FOREST ENGINEER, FOREST ENGINEER-C Jericho Attending Provider [phone]) Dr. Derek Anglin Attending Provider [phone]) Dr. Derek Anglin Other Provider [phone] Herbert Watts Primary Care Provider [phone] [phone]) Dr. Herbert Watts Referring Provider [phone] MICKEY Esparza Attending Provider Dr. Dheeraj Bird Attending Provider [phone] Dr. Herbert Watts Attending Provider [phone] Dr. Herbert Watts Primary Care Provider [phone] Dr. Herbert Watts Referring Provider [phone] MICKEY Esparza Attending Provider Dr. Dheeraj Bird Attending Provider Dr. Herbert Watts Attending Provider [phone] Unavailable Primary Care Provider Unavailabl e RICARDO KAISER Referring Unavailable RICARDO KAISER Referring Unavailable HERBERT WATTS MD Primary Care Unavailab duane FELTON MD, GILMA Kohli Unavaila khushbu Watts MD, Dr. Fitzpatrick Primary Care Provider Purnima CRAIG, Dr. Gilma Morgan Attending Provide r Purnima CRAIG, Dr. Gilma Morgan Referring Provide r Stefanie CRAIG, Dr. Fitzpatrick Attending Provider [phone] Stefanie CRAIG, Dr. Fitzpatrick Referring Provider [phone] Shahrzad CRAIG, Dr. [place] Attending Provider Naren Norman MD Attending Provider [phone] Naren Norman MD Referring Provider Stefanie CRAIG, Dr. Fitzpatrick Primary Care Provider Stefanie CRAIG, Dr. Fitzpatrick Referring Provider [phone] Pelon CRAIG, Dr. Esqueda Attending Provider [phone] Purnima CRAIG, Dr. Gilma Morgan Attending Provide r Purnima CRAIG, Dr. Gilma Morgan Referring Provide r Stefanie CRAIG, Dr. Fitzpatrick Primary Care Provider Naren Norman MD Attending Provider [phone] Stefanie CRAIG, Dr. Fitzpatrick Referring Provider [phone] Pelon CRAIG, Dr. Esqueda Referring Provider Olejuan davide, Efewongbe Primary Care Unavailable Naren Norman Attending Unavailable Oleghe, Efewongbe Referring Unavailable Derek Anglin Attending Unavailable Oleemiliano, Efewongbe Primary Care Unavailable Oleghe, Efewongbe Primary Care Unavailable Oleghe, Efewongbe Referring Unavailable Oleghe, Efewongbe Attending Unavailable Oleghe, Efewongbe Primary Care Unavailable Surya Markham Attending Unavailable Oleghe, Efewongbe Primary Care Unavailable Oleghe, Efewongbe Referring Unavailable Naren Norman Attending Unavailable Oleghe, Efewongbe Referring Unavailable PelonDheeraj downing Attending Unavailable Oleghe, Efewongbe Primary Care Unavailable Naren Norman Attending Unavailable Oleghe, Efewongbe Referring Unavailable Oleghe, Efewongbe Primary Care Unavailable Naren Norman Attending Unavailable Oleghe, Efewongbe Primary Care Unavailable Oleghe, Efewongbe Referring Unavailable Derek Anglin Attending Unavailable Oleghe, Efewongbe Referring Unavailable Oleghe, Efewongbe Primary Care Unavailable Oleghe, Efewongbe Primary Care Unavailable Oleghe, Efewongbe Referring Unavailable Lalit Genao Attending Unavailable Oleghe, Efewongbe Primary Care Unavailable Oleghe, Efewongbe Referring Unavailable Derrek, Derek Attending Unavailable Dheeraj Bird Attending Unavailable Oleghe, Efewongbe Primary Care Unavailable Dheeraj Bird Referring Unavailable Dheeraj Bird Attending Unavailable Oleghe, Efewongbe Primary Care Unavailable Raghunathan, Gilma Na Referring Unavaila ble Raghunathan, Gilma Na Attending Unavaila ble Oleghe, Efewongbe Primary Care Unavailable Oleghe, Efewongbe Primary Care Unavailable Raghunathan, Gilma Na Referring Unavaila ble Raghunathan, Gilma Na Attending Unavaila ble Friend, Derek Referring Unavailable Friend, Derek Attending Unavailable Oleghe, Efewongbe Primary Care Unavailable Oleghe, Efewongbe Primary Care Unavailable Raghunathan, Gilma Na Referring Unavaila ble Raghunathan, Gilma Na Attending Unavaila ble Oleghe, Efewongbe Primary Care Unavailable Oleghe, Efewongbe Referring Unavailable Oleghe, Efewongbe Attending Unavailable Naren Norman Attending Unavailable Oleghe, Efewongbe Primary Care Unavailable Naren Norman Referring Unavailable Medications Current Medications Medication Drug Class(es) Dates Sig (Normalized) Sig (Original) ascorbic acid 250 mg oral tablet (13 sources) Vitamin C Start: 08-05-2021 take 1 tablet by mouth every other day Ascorbic Acid (Vitamin C) 250 mg tablet Active 250 mg PO .EVERY OTHER DAY January 20, 2023 12:00am Comment on above: mg = tab(s), Oral, qDay, 1 tab every other day, 0 Refill(s) aspirin 81 mg delayed release oral tablet (20 sources) Platelet Aggregation Inhibitor, Nonsteroidal Anti-inflammatory Drug Start: 11-17-2018 take 1 tablet by mouth once daily Aspirin 81 MG tablet,delayed release (DR/EC) Active 81 mg PO DAILY November 17, 2018 12:00am Comment on above: Take 81 mg by mouth once daily. betamethasone 0.5 mg/ml / clotrimazole 10 mg/ml topical cream (16 sources) Azole Antifungal, Corticosteroid Start: 02-16-2024 Clotrimazole-Bet amethasone 1-0.05 % cream Active 1 NMA TOPICAL TWICE A DAY 45 14 1 February 16, 2024 8:21am Start: 05-22-2022 End: 06-05-2022 Clotrimazole-Betamethasone 1 -0.05 % cream Discontinued 1 NMA TOPICAL TWICE A DAY 45 14 0 May 22, 2022 12:00am June 04, 2022 12:00am June 05, 2022 12:04am Start: 05-22-2022 End: 06-05-2022 Clotrimazole-Betamethasone D iscontinued 1 APPLIC TOPICAL TWICE A DAY 45 14 May 22, 2022 12:00am June 05, 2022 12:04am Dulaglutide (20 sources) GLP-1 Receptor Agonist Start: 05-16-2024 Dulaglu tide (Trulicity) 3 mg/0.5 mL pen injector Active 3 mg SC EVERY WEEK May 16, 2024 12:00am Start: 01-15-2022 inject 3 mg by subcu taneous injection every week TRULICITY 1.5 mg/0.5 mL pen injector Inject 3 mg subcutaneously one time a week. 0 01/15/2022 Active Start: 01-29-2021 End: 10-04-2023 Dulaglutide (Trulicity) 1.5 mg/0.5 mL pen injector Discontinued 1.5 mg SC EVERY WEEK January 29, 2021 12:00am October 04, 2023 7:10pm Start: 11-17-2018 End: 10-04-2019 Dulaglutide 1.5 pen injector Discontinued 0.75 mg SQ EVERY WEEK November 17, 2018 12:00am October 04, 2019 4:44pm Start: 11-17-2018 End: 10-04-2019 inject 0.75 mg by subcutaneous injection every week Dulaglutide Discontinued 0.75 MG SQ EVERY WEEK November 17, 2018 12:00am October 04, 2019 4:44pm Comment on above: INJECT the contents OF 1 (ONE) pen under the skin once weekly, rotate injection sites. Inject 3 mg subcutan eously one time a week. ergocalciferol 1.25 mg oral capsule (20 sources) Provitamin D2 Compound Start: 01-20-2023 Ergocalciferol (Vitamin D2) 1,250 mcg (50,000 unit) capsule Active 31728 U PO .EVERY OTHER WEEK January 20, 2023 9:29am Start: 01-20-2023 take 08567 [IU] by m outh every other week Ergocalciferol (Vitamin D2) Active 61326 UNIT PO .EVERY OTHER WEEK January 20, 2023 9:29am Start: 11-17-2018 End: 01-20-2023 Ergocalciferol (Vitamin D2) 19449 capsule Discontinued 25626 mg PO EVERY WEEK November 17, 2018 12:00am January 20, 2023 9:33am Comment on above: TAKE 1 CAPSULE BY MO UTH once weekly glimepiride 1 mg oral tablet (15 sources) Sulfonylurea Start: 09-14-19 take 0.5 mg by mouth once daily at breakfast Glimepiride 1 mg tablet Active 0.5 mg PO EVERY MORNING September 14, 2022 1:00am administer with breakfast Start: 09-14-2022 take 0.5 mg by mouth once daily at breakfast Glimepiride Active 0.5 MG PO EVERY MORNING September 14, 2022 1:00am administer with breakfast Start: 09-14-2022 take 1 mg by mouth o nce daily at breakfast Glimepiride Active 1 MG PO EVERY MORNING September 14, 2022 1:00am administer with breakfast Comment on above: Take 0.5 mg by mouth once daily. hydrOXYzine pamoate 25 mg oral capsule (20 sources) Antihistamine Start: 4 take 1 capsule by mouth three times daily as needed for anxiety Hydroxyzine Pamoate 25 mg capsule Active 25 mg PO 3 TIMES DAILY NEEDED as needed for Anxiety 30 1 December 23, 2023 4:46pm Start: 10-24-2019 End: 10-22-2023 take 1 capsule by mouth three times daily as needed for anxiety Hydroxyzine Pamoate 25 mg capsule Discontinued 25 mg PO 3 TIMES DAILY NEEDED as needed for Anxiety 90 2 January 08, 2020 1:52pm January 29, 2021 10:31am Comment on above: Take 25 mg by mouth three times daily as needed. levothyroxine sodium 0.088 mg oral tablet (20 sources) l-Thyroxine Start: 0 take 1 tablet by mouth once daily Levothyroxine 88 mcg tablet Active 88 ug PO DAILY January 22, 2022 12:00am Start: 10-04-2019 End: 01-22-2022 Levothyroxine 75 mcg tablet Discontinued 88 ug PO DAILY October 04, 2019 4:45pm January 22, 2022 9:09am Start: 10-04-2019 End: 01-22-2022 take 88 ug by mouth once daily Levothyroxine Discontin ued 88 MCG PO DAILY October 04, 2019 4:45pm January 22, 2022 9:09am Start: 11-17-2018 End: 10-04-2019 take 1 tablet by mouth once daily Levothyroxine 75 tablet Discontinued 75 ug PO DAILY November 17, 2018 12:00am October 04, 2019 4:45pm Comment on above: Take 88 mcg by mouth once daily. Otgvek-Yjhzjihc-Cuszjkc (Zenpep) 3,000-10,000 -14,000-unit capsule,delayed release(DR/EC) (2 sources) Start: 10-12-2022 Rtrokz-Bzbtttjp-Hvnjqxw (Zenpep) 3,000-10,000 -14,000-unit capsule,delayed release(DR/EC) Active PO October 12, 2022 1:00am Ivaxzh-Jlfvgeop-Ilybivk (Zenpep) 40,000-126,000- 168,000 unit capsule,delayed release(DR/EC) (3 sources) Start: 09-24-2022 Edqfep-Stgfuhdc-Jjlrkbe (Zenpep) 40,000-126,000- 168,000 unit capsule,delayed release(DR/EC) Active 0 PO .COMPLEX 240 September 24, 2022 1:00am take 1 capsule by mouth with snacks, take 2 capsules by mouth with meals Start: 09-24-2022 Lipase-Proteas e-Amylase (Zenpep) 40,000-126,000- 168,000 unit capsule,delayed release(DR/EC) Active 0 PO .COMPLEX 240 September 24, 2022 12:00am take 1 capsule by mouth with snacks, take 2 capsules by mouth with meals lisinopril 30 mg oral tablet (20 sources) Angiotensin Converting Enzyme Inhibitor Start: 11-17-2018 take 1 tablet by mouth once daily Lisinopril 30 tablet Active 30 mg PO DAILY November 17, 2018 12:00am Comment on above: Take 30 mg by mouth once daily. Mv,With Wl-Xurr-Zt-Lut-179 herb (18 sources) Start: 02-02-2020 Mv,With Af-Kdoj-Mi-Lut-17 9herb Active 1 EACH PO DAILY February 02, 2020 1:30pm Start: 02-02-2020 End: 01-20-2023 Mv,With Kx-Sejp-Jr-Lut-179he rb Discontinued 1 EACH PO DAILY February 01, 2020 11:00pm January 20, 2023 8:31am Start: 02-02-2020 End: 01-20-2023 Mv,With Ht-Pzfi-Pm-Lut-179he rb Discontinued 1 EACH PO DAILY February 02, 2020 12:00am January 20, 2023 9:31am Start: 02-02-2020 Mv,With Ca-Iro i-Jm-Gdu-179herb Active 1 EACH PO DAILY February 01, 2020 11:00pm Start: 02-02-2020 Mv,With Ca-Iro r-Zf-Dnq-179herb Active 1 EACH PO DAILY February 02, 2020 12:00am tiZANidine 4 mg oral capsule (20 sources) Central alpha-2 Adrenergic Agonist Start: 01-20-2023 take 2 mg by mouth once daily as needed Tizanidine 4 mg capsule Active 2 mg PO DAILY as needed for muscle spasticity January 20, 2023 12:00am Start: 01-20-2023 take 2 mg by mouth once daily Tizanidine Active 2 MG PO DAILY January 20, 2023 12:00am Start: 01-21-2022 End: 07-20-2022 take 1 tablet by mouth every eight hours as needed tiZANidine (ZANAFLEX) 4 mg tablet Take 1 tablet by mouth every 8 hours as needed. 50 tablet 5 01/21/2022 07/20/2022 Active Start: 11-07-2019 End: 07-21-2021 take 1 tablet by mouth three times daily as needed Tizanidine 2 mg tablet Discontinued 2 mg PO THREE TIMES A DAY as needed for muscle spasticity 90 0 November 13, 2020 9:04am January 29, 2021 10:31am take 1 tablet by randall th once daily as needed tiZANidine (ZANAFLEX) 4 mg tablet Take 4 mg by mouth once daily as needed. 0 Active Comment on above: Take 2 mg by mouth t hree times daily. Take 1 tablet by randall th every 8 hours as needed. Take 4 mg by mouth o nce daily as needed. topiramate 25 mg oral tablet (3 sources) Start: 07-29-2022 End: 01-25-2023 take 1 tablet by mouth twice daily topiramate (TOPAMAX) 25 mg tablet Indications: Chronic neck pain Take 1 tablet by mouth twice daily. 60 tablet 5 07/29/2022 Active Comment on above: Take 1 tablet by randall th twice daily. vitamin e 180 mg oral capsule (20 sources) Start: 10-06-2023 take 1 capsule by mouth once daily Vitamin E 268 mg (400 unit) capsule Active 536 mg PO DAILY October 06, 2023 11:05am Start: 03-01-2023 End: 10-06-2023 take 1 capsule by mouth twice daily Vitamin E 268 mg (400 unit) capsule Discontinued 536 mg PO TWICE A DAY 180 0 September 02, 2023 4:46pm October 06, 2023 11:06am Start: 09-01-2022 End: 03-01-2023 take 1 capsule by mouth once daily Vitamin E 268 mg (400 unit) capsule Discontinued 536 mg PO DAILY 180 September 01, 2022 4:35pm March 01, 2023 3:56pm Start: 03-03-2022 End: 09-01-2022 take 2 capsules by mouth once daily Vitamin E 400 unit capsule Discontinued 800 U PO DAILY 60 5 March 03, 2022 12:00am September 01, 2022 4:35pm Start: 03-03-2022 End: 09-01-2022 take 800 [IU] by mouth once daily Vitamin E Discontinued 800 UNIT PO DAILY 60 March 03, 2022 12:00am September 01, 2022 4:35pm Completed/Discontinued Medications Medication Drug Class(es) Dates Sig (Normalized) Sig (Original) acetaminophen 500 mg / diphenhydrAMINE hydrochloride 25 mg oral tablet (20 sources) Histamine-1 Receptor Antagonist Start: 11-17-2018 End: 10-04-2019 Diphenhydramine-Ac etaminophen 1 EACH tablet Discontinued 1 NMA PO AT BEDTIME November 17, 2018 12:00am October 04, 2019 4:45pm Start: 11-17-2018 End: 10-04-2019 Diphenhydramine-Acetaminophe n Discontinued 1 EACH PO AT BEDTIME November 17, 2018 12:00am October 04, 2019 4:45pm ALPRAZolam 1 mg oral tablet (12 sources) Benzodiazepine Start: 09-17-2022 End: 01-20-2023 Alprazolam 1 mg tablet Discontinued 1 mg PO .COMPLEX 1 0 September 17, 2022 1:00am January 20, 2023 9:28am take 1 tablet by mouth 1 hour before procedure amLODIPine 10 mg oral tablet (20 sources) Dihydropyridine Calcium Channel Diego Start: 06-26-2021 End: 06-27-2021 take 1 tablet by mouth once daily Amlodipine 10 mg tablet Discontinued 10 mg PO DAILY 30 0 June 26, 2021 12:00am June 27, 2021 2:14pm baclofen 10 mg oral tablet (20 sources) gamma-Aminobutyric Acid-ergic Agonist Start: 05-21-2021 End: 01-20-2023 take 1 tablet by mouth twice daily as needed Baclofen 10 mg tablet Discontinued 10 mg PO TWICE A DAY as needed for muscle spasticity 60 2 May 21, 2021 12:00am January 20, 2023 9:29am benzonatate 200 mg oral capsule (7 sources) Non-narcotic Antitussive Start: 09-13-2023 End: 10-06-2023 take 1 capsule by mouth three times daily as needed for cough Benzonatate 200 mg capsule Discontinued 200 mg PO THREE TIMES A DAY as needed for cough 20 0 September 13, 2023 1:00am October 06, 2023 11:05am busPIRone hydrochloride 5 mg oral tablet (20 sources) Start: 12-10-2021 End: 04-08-2022 take 1 tablet by mouth twice daily Buspirone 5 mg tablet Discontinued 5 mg PO TWICE A DAY 60 1 December 10, 2021 12:00am April 08, 2022 9:51am carvedilol 6.25 mg oral tablet (20 sources) alpha-Adrenergic Diego, beta-Adrenergic Diego Start: 02-02-2020 End: 07-21-2021 take 1 tablet by mouth twice daily Carvedilol 6.25 MG tablet Discontinued 6.25 mg PO TWICE A DAY February 02, 2020 12:00am January 29, 2021 9:46am Comment on above: Take 6.25 mg by mout h twice daily. cephalexin 500 mg oral capsule (13 sources) Cephalosporin Antibacterial Start: 05-22-2022 End: 06-01-2022 take 1 capsule by mouth every twelve hours Cephalexin 500 mg capsule Discontinued 500 mg PO Q12H 20 10 0 May 22, 2022 12:00am May 31, 2022 12:00am June 01, 2022 12:03am diclofenac sodium 0.01 mg/mg topical gel (20 sources) Nonsteroidal Anti-inflammatory Drug Start: 01-29-2021 End: 04-08-2022 apply 2 g topically once Diclofenac Sodium (Voltaren) 1 % gel Discontinued 2 g TOPICAL ONCE 100 0 January 29, 2021 12:00am April 08, 2022 9:51am apply to single elbow, wrist or hand; for hand includes palm/fingers/back of hand Start: 01-29-2021 End: 04-08-2022 apply 2 g topically once Diclofenac Sodium (Voltaren) 1 % gel Discontinued 2 GM TOPICAL ONCE 100 January 29, 2021 12:00am April 08, 2022 9:51am apply to single elbow, wrist or hand; for hand includes palm/fingers/back of hand DULoxetine 30 mg delayed release oral capsule (20 sources) Serotonin and Norepinephrine Reuptake Inhibitor Start: 07-28-2021 End: 12-10-2021 Duloxetine (Cymbalta) 30 mg capsule,delayed release(DR/EC) Discontinued 30 mg PO TWICE A DAY 60 July 28, 2021 1:00am December 10, 2021 10:44am Take 30mg daily for 1 week then increase to twice a day. empagliflozin 10 mg oral tablet (3 sources) Sodium-Glucose Cotransporter 2 Inhibitor Start: 06-22-2020 End: 10-14-2020 take 1 tablet by mouth once daily in the morning JARDIANCE 10 mg tablet Take 10 mg by mouth every morning. 0 06/22/2020 10/14/2020 Discontinued (Course of therapy completed) Comment on above: Take 10 mg by mouth every morning. esomeprazole 40 mg delayed release oral capsule (20 sources) Proton Pump Inhibitor Start: 05-24-2019 End: 10-04-2019 take 1 capsule by mouth once daily Esomeprazole Magnesium 40 MG capsule Discontinued 40 mg PO DAILY 30 May 24, 2019 12:00am October 04, 2019 4:44pm famotidine 20 mg oral tablet (20 sources) Histamine-2 Receptor Antagonist Start: 11-21-2021 End: 09-14-2022 Famotidine 20 mg tablet Discontinued 20 mg PO November 21, 2021 12:00am September 14, 2022 10:34am Comment on above: Take 20 mg by mouth daily at bedtime. ferrous sulfate 325 mg delayed release oral tablet (20 sources) Start: 08-05-2021 take 1 tablet by mouth every other day Ferrous Sulfate 325 mg (65 mg iron) tablet,delayed release (DR/EC) Active 325 mg PO .EVERY OTHER DAY January 20, 2023 9:30am Start: 08-05-2021 End: 01-20-2023 take 1 tablet by mouth once daily Ferrous Sulfate 325 mg (65 mg iron) tablet,delayed release (DR/EC) Discontinued 325 mg PO DAILY November 21, 2021 12:00am January 20, 2023 9:33am Comment on above: Take by mouth. hydroxychloroquine sulfate 200 mg oral tablet (20 sources) Antimalarial, Antirheumatic Agent Start: 2020 End: 2020 take 1.5 tablets by mouth once daily hydrOXYchloroQUINE (PLAQUENIL) 200 mg tablet Indications: Inflammatory arthritis Take 1.5 tablets by mouth once daily. 90 tablet 1 06/25/2021 07/21/2021 Discontinued (Course of therapy completed) Start: 08-19-2020 End: 07-28-2021 take 1 tablet by mouth once daily Hydroxychloroquine (Plaquenil) 200 mg tablet Discontinued 200 mg PO DAILY August 19, 2020 1:00am July 28, 2021 2:38pm Start: 07-23-2020 End: 06-14-2021 take 1.5 tablets by mouth once daily hydrOXYchloroQUINE (PLAQUENIL) 200 mg tablet Indications: Inflammatory arthritis Take 1.5 tablets by mouth once daily. 90 tablet 1 12/16/2020 06/14/2021 Active Comment on above: Take 1.5 tablets by mouth once daily. 3 ml insulin lispro 50 unt/ml / insulin lispro protamine, human 50 unt/ml pen injector (20 sources) Insulin Analog Start: 07-07-2020 End: 01-21-2022 HUMALOG MIX 50-50 KWIKPEN 100 unit/mL (50-50) inpn inject 35 unitts subcutaneously twice a day before meals, but 28 units twice a day before meals when taking jardnace 0 07/07/2020 01/21/2022 Discontinued (Course of therapy completed) Start: 11-20-2019 End: 01-29-2021 Insulin Lispro Protamin-Lisp ro 100 UNIT/ML suspension Discontinued 35 U SQ TWICE A DAY November 20, 2019 12:00am January 29, 2021 9:47am sliding scale Start: 11-17-2018 End: 10-04-2019 Insulin Lispro Protamin-Lisp ro 0 insulin pen Discontinued 22 U SQ TWICE A DAY as needed for hyperglycemia November 17, 2018 12:00am October 04, 2019 4:45pm Comment on above: inject 35 unitts sub cutaneously twice a day before meals, but 28 units twice a day before meals when taking jardnace meclizine hydrochloride 25 mg oral tablet (20 sources) Antiemetic Start: 024 End: 025 take 1 tablet by mouth twice daily as needed for dizziness Meclizine 25 mg tablet Discontinued 25 mg PO TWICE A DAY as needed for dizziness 60 1 October 22, 2023 1:00am October 26, 2024 9:01am Start: 10-09-2021 End: 04-08-2022 take 1 tablet by mouth three times daily as needed for dizziness Meclizine 25 mg tablet Discontinued 25 mg PO THREE TIMES A DAY as needed for dizziness 20 0 October 09, 2021 4:17pm April 08, 2022 9:50am meloxicam 15 mg oral tablet (4 sources) Nonsteroidal Anti-inflammatory Drug Start: 09-18-2024 End: 10-26-2024 take 1 tablet by mouth once daily as needed for pain Meloxicam 15 mg tablet Discontinued 15 mg PO daily as needed for pain 30 0 September 18, 2024 1:00am October 26, 2024 9:01am Start: 07-29-2022 End: 10-27-2022 take 1 tablet by mouth once daily meloxicam (MOBIC) 15 mg tablet Indications: Chronic neck pain Take 1 tablet by mouth once daily. 30 tablet 2 07/29/2022 10/27/2022 Active Comment on above: Take 1 tablet by randall th once daily. 24 hr metFORMIN hydrochloride 500 mg extended release oral tablet (20 sources) Biguanide Start: 10-04-2023 End: 05-16-2024 Metformin 500 mg tablet extended release 24 hr Discontinued 1000 mg PO EVERY EVENING October 04, 2023 1:00am May 16, 2024 11:22am Start: 10-04-2023 take 1000 mg by mout h once daily in the evening Metformin Active 1000 MG PO EVERY EVENING October 04, 2023 1:00am Start: 06-26-2020 take 1 tablet by randall th once daily at bedtime metFORMIN ER (GLUCOPHAGE XR) 500 mg 24 hr tablet Take 500 mg by mouth daily at bedtime. 0 06/26/2020 Active Start: 11-17-2018 End: 10-04-2023 take 1 tablet by mouth twice daily Metformin 500 mg tablet Discontinued 500 mg PO TWICE A DAY August 19, 2020 2:03pm October 04, 2023 7:12pm Comment on above: Take 500 mg by mouth daily at bedtime. methylPREDNISolone 4 mg oral tablet (7 sources) Corticosteroid Start: 2023 End: 2023 take 1 tablet by mouth once Methylprednisolone (Medrol (Cal)) 4 mg tablets,dose pack Discontinued 0 PO per package directions 21 0 September 13, 2023 1:00am October 04, 2023 7:11pm PO PER PKG DIR 24 hr metoprolol succinate 50 mg extended release oral tablet (20 sources) beta-Adrenergic Diego Start: 2019 End: 2019 take 1 tablet by mouth once daily Metoprolol Succinate 50 mg tablet extended release 24 hr Discontinued 50 mg PO DAILY 90 3 November 07, 2019 3:39pm November 20, 2019 5:42pm Start: 11-17-2018 End: 11-07-2019 take 1 tablet by mouth once daily Metoprolol Succinate 25 MG tablet extended release 24 hr Discontinued 25 mg PO DAILY November 17, 2018 12:00am November 07, 2019 3:39pm Mv,With [place]-Bx-Lut-179herb 1 EACH tablet (3 sources) Start: 02-02-2020 End: 01-20-2023 take 1 tablet by mouth once daily Mv,With Xu-Bhof-Fq-Lut-179herb 1 EACH tablet Discontinued 1 NMA PO DAILY February 02, 2020 12:00am January 20, 2023 9:31am omeprazole 40 mg delayed release oral capsule (20 sources) Proton Pump Inhibitor Start: 11-10-2019 End: 01-22-2022 take 1 capsule by mouth once daily Omeprazole 40 mg capsule,delayed release(DR/EC) Discontinued 40 mg PO DAILY 90 2 September 10, 2020 9:38am June 18, 2021 1:38pm Start: 11-08-2019 End: 11-10-2019 take 1 capsule by mouth once daily Omeprazole 20 mg capsule,delayed release(DR/EC) Discontinued 20 mg PO DAILY 90 2 November 08, 2019 1:00am November 10, 2019 8:17am Comment on above: Take 40 mg by mouth once daily. ondansetron 4 mg disintegrating oral tablet (20 sources) Serotonin-3 Receptor Antagonist Start: End: take 1 tablet by mouth every eight hours as needed for nausea Ondansetron 4 MG tablet Discontinued 4 mg PO EVERY 8 HOURS NEEDED as needed for Nausea October 24, 2019 1:00am January 29, 2021 9:47am pantoprazole 40 mg delayed release oral tablet (20 sources) Proton Pump Inhibitor Start: 022 End: 024 take 1 tablet by mouth once daily Pantoprazole 40 mg tablet,delayed release (DR/EC) Discontinued 40 mg PO DAILY 90 3 April 14, 2023 4:05pm April 21, 2024 3:00pm phentermine hydrochloride 37.5 mg oral capsule (3 sources) Sympathomimetic Amine Anorectic Start: 024 End: take 1 capsule by mouth once daily 30 minutes after breakfast Phentermine 37.5 mg capsule Discontinued 37.5 mg PO daily 30 3 May 16, 2024 12:00am October 26, 2024 9:01am must administer 30 minutes before or 1-2 hours after breakfast pravastatin sodium 20 mg oral tablet (20 sources) HMG-CoA Reductase Inhibitor Start: End: Pravastatin 20 mg tablet Discontinued October 05, 2021 1:00am January 22, 2022 9:10am Start: 10-05-2021 End: 01-22-2022 Pravastatin Discontinued Sep 1:00am January 22, 2022 9:10am predniSONE 10 mg oral tablet (20 sources) Start: 05-22-2022 End: 06-03-2022 Prednisone 10 mg tablet Discontinued 10 mg PO daily 30 12 0 May 22, 2022 12:00am June 02, 2022 12:00am June 03, 2022 12:10am Unspecified contact dermatitis, unspecified cause Take 4 tabs once daily days 1-3 3 tabs once daily days 4-6 2 tabs once daily days 7- and 1 tab once daily days -12. Start: 08-16-2020 End: 08-28-2020 Prednisone 10 mg tablet Disc ontinued 10 mg PO daily 30 12 0 August 16, 2020 1:00am August 27, 2020 1:00am August 28, 2020 1:02am Unspecified contact dermatitis, unspecified cause Take 4 tabs once daily days 1-3 3 tabs once daily days 4-6 2 tabs once daily days 7-9 and 1 tab once daily days 10-12. Semaglutide (7 sources) Start: 10-04-2023 End: 05-16-2024 Semaglutide (Ozempic) 1 mg/d ose (4 mg/3 mL) pen injector Discontinued 1 mg SC EVERY WEEK October 04, 2023 1:00am May 16, 2024 11:22am Start: 10-04-2023 Semaglutide (O zempic) 1 mg/dose (4 mg/3 mL) pen injector Active 1 MG SC EVERY WEEK October 04, 2023 1:00am Start: 10-04-2023 Semaglutide (O zempic) 1 mg/dose (4 mg/3 mL) pen injector Active 1 MG SC EVERY WEEK October 04, 2023 12:00am sertraline 25 mg oral tablet (20 sources) Serotonin Reuptake Inhibitor Start: 01-29-2021 End: 02-27-2021 take 1 tablet by mouth once daily Sertraline (Zoloft) 25 mg tablet Discontinued 25 mg PO DAILY 30 January 29, 2021 12:00am February 27, 2021 12:40pm sucralfate 1000 mg oral tablet (20 sources) Aluminum Complex Start: 03-13-2021 End: 05-21-2021 take 1 tablet by mouth twice daily Sucralfate (Carafate) 1 gram tablet Discontinued 1 g PO TWICE A DAY 20 March 13, 2021 12:00am May 21, 2021 10:11am sulfaSALAzine (20 sources) Aminosalicylate Start: 11-21-2021 End: 01-22-2022 Sulfasalazine Discontinued TAB PO November 21, 2021 1:28pm January 22, 2022 9:10am Start: 11-21-2021 Sulfasalazine Active TAB PO November 21, 2021 1:28pm Start: 11-21-2021 End: 01-22-2022 Sulfasalazine 500 mg tablet Discontinued NMA PO November 21, 2021 12:00am January 22, 2022 9:10am Start: 11-21-2021 End: 01-22-2022 Sulfasalazine Discontinued T AB PO November 20, 2021 11:00pm January 22, 2022 8:10am Start: 11-21-2021 End: 01-22-2022 Sulfasalazine Discontinued T AB PO November 21, 2021 12:00am January 22, 2022 9:10am Start: 07-31-2021 End: 01-21-2022 take 0.5 tablet by mouth three times daily sulfaSALAzine (AZULFIDINE) 500 mg tablet Indications: Psoriatic arthropathy (HCC) Take 0.5 tablets by mouth three times daily. 135 tablet 0 07/31/2021 01/21/2022 Discontinued (Course of therapy completed) Start: 07-21-2021 End: 10-19-2021 take 1 tablet by mouth three times daily sulfaSALAzine (AZULFIDINE) 500 mg tablet Indications: Psoriatic arthropathy (HCC) Take 1 tablet by mouth three times daily. 270 tablet 0 07/21/2021 07/31/2021 Discontinued Comment on above: [facility] daily. Take 0.5 tablets by mouth three times daily. ursodiol 250 mg oral tablet (20 sources) Bile Acid Start: 11-23-2022 End: 01-16-2025 take 1 tablet by mouth once daily Ursodiol 250 mg tablet Discontinued 250 mg PO DAILY 90 3 January 13, 2024 1:30pm January 16, 2025 3:48pm Start: 03-03-2022 End: 11-23-2022 take 1 tablet by mouth twice daily Ursodiol 250 mg tablet Discontinued 250 mg PO TWICE A DAY 60 5 March 03, 2022 12:00am November 23, 2022 7:55am [facility] daily ursodiol (RELTONE) 200 mg capsule Take 200 mg by mouth twice daily. 0 Active Comment on above: Take 200 mg by mouth twice daily. verapamil hydrochloride 120 mg extended release oral tablet (20 sources) Calcium Channel [place] Start: End: 1 take 1 tablet by mouth once daily Verapamil 120 mg tablet extended release Discontinued 120 mg PO DAILY May 21, 2021 12:00am June 18, 2021 1:38pm vitamin b12 0.5 mg oral tablet (19 sources) Vitamin B12 Start: End: 4 take 1 tablet by mouth every other day Cyanocobalamin (Vitamin B-12) 500 mcg tablet Discontinued 500 ug PO .QOD April 08, 2022 12:00am May 16, 2024 11:22am Comment on above: Dose : 500 mcg = 1 tab(s), Oral, qDay, # 90 tab(s), 0 Refill(s), Pharmacy: [id number], 15.5, cm, 08/05/21 9:40:00 EST, Height, kg, 08/05/21 9:40:00 EST, Dosing Weight Problems Active Problems Problem Classification Problem Date Documented Da te Episodic/Chronic Abdominal pain (20 sources) Upper abdominal pain; Translations: [Upper abdominal pain, unspecified] Onset: 2 Episodic Allergic reactions (20 sources) Contact dermatitis due to detergent; Translations: [Irritant contact dermatitis due to detergents] Episodic Anxiety disorders (20 sources) Anxiety; Translations: [Anxiety disorder, unspecified] Chronic Cardiac dysrhythmias (8 sources) Multiple premature ventricular complexes; Translations: [Ventricular premature depolarization] Onset: 5 10-04-2023 Chronic Complications of surgical procedures or medical care (20 sources) Postoperative hypothyroidism; Translations: [Postprocedural hypothyroidism] Chronic Conditions associated with dizziness or vertigo (20 sources) Peripheral vertigo; Translations: [Other peripheral vertigo, unspecified ear] 10-17-2021 Episodic Deficiency and other anemia (20 sources) Iron deficiency anemia; Translations: [Iron deficiency anemia, unspecified] 06-27-2021 Episodic Deficiency and other anemia (2 sources) Iron deficiency anemia, unspecified; Translations: [Iron deficiency anemia, unspecified] 01-20-2023 Episodic Diabetes mellitus with complications (1 source) Type 2 diabetes mellitus with hyperglycemia; Translations: [Type 2 diabetes mellitus with hyperglycemia] Onset: 5 Chronic Diabetes mellitus without complication (20 sources) Type 2 diabetes mellitus without complication; Translations: [Diabetes mellitus] Chronic Disorders of lipid metabolism (20 sources) Mixed hyperlipidemia; Translations: [Mixed hyperlipidemia] Chronic Esophageal disorders (20 sources) Gastroesophageal reflux disease; Translations: [Gastro-esophageal reflux disease without esophagitis] Chronic Essential hypertension (20 sources) Elevated blood pressure; Translations: [Essential (primary) hypertension] Chronic Heart valve disorders (12 sources) Pulmonary stenosis, non-rheumatic; Translations: [Nonrheumatic pulmonary valve stenosis] 10-04-2023 Chronic Comment on above: Mild pulmonary valve stenosis reported on echocardiogram from 2020. Mild to moderate pul min valve stenosis on cardiac MRI. Immunizations and screening for infectious disease (20 sources) Patient encounter status; Translations: [Encounter for screening for COVID-19] Episodic Nutritional deficiencies (11 sources) Vitamin deficiency; Translations: [Vitamin deficiency, unspecified] 01-20-2023 Episodic Osteoarthritis (20 sources) Arthritis; Translations: [Osteoarthritis] Onset: 5 02-03-2019 Chronic Other connective tissue disease (20 sources) Spasm; Translations: [Other muscle spasm] 05-21-2021 Episodic Other connective tissue disease (7 sources) Tendinitis; Translations: [Enthesopathy, unspecified] Episodic Other connective tissue disease (8 sources) Tear of right rotator cuff; Translations: [Unspecified rotator cuff tear or rupture of right shoulder, not specified as traumatic] 12-04-2024 Episodic Other connective tissue disease (6 sources) Pain in right arm; Translations: [Pain in right arm] 09-18-2024 Episodic Other connective tissue disease (1 source) Unspecified rotator cuff tear or rupture of right shoulder, not specified as traumatic; Translations: [Unspecified rotator cuff tear or rupture of right shoulder, not specified as traumatic] Onset: 5 Episodic Other gastrointestinal disorders (9 sources) Stool DNA-based colorectal cancer screening positive; Translations: [Other fecal abnormalities] 02-08-2023 Episodic Other inflammatory condition of skin (2 sources) Psoriasis with arthropathy; Translations: [Arthropathic psoriasis, unspecified] Chronic Other inflammatory condition of skin (13 sources) Prurigo nodularis; Translations: [Prurigo nodularis] 05-22-2022 Episodic Other inflammatory condition of skin (1 source) Prurigo nodularis; Translations: [Lichenification and lichen simplex chronicus] Episodic Other liver diseases (20 sources) Cirrhosis of liver; Translations: [Unspecified cirrhosis of liver] 03-03-2022 Chronic Other liver diseases (18 sources) Steatosis of liver; Translations: [Fatty (change of) liver, not elsewhere classified] 01-27-2022 Chronic Other liver diseases (20 sources) Fatty (change of) liver, not elsewhere classified; Translations: [Other chronic nonalcoholic liver disease] Onset: 4 Chronic Other liver diseases (2 sources) Non-alcoholic fatty liver; Translations: [Fatty (change of) liver, not elsewhere classified] Chronic Other nervous system disorders (1 source) Other chronic pain; Translations: [Chronic neck pain] Onset: 2 Chronic Other nervous system disorders (1 source) Bilateral carpal tunnel syndrome; Translations: [Carpal tunnel syndrome, bilateral] Other non-traumatic joint disorders (10 sources) Disorder of shoulder; Translations: [Other specified joint disorders, right shoulder] 10-26-2024 Episodic Other non-traumatic joint disorders (1 source) Other specified joint disorders, right shoulder; Translations: [Other specified joint disorders, right shoulder] Onset: 5 Episodic Other nutritional; endocrine; and metabolic disorders (20 sources) Obesity; Translations: [Obesity, unspecified] 11-21-2021 Chronic Other nutritional; endocrine; and metabolic disorders (11 sources) Obesity, unspecified; Translations: [Obesity, unspecified] Chronic Other screening for suspected conditions (not mental disorders or infectious disease) (3 sources) Encounter for screening for malignant neoplasm of colon; Translations: [Special screening for malignant neoplasms of colon] Onset: 5 01-20-2023 Episodic Other upper respiratory infections (20 sources) Upper respiratory infection; Translations: [Acute upper respiratory infection, unspecified] 09-13-2023 Episodic Rheumatoid arthritis and related disease (17 sources) Seronegative rheumatoid arthritis; Translations: [Rheumatoid arthritis without rheumatoid factor, unspecified site] Onset: 1 10-14-2020 Chronic Spondylosis; intervertebral disc disorders; other back problems (20 sources) Degeneration of cervical intervertebral disc; Translations: [Other cervical disc degeneration, unspecified cervical region] Chronic Spondylosis; intervertebral disc disorders; other back problems (20 sources) Chronic neck pain; Translations: [Cervicalgia] Onset: 2 Episodic Sprains and strains (9 sources) Anterior to posterior tear of superior glenoid labrum of right shoulder; Translations: [Superior glenoid labrum lesion of right shoulder, initial encounter] Onset: 5 12-04-2024 Episodic Unclassified (2 sources) Pain of right upper extremity; Translations: [M79.601 - Pain in right arm,M77.9 - Enthesopathy, unspecified] Past or Other Problems Problem Classification Problem Date Documented Da te Episodic/Chronic Nonspecific chest pain (20 sources) Chest pain; Translations: [Chest pain, unspecified] Onset: 12-04-2024 03-13-2021 Episodic Other connective tissue disease (1 source) Pain in right arm; Translations: [Pain in right arm] Onset: 12-04-2024 Episodic Other connective tissue disease (1 source) Enthesopathy, unspecified; Translations: [Enthesopathy, unspecified] Onset: 10-26-2024 Episodic Other liver diseases (5 sources) Elevated liver enzymes level; Translations: [Abnormal levels of other serum enzymes] Onset: 01-21-2022 Episodic Other liver diseases (1 source) Abnormal levels of other serum enzymes; Translations: [Elevated liver enzymes] Onset: 01-21-2022 Episodic Results Test Name Value Interpretation Reference Range Facility Echo Complete W/ Contraston 03-05-2025 Echo Complete W/ Contrast [facility] [address] [place] [address] Echo Complete W/ Contrast 03/05/25 1002 MR#: [id number] Acct: [id number] Name: DARREL BENNETT Rep #: [id number] : 1970 54 From: Dheeraj Bird MD Attending Dr: Dr. Dheeraj Bird MD Status: DEP I Ordering Dr: Dheeraj Bird MD Date: 03/05/25 Location: CVS Sex: F C Admitted: Reason For Study Reason For Study: PALPITATIONS Procedure This was a 2D Doppler, Color Flow transthoracic echocardiogram. The study was technically difficult. Contrast injection was performed. Exam performed in department. Left Ventricle Normal LV size. Mild concentric left ventricular hypertrophy. The LV ejection fraction is 65 %. Stage 1 diastolic dysfunction. Right Ventricle Normal right ventricle. Atria The left and right atria are normal. Mitral Valve Normal mitral valve. Tricuspid Valve Normal tricuspid valve. Unable to estimate RV systolic pressure due to inadequate jet, pulmonary artery pressure probably normal. Aortic Valve Trisinus/trileaflet aortic valve. Pulmonic Valve Mildly increased gradients across the pulmonic valve. Mean peak gradient 9 mmHg, suggestive of mild pulmonic stenosis. Great Vessels Normal sized aortic root. Pericardium/Pleural No pericardial effusion. Medication 22 gauge I.V. with prn adaptor inserted into left arm. Diluted definity 1.5ml given slow IV push to enhance endocardial definition. MMode/2D Measurements Calculations LVIDd: 4.1 cm IVSd: 1.2 cm LVOT diam: 2.0 cm LVIDs: 2.4 cm LVPWd: 1.1 cm RVDd: 2.4 cm FS: 40.4 % LVOT area: 3.1 cm2 _ Ao root diam: 3.0 cm LAV(MOD-bp): 20.2 ml RVOT diam: 2.0 cm LAV(MOD-bp) Indexed: 11.6 ml/m2 LAV(MOD-sp2): 19.2 ml LAV(MOD-sp4): 16.9 ml _ SV(MOD-sp4): 45.2 ml SV(sp4-el): 47.4 ml LVAd ap4: 26.0 cm2 LVLd ap4: 7.8 cm SI(MOD-sp4): 25.9 ml/m2 EDV(MOD-sp4): 72.4 ml EDV(sp4-el): 73.5 ml LVAs ap4: 13.3 cm2 LVLs ap4: 5.7 cm ESV(MOD-sp4): 27.3 ml ESV(sp4-el): 26.1 ml EF(MOD-sp4): 62.3 % EF(sp4-el): 64.5 % _ LA A4 area: 10.6 cm2 LA dimension(2D): 3.4 cm RA A4 area: 11.0 cm2 Time Measurements MV dec time: 0.21 sec Doppler Measurements Calculations MV E max alex: 83.1 cm/sec Lat Peak E' Alex: 14.1 cm/sec Med Peak E' Alex: 9.1 cm/sec MV A max alex: 84.1 cm/sec E/E' lat: 5.9 E/E' med: 9.1 MV E/A: 0.99 _ MV V2 max: 108.7 cm/sec MV dec slope: 395.3 cm/sec2 Ao V2 max: 158.9 cm/sec MV max P.7 mmHg Ao max P.1 mmHg MV V2 mean: 72.7 cm/sec Ao V2 mean: 110.7 cm/sec MV mean P.3 mmHg Ao mean P.6 mmHg MV V2 VTI: 25.5 cm Ao V2 VTI: 35.0 cm MVA(VTI): 3.4 cm2 AV (velocity ratio): 0.80 TROY(I,D): 2.5 cm2 TROY(V,D): 2.5 cm2 _ LV V1 max: 127.7 cm/sec SV(LVOT): 85.7 ml PA V2 max: 230.0 cm/sec LV V1 max P.5 mmHg PA V2 mean: 157.2 cm/sec LV V1 mean P.8 mmHg PA mean PG (full): 9.1 mmHg LV V1 mean: 77.0 cm/sec LV V1 VTI: 27.9 cm _ SV(RVOT): 62.4 ml Qp/Qs: 1.0/1.4 ECHO/Echo Complete W/ Contrast Interpretation Summary Mild concentric left ventricular hypertrophy. The LV ejection fraction is 65 %. Stage 1 diastolic dysfunction. Mildly increased gradients across the pulmonic valve. Mean peak gradient 9 mmHg, suggestive of mild pulmonic stenosis. Ordering Physician: Dheeraj Bird Referring Physician: Dheeraj Bird Performed By: Karen Newberry and Student 03/13/25908 Date Dheeraj Bird MD CC: Dr. Dheeraj Bird MD; Dr. Herbert Watts MD Date Dictated: 03/05/251001 Date Transcribed: 03/13/25908 Rail Technician: Signed [facility] Microalb:Creat Ratio,Random URon 02-27-2025 MALB:CREAT 35.8 mg/g CRE Normal [facility] Comment on above: Result Comment: AMENDED REPORT 02/27/25 1054 MALB:CREAT previously reported as: 358.1 mg/g CRE Performed By: #### L 502.0250, L500.4100, L506.1001, L501.9985, L100.0500, L501.9520, L500.4050, L506.0400 ####[facility] [address] [place], [place], [id number] Anion gap in Serum or Plasma Ordered By: Gilmakehinde Felton on 01-27-2025 Anion gap [Moles/Vol] 11 mmol/L 5- [facility] BUN/creatinine ratioOrdered By: Gilmaparker Felton on 01-27-2025 Urea nitrogen/Creatinine [Mass ratio] 23.3 mg/mg High 10- [facility] Bilirubin, totalOrdered By: Gilmaparker Felton on 01-27-2025 Bilirubin [Mass/Vol] 0.31 mg/dL 0.00-1.30 [facility] CBC-Complete Blood Cnt No Di ffon 01-27-2025 Erythrocyte distribution width (RBC) [Ratio] 13.3 % Normal 11.6-14.6 [facility] Comment on above: Performed By: #### L 502.0250, L500.4100, L506.1001, L501.9985, L100.0500, L501.9520, L500.4050, L506.0400 #### [facility] Laboratory [address] [place], [place], [id number] Hematocrit (Bld) [Volume fraction] 36.1 % Low 37-47 [facility] Comment on above: Performed By: #### L 502.0250, L500.4100, L506.1001, L501.9985, L100.0500, L501.9520, L500.4050, L506.0400 #### [facility] [address] [place], [address] Hemoglobin (Bld) [Mass/Vol] 12.1 g/dL Normal 12.0-15.0 [facility] Comment on above: Performed By: #### L 502.0250, L500.4100, L506.1001, L501.9985, L100.0500, L501.9520, L500.4050, L506.0400 #### [facility] [address] [place], [address] MCH (RBC) [Entitic mass] 29.2 pg Normal 27.0-32.0 [facility] Comment on above: Performed By: #### L 502.0250, L500.4100, L506.1001, L501.9985, L100.0500, L501.9520, L500.4050, L506.0400 #### [facility] [address] [place], [address] ( MCHC (RBC) [Mass/Vol] 33.5 g/dL Normal 32-36 [facility] Comment on above: Performed By: #### L 502.0250, L500.4100, L506.1001, L501.9985, L100.0500, L501.9520, L500.4050, L506.0400 #### [facility] [address] [place], [address] (029) MCV (RBC) [Entitic vol] 87.0 fL Normal 81-99 [facility] Comment on above: Performed By: #### L 502.0250, L500.4100, L506.1001, L501.9985, L100.0500, L501.9520, L500.4050, L506.0400 #### [facility] [address] [place], [address] Platelet mean volume (Bld) [Entitic vol] 11.2 fL Normal 6.2-12.0 [facility] Comment on above: Performed By: #### L 502.0250, L500.4100, L506.1001, L501.9985, L100.0500, L501.9520, L500.4050, L506.0400 #### [facility] [address] [place], [address] Platelets (Bld) [#/Vol] 322 10*3/uL Normal 150-450 [facility] Comment on above: Performed By: #### L 502.0250, L500.4100, L506.1001, L501.9985, L100.0500, L501.9520, L500.4050, L506.0400 #### [facility] Laboratory [address] [place], [address] RBC (Bld) [#/Vol] 4.15 10*6/uL Low 4.2-5.4 [facility] Comment on above: Performed By: #### L 502.0250, L500.4100, L506.1001, L501.9985, L100.0500, L501.9520, L500.4050, L506.0400 #### [facility] [address] [place], [address] RDW SD 41.7 fl Normal 35.1-43.9 [facility] Comment on above: Performed By: #### L 502.0250, L500.4100, L506.1001, L501.9985, L100.0500, L501.9520, L500.4050, L506.0400 #### [facility] Laboratory [address] [place], [address] WBC (Bld) [#/Vol] 6.3 10*3/uL Normal 4.4-11.0 [facility] Comment on above: Performed By: #### L 502.0250, L500.4100, L506.1001, L501.9985, L100.0500, L501.9520, L500.4050, L506.0400 #### [facility] Laboratory [address] [place], [place], [id number] Calculated very low density lipoprotein (VLDL) cholesterol measurementOrdered By: Gilma Felton on 01-27-2025 Calculated very low density lipoprotein (VLDL) cholesterol measurement 21 mg/dL 5-40 [facility] Carbon dioxide, total [Moles /volume] in Central venous bloodOrdered By: Gilma Felton on 01-27-2025 CO2 [Moles/Vol] 25.1 mmol/L 21.0-32.0 [facility] Chloride assayOrdered By: Yobany Felton on 01-27-2025 Chloride [Moles/Vol] 102 mmol/L 98-108 [facility] Comprehensive Metabolic Prof ilon 01-27-2025 Albumin [Mass/Vol] 4.8 g/dL Normal 3.5-5.0 [facility] Comment on above: Performed By: #### L 502.0250, L500.4100, L506.1001, L501.9985, L100.0500, L501.9520, L500.4050, L506.0400 ####[facility] [address] [place], [place], [id number] Albumin/Globulin [Mass ratio] 1.7 {ratio} Normal 0.9-2.4 [facility] Comment on above: Performed By: #### L 502.0250, L500.4100, L506.1001, L501.9985, L100.0500, L501.9520, L500.4050, L506.0400 ####[facility] [id number] [place], [address] ALK PHOS 54 U/L Normal 35-104 [facility] Comment on above: Performed By: #### L 502.0250, L500.4100, L506.1001, L501.9985, L100.0500, L501.9520, L500.4050, L506.0400 ####[facility] [address] [place], [address] ALT [Catalytic activity/Vol] 18 U/L Normal <=34 [facility] Comment on above: Performed By: #### L 502.0250, L500.4100, L506.1001, L501.9985, L100.0500, L501.9520, L500.4050, L506.0400 ####[facility] [address] [place], [address] AST [Catalytic activity/Vol] 22 U/L Normal <=31 [facility] Comment on above: Performed By: #### L 502.0250, L500.4100, L506.1001, L501.9985, L100.0500, L501.9520, L500.4050, L506.0400 ####[facility] [address] [place], [address] Bilirubin [Mass/Vol] 0.31 mg/dL Normal 0.00-1.30 [facility] Comment on above: Performed By: #### L 502.0250, L500.4100, L506.1001, L501.9985, L100.0500, L501.9520, L500.4050, L506.0400 ####[facility] [address] [place], [address] BUN/CRE 23.3 RATIO High 10-20 [facility] Comment on above: Performed By: #### L 502.0250, L500.4100, L506.1001, L501.9985, L100.0500, L501.9520, L500.4050, L506.0400 ####[facility] [address] [place], [address] Calcium [Mass/Vol] 9.8 mg/dL Normal 7.6-11.0 [facility] Comment on above: Performed By: #### L 502.0250, L500.4100, L506.1001, L501.9985, L100.0500, L501.9520, L500.4050, L506.0400 ####[facility] [address] [place], [address] Chloride [Moles/Vol] 102 mmol/L Normal 98-108 [facility] Comment on above: Performed By: #### L 502.0250, L500.4100, L506.1001, L501.9985, L100.0500, L501.9520, L500.4050, L506.0400 ####[facility] [address] [place], [address] CO2 [Moles/Vol] 25.1 mmol/L Normal 21.0-32.0 [facility] Comment on above: Performed By: #### L 502.0250, L500.4100, L506.1001, L501.9985, L100.0500, L501.9520, L500.4050, L506.0400 ####[facility] [address] [place], [address] Creatinine [Mass/Vol] 1.11 mg/dL Normal 0.70-1.20 [facility] Comment on above: Performed By: #### L 502.0250, L500.4100, L506.1001, L501.9985, L100.0500, L501.9520, L500.4050, L506.0400 ####[facility] [address] [place], [address] GAP 11 Normal 5-15 [facility] Comment on above: Performed By: #### L 502.0250, L500.4100, L506.1001, L501.9985, L100.0500, L501.9520, L500.4050, L506.0400 ####[facility] [address] [place] [phone] GFR/1.73 sq M.predicted among non-blacks MDRD (S/P/Bld) [Vol rate/Area] 59 mL/min/{1.73_m2} Low >60 [facility] Comment on above: Result Comment: mL/m in/1.73m2 CKD-EPI Creatinine Equation (2020) Performed By: #### L 502.0250, L500.4100, L506.1001, L501.9985, L100.0500, L501.9520, L500.4050, L506.0400 ####[facility] [address] [place], [address] Globulin (S) [Mass/Vol] 2.8 g/dL Normal 2.2-4.2 [facility] Comment on above: Performed By: #### L 502.0250, L500.4100, L506.1001, L501.9985, L100.0500, L501.9520, L500.4050, L506.0400 ####[facility] [address] [place], [address] Glucose [Mass/Vol] 147 mg/dL High 70-99 [facility] Comment on above: Performed By: #### L 502.0250, L500.4100, L506.1001, L501.9985, L100.0500, L501.9520, L500.4050, L506.0400 ####[facility] [address] [place], [address] Potassium [Moles/Vol] 4.6 mmol/L Normal 3.3-5.1 [facility] Comment on above: Result Comment: Hemo lysis present, Results??could be affected. ?? Performed By: #### L 502.0250, L500.4100, L506.1001, L501.9985, L100.0500, L501.9520, L500.4050, L506.0400 ####[facility] [address] [place], [place], [phone] Sodium [Moles/Vol] 138 mmol/L Normal 133-145 [facility] Comment on above: Performed By: #### L 502.0250, L500.4100, L506.1001, L501.9985, L100.0500, L501.9520, L500.4050, L506.0400 ####[facility] [address] [place], [place], [id number] T PROT 7.6 g/dL Normal 5.9-8.4 [facility] Comment on above: Performed By: #### L 502.0250, L500.4100, L506.1001, L501.9985, L100.0500, L501.9520, L500.4050, L506.0400 ####[facility] [address] [place], [place], [phone] Urea nitrogen [Mass/Vol] 26 mg/dL High 4-19 [facility] Comment on above: Performed By: #### L 502.0250, L500.4100, L506.1001, L501.9985, L100.0500, L501.9520, L500.4050, L506.0400 ####[facility] [address] [place], [place], [phone] Erythrocyte distribution wid th ratioOrdered By: Gilma Felton on 01-27-2025 Erythrocyte distribution width (RBC) [Ratio] 13.3 % 11.6-14.6 [facility] Erythrocyte distribution wid th standard deviationOrdered By: Gilma Felton on 01-27-2025 Erythrocyte distribution width (RBC) [Ratio] 41.7 fl 35.1-43.9 [facility] Glomerular filtration rate ( GFR) estimation/1.73 sq m using serum, plasma, or whole bOrdered By: Gilma Felton on 01-27-2025 GFR/1.73 sq M.predicted among non-blacks MDRD (S/P/Bld) [Vol rate/Area] 59 mL/min/{1.73_m2} Low >60 [facility] Comment on above: mL/min/1.73m2 CKD-EP I Creatinine Equation (2020) Hematocrit Auto (Bld) [Volum e fraction]Ordered By: Gilma Felton on 01-27-2025 Hematocrit (Bld) [Volume fraction] 36.1 % Low 37-47 [facility] Hemoglobin A1con 01-27-2025 HbA1c (Bld) [Mass fraction] 6.9 % High <=5.6 [facility] Comment on above: Result Comment: Norm al < 5.7 % Prediabetic 5.7 - 6.4 % Diabetic >or= 6.5 % Please note range changes. Performed By: #### L 502.0250, L500.4100, L506.1001, L501.9985, L100.0500, L501.9520, L500.4050, L506.0400 ####[facility] [address] [place], [address] Hemoglobin A1c percentageOrd ered By: Gilma Felton on 01-27-2025 HbA1c (Bld) [Mass fraction] 6.9 % High <5.7 [facility] Comment on above: Normal < 5.7 % Predi abetic 5.7 - 6.4 % Diabetic >or= 6.5 % Please note range changes. Hemoglobin measurementOrdere d By: Gilma Felton on 01-27-2025 Hemoglobin (Bld) [Mass/Vol] 12.1 g/dL 12.0-15.0 [facility] LDL calc ser/plasOrdered By: Gilma Felton on 01-27-2025 Cholesterol in LDL [Mass/Vol] 102 mg/dL [facility] Comment on above: Whjbxpjiwh=301-494 m g/dL & Higher Ztkn=534 mg/dL or greater Laboratory - Chemistry and C hemistry - challengeOrdered By: Gilma Felton on 01-27-2025 AST [Catalytic activity/Vol] 22 U/L <32 [facility] Lipid Profileon 01-27-2025 CHOL:HDL 3.91 Normal [facility] Comment on above: Performed By: #### L 502.0250, L500.4100, L506.1001, L501.9985, L100.0500, L501.9520, L500.4050, L506.0400 ####[facility] [address] [place], [address] Cholesterol [Mass/Vol] 166 mg/dL Normal <=200 [facility] Comment on above: Result Comment: Chol esterol level, Desirable <200 mg/dL Borderline high cholesterol 200-239 mg/dL High cholesterol >=240 mg/dL Recommendations of the NCEP Adult Treatment Panel for the following risk-cutoff thresholds for the [place] population. Performed By: #### L 502.0250, L500.4100, L506.1001, L501.9985, L100.0500, L501.9520, L500.4050, L506.0400 ####[facility] [address] [place], [address] Cholesterol in HDL [Mass/Vol] 43 mg/dL Normal [facility] Comment on above: Result Comment: Liana onal Cholesterol Education Program (NCEP) guidelines: <40 mg/dL: Low HDL-cholesterol (major risk factor for CHD) >= 60 mg/dL: High HDL-cholesterol (negative risk factor for CHD) HDL-cholesterol is affected by a number of factors, e.g. smoking, exercise, hormones, sex and age. Performed By: #### L 502.0250, L500.4100, L506.1001, L501.9985, L100.0500, L501.9520, L500.4050, L506.0400 ####[facility] [address] [place], [address] Cholesterol in LDL [Mass/Vol] 102 mg/dL Normal [facility] Comment on above: Result Comment: Bord eoqaob=610-855 mg/dL Higher Agxw=955 mg/dL or greater Performed By: #### L 502.0250, L500.4100, L506.1001, L501.9985, L100.0500, L501.9520, L500.4050, L506.0400 ####[facility] [address] [place], [place], [phone] Cholesterol in VLDL [Mass/Vol] 21 mg/dL Normal 5-40 [facility] Comment on above: Performed By: #### L 502.0250, L500.4100, L506.1001, L501.9985, L100.0500, L501.9520, L500.4050, L506.0400 ####[facility] [address] [place], [place], [phone] Triglyceride [Mass/Vol] 107 mg/dL Normal [facility] Comment on above: Result Comment: The drugs N-Acetylcysteine and Metamizole may falsely depress this assay. Normal range: <150 mg/dL Borderline High: 150-199 mg/dL High: 200-499 mg/dL Very High: >500 mg/dL Performed By: #### L 502.0250, L500.4100, L506.1001, L501.9985, L100.0500, L501.9520, L500.4050, L506.0400 ####[facility] [address] [place], [place], [phone] MCV (mean corpuscular volume ) determinationOrdered By: Gilma Felton on 01-27-2025 MCV (RBC) [Entitic vol] 87.0 fL 81-99 [facility] Mean corpuscular hemoglobin (MCH) determinationOrdered By: Gilma Felton on 01-27-2025 MCH (RBC) [Entitic mass] 29.2 pg 27.0-32.0 [facility] Mean corpuscular hemoglobin concentration (MCHC) determinationOrdered By: Gilma Felton on 01-27-2025 MCHC (RBC) [Mass/Vol] 33.5 g/dL 32-36 [facility] Mean platelet volume determi nationOrdered By: Gilma Felton on 01-27-2025 Platelet mean volume (Bld) [Entitic vol] 11.2 fL 6.2-12.0 [facility] Platelet countOrdered By: Yobany Felton on 01-27-2025 Platelets (Bld) [#/Vol] 322 10*3/uL 150-450 [facility] Potassium measurement (mass/ volume)Ordered By: Gilma Felton on 01-27-2025 Potassium (Unsp spec) [Mass/Vol] 4.6 mmol/L 3.3-5.1 [facility] Comment on above: Hemolysis present, R esults could be affected. RBC Auto (Bld) [#/Vol]Ordere d By: Gilma Felton on 01-27-2025 RBC (Bld) [#/Vol] 4.15 10*6/uL Low 4.2-5.4 [facility] Random urine creatinine shireen urement (mass/volume)Ordered By: Gilma Felton on 01-27-2025 Creatinine Unsp time (U) [Mass/Vol] 124.00 mg/dL 28.00-217.00 [facility] Screening total cholesterol/ high density lipoprotein (HDL) cholesterol ratioOrdered By: Gilma Felton on 01-27-2025 Cholesterol.total/Yasmin sterol in HDL [Mass ratio] 3.91 {ratio} [facility] Serum creatinine measurement (mass/volume)Ordered By: Gilma Felton on 01-27-2025 Creatinine [Mass/Vol] 1.11 mg/dL 0.70-1.20 [facility] Serum globulin measurementOr dered By: Gilma Felton on 01-27-2025 Globulin (S) [Mass/Vol] 2.8 g/dL 2.2-4.2 [facility] Serum glucose measurement (m ass/volume)Ordered By: Gilma Felton on 01-27-2025 Glucose [Mass/Vol] 147 mg/dL High 70-99 [facility] Serum or plasma alanine shelton otransferase (ALT) measurementOrdered By: Gilma Felton on 01-27-2025 ALT [Catalytic activity/Vol] 18 U/L <35 [facility] Serum or plasma albumin shireen urement (mass/volume)Ordered By: Gilma Felton on 01-27-2025 Albumin [Mass/Vol] 4.8 g/dL 3.5-5.0 [facility] Serum or plasma albumin/glob ulin mass ratioOrdered By: Gilma Felton on 01-27-2025 Albumin/Globulin [Mass ratio] 1.7 {ratio} 0.9-2.4 [facility] Serum or plasma alkaline christine sphatase measurementOrdered By: Gilma Felton on 01-27-2025 ALP [Catalytic activity/Vol] 54 U/L 35-104 [facility] Serum or plasma calcium shireen urement (mass/volume)Ordered By: Gilma Felton on 01-27-2025 Calcium [Mass/Vol] 9.8 mg/dL 7.6-11.0 [facility] Serum or plasma cholesterol in HDL measurement (mass/volume)Ordered By: Gilma Felton on 01-27-2025 Cholesterol in HDL [Mass/Vol] 43 mg/dL >40 [facility] Comment on above: National Cholesterol Education Program (NCEP) guidelines:<40 mg/dL: Low HDL-cholesterol (major risk factor for CHD)>= 60 mg/dL: High HDL-cholesterol (negative risk factor for CHD)HDL-cholesterol is affected by a number of factors, e.g. smoking, exercise, hormones, sex and age. Serum or plasma cholesterol measurement (mass/volume)Ordered By: Gilma Felton on 01-27-2025 Cholesterol [Mass/Vol] 166 mg/dL <201 [facility] Comment on above: Cholesterol level, D esirable <200 mg/dLBorderline high cholesterol 200-239 mg/dLHigh cholesterol >=240 mg/dLRecommendations of the NCEP Adult Treatment Panel for the following risk-cutoff thresholds for the [place] population. Serum or plasma urea nitroge n measurement (mass/volume)Ordered By: Gilma Felton on 01-27-2025 Urea nitrogen [Mass/Vol] 26 mg/dL High 4-19 [facility] Sodium levelOrdered By: Dilcia Felton on 01-27-2025 Sodium [Moles/Vol] 138 mmol/L 133-145 [facility] T4 Free Directon 01-27-2025 T4 FREE DIRECT 1.30 ng/dL Normal 0.76-1.46 [facility] Comment on above: Performed By: #### L 502.0250, L500.4100, L506.1001, L501.9985, L100.0500, L501.9520, L500.4050, L506.0400 ####[facility] [address] [place], [address] T4 freeOrdered By: Gilma olivas on 01-27-2025 Free T4 [Mass/Vol] 1.30 ng/dL 0.76-1.46 [facility] TSH DL <= 0.005 mIU/L QnOrde red By: Gilma Felton on 01-27-2025 TSH Qn 5.070 uIU/mL High 0.300-4.200 [facility] Thyroid Stim Hormone (TSH)on 01-27-2025 TSH 5.070 uIU/mL High 0.300-4.200 [facility] Comment on above: Performed By: #### L 502.0250, L500.4100, L506.1001, L501.9985, L100.0500, L501.9520, L500.4050, L506.0400 ####[facility] [address] [place], [place], [phone] Total proteinOrdered By: Nigel Felton on 01-27-2025 Protein [Mass/Vol] 7.6 g/dL 5.9-8.4 [facility] Triglycerides measurementOrd ered By: Gilma Felton on 01-27-2025 Triglyceride [Mass/Vol] 107 mg/dL <199 [facility] Comment on above: The drugs N-Acetylcy steine and Metamizole may falsely depress this assay. Normal range: <150 mg/dLBorderline High: 150-199 mg/dLHigh: 200-499 mg/dLVery High: >500 mg/dL Urine albumin measurement [facility] detection limit of 20 mg/L or less (mass/volume)Ordered By: Gilma Felton on 01-27-2025 Albumin DL <= 20 mg/L (U) [Mass/Vol] 44.4 mg/L NO RANGE EST. [facility] Vitamin D,25 Hydroxyon 01-27 Vitamin D 25-OH 57.3 ng/mL Normal 30-100 [facility] Comment on above: Result Comment: [place] min D Status Deficiency: <20 ng/mL (50nmol/L) Insufficiency: 20-30 ng/mL (50-75 nmol/L) Sufficiency: 30-100 ng/mL (75-250 nmol/L) Toxicity: >100 ng/mL (>250 nmol/L) Performed By: #### L 502.0250, L500.4100, L506.1001, L501.9985, L100.0500, L501.9520, L500.4050, L506.0400 ####[facility] [address] [place], [address] White blood cell (WBC) count Ordered By: Gilma Felton on 01-27-2025 WBC (Bld) [#/Vol] 6.3 10*3/uL 4.4-11.0 [facility] Orthopedic Visit Reporton Orthopedic Visit Report [facility] [address] [place] [address] OFFICE VISIT Date of Service: 01/15/25 MR#: [id number] Acct: [id number] Name: DARREL BENNTET Fidelina Rep #: [id number] : 1970 Provider: Dr. Naren foley MD Age/Sex: 54/F [place] [facility] Status: Signed Intake Vital Signs 12/04/24 14:28 Height 5 ft 2 in Weight: 162 lb BMI 29.6 BP 102/70 Blood Pressure Location Lt brachial Position Sitting Respiration 16 Pulse 84 Pulse Source Monitor Pulse Oximetry (%) 99 Oxygen Delivery Method room air Intake Visit Reasons: RIGHT ARM Chief Complaint: Right Arm - discuss surgery Accompanied by: Self Is patient in pain?: Yes Pain scale (1-10): 7 Allergies No Known Allergies Allergy (Verified 01/15/25 08:02) Medications ???Medication ???Instructions ???Recorded ???Confirmed ???Type aspirin 81 mg tablet,delayed 81 mg PO DAILY 11/17/18 01/15/25 H istory release lisinopril 30 mg tablet 30 mg PO DAILY 11/17/18 01/15/25 H istory levothyroxine 88 mcg tablet 88 mcg PO DAILY 01/22/22 01/15/25 History glimepiride 1 mg tablet 0.5 mg PO QAM 09/14/22 01/15/25 Hi story ascorbic acid (vitamin C) 250 mg 250 mg PO .EVERY OTHER DAY 3 01/15/25 History tablet ergocalciferol (vitamin D2) 1,250 50,000 unit PO .EVERY OTHER WEEK 01/20/23 01/15/25 History mcg (50,000 unit) capsule ferrous sulfate 325 mg (65 mg 325 mg PO .EVERY OTHER DAY 3 01/15/25 History iron) tablet,delayed release tizanidine 4 mg capsule 2 mg PO DAILY PRN muscle spasticit y 01/20/23 01/15/25 History vitamin E 268 mg (400 unit) capsule 536 mg PO DAILY 10/06/23 History hydroxyzine pamoate 25 mg capsule 25 mg PO TID PRN PRN Anxiety #30 12/23/23 01/15/25 Rx caps ursodiol 250 mg tablet 250 mg PO DAILY #90 tabs 01/13/24 01/15/25 Rx clotrimazole-betamethaso ne 1 1 applic topical BID 2 weeks #45 0 02/16/24 01/15/25 Rx %-0.05 % topical cream grams pantoprazole 40 mg tablet,delayed 40 mg PO DAILY #90 TABLETS 01/15/25 Rx release dulaglutide 3 mg/0.5 mL 3 mg subcut QWEEK 05/16/24 5 History subcutaneous pen injector (Trulicity) [facility] Medical History Superior labrum jblcznfa-eh-xynzqcdte (SLAP) tear of right shoulder Primary osteoarthritis, right shoulder Arthrosis of right acromioclavicular joint Right rotator cuff tear Impingement of right shoulder Tendinitis Right arm pain Type 2 diabetes mellitus Vertigo Headache Elevated LFTs PVCs (premature ventricular contractions) Nonrheumatic pulmonary valve stenosis URI (upper respiratory infection) Acute pharyngitis, unspecified Wears glasses Complete edentulism, class III Anxiety Thyroid disease Arthritis Diabetes Fatty liver Low iron Anemia Injury of head and neck Syncope Dietary restriction Gastric reflux Former smoker History of echocardiogram History of stress test Cardiology follow-up encounter History of irregular heartbeat Positive colorectal cancer screening using Cologuard test Vitamin deficiency JO ANN (iron deficiency anemia) HNP (herniated nucleus pulposus), cervical Epigastric abdominal pain Irritant dermatitis Grade Foreman's nodules NAFLD (nonalcoholic fatty liver disease) Degenerative disc disease, cervical Cervical pain Obesity Mixed hyperlipidemia Postprocedural hypothyroidism Diabetes Encounter for screening for COVID-19 Chronic neck pain Iron deficiency anemia Muscle spasm Preventative health care Colon cancer screening Chest pain Contact dermatitis due to detergents GERD (gastroesophageal reflux disease) Hypertension Osteoarthritis Anxiety and depression Gallbladder sludge Fatty liver Thyroid nodule Heart murmur Hypertension History of migraine headaches Surgical History No history of previous surgery Family History Brother Lung cancer Seizures Mother Diabetes Breast cancer Father Seizures Dementia Other Fatty liver disease, nonalcoholic Gallbladder sludge Social History Smoking Status: Former smoker Tobacco: How many years used: 20 alcohol intake: never substance use type: does not use caffeine: Yes what type of physical activity do you participate in: walking frequency: other HPI RIGHT ARM Details: This documentation accurately reflects the service provided and the decisions made by me, Dr. Naren Norman MD 01/15/25 5610. Part of today???s visit was documented by [ ], acting as scribe. DARREL BENNETT is a 54 year old F here today for follow-up right shoulder to dis (more content not included)... Normal [facility] Cardiology Visit Reporton Cardiology Visit Report [facility] [address] [place] [address] OFFICE VISIT Date of Service: 12/04/24 MR#: [id number] Acct: [id number] Name: DARREL BENNETT Rep #: [id number] : 1970 Provider: Dr. Dheeraj Bird MD Age/Sex: 54/F [place] [facility] Status: Signed HPI HPI History of Present Illness Details: This lady with history of mild to moderate pulmonic valve stenosis, diabetes mellitus and hypertension is here for follow-up visit. Denies any complaints. No chest pains. No shortness of breath. Rare palpitations. No orthopnea or PND. No ankle edema. Patient is scheduled to undergo right shoulder surgery. Intake Vital Signs 09/18/24 08:59 10/26/24 07:59 12/04/24 14:28 Height 5 ft 2 in 5 ft 2 in 5 ft 2 in Weight: 162 lb BMI 29.6 BP 102/70 Blood Pressure Location Lt brachial Position Sitting Respiration 16 Pulse 84 Pulse Source Monitor Pulse Oximetry (%) 99 Oxygen Delivery Method room air Intake Visit Reasons: 1 Y FU Clinical Science Consultant Required: No Accompanied by: Daughter Is patient in pain?: No Allergies No Known Allergies Allergy (Verified 12/04/24 14:29) Medications ???Medication ???Instructions ???Recorded ???Confirmed ???Type aspirin 81 mg tablet,delayed 81 mg PO DAILY 11/17/18 12/04/24 H istory release lisinopril 30 mg tablet 30 mg PO DAILY 11/17/18 12/04/24 H istory levothyroxine 88 mcg tablet 88 mcg PO DAILY 01/22/22 12/04/24 History glimepiride 1 mg tablet 0.5 mg PO QAM 09/14/22 12/04/24 Hi story ascorbic acid (vitamin C) 250 mg 250 mg PO .EVERY OTHER DAY 3 12/04/24 History tablet ergocalciferol (vitamin D2) 1,250 50,000 unit PO .EVERY OTHER WEEK 01/20/23 12/04/24 History mcg (50,000 unit) capsule ferrous sulfate 325 mg (65 mg 325 mg PO .EVERY OTHER DAY 3 12/04/24 History iron) tablet,delayed release tizanidine 4 mg capsule 2 mg PO DAILY PRN muscle spasticit y 01/20/23 12/04/24 History vitamin E 268 mg (400 unit) capsule 536 mg PO DAILY 10/06/23 History hydroxyzine pamoate 25 mg capsule 25 mg PO TID PRN PRN Anxiety #30 12/23/23 12/04/24 Rx caps ursodiol 250 mg tablet 250 mg PO DAILY #90 tabs 01/13/24 12/04/24 Rx clotrimazole-betamethaso ne 1 1 applic topical BID 2 weeks #45 0 02/16/24 12/04/24 Rx %-0.05 % topical cream grams pantoprazole 40 mg tablet,delayed 40 mg PO DAILY #90 TABLETS 12/04/24 Rx release dulaglutide 3 mg/0.5 mL 3 mg subcut QWEEK 05/16/24 5 History subcutaneous pen injector (Trulicity) Have you fallen in the past year?: Yes [facility] Medical History Superior labrum mgaugosh-fk-zkdakcqgw (SLAP) tear of right shoulder Primary osteoarthritis, right shoulder Arthrosis of right acromioclavicular joint Right rotator cuff tear Impingement of right shoulder Tendinitis Right arm pain Type 2 diabetes mellitus Vertigo Headache Elevated LFTs PVCs (premature ventricular contractions) Nonrheumatic pulmonary valve stenosis URI (upper respiratory infection) Acute pharyngitis, unspecified Wears glasses Complete edentulism, class III Anxiety Thyroid disease Arthritis Diabetes Fatty liver Low iron Anemia Injury of head and neck Syncope Dietary restriction Gastric reflux Former smoker History of echocardiogram History of stress test Cardiology follow-up encounter History of irregular heartbeat Positive colorectal cancer screening using Cologuard test Vitamin deficiency JO ANN (iron deficiency anemia) HNP (herniated nucleus pulposus), cervical Epigastric abdominal pain Irritant dermatitis Grade Foreman's nodules NAFLD (nonalcoholic fatty liver disease) Degenerative disc disease, cervical Cervical pain Obesity Mixed hyperlipidemia Postprocedural hypothyroidism Diabetes Encounter for screening for COVID-19 Chronic neck pain Iron deficiency anemia Muscle spasm Preventative health care Colon cancer screening Chest pain Contact dermatitis due to detergents GERD (gastroesophageal reflux disease) Hypertension Osteoarthritis Anxiety and depression Gallbladder sludge Fatty liver Thyroid nodule Heart murmur Hypertension History of migraine headaches Surgical History No history of previous surgery Family History Brother Lung cancer Seizures Mother Diabetes Breast cancer Father Seizures Dementia Other Fatty liver disease, nonalcoholic Gallbladder sludge Social History Smoking Status: Former smoker Tobacco: How many years used: 20 alcohol intake: never substance use type: does not us (more content not included)... Normal [facility] Orthopedic Visit Reporton Orthopedic Visit Report [facility] [address] [place] [address] OFFICE VISIT Date of Service: 12/04/24 MR#: [id number] Acct: [id number] Name: DARREL BENNETT Rep #: [id number] : 1970 Provider: Dr. Naren foley MD Age/Sex: 54/F Location[place] [facility] Status: Signed Intake Vital Signs 10/26/24 07:59 Height 5 ft 2 in Weight: 159 lb BMI 29.0 Intake Visit Reasons: RIGHT ARM Chief Complaint: MRI review Allergies No Known Allergies Allergy (Verified 12/04/24 08:45) Medications ???Medication ???Instructions ???Recorded ???Confirmed ???Type aspirin 81 mg tablet,delayed 81 mg PO DAILY 11/17/18 12/04/24 H istory release lisinopril 30 mg tablet 30 mg PO DAILY 11/17/18 12/04/24 H istory levothyroxine 88 mcg tablet 88 mcg PO DAILY 01/22/22 12/04/24 History glimepiride 1 mg tablet 0.5 mg PO QAM 09/14/22 12/04/24 Hi story ascorbic acid (vitamin C) 250 mg 250 mg PO .EVERY OTHER DAY 3 12/04/24 History tablet ergocalciferol (vitamin D2) 1,250 50,000 unit PO .EVERY OTHER WEEK 01/20/23 12/04/24 History mcg (50,000 unit) capsule ferrous sulfate 325 mg (65 mg 325 mg PO .EVERY OTHER DAY 3 12/04/24 History iron) tablet,delayed release tizanidine 4 mg capsule 2 mg PO DAILY PRN muscle spasticit y 01/20/23 12/04/24 History vitamin E 268 mg (400 unit) capsule 536 mg PO DAILY 10/06/23 History hydroxyzine pamoate 25 mg capsule 25 mg PO TID PRN PRN Anxiety #30 12/23/23 12/04/24 Rx caps ursodiol 250 mg tablet 250 mg PO DAILY #90 tabs 01/13/24 12/04/24 Rx clotrimazole-betamethaso ne 1 1 applic topical BID 2 weeks #45 0 02/16/24 12/04/24 Rx %-0.05 % topical cream grams pantoprazole 40 mg tablet,delayed 40 mg PO DAILY #90 TABLETS 12/04/24 Rx release dulaglutide 3 mg/0.5 mL 3 mg subcut QWEEK 05/16/24 5 History subcutaneous pen injector (Trulicity) [facility] Medical History Superior labrum [id number] (SLAP) tear of right shoulder Primary osteoarthritis, right shoulder Arthrosis of right acromioclavicular joint Right rotator cuff tear Impingement of right shoulder Tendinitis Right arm pain Type 2 diabetes mellitus Vertigo Headache Elevated LFTs PVCs (premature ventricular contractions) Nonrheumatic pulmonary valve stenosis URI (upper respiratory infection) Acute pharyngitis, unspecified Wears glasses Complete edentulism, class III Anxiety Thyroid disease Arthritis Diabetes Fatty liver Low iron Anemia Injury of head and neck Syncope Dietary restriction Gastric reflux Former smoker History of echocardiogram History of stress test Cardiology follow-up encounter History of irregular heartbeat Positive colorectal cancer screening using Cologuard test Vitamin deficiency JO ANN (iron deficiency anemia) HNP (herniated nucleus pulposus), cervical Epigastric abdominal pain Irritant dermatitis Grade Foreman's nodules NAFLD (nonalcoholic fatty liver disease) Degenerative disc disease, cervical Cervical pain Obesity Mixed hyperlipidemia Postprocedural hypothyroidism Diabetes Encounter for screening for COVID-19 Chronic neck pain Iron deficiency anemia Muscle spasm Preventative health care Colon cancer screening Chest pain Contact dermatitis due to detergents GERD (gastroesophageal reflux disease) Hypertension Osteoarthritis Anxiety and depression Gallbladder sludge Fatty liver Thyroid nodule Heart murmur Hypertension History of migraine headaches Surgical History No history of previous surgery Family History Brother Lung cancer Seizures Mother Diabetes Breast cancer Father Seizures Dementia Other Fatty liver disease, nonalcoholic Gallbladder sludge Social History Smoking Status: Former smoker Tobacco: How many years used: 20 alcohol intake: never substance use type: does not use caffeine: Yes what type of physical activity do you participate in: walking frequency: other HPI RIGHT ARM Details: This documentation accurately reflects the service provided and the decisions made by me, Dr. Naren Norman MD 12/04/24 0820. Part of today???s visit was documented by [ ], acting as scribe. DARREL BENNETT is a 54 year old F here today for FU R shoulder MRI. Hard to sleep, taking nsaids. burning pain going down the upper. Supplemental Info [facility] [address] [place] [place] [address] Upper Ext Joint Only(Routine) MR#: [id number] Acct: [id number] Name: (more content not included)... Normal [facility] Magnetic resonance imaging r eportOrdered By: Espinoza Corrigan on 11-30-2024 Study report [facility] [address] [place] [place] [address] Upper Ext Joint Only(Routine) MR#: [id number] Acct: [id number] Name: DARREL BENNETT Rep #: [id number] : 1970 F 54 From: Jen Corrigan DO PCP: Dr. Herbert Watts MD Status: R EG CLI Study:Upper Ext Joint Only(Routine) Date of Exam: 11/27/24 Exam# [id number] Ordering Dr: Naren Norman MD EXAM: Noncontrast MRI of the right shoulder. CLINICAL HISTORY: Right shoulder pain. Limited range of motion. Evaluate for rotator cuff tear. COMPARISON: No comparison studies are available. TECHNIQUE: Multi planar, multisequence MRI images of the right shoulder were obtained without IV contrast. FINDINGS: No acute fracture or dislocation of the right shoulder. Mild degenerative change and small effusion of the right glenohumeral joint. No loose intra-articular body. Moderate degenerative change of the right glenohumeral joint. No os acromiale. There is some mild patchy marrow edema involving the superior right humeral head. No discrete fracture line. Mild atrophy of the supraspinatus muscle. No Hill-Sachs lesion or bony Bankart deformity. No rightaxillary mass or adenopathy. There is some heterogeneous increased signal of the posterior/superior labrum onimages 10-12 of the coronal T2 fat saturated sequence. There is a thickened somewhat globular appearance of the anterior inferior labrum. The long head of the biceps tendon is grossly intact. There is focal abnormal increased signal involving the anterior insertional fibers of the distal supraspinatus tendon images 12-13 of the coronal T2 fat saturated sequence, suspicious for focal high-grade full-thickness tear. No evidence of significant tendon retraction. There are additional areas of patchy abnormal increased signal of the distal infraspinatus and supraspinatus tendons, which could be due to areas of tendinopathy or partial undersurface tears. The distal subscapularis tendon appears intact. MRI/Upper Ext Joint Only(Routine) IMPRESSION: 1. No acute bony abnormality of the right shoulder. 2. Mild degenerative change and small effusion of the right glenohumeral joint. Moderate degenerative change right AC joint. 3. Abnormal heterogeneous signal involving the posterior/superior labrum, which is suspicious for either labral tear or labral degeneration. There is also a globular heterogeneous appearance of the anteriorinferior labrum, which could be due to ill-defined tear. 4. Abnormal increased ill-defined signal of the anterior insertional fibers of the distal supraspinatus tendon, concerning for focal full-thickness tear. No significant tendon retraction. Additional more mild areas of increased signal involving the distal infraspinatus and supraspinatus tendons may be due to tendinopathy or partial undersurface tears. Reading [facility] CC: Dr. Herbert Watts MD; Dr. Naren Norman MD ~ Rail Technician: Signed [facility] Upper Ext Joint Only(Routine )on 11-27-2024 Upper Ext Joint Only(Routine) [facility] [address] [place] [address] Upper Ext Joint Only(Routine) MR#: [id number] Acct: [id number] Name: DARREL BENNETT Rep #: [id number] : 1970 F 54 From: Espinoza Galicia i DO PCP: Dr. Herbert Watts MD Status: REG CLI Study: Upper Ext Joint Only(Routine) Date of Exam: 0 11/27/24 Exam# [id number] Ordering Dr: Naren Norman MD EXAM: Noncontrast MRI of the right shoulder. CLINICAL HISTORY: Right shoulder pain. Limited range of motion. Evaluate for rotator cuff tear. COMPARISON: No comparison studies are available. TECHNIQUE: Multi planar, multisequence MRI images of the right shoulder were obtained without IV contrast. FINDINGS: No acute fracture or dislocation of the right shoulder. Mild degenerative change and small effusion of the right glenohumeral joint. No loose intra-articular body. Moderate degenerative change of the right glenohumeral joint. No os acromiale. There is some mild patchy marrow edema involving the superior right humeral head. No discrete fracture line. Mild atrophy of the supraspinatus muscle. No Hill-Sachs lesion or bony Bankart deformity. No right axillary mass or adenopathy. There is some heterogeneous increased signal of the posterior/superior labrum on images 10-12 of the coronal T2 fat saturated sequence. There is a thickened somewhat globular appearance of the anterior inferior labrum. The long head of the biceps tendon is grossly intact. There is focal abnormal increased signal involving the anterior insertional fibers of the distal supraspinatus tendon images 12-13 of the coronal T2 fat saturated sequence, suspicious for focal high-grade full-thickness tear. No evidence of significant tendon retraction. There are additional areas of patchy abnormal increased signal of the distal infraspinatus and supraspinatus tendons, which could be due to areas of tendinopathy or partial undersurface tears. The distal subscapularis tendon appears intact. MRI/Upper Ext Joint Only(Routine) IMPRESSION: 1. No acute bony abnormality of the right shoulder. 2. Mild degenerative change and small effusion of the right glenohumeral joint. Moderate degenerative change right AC joint. 3. Abnormal heterogeneous signal involving the posterior/superior labrum, which is suspicious for either labral tear or labral degeneration. There is also a globular heterogeneous appearance of the anterior inferior labrum, which could be due to ill-defined tear. 4. Abnormal increased ill-defined signal of the anterior insertional fibers of the distal supraspinatus tendon, concerning for focal full-thickness tear. No significant tendon retraction. Additional more mild areas of increased signal involving the distal infraspinatus and supraspinatus tendons may be due to tendinopathy or partial undersurface tears. Electronically Signed By: Espinoza foley 11/30/2024 18:41 Reading [facility] CC: Dr. Herbert Watts MD; Dr. Naren Norman MD Rail Technician: Signed Normal [facility] Orthopedic Visit Reporton Orthopedic Visit Report [facility] [address] [place] [address] OFFICE VISIT Date of Service: 10/26/24 MR#: [id number] Acct: [id number] Name: DARREL BENNETT Rep #: [id number] : 1970 Provider: Dr. Naren foley MD Age/Sex: 54/F Location[place] [facility] Status: Signed Intake Vital Signs 09/18/24 08:59 10/26/24 07:59 Height 5 ft 2 in 5 ft 2 in Weight: 160 lb 6 oz 159 lb BMI 29.3 29.0 BP 138/80 H Blood Pressure Location Lt brachial Position Sitting Respiration 16 Pulse 86 Pulse Source Monitor Temp 96.4 F L Temp Source Temporal Pulse Oximetry (%) 97 Oxygen Delivery Method room air Intake Visit Reasons: RIGHT ARM Chief Complaint: Right Arm Pain Accompanied by: Self Is patient in pain?: Yes Pain scale (1-10): 7 Allergies No Known Allergies Allergy (Verified 10/26/24 08:00) Medications ???Medication ???Instructions ???Recorded ???Confirmed ???Type aspirin 81 mg tablet,delayed 81 mg PO DAILY 11/17/18 10/26/24 H istory release lisinopril 30 mg tablet 30 mg PO DAILY 11/17/18 10/26/24 H istory levothyroxine 88 mcg tablet 88 mcg PO DAILY 01/22/22 10/26/24 History glimepiride 1 mg tablet 0.5 mg PO QAM 09/14/22 10/26/24 Hi story ascorbic acid (vitamin C) 250 mg 250 mg PO .EVERY OTHER DAY 3 10/26/24 History tablet ergocalciferol (vitamin D2) 1,250 50,000 unit PO .EVERY OTHER WEEK 01/20/23 10/26/24 History mcg (50,000 unit) capsule ferrous sulfate 325 mg (65 mg 325 mg PO .EVERY OTHER DAY 3 10/26/24 History iron) tablet,delayed release tizanidine 4 mg capsule 2 mg PO DAILY PRN muscle spasticit y 01/20/23 10/26/24 History vitamin E 268 mg (400 unit) capsule 536 mg PO DAILY 10/06/23 History hydroxyzine pamoate 25 mg capsule 25 mg PO TID PRN PRN Anxiety #30 12/23/23 10/26/24 Rx caps ursodiol 250 mg tablet 250 mg PO DAILY #90 tabs 01/13/24 10/26/24 Rx clotrimazole-betamethaso ne 1 1 applic topical BID 2 weeks #45 0 02/16/24 10/26/24 Rx %-0.05 % topical cream grams pantoprazole 40 mg tablet,delayed 40 mg PO DAILY #90 TABLETS 10/26/24 Rx release dulaglutide 3 mg/0.5 mL 3 mg subcut QWEEK 05/16/24 5 History subcutaneous pen injector (Trulicity) [facility] Medical History (Updated 10/26/24 @ 08:09 by Naren Norman MD) Impingement of right shoulder Tendinitis Right arm pain Type 2 diabetes mellitus Vertigo Headache Elevated LFTs PVCs (premature ventricular contractions) Nonrheumatic pulmonary valve stenosis URI (upper respiratory infection) Acute pharyngitis, unspecified Wears glasses Complete edentulism, class III Anxiety Thyroid disease Arthritis Diabetes Fatty liver Low iron Anemia Injury of head and neck Syncope Dietary restriction Gastric reflux Former smoker History of echocardiogram History of stress test Cardiology follow-up encounter History of irregular heartbeat Positive colorectal cancer screening using Cologuard test Vitamin deficiency JO ANN (iron deficiency anemia) HNP (herniated nucleus pulposus), cervical Epigastric abdominal pain Irritant dermatitis Grade Foreman's nodules NAFLD (nonalcoholic fatty liver disease) Degenerative disc disease, cervical Cervical pain Obesity Mixed hyperlipidemia Postprocedural hypothyroidism Diabetes Encounter for screening for COVID-19 Chronic neck pain Iron deficiency anemia Muscle spasm Preventative health care Colon cancer screening Chest pain Contact dermatitis due to detergents GERD (gastroesophageal reflux disease) Hypertension Osteoarthritis Anxiety and depression Gallbladder sludge Fatty liver Thyroid nodule Heart murmur Hypertension History of migraine headaches Surgical History No history of previous surgery Family History Brother Lung cancer Seizures Mother Diabetes Breast cancer Father Seizures Dementia Other Fatty liver disease, nonalcoholic Gallbladder sludge Social History Smoking Status: Former smoker Tobacco: How many years used: 20 alcohol intake: never substance use type: does not use caffeine: Yes what type of physical activity do you participate in: walking frequency: other HPI RIGHT ARM Details: This documentation accurately reflects the service provided and the decisions made by me, Dr. Naren Norman MD 10/26/24 5497. Part of today???s visit was documented by [ ], acting as scribe. DARREL BENNETT is a 54 year old F here today for R shoulder pain. 1 year. Patient had a fall last June. Fell on an outstretched hand. Has been having laterally and anter (more content not included)... Normal [facility] Humerus min 2 Viewson 2024 Humerus min 2 Views [facility] [address] [place] [address] Humerus min 2 Views MR#: [id number] Acct: [id number] Name: DARREL BENNETT Rep #: [id number] : 1970 F 54 From: Kurt Gamboa MD PCP: Dr. Herbert Watts MD Status: DEP AMB Study: Humerus min 2 Views Date of Exam: 09/18/24 Exam# [id number] Ordering Dr: Herbert Watts MD [id number] STUDY: X-RAY - RIGHT HUMERUS REASON FOR EXAM: Female, 54 years old. Right Arm Pain TECHNIQUE: 2 views of the right humerus. COMPARISON: None. FINDINGS: Normal visualized humerus. There is no demonstrated fracture or osseous destructive process. There is no demonstrated soft tissue abnormality. RAD/Humerus min 2 Views IMPRESSION: Normal x-ray examination of the humerus. Electronically Signed: Kurt Gamboa MD at 16:02 EST Reading Location ID and State: [facility] / [place] , Service support , CC: Dr. Herbert Watts MD Rail Technician: Signed Normal [facility] Internal Medicine Office Vis [facility] 09-18-2024 Internal Medicine Office Visit [facility] [address] [place] [address] [address] [place], [place] [address] OFFICE VISIT Date of Service: 09/18/24 MR#: [id number] Acct: [id number] Name: DARREL BENNETT Rep #: [id number] : 1970 Provider: Dr. Herbert carroll MD Age/Sex: 54/F Location[place] [facility] Status: Signed Intake Vital Signs 10/22/23 10:33 09/18/24 08:59 Height 5 ft 2 in 5 ft 2 in Weight: 160 lb 6 oz BMI 29.3 BP 138/80 H Blood Pressure Location Lt brachial Position Sitting Respiration 16 Pulse 86 Pulse Source Monitor Temp 96.4 F L Temp Source Temporal Pulse Oximetry (%) 97 Oxygen Delivery Method room air Intake Visit Reasons: Right Arm Pain Chief Complaint: right arm bicep pain from fall in june Clinical Science Consultant Required: No Accompanied by: Self Is patient in pain?: Yes Pain scale (1-10): 5 Allergies No Known Allergies Allergy (Verified 09/18/24 08:57) Medications ???Medication ???Instructions ???Recorded ???Confirmed ???Type aspirin 81 mg tablet,delayed 81 mg PO DAILY 11/17/18 09/18/24 History release lisinopril 30 mg tablet 30 mg PO DAILY 11/17/18 09/18/24 History levothyroxine 88 mcg tablet 88 mcg PO DAILY 01/22/22 09/18/24 History glimepiride 1 mg tablet 0.5 mg PO QAM 09/14/22 09/18/24 History ascorbic acid (vitamin C) 250 mg 250 mg PO .EVERY OTHER DAY 01/20/23 09/18/24 History tablet ergocalciferol (vitamin D2) 1,250 50,000 unit PO .EVERY OTHER WEEK 01/20/23 09/18/24 History mcg (50,000 unit) capsule ferrous sulfate 325 mg (65 mg 325 mg PO .EVERY OTHER DAY 01/20/23 09/18/24 History iron) tablet,delayed release tizanidine 4 mg capsule 2 mg PO DAILY PRN muscle spasticity 01/20/23 09/18/24 History vitamin E 268 mg (400 unit) capsule 536 mg PO DAILY 10/06/23 09/18/24 History meclizine 25 mg tablet 25 mg PO BID PRN dizziness #60 tabs 10/22/23 09/18/24 Rx hydroxyzine pamoate 25 mg capsule 25 mg PO TID PRN PRN Anxiety #30 12/23/23 09/18/24 Rx caps ursodiol 250 mg tablet 250 mg PO DAILY #90 tabs 01/13/24 09/18/24 Rx clotrimazole-betamethaso ne 1 1 applic topical BID 2 weeks #45 02/16/24 09/18/24 Rx %-0.05 % topical cream grams pantoprazole 40 mg tablet,delayed 40 mg PO DAILY #90 TABLETS 04/21/24 09/18/24 Rx release dulaglutide 3 mg/0.5 mL 3 mg subcut QWEEK 05/16/24 09/18/24 [facility] phentermine 37.5 mg capsule 37.5 mg PO QDAY #30 caps 05/16/24 09/18/24 Rx meloxicam 15 mg tablet 15 mg PO QDAY PRN pain #30 tabs 09/18/24 09/18/24 Rx Have you fallen in the past year?: Yes [facility] Medical History (Updated 09/18/24 @ 12:[address] Herbert Watts MD) Tendinitis Right arm pain Type 2 diabetes mellitus Vertigo Headache Elevated LFTs PVCs (premature ventricular contractions) Nonrheumatic pulmonary valve stenosis URI (upper respiratory infection) Acute pharyngitis, unspecified Wears glasses Complete edentulism, class III Anxiety Thyroid disease Arthritis Diabetes Fatty liver Low iron Anemia Injury of head and neck Syncope Dietary restriction Gastric reflux Former smoker History of echocardiogram History of stress test Cardiology follow-up encounter History of irregular heartbeat Positive colorectal cancer screening using Cologuard test Vitamin deficiency JO ANN (iron deficiency anemia) HNP (herniated nucleus pulposus), cervical Epigastric abdominal pain Irritant dermatitis Grade Foreman's nodules NAFLD (nonalcoholic fatty liver disease) Degenerative disc disease, cervical Cervical pain Obesity Mixed hyperlipidemia Postprocedural hypothyroidism Diabetes Encounter for screening for COVID-19 Chronic neck pain Iron deficiency anemia Muscle spasm Preventative health care Colon cancer screening Chest pain Contact dermatitis due to detergents GERD (gastroesophageal reflux disease) Hypertension Osteoarthritis Anxiety and depression Gallbladder sludge Fatty liver Thyroid nodule Heart murmur Hypertension History of migraine headaches Surgical History No history of previous surgery Family History Brother Lung cancer Seizures Mother Diabetes Breast cancer Father Seizures Dementia Other Fatty liver disease, nonalcoholic Gallbladder sludge Social History Smoking Status: Former smoker Tobacco: How many years used: 20 alcohol intake: never substance use type: does not use caffeine: Yes what type of physical activity do you participate in: walking frequency: other HPI HPI Chief Complaint: right arm bicep pain from fall in june Details: DARREL BENNETT, is a 54 F who presents to the office today for follow-up of her chronic conditions. Als (more content not included)... Normal [facility] Thyroidon 09-15-2024 Thyroid [facility] [address] [place] [address] Thyroid MR#: [id number] Acct: [id number] Name: DARREL BENNETT Rep #: [id number] : 1970 F 54 From: Jamil andres MD PCP: Dr. Herbert Watts MD Status: REG CLI Study: Thyroid Date of Exam: 09/15/24 Exam# [id number] Ordering Dr: Gilma Felton MD [id number] STUDY: THYROID ULTRASOUND REASON FOR EXAM: Female, 54 years old. TYROID NODULE TECHNIQUE: Ultrasound evaluation of the thyroid was performed with real-time and static carreno-scale imaging. COMPARISON: None. FINDINGS: RIGHT LOBE: The right lobe of the thyroid gland measures 3.2 x 1.1 x 0.6 cm. There is a homogeneous echotexture. There are no demonstrated solid, cystic or complex lesions. LEFT LOBE: The left lobe of the thyroid gland measures 1.7 x 1.1 x 1.7 cm. There is a homogeneous echotexture. Heterogeneous circumscribed nodule measures 1.7 x 1.1 x 1.1 cm and is located in the midpole with mildly increased peripheral vascularity. Fine-needle aspiration/biopsy is recommended for definitive diagnosis. Hyperplastic nodule is favored. ISTHMUS: The isthmus measures . No demonstrated masses or fluid collections or cysts or lymphadenopathy in the surrounding tissues. US/Thyroid IMPRESSION: 1. Heterogeneous circumscribed nodule measures 1.7 x 1.1 x 1.1 cm and is located in the midpole with mildly increased peripheral vascularity. Fine-needle aspiration/biopsy is recommended for definitive diagnosis. Hyperplastic nodule is favored. 2. TR3: 3 points = mildly suspicious 3. If physical symptoms, abnormal thyroid values or other findings warrant further radiologic assessment repeat the study and consider nuclear medicine iodine 123 or PET/CT if there is concern for malignancy. 4. Targeted image guided biopsy of nodules of interest can also be performed with definitive pathologic assessment and diagnosis. ACR Thyroid Imaging Reporting and Data System (ACR TI-RADS) Reference: COMPOSITION (choose 1): Cystic or almost completely cystic - 0 points Spongiform- 0 points Mixed cystic and solid - 1 point Solid almost completely solid - 2 points ECHOGENICITY (choose 1): Anechoic space - 0 points Hyperechoic or isoechoic-1 point Hypoechoic-2 points Very hypoechoic-3 points SHAPE (choose 1): : Wider than tall-0 points Taller than wide-3 points MARGINS ( smooth, lobular, ill-defined) ECHOGENIC FOCI (macro or microcalcifications) Scoring and classification TR1: 0 points = benign TR2: 2 points = not suspicious TR3: 3 points = mildly suspicious TR4: 4-6 points = moderately suspicious TR5: ?7 points = highly suspicious Recommendations TR1: no FNA required TR2: no FNA required TR3: ?1.5 cm follow up, ?2.5 cm FNA = follow up: 1, 3 and 5 years TR4: ?1.0 cm follow up, ?1.5 cm FNA = follow up: 1, 2, 3 and 5 years TR5: ?0.5 cm follow up, ?1.0 cm FNA = annual follow up for up to 5 years FNA biopsy is recommended for suspicious lesions (TR3-TR5) with the above size criteria. If there are multiple nodules, the two with the highest ACR TI-RADS scores should be sampled (rather than the two largest), with largest size being used a tie-breaker if there are multiple nodules of the same classification. Electronically Signed: Jamil Ladd MD at 15:41 EST , CC: Dr. Herbert Watts MD; Dr. Gilma Felton MD Rail Technician: Signed Normal [facility] Comprehensive Metabolic Prof [facility] 07-24-2024 Albumin [Mass/Vol] 4.3 g/dL Normal 3.2-5.0 [facility] Comment on above: Performed By: #### L 506.0400, L506.1000, L500.4100, L501.9520, L502.0250, L501.68065, L501.9985, L500.4050 ####[facility] [address] [place], [address] Albumin/Globulin [Mass ratio] 1.3 {ratio} Normal 0.9-2.4 [facility] Comment on above: Performed By: #### L 506.0400, L506.1000, L500.4100, L501.9520, L502.0250, L501.20766, L501.9985, L500.4050 ####[facility] [address] [place], [address] ALK P 47 U/L Normal 45-117 [facility] Comment on above: Performed By: #### L 506.0400, L506.1000, L500.4100, L501.9520, L502.0250, L501.93276, L501.9985, L500.4050 ####[facility] [address] [place], [address] ALT [Catalytic activity/Vol] 25 U/L Normal 13-56 [facility] Comment on above: Performed By: #### L 506.0400, L506.1000, L500.4100, L501.9520, L502.0250, L501.28185, L501.9985, L500.4050 ####[facility] [address] [place], [address] AST [Catalytic activity/Vol] 16 U/L Normal 15-37 [facility] Comment on above: Performed By: #### L 506.0400, L506.1000, L500.4100, L501.9520, L502.0250, L501.33154, L501.9985, L500.4050 ####[facility] [address] [place], [address] Bilirubin [Mass/Vol] 0.40 mg/dL Normal 0.20-1.00 [facility] Comment on above: Result Comment: For patients on eltrombopag therapy, use of Dimension [place] TBIL is not recommended. Performed By: #### L 506.0400, L506.1000, L500.4100, L501.9520, L502.0250, L501.49717, L501.9985, L500.4050 ####[facility] [address] [place], [address] BUN/CRE 22.2 RATIO High 10-20 [facility] Comment on above: Performed By: #### L 506.0400, L506.1000, L500.4100, L501.9520, L502.0250, L501.20782, L501.9985, L500.4050 ####[facility] [address] [place], [address] CA,Total 9.4 mg/dL Normal 8.5-10.1 [facility] Comment on above: Performed By: #### L 506.0400, L506.1000, L500.4100, L501.9520, L502.0250, L501.77197, L501.9985, L500.4050 ####[facility] [address] [place], [address] Chloride [Moles/Vol] 107 mmol/L Normal 98-107 [facility] Comment on above: Performed By: #### L 506.0400, L506.1000, L500.4100, L501.9520, L502.0250, L501.29536, L501.9985, L500.4050 ####[facility] [address] [place], [address] CO2 [Moles/Vol] 28.0 mmol/L Normal 21.0-32.0 [facility] Comment on above: Performed By: #### L 506.0400, L506.1000, L500.4100, L501.9520, L502.0250, L501.56722, L501.9985, L500.4050 ####[facility] [address] [place], [place], [phone]) Creatinine [Mass/Vol] 1.08 mg/dL High 0.55-1.02 [facility] Comment on above: Result Comment: The validity of the calculated GFR GFRAA in patients over 70 years has not been determined. Clinical correlation is essential. Performed By: #### L 506.0400, L506.1000, L500.4100, L501.9520, L502.0250, L501.01961, L501.9985, L500.4050 ####[facility] [address] [place], [place], [phone](464) EST GFR - AA 68 mL/min Normal >60 [facility] Comment on above: Result Comment: Afri can [place] GFR Calc Performed By: #### L 506.0400, L506.1000, L500.4100, L501.9520, L502.0250, L501.43312, L501.9985, L500.4050 ####[facility] [address] [place], [address] GAP 5 Normal 5-15 [facility] Comment on above: Performed By: #### L 506.0400, L506.1000, L500.4100, L501.9520, L502.0250, L501.10299, L501.9985, L500.4050 ####[facility] [address] [place], [place], [phone]([phone]) GFR/1.73 sq M.predicted among non-blacks MDRD (S/P/Bld) [Vol rate/Area] 56 mL/min/{1.73_m2} Low >60 [facility] Comment on above: Result Comment: Non- GFR Calc Performed By: #### L 506.0400, L506.1000, L500.4100, L501.9520, L502.0250, L501.88009, L501.9985, L500.4050 ####[facility] [address] [place], [address] Globulin (S) [Mass/Vol] 3.3 g/dL Normal 2.2-4.2 [facility] Comment on above: Performed By: #### L 506.0400, L506.1000, L500.4100, L501.9520, L502.0250, L501.78428, L501.9985, L500.4050 ####[facility] [address] [place], [address] Glucose [Mass/Vol] 123 mg/dL High 74-106 [facility] Comment on above: Result Comment: Fast ing Glucose result from 100 to 125 mg/dL suggests IMPAIRED HOMEOSTASIS per A.D.A. criteria. Performed By: #### L 506.0400, L506.1000, L500.4100, L501.9520, L502.0250, L501.33852, L501.9985, L500.4050 ####[facility] [address] [place], [address] Potassium [Moles/Vol] 4.0 mmol/L Normal 3.5-5.1 [facility] Comment on above: Performed By: #### L 506.0400, L506.1000, L500.4100, L501.9520, L502.0250, L501.18982, L501.9985, L500.4050 ####[facility] [address] [place], [address] Sodium [Moles/Vol] 140 mmol/L Normal 136-145 [facility] Comment on above: Performed By: #### L 506.0400, L506.1000, L500.4100, L501.9520, L502.0250, L501.65836, L501.9985, L500.4050 ####[facility] [address] [place], [address] T PROT 7.6 g/dL Normal 6.4-8.2 [facility] Comment on above: Performed By: #### L 506.0400, L506.1000, L500.4100, L501.9520, L502.0250, L501.41505, L501.9985, L500.4050 ####[facility] [address] [place], [address] Urea nitrogen [Mass/Vol] 24 mg/dL High 03-23 [facility] Comment on above: Performed By: #### L 506.0400, L506.1000, L500.4100, L501.9520, L502.0250, L501.84719, L501.9985, L500.4050 ####[facility] [address] [place], [address] Free T3on 07-24-2024 Free T3 [Mass/Vol] 2.5 pg/mL Normal 2.18-3.98 [facility] Comment on above: Performed By: #### L 506.0400, L506.1000, L500.4100, L501.9520, L502.0250, L501.76225, L501.9985, L500.4050 ####[facility] [address] [place], [address] Hemoglobin A1con 07-24-2024 HbA1c (Bld) [Mass fraction] 6.0 % High 3.8-5.6 [facility] Comment on above: Result Comment: Norm al < 5.7 % Prediabetic 5.7 - 6.4 % Diabetic >or= 6.5 % Please note range changes. Performed By: #### L 506.0400, L506.1000, L500.4100, L501.9520, L502.0250, L501.09159, L501.9985, L500.4050 ####[facility] [address] [place], [address] Lipid Profileon 07-24-2024 Cholesterol [Mass/Vol] 153 mg/dL Normal 200 [facility] Comment on above: Result Comment: <200 mg/dL Desirable 200-240 mg/dL Borderline >240 mg/dL High Risk Performed By: #### L 506.0400, L506.1000, L500.4100, L501.9520, L502.0250, L501.29669, L501.9985, L500.4050 ####[facility] [address] [place], [address] Cholesterol in HDL [Mass/Vol] 48 mg/dL Normal [facility] Comment on above: Result Comment: The drugs N-Acetylcysteine and Metamizole may falsely depress this assay. Reference Range HDL <40 mg/dL Low HDL Cholesterol HDL >or= 60 mg/dL High HDL Cholesterol Performed By: #### L 506.0400, L506.1000, L500.4100, L501.9520, L502.0250, L501.16433, L501.9985, L500.4050 ####[facility] [address] [place], [address] Cholesterol in LDL [Mass/Vol] 87 mg/dL Normal 0-130 [facility] Comment on above: Performed By: #### L 506.0400, L506.1000, L500.4100, L501.9520, L502.0250, L501.16824, L501.9985, L500.4050 ####[facility] [address] [place], [address] Cholesterol in VLDL [Mass/Vol] 18 mg/dL Normal 5-40 [facility] Comment on above: Performed By: #### L 506.0400, L506.1000, L500.4100, L501.9520, L502.0250, L501.24412, L501.9985, L500.4050 ####[facility] [address] [place], [address] Triglyceride [Mass/Vol] 89 mg/dL Normal [facility] Comment on above: Result Comment: The drugs N-Acetylcysteine and Metamizole may falsely depress this assay. Serum Triglycerides Reference Interval Normal <150 mg/dL Borderline high 150 - 199 mg/dL High 200 - 499 mg/dL Very High > or = 500 mg/dL Performed By: #### L 506.0400, L506.1000, L500.4100, L501.9520, L502.0250, L501.41198, L501.9985, L500.4050 ####[facility] [address] [place], [address] Microalb:Creat Ratio,Random URon 07-24-2024 Creatinine [Mass/Vol] 83.40 mg/dL Normal NO RAN GE EST. [facility] Comment on above: Performed By: #### L 506.0400, L506.1000, L500.4100, L501.9520, L502.0250, L501.10167, L501.9985, L500.4050 ####[facility] [address] [place], [address] MALB:CRE 21.1 mg/g CRE Normal <30 mg/g CRE [facility] Comment on above: Performed By: #### L 506.0400, L506.1000, L500.4100, L501.9520, L502.0250, L501.32721, L501.9985, L500.4050 ####[facility] [address] [place], [address] MICROALBUMIN,UR 17.6 mg/L Normal NO RANGE EST. [facility] Comment on above: Performed By: #### L 506.0400, L506.1000, L500.4100, L501.9520, L502.0250, L501.30481, L501.9985, L500.4050 ####[facility] [address] [place], [address] T4 Free Directon 07-24-2024 T4 FREE DIRECT 1.12 ng/dL Normal 0.76-1.46 [facility] Comment on above: Performed By: #### L 506.0400, L506.1000, L500.4100, L501.9520, L502.0250, L501.53139, L501.9985, L500.4050 ####[facility] [address] [place], [address] Thyroid Stim Hormone (TSH)on 07-24-2024 TSH 2.920 uIU/mL Normal 0.358-3.740 [facility] Comment on above: Performed By: #### L 506.0400, L506.1000, L500.4100, L501.9520, L502.0250, L501.93163, L501.9985, L500.4050 ####[facility] [address] [place], [address] Vitamin D,25 Hydroxyon 07-24 Vitamin D 25-OH 57.3 ng/mL Normal [facility] Comment on above: Result Comment: [place] min D 25(OH) Status Range Deficiency <20 ng/mL (50nmol/L) Insufficiency 20 - 30 ng/mL (50 - 75 nmol/L) Sufficiency 30 - 100 ng/mL (75 - 250 nmol/L) Toxicity >100 ng/mL (>250 nmol/L) Performed By: #### L 506.0400, L506.1000, L500.4100, L501.9520, L502.0250, L501.71664, L501.9985, L500.4050 ####[facility] [address] [place], [address] ABD Limited w/ Elastographyo n 06-01-2024 ABD Limited w/ Elastography [facility] [address] [address] ABD Limited w/ Elastography MR#: [id number] Acct: [id number] Name: DARREL BENNETT Rep #: [id number] : 1970 F 54 From: Matthias santos MD PCP: Dr. Herbert Watts MD Status: REG CLI Study: ABD Limited w/ Elastography Date of Exam: 05/08 02/27 Exam# [id number] Ordering Dr: Derek Anglin DO [id number] STUDY: ABDOMINAL ULTRASOUND - RIGHT UPPER QUADRANT; ELASTOGRAPHY REASON FOR VISIT: Female, 54 years old. Fatty infiltration of the liver. TECHNIQUE: Ultrasound evaluation of the right upper quadrant was performed with real-time and static carreno-scale imaging. Point quantification shear wave elastography was performed ([employer] TECHNICAL QUALITY: Adequate. COMPARISON: Comparison is made with prior study dated June 03, 2022. FINDINGS: Liver: The liver measures 16.9 cm. There is increased echogenicity consistent with fatty infiltration. The bile ducts are within normal limits. There is hepatic color flow. The direction of portal flow is hepatopetal. There is no demonstrated mass lesion. Median liver stiffness measured 7.8 kPa. Gallbladder: Normal distended gallbladder. The gallbladder wall measures 2.3 mm. There is a negative sonographic Boss''s sign. There is no pericholecystic fluid. There are no gallstones. Common Bile Duct (C.B.D.): The common bile duct measures 4.3 mm. Pancreas: There is normal echogenicity of the visualized pancreas. There is no demonstrated pancreatic mass or cyst. Right Kidney: Normal size of the right kidney. The right kidney measures 10.6 cm x 4.7 cm x 3.7 cm. Normal renal cortex. The right cortex measures 1.3 cm. There is no demonstrated renal mass or cyst. There is no right hydronephrosis. US/ABD Limited w/ Elastography IMPRESSION: 1. Liver stiffness measures 7.8 kPa compatible with F2-F3 (Mild to moderate liver fibrosis) Metavir score. Electronically Signed: Matthias Rashid MD at 12:25 EDT , CC: Dr. Herbert Watts MD; Derek Anglin DO Rail Technician: Signed Normal [facility] Gastroenterology Visit Repor ton 05-16-2024 Gastroenterology Visit Report [facility]enter[facility] [address] [place] [address] OFFICE VISIT Date of Service: 05/16/24 MR#: [id number] Acct: [id number] Name: DARREL BENNETT Rep #: [id number] : 1970 Provider: Derek Anglin DO Age/Sex: 54/F Location[facility] Status: Signed Intake Vital Signs 10/22/23 10:33 Height 5 ft 2 in Intake Visit Reasons: Follow up Allergies No Known Allergies Allergy (Verified 10/22/23 10:29) Medications ???Medication ???Instructions ???Recorded ???Confirmed ???Type aspirin 81 mg tablet,delayed 81 mg PO DAILY 11/17/18 05/16/24 History release lisinopril 30 mg tablet 30 mg PO DAILY 11/17/18 05/16/24 History levothyroxine 88 mcg tablet 88 mcg PO DAILY 01/22/22 05/16/24 History glimepiride 1 mg tablet 0.5 mg PO QAM 09/14/22 05/16/24 History ascorbic acid (vitamin C) 250 mg 250 mg PO .EVERY OTHER DAY 01/20/23 05/16/24 History tablet ergocalciferol (vitamin D2) 1,250 50,000 unit PO .EVERY OTHER WEEK 01/20/23 05/16/24 History mcg (50,000 unit) capsule ferrous sulfate 325 mg (65 mg 325 mg PO .EVERY OTHER DAY 01/20/23 05/16/24 History iron) tablet,delayed release tizanidine 4 mg capsule 2 mg PO DAILY PRN muscle spasticity 01/20/23 05/16/24 History vitamin E 268 mg (400 unit) capsule 536 mg PO DAILY 10/06/23 05/16/24 History meclizine 25 mg tablet 25 mg PO BID PRN dizziness #60 tabs 10/22/23 05/16/24 Rx hydroxyzine pamoate 25 mg capsule 25 mg PO TID PRN PRN Anxiety #30 12/23/23 05/16/24 Rx caps ursodiol 250 mg tablet 250 mg PO DAILY #90 tabs 01/13/24 05/16/24 Rx clotrimazole-betamethaso ne 1 1 applic topical BID 2 weeks #45 02/16/24 05/16/24 Rx %-0.05 % topical cream grams pantoprazole 40 mg tablet,delayed 40 mg PO DAILY #90 TABLETS 04/21/24 05/16/24 Rx release dulaglutide 3 mg/0.5 mL 3 mg subcut QWEEK 05/16/24 05/16/24 History subcutaneous pen injector (Trulicity) [facility] Medical History (Updated 12/02/23 @ 12:54 by Kassandra Hernández NP-C) Type 2 diabetes mellitus Vertigo Headache Elevated LFTs PVCs (premature ventricular contractions) Nonrheumatic pulmonary valve stenosis URI (upper respiratory infection) Acute pharyngitis, unspecified Wears glasses Complete edentulism, class III Anxiety Thyroid disease Arthritis Diabetes Fatty liver Low iron Anemia Injury of head and neck Syncope Dietary restriction Gastric reflux Former smoker History of echocardiogram History of stress test Cardiology follow-up encounter History of irregular heartbeat Positive colorectal cancer screening using Cologuard test Vitamin deficiency JO ANN (iron deficiency anemia) HNP (herniated nucleus pulposus), cervical Epigastric abdominal pain Irritant dermatitis Grade Foreman's nodules NAFLD (nonalcoholic fatty liver disease) Degenerative disc disease, cervical Cervical pain Obesity Mixed hyperlipidemia Postprocedural hypothyroidism Diabetes Encounter for screening for COVID-19 Chronic neck pain Iron deficiency anemia Muscle spasm Preventative health care Colon cancer screening Chest pain Contact dermatitis due to detergents GERD (gastroesophageal reflux disease) Hypertension Osteoarthritis Anxiety and depression Gallbladder sludge Fatty liver Thyroid nodule Heart murmur Hypertension History of migraine headaches Surgical History No history of previous surgery Family History Brother Lung cancer Seizures Mother Diabetes Breast cancer Father Seizures Dementia Other Fatty liver disease, nonalcoholic Gallbladder sludge Social History Smoking Status: Former smoker Tobacco: How many years used: 20 alcohol intake: never substance use type: does not use caffeine: Yes what type of physical activity do you participate in: walking frequency: other HPI HPI Details: DARREL BENNETT, is a 54 F who presents to the office today for follow up. US and elastography 6.24.22 hepatic measurement ____cm with fatty infiltration, stiffness measures 8.3kPa. US and elastography 12.28.22 hepatic measurement ____cm with fatty infiltration, stiffness measures 9.4kPa. Colonoscopy 7.7.23 Diverticulosis in the recto-sigmoid colon. The examination was otherwise normal on direct and retroflexion views. No specimens collected. OV 9.10.24 pt reports continued symptoms of gas and HB but states that these may be related to her diet. Pt is unsure if pantoprazole is helpful. Pt reports continued discomfort on her right side when she bends over. ROS Const Constitutional: Positive for fatigue and headache(s); No fever(s) or weight change ENT ENT: Positive for headache(s); No difficulty sw (more content not included)... Normal [facility] MR Heart cine for blood flow velocity mappingon 01-11-2024 * * *Final Report* * * DATE OF EXAM: Jan 11 2024 2:07PM [facility] 0704 - MRI CARDIAC VELOCITY FLOW MAP / PROCEDURE REASON: I37.0 Nonrheumatic pulmonary valve stenosis * * * * Physician Interpretation * * * * Cardiac MRI Report: [facility] Date of service: 01/11/2024 1:14:03 PM Linked orders:[id number] CARDIAC VELOCITY FLOW MAP;[id number] CARD MORPH FUNC WO/W IVCON. Ordering physician: RICARDO KAISER Technologist: EVITA KISER Fellow: Dafne Saers MD Interpreting physician: Yaneth Cast MD,PhD PATIENT: Name: MRS. DARREL BENNETT Age: 53 years Gender: F MRI Scanner: Siemens [place] 1.5T 53 year old female with pulmonary valve stenosis, here for further characterization. This study is performed to quantify left/right ventricular size and function, valvular function, and to perform tissue characterization for the assessment of myocardial fibrosis/viability. MRI Techniques: * Turbo spin echo and gradient echo imaging for anatomic definition. * Dynamic cine imaging (SSFP and GRE) for cardiac chamber and wall-motion analysis, and valvular analysis. * Flow quantification sequences for hemodynamics in 3 locations: aortic root, mid-ascending aorta, and pulmonary artery. * Delayed gadolinium enhancement analysis after injection of gadolinium-chelate. * T2-STIR edema-weighted imaging. * T1 mapping. Gadolinium Agent: 11 cc of Gadavist was administered. Baseline vital signs: 102 bpm Height: 158.00 cm BSA: 1.80 m Weight: 74.00 kg BMI: 29.6 kg/m FINDINGS: Extracardiac findings: The chest wall appears normal. The mediastinum is normal. No significant adenopathy is identified. Limited imaging of the lungs reveals no gross abnormalities. Cardiac structures: The cardiac chambers demonstrate normal atrioventricular and normal ventriculoarterial concordance. Systemic and pulmonary venous return is normal. Aorta: The thoracic aorta is normal in course, caliber and contour. Mid ascendin.9 cm Arch: Left Arch vessel branching pattern: normal Arch branch vessels: Widely patent Pulmonary Arteries: Pulmonary Arteries: Normal Measurements: - Main pulmonary artery diameter: 2.3 cm Left Atrium: The left atrium is normal in size. LA volume: 29 ml (normal range: 28-100 ml) LA volume index: 16 ml/m (normal range: 17-61 ml/m ) LA area (4ch): 14 cm LA area (2ch): 14 cm Right Atrium: The right atrium is normal in size. RA volume: 60 ml (normal range: 24-81 ml) RA volume index: 34 ml/m (normal range: 16-54 ml/m ) RA area (4ch): 19 cm Left Ventricle: The left ventricle is normal in size. Left ventricular systolic function is hyperdynamic. value (normal range) indexed (normal range) EDV: 89 ml (70-155 ml) EDVi: 49 ml/m (45-93 ml/m ) ESV: 22 ml (15-64 ml) ESVi: 12 ml/m (10-38 ml/m ) SV: 68 ml (47-99 ml) SVi: 37 ml/m (30-59 ml/m ) EF: 76 % (52-79 %) CO: 6.9 l/min (3.0-6.9 l/min) CI: 3.8 l/min/m (1.9-4.0 ml/min/m ) mass: 68 g (43-103 g) LVMi: 38 g/m (30-59 g/m ) Wall Motion: There are no wall motion abnormalities. Right Ventricle: The right ventricle is normal in size. Right ventricular systolic function is normal. value (normal range) indexed (normal range) EDV: 96 ml (68-176 ml) EDVi: 53 ml/m (48-104 ml/m ) ESV: 35 ml (20-80 ml) ESVi: 19 ml/m (13-48 ml/m ) SV: 61 ml (39-109 ml) SVi: 34 ml/m (29-66 ml/m ) EF: 64 % (46-74 %) CO: 6.2 l/min (2.4-6.4 l/min) CI: 3.4 l/min/m (1.6-4.0 l/min/m ) Aortic Valve: There is trace aortic regurgitation. There is no thickening. AV Flow Quantification: Mid Ascending Aorta Forward Volume: 71 ml Reverse Volume: 0 ml Net Forward Volume: 71 ml Regurgitant Fraction: 1 % Pulmonic Valve: PV Flow Quantification: Pulmonic Flow Quantification: Forward Volume: 75 ml Reverse Volume: 5 ml Net forward volume: 71 ml Regurgitant fraction: 6 % Measurements: Peak velocity: 256 cm/s Peak gradient: 26 mmHg Mitral Valve: There is no mitral regurgitation. There is no thickening. There is mild systolic anterior motion. Tricuspid Valve: Tricuspid Flow Quantification: Measurements: Regurgitant volume: -14 ml Regurgitant fraction: -24 % Qp/Qs: Qp/Qs: 1.34 utilizing flow quantification at the ST junction. Pericardium: There is a small pericardial effusion. Limited imaging of the abdomen reveals no gross abnormalities. DIVISION OF RADIOLOGY Provider, Arbaella Clay - 01/11/2024 * * *Final Report* * * DATE OF EXAM: Jan 11 2024 2:07PM [facility] [place] 0704 - MRI CARDIAC VELOCITY FLOW MAP / PROCEDURE REASON: I37.0 Nonrheumatic pulmonary valve stenosis * * * * Physician Interpretation * * * * Cardiac MRI Report: [facility] Date of service: 01/11/2024 1:14:03 PM Linked orders:[id number] CARDIAC VELOCITY FLOW MAP;[id number] CARD MORPH FUNC WO/W IVCON. Ordering physician: RICARDO KAISER Technologist: EVITA KISER Fellow: Dafne Sears MD Interpreting physician: Yaneth Cast MD,PhD PATIENT: Name: MRS. DARREL BENNETT Age: 53 years Gender: F MRI Scanner: Siemens Alma Rosa 1.5T 53 year old female with pulmonary valve stenosis, here for further characterization. This study is performed to quantify left/right ventricular size and function, valvular function, and to perform tissue characterization for the assessment of myocardial fibrosis/viability. MRI Techniques: * Turbo spin echo and gradient echo imaging for anatomic definition. * Dynamic cine imaging (SSFP and GRE) for cardiac chamber and wall-motion analysis, and valvular analysis. * Flow quantification sequences for hemodynamics in 3 locations: aortic root, mid-ascending aorta, and pulmonary artery. * Delayed gadolinium enhancement analysis after injection of gadolinium-chelate. * T2-STIR edema-weighted imaging. * T1 mapping. Gadolinium Agent: 11 cc of Gadavist was administered. Baseline vital signs: 102 bpm Height: 158.00 cm BSA: 1.80 m Weight: 74.00 kg BMI: 29.6 kg/m FINDINGS: Extracardiac findings: The chest wall appears normal. The mediastinum is normal. No significant adenopathy is identified. Limited imaging of the lungs reveals no gross abnormalities. Cardiac structures: The cardiac chambers demonstrate normal atrioventricular and normal ventriculoarterial concordance. Systemic and pulmonary venous return is normal. Aorta: The thoracic aorta is normal in course, caliber and contour. Mid ascendin.9 cm Arch: Left Arch vessel branching pattern: normal Arch branch vessels: Widely patent Pulmonary Arteries: Pulmonary Arteries: Normal Measurements: - Main pulmonary artery diameter: 2.3 cm Left Atrium: The left atrium is normal in size. LA volume: 29 ml (normal range: 28-100 ml) LA volume index: 16 ml/m (normal range: 17-61 ml/m ) LA area (4ch): 14 cm LA area (2ch): 14 cm Right Atrium: The right atrium is normal in size. RA volume: 60 ml (normal range: 24-81 ml) RA volume index: 34 ml/m (normal range: 16-54 ml/m ) RA area (4ch): 19 cm Left Ventricle: The left ventricle is normal in size. Left ventricular systolic function is hyperdynamic. value (normal range) indexed (normal range) EDV: 89 ml (70-155 ml) EDVi: 49 ml/m (45-93 ml/m ) ESV: 22 ml (15-64 ml) ESVi: 12 ml/m (10-38 ml/m ) SV: 68 ml (47-99 ml) SVi: 37 ml/m (30-59 ml/m ) EF: 76 % (52-79 %) CO: 6.9 l/min (3.0-6.9 l/min) CI: 3.8 l/min/m (1.9-4.0 ml/min/m ) mass: 68 g (43-103 g) LVMi: 38 g/m (30-59 g/m ) Wall Motion: There are no wall motion abnormalities. Right Ventricle: The right ventricle is normal in size. Right ventricular systolic function is normal. value (normal range) indexed (normal range) EDV: 96 ml (68-176 ml) EDVi: 53 ml/m (48-104 ml/m ) ESV: 35 ml (20-80 ml) ESVi: 19 ml/m (13-48 ml/m ) SV: 61 ml (39-109 ml) SVi: 34 ml/m (29-66 ml/m ) EF: 64 % (46-74 %) CO: 6.2 l/min (2.4-6.4 l/min) CI: 3.4 l/min/m (1.6-4.0 l/min/m ) Aortic Valve: There is trace aortic regurgitation. There is no thickening. AV Flow Quantification: Mid Ascending Aorta Forward Volume: 71 ml Reverse Volume: 0 ml Net Forward Volume: 71 ml Regurgitant Fraction: 1 % Pulmonic Valve: PV Flow Quantification: Pulmonic Flow Quantification: Forward Volume: 75 ml Reverse Volume: 5 ml Net forward volume: 71 ml Regurgitant fraction: 6 % Measurements: Peak velocity: 256 cm/s Peak gradient: 26 mmHg Mitral Valve: There is no mitral regurgitation. There is no thickening. There is mild systolic anterior motion. Tricuspid Valve: Tricuspid Flow Quantification: Measurements: Regurgitant volume: -14 ml Regurgitant fraction: -24 % Qp/Qs: Qp/Qs: 1.34 utilizing flow quantification at the ST junction. Pericardium: There is a small pericardial effusion. Limited imaging of the abdomen reveals no gross abnormalities. IMPRESSION IMPRESSION: - Restricted pulmonary valve opening with flow acceleration at the valve level and a V-max of 2.6 m/s (peak 26 mmHg) consistent with mild to moderate pulmonary valve stenosis. - The left ventricle is normal in size (LV EDVi = 49 ml/m ). The left ventricular systolic function is hyperdynamic (LV EF = 76 %). There is mid cavitary flow accelera (more content not included)... [facility] MRI CARD MORPH FUNC WO/W IVC ONon 01-11-2024 MRI CARD MORPH FUNC WO/W IVCON * * *Final Report* * * DATE OF EXAM: Jan 11 2024 2:07PM [facility] [place] 0703 - MRI CARD MORPH FUNC WO/W IVCON / PROCEDURE REASON: I37.0 Nonrheumatic pulmonary valve stenosis * * * * Physician Interpretation * * * * Cardiac MRI Report: [facility] Date of service: 01/11/2024 1:14:03 PM Linked orders:[id number] CARDIAC VELOCITY FLOW MAP;[id number] CARD MORPH FUNC WO/W IVCON. Ordering physician: RICARDO KAISER Technologist: EVITA KISER Fellow: Dafne Sears MD Interpreting physician: Yaneth Cast MD,PhD PATIENT: Name: MRS. DARREL BENNETT Age: 53 years Gender: F MRI Scanner: Siemens Alma Rosa 1.5T 53 year old female with pulmonary valve stenosis, here for further characterization. This study is performed to quantify left/right ventricular size and function, valvular function, and to perform tissue characterization for the assessment of myocardial fibrosis/viability. MRI Techniques: * Turbo spin echo and gradient echo imaging for anatomic definition. * Dynamic cine imaging (SSFP and GRE) for cardiac chamber and wall-motion analysis, and valvular analysis. * Flow quantification sequences for hemodynamics in 3 locations: aortic root, mid-ascending aorta, and pulmonary artery. * Delayed gadolinium enhancement analysis after injection of gadolinium-chelate. * T2-STIR edema-weighted imaging. * T1 mapping. Gadolinium Agent: 11 cc of Gadavist was administered. Baseline vital signs: 102 bpm Height: 158.00 cm BSA: 1.80 m? Weight: 74.00 kg BMI: 29.6 kg/m? FINDINGS: Extracardiac findings: The chest wall appears normal. The mediastinum is normal. No significant adenopathy is identified. Limited imaging of the lungs reveals no gross abnormalities. Cardiac structures: The cardiac chambers demonstrate normal atrioventricular and normal ventriculoarterial concordance. Systemic and pulmonary venous return is normal. Aorta: The thoracic aorta is normal in course, caliber and contour. Mid ascendin.9 cm Arch: Left Arch vessel branching pattern: normal Arch branch vessels: Widely patent Pulmonary Arteries: Pulmonary Arteries: Normal Measurements: - Main pulmonary artery diameter: 2.3 cm Left Atrium: The left atrium is normal in size. LA volume: 29 ml (normal range: 28-100 ml) LA volume index: 16 ml/m? (normal range: 17-61 ml/m?) LA area (4ch): 14 cm? LA area (2ch): 14 cm? Right Atrium: The right atrium is normal in size. RA volume: 60 ml (normal range: 24-81 ml) RA volume index: 34 ml/m? (normal range: 16-54 ml/m?) RA area (4ch): 19 cm? Left Ventricle: The left ventricle is normal in size. Left ventricular systolic function is hyperdynamic. value (normal range) indexed (normal range) EDV: 89 ml (70-155 ml) EDVi: 49 ml/m? (45-93 ml/m?) ESV: 22 ml (15-64 ml) ESVi: 12 ml/m? (10-38 ml/m?) SV: 68 ml (47-99 ml) SVi: 37 ml/m? (30-59 ml/m?) EF: 76 % (52-79 %) CO: 6.9 l/min (3.0-6.9 l/min) CI: 3.8 l/min/m? (1.9-4.0 ml/min/m?) mass: 68 g (43-103 g) LVMi: 38 g/m? (30-59 g/m?) Wall Motion: There are no wall motion abnormalities. Right Ventricle: The right ventricle is normal in size. Right ventricular systolic function is normal. value (normal range) indexed (normal range) EDV: 96 ml (68-176 ml) EDVi: 53 ml/m? (48-104 ml/m?) ESV: 35 ml (20-80 ml) ESVi: 19 ml/m? (13-48 ml/m?) SV: 61 ml (39-109 ml) SVi: 34 ml/m? (29-66 ml/m?) EF: 64 % (46-74 %) CO: 6.2 l/min (2.4-6.4 l/min) CI: 3.4 l/min/m? (1.6-4.0 l/min/m?) Aortic Valve: There is trace aortic regurgitation. There is no thickening. AV Flow Quantification: Mid Ascending Aorta Forward Volume: 71 ml Reverse Volume: 0 ml Net Forward Volume: 71 ml Regurgitant Fraction: 1 % Pulmonic Valve: PV Flow Quantification: Pulmonic Flow Quantification: Forward Volume: 75 ml Reverse Volume: 5 ml Net forward volume: 71 ml Regurgitant fraction: 6 % Measurements: Peak velocity: 256 cm/s Peak gradient: 26 mmHg Mitral Valve: There is no mitral regurgitation. There is no thickening. There is mild systolic anterior motion. Tricuspid Valve: Tricuspid Flow Quantification: Measurements: Regurgitant volume: -14 ml Regurgitant fraction: -24 % Qp/Qs: Qp/Qs: 1.34 utilizing flow quantification at the ST junction. Pericardium: There is a small pericardial effusion. Limited imaging of the abdomen reveals no gross abnormalities. IMPRESSION: - Restricted pulmonary valve opening with flow acceleration at the valve level and a V-max of 2.6 m/s (peak 26 mmHg) consistent with mild to moderate pulmonary valve stenosis. - The left ventricle is normal in size (LV EDVi = 49 ml/m?). The left ventricular systolic function is hyperdynamic (LV EF = 76 %). There is mid cavitary flow acceleration in the setting of hyperdynamic LV function, but no LVOT obstruction at rest. No discrete left-ventricular late gadolinium enhancement to suggest (more content not included)... Normal [facility] MRI CARDIAC MORPH FUNC WO/W IVCONon 01-11-2024 * * *Final Report* * * DATE OF EXAM: Jan 11 2024 2:07PM [facility] 0703 - MRI CARD MORPH FUNC WO/W IVCON / PROCEDURE REASON: I37.0 Nonrheumatic pulmonary valve stenosis * * * * Physician Interpretation * * * * Cardiac MRI Report: [facility] Date of service: 01/11/2024 1:14:03 PM Linked orders:[id number] CARDIAC VELOCITY FLOW MAP;[id number] CARD MORPH FUNC WO/W IVCON. Ordering physician: RICARDO KAISER Technologist: EVITA KISER Fellow: Dafne Sears MD Interpreting physician: Yaneth Cast MD,PhD PATIENT: Name: MRS. DARREL BENNETT Age: 53 years Gender: F MRI Scanner: Siemens Alma Rosa 1.5T 53 year old female with pulmonary valve stenosis, here for further characterization. This study is performed to quantify left/right ventricular size and function, valvular function, and to perform tissue characterization for the assessment of myocardial fibrosis/viability. MRI Techniques: * Turbo spin echo and gradient echo imaging for anatomic definition. * Dynamic cine imaging (SSFP and GRE) for cardiac chamber and wall-motion analysis, and valvular analysis. * Flow quantification sequences for hemodynamics in 3 locations: aortic root, mid-ascending aorta, and pulmonary artery. * Delayed gadolinium enhancement analysis after injection of gadolinium-chelate. * T2-STIR edema-weighted imaging. * T1 mapping. Gadolinium Agent: 11 cc of Gadavist was administered. Baseline vital signs: 102 bpm Height: 158.00 cm BSA: 1.80 m Weight: 74.00 kg BMI: 29.6 kg/m FINDINGS: Extracardiac findings: The chest wall appears normal. The mediastinum is normal. No significant adenopathy is identified. Limited imaging of the lungs reveals no gross abnormalities. Cardiac structures: The cardiac chambers demonstrate normal atrioventricular and normal ventriculoarterial concordance. Systemic and pulmonary venous return is normal. Aorta: The thoracic aorta is normal in course, caliber and contour. Mid ascendin.9 cm Arch: Left Arch vessel branching pattern: normal Arch branch vessels: Widely patent Pulmonary Arteries: Pulmonary Arteries: Normal Measurements: - Main pulmonary artery diameter: 2.3 cm Left Atrium: The left atrium is normal in size. LA volume: 29 ml (normal range: 28-100 ml) LA volume index: 16 ml/m (normal range: 17-61 ml/m ) LA area (4ch): 14 cm LA area (2ch): 14 cm Right Atrium: The right atrium is normal in size. RA volume: 60 ml (normal range: 24-81 ml) RA volume index: 34 ml/m (normal range: 16-54 ml/m ) RA area (4ch): 19 cm Left Ventricle: The left ventricle is normal in size. Left ventricular systolic function is hyperdynamic. value (normal range) indexed (normal range) EDV: 89 ml (70-155 ml) EDVi: 49 ml/m (45-93 ml/m ) ESV: 22 ml (15-64 ml) ESVi: 12 ml/m (10-38 ml/m ) SV: 68 ml (47-99 ml) SVi: 37 ml/m (30-59 ml/m ) EF: 76 % (52-79 %) CO: 6.9 l/min (3.0-6.9 l/min) CI: 3.8 l/min/m (1.9-4.0 ml/min/m ) mass: 68 g (43-103 g) LVMi: 38 g/m (30-59 g/m ) Wall Motion: There are no wall motion abnormalities. Right Ventricle: The right ventricle is normal in size. Right ventricular systolic function is normal. value (normal range) indexed (normal range) EDV: 96 ml (68-176 ml) EDVi: 53 ml/m (48-104 ml/m ) ESV: 35 ml (20-80 ml) ESVi: 19 ml/m (13-48 ml/m ) SV: 61 ml (39-109 ml) SVi: 34 ml/m (29-66 ml/m ) EF: 64 % (46-74 %) CO: 6.2 l/min (2.4-6.4 l/min) CI: 3.4 l/min/m (1.6-4.0 l/min/m ) Aortic Valve: There is trace aortic regurgitation. There is no thickening. AV Flow Quantification: Mid Ascending Aorta Forward Volume: 71 ml Reverse Volume: 0 ml Net Forward Volume: 71 ml Regurgitant Fraction: 1 % Pulmonic Valve: PV Flow Quantification: Pulmonic Flow Quantification: Forward Volume: 75 ml Reverse Volume: 5 ml Net forward volume: 71 ml Regurgitant fraction: 6 % Measurements: Peak velocity: 256 cm/s Peak gradient: 26 mmHg Mitral Valve: There is no mitral regurgitation. There is no thickening. There is mild systolic anterior motion. Tricuspid Valve: Tricuspid Flow Quantification: Measurements: Regurgitant volume: -14 ml Regurgitant fraction: -24 % Qp/Qs: Qp/Qs: 1.34 utilizing flow quantification at the ST junction. Pericardium: There is a small pericardial effusion. Limited imaging of the abdomen reveals no gross abnormalities. DIVISION OF RADIOLOGY Provider, [facility] - 01/11/2024 * * *Final Report* * * DATE OF EXAM: Jan 11 2024 2:07PM [facility] [place] 0703 - MRI CARD MORPH FUNC WO/W IVCON / PROCEDURE REASON: I37.0 Nonrheumatic pulmonary valve stenosis * * * * Physician Interpretation * * * * Cardiac MRI Report: [facility] Date of service: 01/11/2024 1:14:03 PM Linked orders:[id number] CARDIAC VELOCITY FLOW MAP;[id number] CARD MORPH FUNC WO/W IVCON. Ordering physician: RICARDO KAISER Technologist: EVITA KISER Fellow: Dafne Sears MD Interpreting physician: Yaneth Cast MD,PhD PATIENT: Name: MRS. DARREL BENNETT Age: 53 years Gender: F MRI Scanner: Siemens Alma Rosa 1.5T 53 year old female with pulmonary valve stenosis, here for further characterization. This study is performed to quantify left/right ventricular size and function, valvular function, and to perform tissue characterization for the assessment of myocardial fibrosis/viability. MRI Techniques: * Turbo spin echo and gradient echo imaging for anatomic definition. * Dynamic cine imaging (SSFP and GRE) for cardiac chamber and wall-motion analysis, and valvular analysis. * Flow quantification sequences for hemodynamics in 3 locations: aortic root, mid-ascending aorta, and pulmonary artery. * Delayed gadolinium enhancement analysis after injection of gadolinium-chelate. * T2-STIR edema-weighted imaging. * T1 mapping. Gadolinium Agent: 11 cc of Gadavist was administered. Baseline vital signs: 102 bpm Height: 158.00 cm BSA: 1.80 m Weight: 74.00 kg BMI: 29.6 kg/m FINDINGS: Extracardiac findings: The chest wall appears normal. The mediastinum is normal. No significant adenopathy is identified. Limited imaging of the lungs reveals no gross abnormalities. Cardiac structures: The cardiac chambers demonstrate normal atrioventricular and normal ventriculoarterial concordance. Systemic and pulmonary venous return is normal. Aorta: The thoracic aorta is normal in course, caliber and contour. Mid ascendin.9 cm Arch: Left Arch vessel branching pattern: normal Arch branch vessels: Widely patent Pulmonary Arteries: Pulmonary Arteries: Normal Measurements: - Main pulmonary artery diameter: 2.3 cm Left Atrium: The left atrium is normal in size. LA volume: 29 ml (normal range: 28-100 ml) LA volume index: 16 ml/m (normal range: 17-61 ml/m ) LA area (4ch): 14 cm LA area (2ch): 14 cm Right Atrium: The right atrium is normal in size. RA volume: 60 ml (normal range: 24-81 ml) RA volume index: 34 ml/m (normal range: 16-54 ml/m ) RA area (4ch): 19 cm Left Ventricle: The left ventricle is normal in size. Left ventricular systolic function is hyperdynamic. value (normal range) indexed (normal range) EDV: 89 ml (70-155 ml) EDVi: 49 ml/m (45-93 ml/m ) ESV: 22 ml (15-64 ml) ESVi: 12 ml/m (10-38 ml/m ) SV: 68 ml (47-99 ml) SVi: 37 ml/m (30-59 ml/m ) EF: 76 % (52-79 %) CO: 6.9 l/min (3.0-6.9 l/min) CI: 3.8 l/min/m (1.9-4.0 ml/min/m ) mass: 68 g (43-103 g) LVMi: 38 g/m (30-59 g/m ) Wall Motion: There are no wall motion abnormalities. Right Ventricle: The right ventricle is normal in size. Right ventricular systolic function is normal. value (normal range) indexed (normal range) EDV: 96 ml (68-176 ml) EDVi: 53 ml/m (48-104 ml/m ) ESV: 35 ml (20-80 ml) ESVi: 19 ml/m (13-48 ml/m ) SV: 61 ml (39-109 ml) SVi: 34 ml/m (29-66 ml/m ) EF: 64 % (46-74 %) CO: 6.2 l/min (2.4-6.4 l/min) CI: 3.4 l/min/m (1.6-4.0 l/min/m ) Aortic Valve: There is trace aortic regurgitation. There is no thickening. AV Flow Quantification: Mid Ascending Aorta Forward Volume: 71 ml Reverse Volume: 0 ml Net Forward Volume: 71 ml Regurgitant Fraction: 1 % Pulmonic Valve: PV Flow Quantification: Pulmonic Flow Quantification: Forward Volume: 75 ml Reverse Volume: 5 ml Net forward volume: 71 ml Regurgitant fraction: 6 % Measurements: Peak velocity: 256 cm/s Peak gradient: 26 mmHg Mitral Valve: There is no mitral regurgitation. There is no thickening. There is mild systolic anterior motion. Tricuspid Valve: Tricuspid Flow Quantification: Measurements: Regurgitant volume: -14 ml Regurgitant fraction: -24 % Qp/Qs: Qp/Qs: 1.34 utilizing flow quantification at the ST junction. Pericardium: There is a small pericardial effusion. Limited imaging of the abdomen reveals no gross abnormalities. IMPRESSION IMPRESSION: - Restricted pulmonary valve opening with flow acceleration at the valve level and a V-max of 2.6 m/s (peak 26 mmHg) consistent with mild to moderate pulmonary valve stenosis. - The left ventricle is normal in size (LV EDVi = 49 ml/m ). The left ventricular systolic function is hyperdynamic (LV EF = 76 %). There is mid cavitary flow acceler (more content not included)... [facility] MRI CARDIAC VELOCITY FLOW MA Jacob 01-11-2024 MRI CARDIAC VELOCITY FLOW MAP * * *Final Report* * * DATE OF EXAM: Jan 11 2024 2:07PM [facility] 0704 - MRI CARDIAC VELOCITY FLOW MAP / PROCEDURE REASON: I37.0 Nonrheumatic pulmonary valve stenosis * * * * Physician Interpretation * * * * Cardiac MRI Report: [facility] Date of service: 01/11/2024 1:14:03 PM Linked orders:[id number] CARDIAC VELOCITY FLOW MAP;[id number] CARD MORPH FUNC WO/W IVCON. Ordering physician: RICARDO KAISER Technologist: EVITA KISER Fellow: Dafne Sears MD Interpreting physician: Yaneth Cast MD,PhD PATIENT: Name: MRS. DARREL BENNETT Age: 53 years Gender: F MRI Scanner: Siemens Alma Rosa 1.5T 53 year old female with pulmonary valve stenosis, here for further characterization. This study is performed to quantify left/right ventricular size and function, valvular function, and to perform tissue characterization for the assessment of myocardial fibrosis/viability. MRI Techniques: * Turbo spin echo and gradient echo imaging for anatomic definition. * Dynamic cine imaging (SSFP and GRE) for cardiac chamber and wall-motion analysis, and valvular analysis. * Flow quantification sequences for hemodynamics in 3 locations: aortic root, mid-ascending aorta, and pulmonary artery. * Delayed gadolinium enhancement analysis after injection of gadolinium-chelate. * T2-STIR edema-weighted imaging. * T1 mapping. Gadolinium Agent: 11 cc of Gadavist was administered. Baseline vital signs: 102 bpm Height: 158.00 cm BSA: 1.80 m? Weight: 74.00 kg BMI: 29.6 kg/m? FINDINGS: Extracardiac findings: The chest wall appears normal. The mediastinum is normal. No significant adenopathy is identified. Limited imaging of the lungs reveals no gross abnormalities. Cardiac structures: The cardiac chambers demonstrate normal atrioventricular and normal ventriculoarterial concordance. Systemic and pulmonary venous return is normal. Aorta: The thoracic aorta is normal in course, caliber and contour. Mid ascendin.9 cm Arch: Left Arch vessel branching pattern: normal Arch branch vessels: Widely patent Pulmonary Arteries: Pulmonary Arteries: Normal Measurements: - Main pulmonary artery diameter: 2.3 cm Left Atrium: The left atrium is normal in size. LA volume: 29 ml (normal range: 28-100 ml) LA volume index: 16 ml/m? (normal range: 17-61 ml/m?) LA area (4ch): 14 cm? LA area (2ch): 14 cm? Right Atrium: The right atrium is normal in size. RA volume: 60 ml (normal range: 24-81 ml) RA volume index: 34 ml/m? (normal range: 16-54 ml/m?) RA area (4ch): 19 cm? Left Ventricle: The left ventricle is normal in size. Left ventricular systolic function is hyperdynamic. value (normal range) indexed (normal range) EDV: 89 ml (70-155 ml) EDVi: 49 ml/m? (45-93 ml/m?) ESV: 22 ml (15-64 ml) ESVi: 12 ml/m? (10-38 ml/m?) SV: 68 ml (47-99 ml) SVi: 37 ml/m? (30-59 ml/m?) EF: 76 % (52-79 %) CO: 6.9 l/min (3.0-6.9 l/min) CI: 3.8 l/min/m? (1.9-4.0 ml/min/m?) mass: 68 g (43-103 g) LVMi: 38 g/m? (30-59 g/m?) Wall Motion: There are no wall motion abnormalities. Right Ventricle: The right ventricle is normal in size. Right ventricular systolic function is normal. value (normal range) indexed (normal range) EDV: 96 ml (68-176 ml) EDVi: 53 ml/m? (48-104 ml/m?) ESV: 35 ml (20-80 ml) ESVi: 19 ml/m? (13-48 ml/m?) SV: 61 ml (39-109 ml) SVi: 34 ml/m? (29-66 ml/m?) EF: 64 % (46-74 %) CO: 6.2 l/min (2.4-6.4 l/min) CI: 3.4 l/min/m? (1.6-4.0 l/min/m?) Aortic Valve: There is trace aortic regurgitation. There is no thickening. AV Flow Quantification: Mid Ascending Aorta Forward Volume: 71 ml Reverse Volume: 0 ml Net Forward Volume: 71 ml Regurgitant Fraction: 1 % Pulmonic Valve: PV Flow Quantification: Pulmonic Flow Quantification: Forward Volume: 75 ml Reverse Volume: 5 ml Net forward volume: 71 ml Regurgitant fraction: 6 % Measurements: Peak velocity: 256 cm/s Peak gradient: 26 mmHg Mitral Valve: There is no mitral regurgitation. There is no thickening. There is mild systolic anterior motion. Tricuspid Valve: Tricuspid Flow Quantification: Measurements: Regurgitant volume: -14 ml Regurgitant fraction: -24 % Qp/Qs: Qp/Qs: 1.34 utilizing flow quantification at the ST junction. Pericardium: There is a small pericardial effusion. Limited imaging of the abdomen reveals no gross abnormalities. IMPRESSION: - Restricted pulmonary valve opening with flow acceleration at the valve level and a V-max of 2.6 m/s (peak 26 mmHg) consistent with mild to moderate pulmonary valve stenosis. - The left ventricle is normal in size (LV EDVi = 49 ml/m?). The left ventricular systolic function is hyperdynamic (LV EF = 76 %). There is mid cavitary flow acceleration in the setting of hyperdynamic LV function, but no LVOT obstruction at rest. No discrete left-ventricular late gadolinium enhancement to suggest (more content not included)... Normal [facility] No Panel Informationon 01-10 IMPRESSION: - Restricted pulmonary valve opening with flow acceleration at the valve level and a V-max of 2.6 m/s (peak 26 mmHg) consistent with mild to moderate pulmonary valve stenosis. - The left ventricle is normal in size (LV EDVi = 49 ml/m ). The left ventricular systolic function is hyperdynamic (LV EF = 76 %). There is mid cavitary flow acceleration in the setting of hyperdynamic LV function, but no LVOT obstruction at rest. No discrete left-ventricular late gadolinium enhancement to suggest prior ischemic injury, myocardial inflammation/fibrosis or an infiltrative process. - The right ventricle is normal in size (RV EDVi = 53 ml/m ). The right ventricular systolic function is normal (RV EF = 64 %). - The patient has not had a prior CC cardiac MR exam for comparison. * * * Final * * * RP Rail Technician: KEI Valerio Date/Time: Jan 11 2024 1:14P Dictated by : YANETH CAST MD This examination was interpreted and the report reviewed and electronically signed by: YANETH CAST MD on Jan 11 2024 5:18PM [facility] DIVISION OF RADIOLOGY Radiology Study observation (narrative) [facility] No Panel InformationOrdered By: [facility] Provider on 01-11-2024 [facility] Absolute lymphocyte countOrd ered By: Herbert Watts on 10-22-2023 Lymphocytes Auto (Unsp spec) [#/Vol] 2.10 10*3/uL 0.83-4.51 [facility] [place] Automated lymphocyte count a s percentage of total leukocytesOrdered By: Herbert Watts on 10-22-2023 Lymphocytes/100 WBC Auto (Unsp spec) 32.6 % 19-41 [facility] Basophil percentageOrdered B y: Herbert Watts on 10-22-2023 Basophils/100 WBC (Bld) 0.5 % 0-1 [facility] Eosinophils/100 WBC (Bld) 2.6 % 0-5 [facility] [place] Hemoglobin (Bld) [Mass/Vol] 11.5 g/dL 12.0-15.0 [facility] Monocytes/100 WBC (Bld) 6.4 % 0-10 [facility] Neutrophils (Bld) [#/Vol] 3.7 10*3/uL 2.0-7.7 [facility] [place] Neutrophils/100 WBC (Bld) 57.6 % 47-70 [facility] [place] WBC (Bld) [#/Vol] 6.5 10*3/uL 4.4-11.0 [facility] Determination of erythrocyte mean corpuscular volume (MCV)Ordered By: Herbert Watts on 10-22-2023 MCV (RBC) [Entitic vol] 87.1 fL 81-99 [facility] Erythrocyte distribution wid th ratioOrdered By: Herbert Watts on 10-22-2023 Erythrocyte distribution width (RBC) [Ratio] 13.5 % 11.6-14.6 [facility] [place] Erythrocyte distribution wid th standard deviationOrdered By: Herbert Watts on 10-22-2023 Erythrocyte distribution width (RBC) [Entitic vol] 42.2 fL 35.1-43.9 [facility] [place] Hematocrit Auto (Bld) [Volum e fraction]Ordered By: Herbert Watts on 10-22-2023 Hematocrit (Bld) [Volume fraction] 35.9 % 37-47 [facility] [place] Immature granulocytes/100 WB C Auto (Bld)Ordered By: [facility] Watts on 10-22-2023 Immature granulocytes/100 WBC (Bld) 0.300 % 0.0-0.9 [facility] Comment on above: IG% - Immature Granu locytes (promyelocytes, myelocytes and metamyelocytes) > 1% indicates that a LEFT SHIFT is Present. Laboratory - Hematology and Cell countsOrdered By: Herbert Watts on 10-22-2023 MCH (RBC) [Entitic mass] 27.9 pg 27.0-32.0 [facility] MCHC (RBC) [Mass/Vol] 32.0 g/dL 32-36 [facility] Nucleated RBC/100 WBC (Bld) [Ratio] 0 % 0-5 [facility] [place] Platelet mean volume (Bld) [Entitic vol] 11.7 fL 6.2-12.0 [facility] Platelets (Bld) [#/Vol] 342 10*3/uL 150-450 [facility] RBC Auto (Bld) [#/Vol]Ordere d By: Herbert Watts on 10-22-2023 RBC (Bld) [#/Vol] 4.12 10*6/uL 4.2-5.4 [facility] Basophil percentageOrdered B y: Gilma Felton on 10-01-2023 Bilirubin [Mass/Vol] 0.40 mg/dL 0.20-1.00 [facility] Comment on above: For patients on eltr ombopag therapy, use of Dimension [place] TBIL is not recommended. Chloride [Moles/Vol] 106 mmol/L 98-107 [facility] Cholesterol [Mass/Vol] 167 mg/dL <200 [facility] Comment on above: <200 mg/dL Desirable 200-240 mg/dL Borderline >240 mg/dL High Risk Glucose [Mass/Vol] 132 mg/dL 74-106 [facility] Comment on above: Fasting Glucose resu lt greater than or equal to 126 mg/dL suggests DIABETES MELLITUS per A.D.A. criteria. Potassium [Moles/Vol] 4.2 mmol/L 3.5-5.1 [facility] Protein [Mass/Vol] 7.8 g/dL 6.4-8.2 [facility] Sodium [Moles/Vol] 137 mmol/L 136-145 [facility] Triglyceride [Mass/Vol] 112 mg/dL <199 [facility] Comment on above: The drugs N-Acetylcy steine and Metamizole may falsely depress this assay.Serum Triglycerides Reference Interval Normal <150 mg/dL Borderline high 150 - 199 mg/dL High 200 - 499 mg/dL Very High > or = 500 mg/dL High density lipoprotein (HD L) measurementOrdered By: Gilma Felton on 10-01-2023 Cholesterol in HDL (Body fld) [Mass/Vol] 39 mg/dL >40 [facility] [place] Comment on above: The drugs N-Acetylcy steine and Metamizole may falsely depress this assay. Reference Range HDL <40 mg/dL Low HDL Cholesterol HDL >or= 60 mg/dL High HDL Cholesterol Laboratory - Chemistry and C hemistry - challengeOrdered By: Gilma Felton on 10-01-2023 Albumin/Globulin [Mass ratio] 1.1 {ratio} 0.9-2.4 [facility] [place] ALP [Catalytic activity/Vol] 43 U/L 45-117 [facility] [place] ALT [Catalytic activity/Vol] 25 U/L 13-56 [facility] [place] CO2 [Moles/Vol] 26.0 mmol/L 21.0-32.0 [facility] [place] Globulin (S) [Mass/Vol] 3.7 g/dL 2.2-4.2 [facility] Urea nitrogen/Creatinine [Mass ratio] 20.5 mg/mg 10-20 [facility] [place] Low density lipoprotein (LDL ) cholesterol measurementOrdered By: Gilma Felton on 10-01-2023 Cholesterol in LDL (Body fld) [Moles/Vol] 106 mg/dL 0-130 [facility] [place] No Panel InformationOrdered By: Gilma Felton on 10-01-2023 Estimated GFR (MDRD) Amer 59 mL/min >60 [facility] [place] Comment on above: GFR Calc Estimated GFR (MDRD) Non-Af Amer 49 mL/min >60 [facility] [place] Comment on above: Non- GFR Calc Serum or plasma calcium shireen urement (mass/volume)Ordered By: Gilma Felton on 10-01-2023 Calcium [Mass/Vol] 9.4 mg/dL 8.5-10.1 [facility] Serum or plasma creatinine m easurement (mass/volume)Ordered By: Gilma Felton on 10-01-2023 Creatinine [Mass/Vol] 1.22 mg/dL 0.55-1.02 [facility] Comment on above: The validity of the calculated GFR & GFRAA in patients over 70 years has not been determined. Clinical correlation is essential. Serum or plasma thyroid stim ulating hormone (TSH) measurement (units/volume)Ordered By: Gilma Felton on 10-01-2023 TSH Qn 1.14 uIU/mL 0.358-3.74 [facility] [place] Serum or plasma urea nitroge n measurement (mass/volume)Ordered By: Gilma Felton on 10-01-2023 Urea nitrogen [Mass/Vol] 25 mg/dL 7-18 [facility] [place] Thin prep Papanicolaou smear with manual screeningOrdered By: Gilma Felton on 10-01-2023 Thin prep Papanicolaou smear with manual screening 4.1 g/dL 3.2-5.0 [facility] [place] Thin prep Papanicolaou smear with manual screening 19 U/L 15-37 [facility] [place] Thin prep Papanicolaou smear with manual screening 5 5-15 [facility] [place] Thin prep Papanicolaou smear with manual screening 22.6 mg/L NO RANGE EST. [facility] [place] Urine albumin/creatinine rat io for detection of microalbuminuriaOrdered By: Gilma Felton on 10-01-2023 Albumin/Creatinine DL <= 1.0 mg/L (24H U) [Ratio] 12.6 mg/g CRE <30 [facility] [place] Urine creatinine measurement (mass/volume)Ordered By: Gilma Felton on 10-01-2023 Creatinine (U) [Mass/Vol] 179.00 mg/dL NO RANGE EST. [facility] [place] Very low density lipoprotein (VLDL) cholesterol measurementOrdered By: Gilma Felton on 10-01-2023 Cholesterol in VLDL Calc [Moles/Vol] 22 mg/dL 5-40 [facility] [place] Whole blood hemoglobin A1c/t otal hemoglobin ratio (mass fraction)Ordered By: Gimla Felton on 10-01-2023 HbA1c (Bld) [Mass fraction] 5.9 % 3.8-5.6 [facility] [place] Comment on above: Normal < 5.7 % Predi abetic 5.7 - 6.4 % Diabetic >or= 6.5 % Please note range changes. Basophil percentageOrdered B y: Gilma Felton on 09-07-2023 Bilirubin [Mass/Vol] 0.30 mg/dL 0.20-1.00 [facility] Comment on above: For patients on eltr ombopag therapy, use of Dimension [place] TBIL is not recommended. Chloride [Moles/Vol] 106 mmol/L 98-107 [facility] Cholesterol [Mass/Vol] 146 mg/dL <200 [facility] Comment on above: <200 mg/dL Desirable 200-240 mg/dL Borderline >240 mg/dL High Risk Glucose [Mass/Vol] 136 mg/dL 74-106 [facility] Comment on above: Fasting Glucose resu lt greater than or equal to 126 mg/dL suggests DIABETES MELLITUS per A.D.A. criteria. Potassium [Moles/Vol] 4.7 mmol/L 3.5-5.1 [facility] Comment on above: Slight Hemolysis, Re sult may be falsely increased. Protein [Mass/Vol] 7.7 g/dL 6.4-8.2 [facility] Sodium [Moles/Vol] 139 mmol/L 136-145 [facility] Triglyceride [Mass/Vol] 161 mg/dL <199 [facility] Comment on above: The drugs N-Acetylcy steine and Metamizole may falsely depress this assay.Serum Triglycerides Reference Interval Normal <150 mg/dL Borderline high 150 - 199 mg/dL High 200 - 499 mg/dL Very High > or = 500 mg/dL Laboratory - Chemistry and C hemistry - challengeOrdered By: Gilma Felton on 09-07-2023 ALP [Catalytic activity/Vol] 44 U/L 45-117 [facility] [place] ALT [Catalytic activity/Vol] 20 U/L 13-56 [facility] [place] CO2 [Moles/Vol] 28.0 mmol/L 21.0-32.0 [facility] [place] Globulin (S) [Mass/Vol] 3.6 g/dL 2.2-4.2 [facility] Urea nitrogen/Creatinine [Mass ratio] 19.5 mg/mg 10-20 [facility] [place] No Panel InformationOrdered By: Gilma Felton on 09-07-2023 Estimated GFR (MDRD) Amer 65 mL/min >60 [facility] [place] Comment on above: GFR Calc Estimated GFR (MDRD) Non-Af Amer 54 mL/min >60 [facility] [place] Comment on above: Non- GFR Calc Thyroid Stimulating Hormone (TSH) 1.54 uIU/mL 0.358-3.74 [facility] [place] Urine Microalbumin/Creatinine Ratio 19.3 mg/g CRE <30 [facility] [place] Serum or plasma albumin shireen urement (mass/volume)Ordered By: Gilma Felton on 09-07-2023 Albumin [Mass/Vol] 4.1 g/dL 3.2-5.0 [facility] Serum or plasma albumin/glob ulin mass ratioOrdered By: Gilma Felton on 09-07-2023 Albumin/Globulin [Mass ratio] 1.1 {ratio} 0.9-2.4 [facility] [place] Serum or plasma calcium shireen urement (mass/volume)Ordered By: Gilma Felton on 09-07-2023 Calcium [Mass/Vol] 9.1 mg/dL 8.5-10.1 [facility] Serum or plasma cholesterol in HDL measurement (mass/volume)Ordered By: Gilma Felton on 09-07-2023 Cholesterol in HDL [Mass/Vol] 35 mg/dL >40 [facility] [place] Comment on above: The drugs N-Acetylcy steine and Metamizole may falsely depress this assay. Reference Range HDL <40 mg/dL Low HDL Cholesterol HDL >or= 60 mg/dL High HDL Cholesterol Serum or plasma cholesterol in VLDL measurement (mass/volume)Ordered By: Gilma Felton on 09-07-2023 Cholesterol in VLDL [Mass/Vol] 32 mg/dL 5-40 [facility] [place] Serum or plasma creatinine m easurement (mass/volume)Ordered By: Gilma Felton on 09-07-2023 Creatinine [Mass/Vol] 1.13 mg/dL 0.55-1.02 [facility] Comment on above: The validity of the calculated GFR & GFRAA in patients over 70 years has not been determined. Clinical correlation is essential. Serum or plasma low density lipoprotein (LDL) cholesterol measurement (mass/volume)Ordered By: Gilma Felton on 09-07-2023 Cholesterol in LDL [Mass/Vol] 79 mg/dL 0-130 [facility] [place] Serum or plasma urea nitroge n measurement (mass/volume)Ordered By: Gilmaparker Felton on 09-07-2023 Urea nitrogen [Mass/Vol] 22 mg/dL 7-18 [facility] [place] Thin prep Papanicolaou smear with manual screeningOrdered By: Gilmaparker Felton on 09-07-2023 Thin prep Papanicolaou smear with manual screening 17 U/L 15-37 [facility] [place] Comment on above: Slight Hemolysis, Re sult may be falsely increased. Thin prep Papanicolaou smear with manual screening 5 5-15 [facility] [place] Thin prep Papanicolaou smear with manual screening 17.3 mg/L NO RANGE EST. [facility] [place] Urine creatinine measurement (mass/volume)Ordered By: Gilma Felton on 09-07-2023 Creatinine (U) [Mass/Vol] 89.70 mg/dL NO RANGE EST. [facility] Whole blood hemoglobin A1c/t otal hemoglobin ratio (mass fraction)Ordered By: Gilma Felton on 09-07-2023 HbA1c (Bld) [Mass fraction] 5.9 % 3.8-5.6 [facility] [place] Comment on above: Normal < 5.7 % Predi abetic 5.7 - 6.4 % Diabetic >or= 6.5 % Please note range changes. Basophil percentageOrdered B y: Gilma Felton on 04-19-2023 Bilirubin [Mass/Vol] 0.40 mg/dL 0.20-1.00 [facility] Comment on above: For patients on eltr ombopag therapy, use of [place]ension [place] TBIL is not recommended. Chloride [Moles/Vol] 104 mmol/L 98-107 [facility] Cholesterol [Mass/Vol] 157 mg/dL <200 [facility] Comment on above: <200 mg/dL Desirable 200-240 mg/dL Borderline >240 mg/dL High Risk Glucose [Mass/Vol] 124 mg/dL 74-106 [facility] Comment on above: Fasting Glucose resu lt from 100 to 125 mg/dL suggests IMPAIRED HOMEOSTASIS per A.D.A. criteria. Potassium [Moles/Vol] 4.5 mmol/L 3.5-5.1 [facility] Protein [Mass/Vol] 7.8 g/dL 6.4-8.2 [facility] Sodium [Moles/Vol] 136 mmol/L 136-145 [facility] Triglyceride [Mass/Vol] 98 mg/dL <199 [facility] Comment on above: The drugs N-Acetylcy steine and Metamizole may falsely depress this assay.Serum Triglycerides Reference Interval Normal <150 mg/dL Borderline high 150 - 199 mg/dL High 200 - 499 mg/dL Very High > or = 500 mg/dL Laboratory - Chemistry and C hemistry - challengeOrdered By: Gilma Felton on 04-19-2023 ALP [Catalytic activity/Vol] 52 U/L 45-117 [facility] [place] ALT [Catalytic activity/Vol] 22 U/L 13-56 [facility] [place] CO2 [Moles/Vol] 27.0 mmol/L 21.0-32.0 [facility] [place] Globulin (S) [Mass/Vol] 3.7 g/dL 2.2-4.2 [facility] Urea nitrogen/Creatinine [Mass ratio] 16.4 mg/mg 10-20 [facility] [place] No Panel InformationOrdered By: Gilma Felton on 04-19-2023 Estimated GFR (MDRD) Amer 63 mL/min >60 [facility] [place] Comment on above: GFR Calc Estimated GFR (MDRD) Non-Af Amer 52 mL/min >60 [facility] [place] Comment on above: Non- GFR Calc Thyroid Stimulating Hormone (TSH) 1.97 uIU/mL 0.358-3.74 [facility] [place] Vitamin D 25-Hydroxy 83.4 ng/mL [facility] Comment on above: Vitamin D 25(OH) Sta tus Range Deficiency <20 ng/mL (50nmol/L) Insufficiency 20 - 30 ng/mL (50 - 75 nmol/L) Sufficiency 30 - 100 ng/mL (75 - 250 nmol/L) Toxicity >100 ng/mL (>250 nmol/L) Serum or plasma albumin shireen urement (mass/volume)Ordered By: Gilma Felton on 04-19-2023 Albumin [Mass/Vol] 4.1 g/dL 3.2-5.0 [facility] Serum or plasma albumin/glob ulin mass ratioOrdered By: Gilmaparker Felton on 04-19-2023 Albumin/Globulin [Mass ratio] 1.1 {ratio} 0.9-2.4 [facility] [place] Serum or plasma calcium shireen urement (mass/volume)Ordered By: Gilma Felton on 04-19-2023 Calcium [Mass/Vol] 9.2 mg/dL 8.5-10.1 [facility] Serum or plasma cholesterol in HDL measurement (mass/volume)Ordered By: Gilma Felton on 04-19-2023 Cholesterol in HDL [Mass/Vol] 38 mg/dL >40 [facility] [place] Comment on above: The drugs N-Acetylcy steine and Metamizole may falsely depress this assay. Reference Range HDL <40 mg/dL Low HDL Cholesterol HDL >or= 60 mg/dL High HDL Cholesterol Serum or plasma cholesterol in VLDL measurement (mass/volume)Ordered By: Gilma Felton on 04-19-2023 Cholesterol in VLDL [Mass/Vol] 20 mg/dL 5-40 [facility] [place] Serum or plasma creatinine m easurement (mass/volume)Ordered By: Gilma Felton on 04-19-2023 Creatinine [Mass/Vol] 1.16 mg/dL 0.55-1.02 [facility] Comment on above: The validity of the calculated GFR & GFRAA in patients over 70 years has not been determined. Clinical correlation is essential. Serum or plasma low density lipoprotein (LDL) cholesterol measurement (mass/volume)Ordered By: Gilma Felton on 04-19-2023 Cholesterol in LDL [Mass/Vol] 99 mg/dL 0-130 [facility] [place] Serum or plasma urea nitroge n measurement (mass/volume)Ordered By: Gilma Felton on 04-19-2023 Urea nitrogen [Mass/Vol] 19 mg/dL 7-18 [facility] [place] Thin prep Papanicolaou smear with manual screeningOrdered By: Gilma Felton on 04-19-2023 Thin prep Papanicolaou smear with manual screening 16 U/L 15-37 [facility] [place] Thin prep Papanicolaou smear with manual screening 5 5-15 [facility] Whole blood hemoglobin A1c/t otal hemoglobin ratio (mass fraction)Ordered By: Gilma Felton on 04-19-2023 HbA1c (Bld) [Mass fraction] 6.2 % 3.8-5.6 [facility] [place] Comment on above: Normal < 5.7 % Predi abetic 5.7 - 6.4 % Diabetic >or= 6.5 % Please note range changes. Glucose Glucometer (BldC) [M ass/Vol]Ordered By: Derek Anglin on 03-12-2023 Glucose [Mass/Vol] 109 mg/dL 74-106 [facility] Comment on above: MANAGEMENT OF PATIEN T CARE PER NURSING PROTOCOL Laboratory - Chemistry and C hemistry - challengeOrdered By: Amilcar Reed on 03-12-2023 HCG ( test) Ql (U) Negative [facility] [place] Comment on above: Very dilute urine sp ecimens, as indicated by a low specificgravity, may not contain volunteer patient representative levels of hCG. If is still suspected, a first morning urinespecimen should be collected 48 hours later and tested. Absolute lymphocyte countOrd ered By: Jericho Degroot on 01-20-2023 Lymphocytes Auto (Unsp spec) [#/Vol] 2.04 10*3/uL 0.83-4.51 [facility] [place] Basophil percentageOrdered B y: Jericho Degroot on 01-20-2023 Basophils/100 WBC (Bld) 0.7 % 0-1 [facility] Eosinophils/100 WBC (Bld) 3.7 % 0-5 [facility] [place] Neutrophils (Bld) [#/Vol] 3.5 10*3/uL 2.0-7.7 [facility] Neutrophils/100 WBC (Bld) 56.2 % 47-70 [facility] WBC (Bld) [#/Vol] 6.2 10*3/uL 4.4-11.0 [facility] Blood erythrocytes count (nu mber/volume)Ordered By: Jericho Degroot on 01-20-2023 RBC (Bld) [#/Vol] 4.14 10*6/uL 4.2-5.4 [facility] Blood hemoglobin measurement (mass/volume)Ordered By: Jericho Degroot on 01-20-2023 Hemoglobin (Bld) [Mass/Vol] 11.9 g/dL 12.0-15.0 [facility] [place] Blood lymphocytes/100 leukoc ytesOrdered By: Jericho Degroot on 01-20-2023 Lymphocytes/100 WBC (Bld) 33.2 % 19-41 [facility] [place] Blood monocytes/100 leukocyt esOrdered By: Jericho Degroot on 01-20-2023 Monocytes/100 WBC (Bld) 5.5 % 0-10 [facility] Blood platelet mean volumeOr dered By: Jericho Degroot on 01-20-2023 Platelet mean volume (Bld) [Entitic vol] 11.2 fL 6.2-12.0 [facility] [place] Determination of erythrocyte mean corpuscular volume (MCV)Ordered By: Jericho Degroot on 01-20-2023 MCV (RBC) [Entitic vol] 88.9 fL 81-99 [facility] Hematocrit Auto (Bld) [Volum e fraction]Ordered By: Jericho Degroot on 01-20-2023 Hematocrit (Bld) [Volume fraction] 36.8 % 37-47 [facility] Iron measurement (mass/mass) Ordered By: Jericho Degroot on 01-20-2023 Iron (Unsp spec) [Mass/Mass] 101 ug/dL 50-170 [facility] [facility] [place] Laboratory - Chemistry and C hemistry - challengeOrdered By: Jericho Degroot on 01-20-2023 Cobalamin (Vitamin B12) [Mass/Vol] 1413 pg/mL 211-911 [facility] [place] Laboratory - Hematology and Cell countsOrdered By: Jericho Degroot on 01-20-2023 Erythrocyte distribution width (RBC) [Entitic vol] 44.6 fL 35.1-43.9 [facility] [place] Erythrocyte distribution width (RBC) [Ratio] 13.7 % 11.6-14.6 [facility] [place] Immature granulocytes/100 WBC (Bld) 0.700 % 0.0-0.9 [facility] [place] Comment on above: IG% - Immature Granu locytes (promyelocytes, myelocytes and metamyelocytes) > 1% indicates that a LEFT SHIFT is Present. MCH (RBC) [Entitic mass] 28.7 pg 27.0-32.0 [facility] [place] Nucleated RBC/100 WBC (Bld) [Ratio] 0 % 0-5 [facility] [place] MCHC Auto (RBC) [Mass/Vol]Or dered By: Jericho Degroot on 01-20-2023 MCHC (RBC) [Mass/Vol] 32.3 g/dL 32-36 [facility] No Panel InformationOrdered By: Jericho Degroot on 01-20-2023 Total Iron Binding Capacity 526 ug/dL 250-450 [facility] [place] Vitamin D 25-Hydroxy 87.8 ng/mL [facility] Comment on above: Vitamin D 25(OH) Sta tus Range Deficiency <20 ng/mL (50nmol/L) Insufficiency 20 - 30 ng/mL (50 - 75 nmol/L) Sufficiency 30 - 100 ng/mL (75 - 250 nmol/L) Toxicity >100 ng/mL (>250 nmol/L) Platelets bldOrdered By: Bertha Degroot on 01-20-2023 Platelets (Bld) [#/Vol] 362 10*3/uL 150-450 [facility] [place] Serum or plasma ferritin shauna surement (mass/volume)Ordered By: Jericho Degroot on 01-20-2023 Ferritin [Mass/Vol] 36 ng/mL 8-252 [facility] Serum or plasma iron saturat ion measurement (mass fraction)Ordered By: Jericho Degroot on 01-20-2023 Iron saturation [Mass fraction] 19.2 % 15.0-55.0 [facility] [place] Basophil percentageOrdered B y: Dr. Felton on 11-16-2022 Bilirubin [Mass/Vol] 0.40 mg/dL 0.20-1.00 [facility] Comment on above: For patients on eltr ombopag therapy, use of Dimension [place] TBIL is not recommended. Chloride [Moles/Vol] 106 mmol/L 98-107 [facility] Cholesterol [Mass/Vol] 162 mg/dL <200 [facility] Comment on above: <200 mg/dL Desirable 200-240 mg/dL Borderline >240 mg/dL High Risk Glucose [Mass/Vol] 126 mg/dL 74-106 [facility] Comment on above: Fasting Glucose resu lt greater than or equal to 126 mg/dL suggests DIABETES MELLITUS per A.D.A. criteria. Potassium [Moles/Vol] 4.2 mmol/L 3.5-5.1 [facility] Protein [Mass/Vol] 7.7 g/dL 6.4-8.2 [facility] Sodium [Moles/Vol] 140 mmol/L 136-145 [facility] Triglyceride [Mass/Vol] 118 mg/dL <199 [facility] Comment on above: The drugs N-Acetylcy steine and Metamizole may falsely depress this assay.Serum Triglycerides Reference Interval Normal <150 mg/dL Borderline high 150 - 199 mg/dL High 200 - 499 mg/dL Very High > or = 500 mg/dL Laboratory - Chemistry and C hemistry - challengeOrdered By: Dr. Felton on 11-16-2022 ALP [Catalytic activity/Vol] 41 U/L 45-117 [facility] [place] ALT [Catalytic activity/Vol] 29 U/L 13-56 [facility] [place] CO2 [Moles/Vol] 29.0 mmol/L 21.0-32.0 [facility] [place] Free T4 [Mass/Vol] 1.27 ng/dL 0.76-1.46 [facility] Globulin (S) [Mass/Vol] 3.5 g/dL 2.2-4.2 [facility] Urea nitrogen/Creatinine [Mass ratio] 19.1 mg/mg 10-20 [facility] [place] No Panel InformationOrdered By: Dr. Felton on 11-16-2022 Estimated GFR (MDRD) Amer 67 mL/min >60 [facility] [place] Comment on above: GFR Calc Estimated GFR (MDRD) Non-Af Amer 56 mL/min >60 [facility] [place] Comment on above: Non- GFR Calc Thyroid Stimulating Hormone (TSH) 1.45 uIU/mL 0.358-3.74 [facility] [place] Vitamin D 25-Hydroxy 75.5 ng/mL [facility] Comment on above: Vitamin D 25(OH) Sta tus Range Deficiency <20 ng/mL (50nmol/L) Insufficiency 20 - 30 ng/mL (50 - 75 nmol/L) Sufficiency 30 - 100 ng/mL (75 - 250 nmol/L) Toxicity >100 ng/mL (>250 nmol/L) Serum or plasma albumin shireen urement (mass/volume)Ordered By: Dr. Felton on 11-16-2022 Albumin [Mass/Vol] 4.2 g/dL 3.2-5.0 [facility] Serum or plasma albumin/glob ulin mass ratioOrdered By: Dr. Felton on 11-16-2022 Albumin/Globulin [Mass ratio] 1.2 {ratio} 0.9-2.4 [facility] [place] Serum or plasma calcium shireen urement (mass/volume)Ordered By: Dr. Felton on 11-16-2022 Calcium [Mass/Vol] 9.6 mg/dL 8.5-10.1 [facility] Serum or plasma cholesterol in HDL measurement (mass/volume)Ordered By: Dr. Felton on 11-16-2022 Cholesterol in HDL [Mass/Vol] 40 mg/dL >40 [facility] [place] Comment on above: The drugs N-Acetylcy steine and Metamizole may falsely depress this assay. Reference Range HDL <40 mg/dL Low HDL Cholesterol HDL >or= 60 mg/dL High HDL Cholesterol Serum or plasma cholesterol in VLDL measurement (mass/volume)Ordered By: Dr. Felton on 11-16-2022 Cholesterol in VLDL [Mass/Vol] 24 mg/dL 5-40 [facility] [place] Serum or plasma creatinine m easurement (mass/volume)Ordered By: Dr. Felton on 11-16-2022 Creatinine [Mass/Vol] 1.10 mg/dL 0.55-1.02 [facility] Comment on above: The validity of the calculated GFR & GFRAA in patients over 70 years has not been determined. Clinical correlation is essential. Serum or plasma low density lipoprotein (LDL) cholesterol measurement (mass/volume)Ordered By: Dr. Felton on 11-16-2022 Cholesterol in LDL [Mass/Vol] 98 mg/dL 0-130 [facility] [place] Serum or plasma urea nitroge n measurement (mass/volume)Ordered By: Dr. Felton on 11-16-2022 Urea nitrogen [Mass/Vol] 21 mg/dL 7-18 [facility] [place] Thin prep Papanicolaou smear with manual screeningOrdered By: Dr. Felton on 11-16-2022 Thin prep Papanicolaou smear with manual screening 26 U/L 15-37 [facility] [place] Thin prep Papanicolaou smear with manual screening 5 5-15 [facility] [place] Thin prep Papanicolaou smear with manual screening 11.1 mg/L NO RANGE EST. [facility] [place] Whole blood hemoglobin A1c/t otal hemoglobin ratio (mass fraction)Ordered By: Dr. Felton on 11-16-2022 HbA1c (Bld) [Mass fraction] 5.9 % 3.8-5.6 [facility] [place] Comment on above: Normal < 5.7 % Predi abetic 5.7 - 6.4 % Diabetic >or= 6.5 % Please note range changes. No Panel InformationOrdered By: Darrel Hurst on 09-15-2022 Stool Pancreatic Elastase 156 >200 [facility] [place] Comment on above: Result Units: ug Madai st./g Severe Pancreatic Insufficiency: <100 Moderate Pancreatic Insufficiency: 100 - 200 Normal: >200Performed at: - [facility] [id number] Director: Maria R Deutsch MD, Phone: [phone] Arben 07-29-2022 [facility] -------- DARREL BENNETT ([id number]) 1970 F Date Time Provider Department 07/29/22 12:00 PM EVENS FERGUSON During your visit today, we recorded the following information about you: Temperature Pulse Blood pressure Weight 98.2 degrees 79/minute 135/89 74.4 kg Height 1.575 m Evens Ferguson MD 07/29/2022 12:40 PM Addendum This note was created using [employer]. Subjective Darrel Bennett is a 52 year old female. 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 ( recent [...] bilateral ( onset 09/2019 ) Paresthesia feet 2019 reported 07/28 visit not present. No NCS done 07/23/2020 CTS mild just observe. Trigger finger ( left 4th ) 07/23/2020 observe Insomnia 2019 onset TREATMENT tylenol pm used with relief past OFF za (more content not included)... Normal [facility] Basophil percentageOrdered B y: Dr. Felton on 07-14-2022 Bilirubin [Mass/Vol] 0.40 mg/dL 0.20-1.00 [facility] Comment on above: For patients on eltr ombopag therapy, use of [place]ension [place] TBIL is not recommended. Chloride [Moles/Vol] 103 mmol/L 98-107 [facility] Cholesterol [Mass/Vol] 161 mg/dL <200 [facility] Comment on above: <200 mg/dL Desirable 200-240 mg/dL Borderline >240 mg/dL High Risk Glucose [Mass/Vol] 185 mg/dL 74-106 [facility] Comment on above: Fasting Glucose resu lt greater than or equal to 126 mg/dL suggests DIABETES MELLITUS per A.D.A. criteria. Potassium [Moles/Vol] 4.3 mmol/L 3.5-5.1 [facility] Protein [Mass/Vol] 7.9 g/dL 6.4-8.2 [facility] Sodium [Moles/Vol] 137 mmol/L 136-145 [facility] Triglyceride [Mass/Vol] 118 mg/dL <199 [facility] Comment on above: The drugs N-Acetylcy steine and Metamizole may falsely depress this assay.Serum Triglycerides Reference Interval Normal <150 mg/dL Borderline high 150 - 199 mg/dL High 200 - 499 mg/dL Very High > or = 500 mg/dL Laboratory - Chemistry and C hemistry - challengeOrdered By: Dr. Felton on 07-14-2022 ALP [Catalytic activity/Vol] 48 U/L 45-117 [facility] [place] ALT [Catalytic activity/Vol] 35 U/L 13-56 [facility] [place] CO2 [Moles/Vol] 28.0 mmol/L 21.0-32.0 [facility] [place] Free T4 [Mass/Vol] 1.53 ng/dL 0.76-1.46 [facility] Globulin (S) [Mass/Vol] 3.6 g/dL 2.2-4.2 [facility] Urea nitrogen/Creatinine [Mass ratio] 22.0 mg/mg 10-20 [facility] [place] No Panel InformationOrdered By: Dr. Felton on 07-14-2022 Estimated GFR (MDRD) Amer 62 mL/min >60 [facility] [place] Comment on above: GFR Calc Estimated GFR (MDRD) Non-Af Amer 51 mL/min >60 [facility] [place] Comment on above: Non- GFR Calc Thyroid Stimulating Hormone (TSH) 0.55 uIU/mL 0.358-3.74 [facility] [place] Serum or plasma albumin shireen urement (mass/volume)Ordered By: Dr. Felton on 07-14-2022 Albumin [Mass/Vol] 4.3 g/dL 3.2-5.0 [facility] Serum or plasma albumin/glob ulin mass ratioOrdered By: Dr. Felton on 07-14-2022 Albumin/Globulin [Mass ratio] 1.2 {ratio} 0.9-2.4 [facility] [place] Serum or plasma calcium shireen urement (mass/volume)Ordered By: Dr. Felton on 07-14-2022 Calcium [Mass/Vol] 9.8 mg/dL 8.5-10.1 [facility] Serum or plasma cholesterol in HDL measurement (mass/volume)Ordered By: Dr. Felton on 07-14-2022 Cholesterol in HDL [Mass/Vol] 39 mg/dL >40 [facility] [place] Comment on above: The drugs N-Acetylcy steine and Metamizole may falsely depress this assay. Reference Range HDL <40 mg/dL Low HDL Cholesterol HDL >or= 60 mg/dL High HDL Cholesterol Serum or plasma cholesterol in VLDL measurement (mass/volume)Ordered By: Dr. Felton on 07-14-2022 Cholesterol in VLDL [Mass/Vol] 24 mg/dL 5-40 [facility] [place] Serum or plasma creatinine m easurement (mass/volume)Ordered By: Dr. Felton on 07-14-2022 Creatinine [Mass/Vol] 1.18 mg/dL 0.55-1.02 [facility] Comment on above: The validity of the calculated GFR & GFRAA in patients over 70 years has not been determined. Clinical correlation is essential. Serum or plasma low density lipoprotein (LDL) cholesterol measurement (mass/volume)Ordered By: Dr. Felton on 07-14-2022 Cholesterol in LDL [Mass/Vol] 98 mg/dL 0-130 [facility] [place] Serum or plasma urea nitroge n measurement (mass/volume)Ordered By: Dr. Felton on 07-14-2022 Urea nitrogen [Mass/Vol] 26 mg/dL 7-18 [facility] [place] Thin prep Papanicolaou smear with manual screeningOrdered By: Dr. Felton on 07-14-2022 Thin prep Papanicolaou smear with manual screening 27 U/L 15-37 [facility] [place] Thin prep Papanicolaou smear with manual screening 6 5-15 [facility] [place] Thin prep Papanicolaou smear with manual screening 53.5 mg/L NO RANGE EST. [facility] [place] Whole blood hemoglobin A1c/t otal hemoglobin ratio (mass fraction)Ordered By: Dr. Felton on 07-14-2022 HbA1c (Bld) [Mass fraction] 7.4 % 3.8-5.6 [facility] [place] Comment on above: Normal < 5.7 % Predi abetic 5.7 - 6.4 % Diabetic >or= 6.5 % Please note range changes. Cervical or vagninal specime n microscopic examination by cytology stain (reported ason 04-29-2022 Cytology report Cyto stain Doc (Cvx/Vag) Comment . [facility] [place] Work Phone: Comment on above: The Pap smear is a s creening test designed to aid in thedetection of premalignant and malignant conditions of theuterine cervix. It is not a diagnostic procedure andshould not be used as the sole means of detecting cervicalcancer. Both false-positive and false-negative reports dooccur. Laboratory - Cytologyon 04-07 Kiln Operator Helper Cyto stain Nom (Cvx/Vag) [ID] Comment . [facility] [place] Work Phone: Comment on above: Aide Perry, Cyto technologist (ASCP) Laboratory - Miscellaneous t estson 04-29-2022 Service comment (Unsp spec) [Interp] TNP [facility] [place] Work Phone: Comment on above: Test not performedTh e Thin Prep(R) Oxidation Operator was unable to read this specimen.Therefore a manual review was performed. Service comment (Unsp spec) [Interp] . . [facility] [place] Work Phone: No Panel Informationon 04-29 Human Papillomavirus Screen Comment . [facility] [place] Work Phone: Comment on above: The HPV DNA reflex c tyler were not met with this specimenresult therefore, no HPV testing was performed.Performed at: [address] [id number] Director: Zoey Avalos MD, Phone: [phone] Pathology report final diagnosis Narrative Comment . [facility] [place] Work Phone: Comment on above: NEGATIVE FOR INTRAEP ITHELIAL LESION OR MALIGNANCY. Basophil percentageon 2021 Bilirubin [Mass/Vol] 0.40 mg/dL 0.20-1.00 [facility] Work Phone: Comment on above: For patients on eltr ombopag therapy, use of [place]ension [place] TBIL is not recommended. Chloride [Moles/Vol] 103 mmol/L 98-107 [facility] Work Phone: Cholesterol [Mass/Vol] 189 mg/dL <200 [facility] Work Phone: Comment on above: <200 mg/dL Desirable 200-240 mg/dL Borderline >240 mg/dL High Risk Glucose [Mass/Vol] 203 mg/dL 74-106 [facility] Work Phone: Comment on above: Glucose result great er than or equal to 200 mg/dLsuggests DIABETES MELLITUS per A.D.A. criteria. Potassium [Moles/Vol] 4.4 mmol/L 3.5-5.1 [facility] Work Phone: Protein [Mass/Vol] 8.0 g/dL 6.4-8.2 [facility] Work Phone: Sodium [Moles/Vol] 136 mmol/L 136-145 [facility] Work Phone: Triglyceride [Mass/Vol] 355 mg/dL <199 [facility] Work Phone: Comment on above: The drugs N-Acetylcy steine and Metamizole may falsely depress this assay.Serum Triglycerides Reference Interval Normal <150 mg/dL Borderline high 150 - 199 mg/dL High 200 - 499 mg/dL Very High > or = 500 mg/dL Laboratory - Chemistry and C hemistry - challengeon 04-20-2022 ALP [Catalytic activity/Vol] 79 U/L 45-117 [facility] [place] Work Phone: ALT [Catalytic activity/Vol] 57 U/L 13-56 [facility] [place] Work Phone: CO2 [Moles/Vol] 26.0 mmol/L 21.0-32.0 [facility] [place] Work Phone: Globulin (S) [Mass/Vol] 3.8 g/dL 2.2-4.2 [facility] Work Phone: Urea nitrogen/Creatinine [Mass ratio] 20.9 mg/mg 10-20 [facility] [place] Work Phone: No Panel Informationon 04-20 C-Peptide 5.9 ng/mL 1.1-4.4 [facility] [place] Work Phone: Comment on above: C-Peptide reference interval is for fasting patients.Performed at: [employer] [facility] - [facility] [id number] Director: Jose Raul Dacosta PhD, Phone: [phone] Estimated GFR (MDRD) Amer 84 mL/min >60 [facility] [place] Work Phone: Comment on above: GFR Calc Estimated GFR (MDRD) Non-Af Amer 70 mL/min >60 [facility] [place] Work Phone: Comment on above: Non- GFR Calc Insulin Level 32.6 mU/L 2.6-37.6 [facility] [place] Work Phone: Thyroid Stimulating Hormone (TSH) 2.01 uIU/mL 0.358-3.74 [facility] [place] Work Phone: Vitamin D 25-Hydroxy 74.4 ng/mL [facility] Work Phone: Comment on above: Vitamin D 25(OH) Sta tus Range Deficiency <20 ng/mL (50nmol/L) Insufficiency 20 - 30 ng/mL (50 - 75 nmol/L) Sufficiency 30 - 100 ng/mL (75 - 250 nmol/L) Toxicity >100 ng/mL (>250 nmol/L) Serum or plasma albumin shireen urement (mass/volume)on 04-20-2022 Albumin [Mass/Vol] 4.2 g/dL 3.2-5.0 [facility] Work Phone: Serum or plasma albumin/glob ulin mass ratioon 04-20-2022 Albumin/Globulin [Mass ratio] 1.1 {ratio} 0.9-2.4 [facility] [place] Work Phone: Serum or plasma calcium shireen urement (mass/volume)on 04-20-2022 Calcium [Mass/Vol] 9.6 mg/dL 8.5-10.1 [facility] Work Phone: Serum or plasma cholesterol in HDL measurement (mass/volume)on 04-20-2022 Cholesterol in HDL [Mass/Vol] 35 mg/dL >40 [facility] [place] Work Phone: Comment on above: The drugs N-Acetylcy steine and Metamizole may falsely depress this assay. Reference Range HDL <40 mg/dL Low HDL Cholesterol HDL >or= 60 mg/dL High HDL Cholesterol Serum or plasma cholesterol in VLDL measurement (mass/volume)on 04-20-2022 Cholesterol in VLDL [Mass/Vol] 71 mg/dL 5-40 [facility] [place] Work Phone: Serum or plasma creatinine m easurement (mass/volume)on 04-20-2022 Creatinine [Mass/Vol] 0.91 mg/dL 0.55-1.02 [facility] Work Phone: Comment on above: The validity of the calculated GFR & GFRAA in patients over 70 years has not been determined. Clinical correlation is essential. Serum or plasma low density lipoprotein (LDL) cholesterol measurement (mass/volume)on 04-20-2022 Cholesterol in LDL [Mass/Vol] 83 mg/dL 0-130 [facility] [place] Work Phone: Serum or plasma urea nitroge n measurement (mass/volume)on 04-20-2022 Urea nitrogen [Mass/Vol] 19 mg/dL 7-18 [facility] [place] Work Phone: Thin prep Papanicolaou smear with manual screeningon 04-20-2022 Thin prep Papanicolaou smear with manual screening 33 U/L 15-37 [facility] [place] Work Phone: Thin prep Papanicolaou smear with manual screening 7 5-15 [facility] [place] Work Phone: Thin prep Papanicolaou smear with manual screening 47.8 mg/L NO RANGE EST. [facility] [place] Work Phone: Absolute lymphocyte counton 01-27-2022 Lymphocytes Auto (Unsp spec) [#/Vol] 1.92 10*3/uL 0.83-4.51 [facility] [place] Work Phone: Atypical perinuclear antineu trophil cytoplasmic antibodies measurementon 01-27-2022 Neutrophil cytoplasmic Ab.perinuclear.atypical IF (S) [Titer] <1:20 titer Neg:<1:20 [facility] [place] Work Phone: Comment on above: The atypical pANCA p attern has been observed in asignificant percentage of patients with ulcerative colitis,primary sclerosing cholangitis and autoimmune hepatitis. Basophil percentageon 2021 Ammonia (P) [Moles/Vol] 19.0 umol/L 11-32 [facility] [place] Work Phone: Basophil percentage < 0.2 AI 0.0-0.9 [facility] Work Phone: Basophils/100 WBC (Bld) 0.6 % 0-1 [facility] Work Phone: Bilirubin [Mass/Vol] 0.30 mg/dL 0.20-1.00 [facility] Work Phone: [phone] Comment on above: For patients on eltr ombopag therapy, use of Dimension [place] TBIL is not recommended. Chloride [Moles/Vol] 103 mmol/L 98-107 [facility] Work Phone: [phone] Eosinophils/100 WBC (Bld) 3.6 % 0-5 [facility] [place] Work Phone: Glucose [Mass/Vol] 225 mg/dL 74-106 [facility] Work Phone: Comment on above: Glucose result great er than or equal to 200 mg/dLsuggests DIABETES MELLITUS per A.D.A. criteria. Neutrophils (Bld) [#/Vol] 3.6 10*3/uL 2.0-7.7 [facility] [place] Work Phone: Neutrophils/100 WBC (Bld) 57.9 % 47-70 [facility] [place] Work Phone: Potassium [Moles/Vol] 4.5 mmol/L 3.5-5.1 [facility] Work Phone: Protein [Mass/Vol] 8.8 g/dL 6.4-8.2 [facility] Work Phone: Sodium [Moles/Vol] 136 mmol/L 136-145 [facility] Work Phone: WBC (Bld) [#/Vol] 6.2 10*3/uL 4.4-11.0 [facility] Work Phone: Blood erythrocytes count (nu mber/volume)on 01-27-2022 RBC (Bld) [#/Vol] 4.39 10*6/uL 4.2-5.4 [facility] Work Phone: Blood hemoglobin measurement (mass/volume)on 01-27-2022 Hemoglobin (Bld) [Mass/Vol] 12.9 g/dL 12.0-15.0 [facility] [place] Work Phone: Blood lymphocytes/100 leukoc yteson 01-27-2022 Lymphocytes/100 WBC (Bld) 31.1 % 19-41 [facility] [place] Work Phone: Blood monocytes/100 leukocyt eson 01-27-2022 Monocytes/100 WBC (Bld) 6.0 % 0-10 [facility] Work Phone: Blood platelet mean volumeon 01-27-2022 Platelet mean volume (Bld) [Entitic vol] 10.7 fL 6.2-12.0 [facility] [place] Work Phone: Determination of erythrocyte mean corpuscular volume (MCV)on 01-27-2022 MCV (RBC) [Entitic vol] 88.4 fL 81-99 [facility] Work Phone: Erythrocyte sedimentation ra sudeep 01-27-2022 ESR (Bld) [Velocity] 20 mm/h 0-30 [facility] Work Phone: HIV 1 and HIV-2 antibody ass ay with HIV-1 p24 antigen detectionon 01-27-2022 HIV 1+2 Ab+HIV1 p24 Ag IA Ql Non-Reactive Nonreactive [facility] [place] Work Phone: Hematocrit Auto (Bld) [Volum e fraction]on 01-27-2022 Hematocrit (Bld) [Volume fraction] 38.8 % 37-47 [facility] [place] Work Phone: INR in Blood by Coagulation assayon 01-27-2022 INR Coag (Bld) [Relative time] 1.1 {INR} [facility] [place] Work Phone: Laboratory - Chemistry and C hemistry - challengeon 01-27-2022 ALP [Catalytic activity/Vol] 86 U/L 45-117 [facility] [place] Work Phone: ALT [Catalytic activity/Vol] 84 U/L 13-56 [facility] [place] Work Phone: CO2 [Moles/Vol] 26.0 mmol/L 21.0-32.0 [facility] [place] Work Phone: Globulin (S) [Mass/Vol] 4.1 g/dL 2.2-4.2 [facility] Work Phone: Urea nitrogen/Creatinine [Mass ratio] 17.6 mg/mg 10-20 [facility] [place] Work Phone: Laboratory - Coagulationon 0 01-27-2022 PT Coag (PPP) [Time] 13.5 s 11.7-14.9 [facility] Work Phone: Laboratory - Hematology and Cell countson 01-27-2022 Erythrocyte distribution width (RBC) [Entitic vol] 42.0 fL 35.1-43.9 [facility] [place] Work Phone: Erythrocyte distribution width (RBC) [Ratio] 12.8 % 11.6-14.6 [facility] [place] Work Phone: Immature granulocytes/100 WBC (Bld) 0.800 % 0.0-0.9 [facility] [place] Work Phone: Comment on above: IG% - Immature Granu locytes (promyelocytes, myelocytes and metamyelocytes) > 1% indicates that a LEFT SHIFT is Present. MCH (RBC) [Entitic mass] 29.4 pg 27.0-32.0 [facility] [place] Work Phone: Nucleated RBC/100 WBC (Bld) [Ratio] 0 % 0-5 [facility] [place] Work Phone: MCHC Auto (RBC) [Mass/Vol]on 01-27-2022 MCHC (RBC) [Mass/Vol] 33.2 g/dL 32-36 [facility] Work Phone: No Panel Informationon 01-27 Centromere B Antibody <0.2 AI 0.0-0.9 [facility] Work Phone: Ceruloplasmin 24.6 mg/dL 19.0-39.0 [facility] [place] Work Phone: Estimated GFR (MDRD) Amer 78 mL/min >60 [facility] [place] Work Phone: Comment on above: GFR Calc Estimated GFR (MDRD) Non-Af Amer 65 mL/min >60 [facility] [place] Work Phone: Comment on above: Non- GFR Calc Haptoglobin 194 mg/dL 42-296 [facility] [place] Work Phone: Comment on above: Performed at: [address] [id number] Director: Jose Raul Dacosta PhD, Phone: [phone] at: [facility] [id number] Director: Maria R Deutsch MD, Phone: [phone] Hepatitis A IgM Antibody Negative Negative [facility] [place] Work Phone: Hepatitis B Core IgM Antibody Negative Negative [facility] [place] Work Phone: Hepatitis C Antibody (EIA) <0.1 s/co ratio 0.0-0.9 [facility] [place] Work Phone: Hepatitis C Antibody Comment Comment . [facility] [place] Work Phone: Comment on above: NegativeNot infected with HCV, unless recent infection issuspected or other evidence exists to indicate HCVinfection. TELEHEALTH NURSE EDUCATOR Antibody 0.2 AI 0.0-0.9 [facility] [place] Work Phone: Platelets bldon 01-27-2022 Platelets (Bld) [#/Vol] 319 10*3/uL 150-450 [facility] [place] Work Phone: Serum DNA double strand anti body assay (units/volume)on 01-27-2022 DNA double strand Ab Qn (S) [IU]/mL 0-9 [facility] [place] Work Phone: Comment on above: Negative <5 Equivoca l 5 - 9 Positive >9 Serum Anias-1 antibody assay (u nits/volume)on 01-27-2022 Anais-1 extractable nuclear Ab Qn (S) <0.2 AI 0.0-0.9 [facility] [place] Work Phone: Serum Scl-70 extractable nuc lear antibody assay (units/volume)on 01-27-2022 SCL-70 extractable nuclear Ab Qn (S) <0.2 AI 0.0-0.9 [facility] [place] Work Phone: Serum Dubose extractable nucl ear antibody detectionon 01-27-2022 Dubose extractable nuclear Ab Ql (S) <0.2 AI 0.0-0.9 [facility] [place] Work Phone: Serum classic neutrophil cyt oplasmic antibody assay (units/volume)on 01-27-2022 Neutrophil cytoplasmic Ab.classic Qn (S) <1:20 titer Neg:<1:20 [facility] [place] Work Phone: Serum mitochondria antibody detectionon 01-27-2022 Mitochondria Ab Ql (S) <20.0 Units 0.0-20.0 [facility] Work Phone: Comment on above: Negative 0.0 - 20.0 Equivocal 20.1 - 24.9 Positive >24.9Mitochondrial (M2) Antibodies are found in 90-96% ofpatients with primary biliary cirrhosis.Performed at: [facility] [address] [id number] Director: Jose Raul Dacosta PhD, Phone: [phone] Serum or plasma C reactive p rotein measurement (mass/volume)on 01-27-2022 CRP [Mass/Vol] mg/L 0.0-3.0 [facility] [place] Work Phone: Comment on above: C-Reactive Protein ( CRP) provides useful information for thediagnosis, therapy and monitoring of inflammatory processesand associated diseases. For the evaluation of Relative Riskfor Cardiovascular Disease, a High Sensitivity CRP (HSCRP)should be ordered. Serum or plasma actin IgG an tibody assay (units/volume)on 01-27-2022 Actin IgG Qn 3 Units 0-19 [facility] [place] Work Phone: Comment on above: Negative 0 - 19 Weak positive 20 - 30 Moderate to strong positive >30 Actin Antibodies are found in 52-85% of patients with autoimmune hepatitis or chronic active hepatitis and in 22% of patients with primary biliary cirrhosis. Serum or plasma albumin shrieen urement (mass/volume)on 01-27-2022 Albumin [Mass/Vol] 4.7 g/dL 3.2-5.0 [facility] Work Phone: Serum or plasma albumin/glob ulin mass ratioon 01-27-2022 Albumin/Globulin [Mass ratio] 1.1 {ratio} 0.9-2.4 [facility] [place] Work Phone: Serum or plasma [id number] protein tumor marker measurement (units/volume)on 01-27-2022 AFP.tumor marker Qn 1.3 ng/mL 0.0-6.4 [facility] Work Phone: Comment on above: [employer] [employer] El ectrochemiluminescence Immunoassay(ECLIA)Values obtained with different assay methods or kits cannotbe used interchangeably. Results cannot be interpreted asabsolute evidence of the presence or absence of malignantdisease.This test is not interpretable in females. Serum or plasma angiotensin converting enzyme measurement (enzymatic activity/volume)on 01-27-2022 Angiotensin converting enzyme [Catalytic activity/Vol] U/L 14-82 [facility] [place] Work Phone: Serum or plasma calcium shireen urement (mass/volume)on 01-27-2022 Calcium [Mass/Vol] 9.7 mg/dL 8.5-10.1 [facility] Work Phone: Serum or plasma creatinine m easurement (mass/volume)on 01-27-2022 Creatinine [Mass/Vol] 0.97 mg/dL 0.55-1.02 [facility] Work Phone: Comment on above: The validity of the calculated GFR & GFRAA in patients over 70 years has not been determined. Clinical correlation is essential. Serum or plasma ferritin shauna surement (mass/volume)on 01-27-2022 Ferritin [Mass/Vol] 52 ng/mL 8-252 [facility] Work Phone: Serum or plasma hepatitis B virus surface antigen detection by immunoassayon 01-27-2022 HBV surface Ag IA Ql Negative Negative [facility] Work Phone: Serum or plasma urea nitroge n measurement (mass/volume)on 01-27-2022 Urea nitrogen [Mass/Vol] 17 mg/dL 7-18 [facility] [place] Work Phone: Serum perinuclear neutrophil cytoplasmic antibody titer by immunofluorescenceon 01-27-2022 Neutrophil cytoplasmic Ab.perinuclear IF (S) [Titer] <1:20 titer Neg:<1:20 [facility] [place] Work Phone: Comment on above: The presence of posi tive fluorescence exhibiting P-ANCA orC-ANCA patterns alone is not specific for the diagnosis ofWegener's Granulomatosis (WG) or microscopic polyangiitis.Decisions about treatment should not be based solely onANCA IFA results. The [employer] Consensusrecommends follow up testing of positive sera with both NC-3 and MPO-ANCA enzyme immunoassays. As many as 5% serumsamples are positive only by EIA. Ref. AM J Clin Guubzc7423;111:507-513. Thin prep Papanicolaou smear with manual screeningon 01-27-2022 Thin prep Papanicolaou smear with manual screening 57 U/L 15-37 [facility] [place] Work Phone: Thin prep Papanicolaou smear with manual screening 7 5-15 [facility] [place] Work Phone: Thin prep Papanicolaou smear with manual screening 182 U/L 84-246 [facility] [place] Work Phone: Thin prep Papanicolaou smear with manual screening 118 ug/dL 80-158 [facility] [place] Work Phone: Comment on above: Detection Limit = 5 Whole blood hemoglobin A1c/t otal hemoglobin ratio (mass fraction)on 01-27-2022 HbA1c (Bld) [Mass fraction] 6.9 % 3.8-5.6 [facility] [place] Work Phone: Comment on above: Normal < 5.7 % Predi abetic 5.7 - 6.4 % Diabetic >or= 6.5 % Please note range changes. CNOVon 01-21-2022 CNOV Office Visit (GANGAK ) -------- DARREL BENNETT ([id number]) 1970 F Date Time Provider Department 01/21/22 11:20 AM EVENS FERGUSON During your visit today, we recorded the following information about you: Temperature Pulse Blood pressure Weight 98.7 degrees 96/minute 130/98 78 kg Height 1.575 m Evens Ferguson MD 01/21/2022 11:44 AM Signed This note was created using [employer]. Subjective Darrel Bennett is a 51 year old female. Not [...] (98.7 ?F) (Temporal) Height 157.5 cm (5' 2) Weight 78 kg (172 lb) Body Mass [...] also but no visit . Dermatology note: Rivera Francisco : Diagnosis : Psoriasis plaque. ( recent [...] office ) : 2015 ? ( no [place] stroke ) Belly pain ( 2019 ) ( right upper quandrant ) ( Intermittent worse with bending and has extend till better ) Fatty liver 05/2020 GI seen : Ultrasound 08/04/2018: Gallbladder sludge without cholecystitis. Mild steatosis. 2. HIDA scan 11/12/19 (more content not included)... Normal [facility] Absolute lymphocyte counton 01-19-2022 Lymphocytes Auto (Unsp spec) [#/Vol] 1.75 10*3/uL 0.83-4.51 [facility] [place] Work Phone: Basophil percentageon 2021 Basophils/100 WBC (Bld) 0.6 % 0-1 [facility] Work Phone: Bilirubin [Mass/Vol] 0.40 mg/dL 0.20-1.00 [facility] Work Phone: Comment on above: For patients on eltr ombopag therapy, use of Dimension [place] TBIL is not recommended. Chloride [Moles/Vol] 100 mmol/L 98-107 [facility] Work [facility]: Eosinophils/100 WBC (Bld) 3.2 % 0-5 [facility] [place] Work Phone: Glucose [Mass/Vol] 191 mg/dL 74-106 [facility] Work Phone: Comment on above: Fasting Glucose resu lt greater than or equal to 126 mg/dL suggests DIABETES MELLITUS per A.D.A. criteria. Neutrophils (Bld) [#/Vol] 2.7 10*3/uL 2.0-7.7 [facility] [place] Work Phone: Neutrophils/100 WBC (Bld) 53.6 % 47-70 [facility] [place] Work Phone: Potassium [Moles/Vol] 4.4 mmol/L 3.5-5.1 [facility] Work Phone: Protein [Mass/Vol] 8.0 g/dL 6.4-8.2 [facility] Work Phone: Sodium [Moles/Vol] 134 mmol/L 136-145 [facility] Work Phone: WBC (Bld) [#/Vol] 5.0 10*3/uL 4.4-11.0 [facility] Work Phone: [phone] Blood erythrocytes count (nu mber/volume)on 01-19-2022 RBC (Bld) [#/Vol] 4.27 10*6/uL 4.2-5.4 [facility] Work Phone: Blood hemoglobin measurement (mass/volume)on 01-19-2022 Hemoglobin (Bld) [Mass/Vol] 12.5 g/dL 12.0-15.0 [facility] [place] Work Phone: Blood lymphocytes/100 leukoc yteson 01-19-2022 Lymphocytes/100 WBC (Bld) 34.8 % 19-41 [facility] [place] Work Phone: Blood monocytes/100 leukocyt eson 01-19-2022 Monocytes/100 WBC (Bld) 7.6 % 0-10 [facility] Work Phone: Blood platelet mean volumeon 01-19-2022 Platelet mean volume (Bld) [Entitic vol] 10.6 fL 6.2-12.0 [facility] [place] Work Phone: Determination of erythrocyte mean corpuscular volume (MCV)on 01-19-2022 MCV (RBC) [Entitic vol] 90.4 fL 81-99 [facility] Work Phone: Erythrocyte sedimentation ra sudeep 01-19-2022 ESR (Bld) [Velocity] 24 mm/h 0-30 [facility] Work Phone: Hematocrit Auto (Bld) [Volum e fraction]on 01-19-2022 Hematocrit (Bld) [Volume fraction] 38.6 % 37-47 [facility] [place] Work Phone: Laboratory - Chemistry and C hemistry - challengeon 01-19-2022 ALP [Catalytic activity/Vol] 83 U/L 45-117 [facility] [place] Work Phone: ALT [Catalytic activity/Vol] 65 U/L 13-56 [facility] [place] Work Phone: CO2 [Moles/Vol] 24.0 mmol/L 21.0-32.0 [facility] [place] Work Phone: Globulin (S) [Mass/Vol] 3.6 g/dL 2.2-4.2 [facility] Work Phone: Urea nitrogen/Creatinine [Mass ratio] 20.1 mg/mg 10-20 [facility] [place] Work Phone: [phone] Laboratory - Hematology and Cell countson 01-19-2022 Erythrocyte distribution width (RBC) [Entitic vol] 43.6 fL 35.1-43.9 [facility] [place] Work Phone: Erythrocyte distribution width (RBC) [Ratio] 13.2 % 11.6-14.6 [facility] [place] Work Phone: Immature granulocytes/100 WBC (Bld) 0.200 % 0.0-0.9 [facility] [place] Work Phone: Comment on above: IG% - Immature Granu locytes (promyelocytes, myelocytes and metamyelocytes) > 1% indicates that a LEFT SHIFT is Present. MCH (RBC) [Entitic mass] 29.3 pg 27.0-32.0 [facility] [place] Work Phone: Nucleated RBC/100 WBC (Bld) [Ratio] 0 % 0-5 [facility] [place] Work Phone: MCHC Auto (RBC) [Mass/Vol]on 01-19-2022 MCHC (RBC) [Mass/Vol] 32.4 g/dL 32-36 [facility] Work Phone: No Panel Informationon 01-19 Estimated GFR (MDRD) Amer 76 mL/min >60 [facility] [place] Work Phone: Comment on above: GFR Calc Estimated GFR (MDRD) Non-Af Amer 62 mL/min >60 [facility] [place] Work Phone: Comment on above: Non- GFR Calc Platelets bldon 01-19-2022 Platelets (Bld) [#/Vol] 317 10*3/uL 150-450 [facility] [place] Work Phone: Serum or plasma albumin shireen urement (mass/volume)on 01-19-2022 Albumin [Mass/Vol] 4.4 g/dL 3.2-5.0 [facility] Work Phone: Serum or plasma albumin/glob ulin mass ratioon 01-19-2022 Albumin/Globulin [Mass ratio] 1.2 {ratio} 0.9-2.4 [facility] [place] Work Phone: Serum or plasma calcium shireen urement (mass/volume)on 01-19-2022 Calcium [Mass/Vol] 9.7 mg/dL 8.5-10.1 [facility] Work Phone: Serum or plasma creatinine m easurement (mass/volume)on 01-19-2022 Creatinine [Mass/Vol] 1.00 mg/dL 0.55-1.02 [facility] Work Phone: Comment on above: The validity of the calculated GFR & GFRAA in patients over 70 years has not been determined. Clinical correlation is essential. Serum or plasma urea nitroge n measurement (mass/volume)on 01-19-2022 Urea nitrogen [Mass/Vol] 20 mg/dL 7-18 [facility] [place] Work Phone: Thin prep Papanicolaou smear with manual screeningon 01-19-2022 Thin prep Papanicolaou smear with manual screening 59 U/L 15-37 [facility] [place] Work Phone: Thin prep Papanicolaou smear with manual screening 10 5-15 [facility] [place] Work Phone: No Panel Informationon 12-10 Urine Microalbumin/Creatinine Ratio 64.4 mg/g CRE <30 [facility] [place] Work Phone: Thin prep Papanicolaou smear with manual screeningon 12-10-2021 Thin prep Papanicolaou smear with manual screening 86.3 mg/L NO RANGE EST. [facility] [place] Work Phone: Urine creatinine measurement (mass/volume)on 12-10-2021 Creatinine (U) [Mass/Vol] 134.00 mg/dL NO RANGE EST. [facility] [place] Work Phone: Laboratory - Hematology and Cell countson 11-21-2021 HbA1c (Bld) [Mass fraction] 7.4 % [facility] [place] Work Phone: Absolute lymphocyte counton 10-09-2021 Lymphocytes Auto (Unsp spec) [#/Vol] 1.73 10*3/uL 0.83-4.51 [facility] [place] Work Phone: Basophil percentageon 2021 Basophils/100 WBC (Bld) 0.7 % 0-1 [facility] Work Phone: Bilirubin [Mass/Vol] 0.30 mg/dL 0.20-1.00 [facility] Work Phone: Comment on above: For patients on eltr ombopag therapy, use of Dimension [place] TBIL is not recommended. Chloride [Moles/Vol] 101 mmol/L 98-107 [facility] Work Phone: Eosinophils/100 WBC (Bld) 2.6 % 0-5 [facility] [place] Work Phone: [phone] Glucose [Mass/Vol] 234 mg/dL 74-106 [facility] Work Phone: Comment on above: Glucose result great er than or equal to 200 mg/dLsuggests DIABETES MELLITUS per A.D.A. criteria. Neutrophils (Bld) [#/Vol] 3.5 10*3/uL 2.0-7.7 [facility] [place] Work Phone: Neutrophils/100 WBC (Bld) 59.8 % 47-70 [facility] [place] Work Phone: Potassium [Moles/Vol] 3.8 mmol/L 3.5-5.1 [facility] Work Phone: Protein [Mass/Vol] 8.5 g/dL 6.4-8.2 [facility] Work Phone: Sodium [Moles/Vol] 136 mmol/L 136-145 [facility] Work Phone: [phone] WBC (Bld) [#/Vol] 5.8 10*3/uL 4.4-11.0 [facility] Work Phone: Blood erythrocytes count (nu mber/volume)on 10-09-2021 RBC (Bld) [#/Vol] 4.64 10*6/uL 4.2-5.4 [facility] Work Phone: Blood hemoglobin measurement (mass/volume)on 10-09-2021 Hemoglobin (Bld) [Mass/Vol] 13.3 g/dL 12.0-15.0 [facility] [place] Work Phone: Blood lymphocytes/100 leukoc yteson 10-09-2021 Lymphocytes/100 WBC (Bld) 29.7 % 19-41 [facility] [place] Work Phone: Blood monocytes/100 leukocyt eson 10-09-2021 Monocytes/100 WBC (Bld) 6.5 % 0-10 [facility] Work Phone: Blood platelet mean volumeon 10-09-2021 Platelet mean volume (Bld) [Entitic vol] 10.4 fL 6.2-12.0 [facility] [place] Work Phone: Determination of erythrocyte mean corpuscular volume (MCV)on 10-09-2021 MCV (RBC) [Entitic vol] 86.0 fL 81-99 [facility] Work Phone: Hematocrit Auto (Bld) [Volum e fraction]on 10-09-2021 Hematocrit (Bld) [Volume fraction] 39.9 % 37-47 [facility] [place] Work Phone: Laboratory - Chemistry and C hemistry - challengeon 10-09-2021 ALP [Catalytic activity/Vol] 74 U/L 45-117 [facility] [place] Work Phone: ALT [Catalytic activity/Vol] 64 U/L 13-56 [facility] [place] Work Phone: CO2 [Moles/Vol] 27.0 mmol/L 21.0-32.0 [facility] [place] Work Phone: Globulin (S) [Mass/Vol] 3.9 g/dL 2.2-4.2 [facility] Work Phone: Lipase [Catalytic activity/Vol] 275 U/L 73-393 [facility] [place] Work Phone: Urea nitrogen/Creatinine [Mass ratio] 16.5 mg/mg 10-20 [facility] [place] Work Phone: Laboratory - Hematology and Cell countson 10-09-2021 Erythrocyte distribution width (RBC) [Entitic vol] 42.1 fL 35.1-43.9 [facility] [place] Work Phone: Erythrocyte distribution width (RBC) [Ratio] 13.5 % 11.6-14.6 [facility] [place] Work Phone: Immature granulocytes/100 WBC (Bld) 0.700 % 0.0-0.9 [facility] [place] Work Phone: Comment on above: IG% - Immature Granu locytes (promyelocytes, myelocytes and metamyelocytes) > 1% indicates that a LEFT SHIFT is Present. MCH (RBC) [Entitic mass] 28.7 pg 27.0-32.0 [facility] [place] Work Phone: Nucleated RBC/100 WBC (Bld) [Ratio] 0 % 0-5 [facility] [place] Work Phone: MCHC Auto (RBC) [Mass/Vol]on 10-09-2021 MCHC (RBC) [Mass/Vol] 33.3 g/dL 32-36 [facility] Work Phone: No Panel Informationon 10-09 Estimated Creatinine Clearance Calc 46.29 ml/min [facility] [place] Work Phone: Estimated GFR (MDRD) Amer 64 mL/min >60 [facility] [place] Work Phone: Comment on above: GFR Calc Estimated GFR (MDRD) Non-Af Amer 53 mL/min >60 [facility] [place] Work Phone: Comment on above: Non- GFR Calc Troponin I High Sensitivity < 3 pg/mL 3.0-54.0 [facility] [place] Work Phone: Comment on above: Please Note: New Maite t Units and Gender Specific Reference Ranges. For more information see Policy Stat Procedure [place] High Sensitivity Troponin (TNIH) and attachments. Platelets bldon 10-09-2021 Platelets (Bld) [#/Vol] 295 10*3/uL 150-450 [facility] [place] Work Phone: Serum or plasma albumin shireen urement (mass/volume)on 10-09-2021 Albumin [Mass/Vol] 4.6 g/dL 3.2-5.0 [facility] Work Phone: Serum or plasma albumin/glob ulin mass ratioon 10-09-2021 Albumin/Globulin [Mass ratio] 1.2 {ratio} 0.9-2.4 [facility] [place] Work Phone: Serum or plasma calcium shireen urement (mass/volume)on 10-09-2021 Calcium [Mass/Vol] 9.6 mg/dL 8.5-10.1 [facility] Work Phone: Serum or plasma creatinine m easurement (mass/volume)on 10-09-2021 Creatinine [Mass/Vol] 1.15 mg/dL 0.55-1.02 [facility] Work Phone: Comment on above: The validity of the calculated GFR & GFRAA in patients over 70 years has not been determined. Clinical correlation is essential. Serum or plasma urea nitroge n measurement (mass/volume)on 10-09-2021 Urea nitrogen [Mass/Vol] 19 mg/dL 7-18 [facility] [place] Work Phone: Thin prep Papanicolaou smear with manual screeningon 10-09-2021 Thin prep Papanicolaou smear with manual screening 46 U/L 15-37 [facility] [place] Work Phone: Thin prep Papanicolaou smear with manual screening 8 5-15 [facility] [place] Work Phone: Absolute lymphocyte counton 10-05-2021 Lymphocytes Auto (Unsp spec) [#/Vol] 1.87 10*3/uL 0.83-4.51 [facility] [place] Work Phone: Basophil percentageon 2021 Basophils/100 WBC (Bld) 0.6 % 0-1 [facility] Work Phone: Chloride [Moles/Vol] 104 mmol/L 98-107 [facility]: Eosinophils/100 WBC (Bld) 2.4 % 0-5 [facility] [place] Work Phone: Glucose [Mass/Vol] 228 mg/dL 74-106 [facility] Work Phone: Comment on above: Glucose result great er than or equal to 200 mg/dLsuggests DIABETES MELLITUS per A.D.A. criteria. Neutrophils (Bld) [#/Vol] 3.6 10*3/uL 2.0-7.7 [facility] [place] Work Phone: Neutrophils/100 WBC (Bld) 59.0 % 47-70 [facility] [place] Work Phone: Potassium [Moles/Vol] 4.0 mmol/L 3.5-5.1 [facility] Work Phone: Sodium [Moles/Vol] 138 mmol/L 136-145 [facility] Work Phone: WBC (Bld) [#/Vol] 6.2 10*3/uL 4.4-11.0 [facility] Work Phone: Blood erythrocytes count (nu mber/volume)on 10-05-2021 RBC (Bld) [#/Vol] 4.47 10*6/uL 4.2-5.4 [facility]: Blood hemoglobin measurement (mass/volume)on 10-05-2021 Hemoglobin (Bld) [Mass/Vol] 12.5 g/dL 12.0-15.0 [facility] [place] Work Phone: Blood lymphocytes/100 leukoc yteson 10-05-2021 Lymphocytes/100 WBC (Bld) 30.3 % 19-41 [facility] [place] Work Phone: Blood monocytes/100 leukocyt eson 10-05-2021 Monocytes/100 WBC (Bld) 7.1 % 0-10 [facility] Work Phone: Blood platelet mean volumeon 10-05-2021 Platelet mean volume (Bld) [Entitic vol] 10.4 fL 6.2-12.0 [facility] [place] Work Phone: Determination of erythrocyte mean corpuscular volume (MCV)on 10-05-2021 MCV (RBC) [Entitic vol] 85.5 fL 81-99 [facility] Work Phone: Hematocrit Auto (Bld) [Volum e fraction]on 10-05-2021 Hematocrit (Bld) [Volume fraction] 38.2 % 37-47 [facility] [place] Work Phone: Laboratory - Chemistry and C hemistry - challengeon 10-05-2021 CO2 [Moles/Vol] 25.0 mmol/L 21.0-32.0 [facility] [place] Work Phone: Urea nitrogen/Creatinine [Mass ratio] 14.7 mg/mg 10-20 [facility] [place] Work Phone: Laboratory - Hematology and Cell countson 10-05-2021 Erythrocyte distribution width (RBC) [Entitic vol] 41.9 fL 35.1-43.9 [facility] [place] Work Phone: Erythrocyte distribution width (RBC) [Ratio] 13.5 % 11.6-14.6 [facility] [place] Work Phone: Immature granulocytes/100 WBC (Bld) 0.600 % 0.0-0.9 [facility] [place] Work Phone: Comment on above: IG% - Immature Granu locytes (promyelocytes, myelocytes and metamyelocytes) > 1% indicates that a LEFT SHIFT is Present. MCH (RBC) [Entitic mass] 28.0 pg 27.0-32.0 [facility] [place] Work Phone: Nucleated RBC/100 WBC (Bld) [Ratio] 0 % 0-5 [facility] [place] Work Phone: MCHC Auto (RBC) [Mass/Vol]on 10-05-2021 MCHC (RBC) [Mass/Vol] 32.7 g/dL 32-36 [facility] Work Phone: No Panel Informationon 10-05 Estimated Creatinine Clearance Calc 48.84 ml/min [facility] [place] Work Phone: Estimated GFR (MDRD) Amer 68 mL/min >60 [facility] [place] Work Phone: Comment on above: GFR Calc Estimated GFR (MDRD) Non-Af Amer 56 mL/min >60 [facility] [place] Work Phone: Comment on above: Non- GFR Calc Troponin I High Sensitivity 4 pg/mL 3.0-54.0 [facility] [place] Work Phone: Comment on above: Please Note: New Maite t Units and Gender Specific Reference Ranges. For more information see Policy Stat Procedure [place] High Sensitivity Troponin (TNIH) and attachments. Platelets bldon 10-05-2021 Platelets (Bld) [#/Vol] 308 10*3/uL 150-450 [facility] [place] Work Phone: Serum or plasma calcium shireen urement (mass/volume)on 10-05-2021 Calcium [Mass/Vol] 9.6 mg/dL 8.5-10.1 [facility] Work Phone: Serum or plasma creatinine m easurement (mass/volume)on 10-05-2021 Creatinine [Mass/Vol] 1.09 mg/dL 0.55-1.02 [facility] Work Phone: Comment on above: The validity of the calculated GFR & GFRAA in patients over 70 years has not been determined. Clinical correlation is essential. Serum or plasma urea nitroge n measurement (mass/volume)on 10-05-2021 Urea nitrogen [Mass/Vol] 16 mg/dL 7-18 [facility] [place] Work Phone: Thin prep Papanicolaou smear with manual screeningon 10-05-2021 Thin prep Papanicolaou smear with manual screening 9 5-15 [facility] [place] Work Phone: Basophil percentageon 2021 Bilirubin [Mass/Vol] 0.30 mg/dL 0.20-1.00 [facility] Work Phone: Comment on above: For patients on eltr ombopag therapy, use of Dimension [place] TBIL is not recommended. Chloride [Moles/Vol] 101 mmol/L 98-107 [facility] Work Phone: Cholesterol [Mass/Vol] 178 mg/dL <200 [facility] Work Phone: Comment on above: <200 mg/dL Desirable 200-240 mg/dL Borderline >240 mg/dL High Risk Glucose [Mass/Vol] 176 mg/dL 74-106 [facility] Work Phone: Comment on above: Fasting Glucose resu lt greater than or equal to 126 mg/dL suggests DIABETES MELLITUS per A.D.A. criteria. Potassium [Moles/Vol] 4.2 mmol/L 3.5-5.1 [facility] Work Phone: Protein [Mass/Vol] 8.4 g/dL 6.4-8.2 [facility] Work Phone: Sodium [Moles/Vol] 135 mmol/L 136-145 [facility] Work Phone: Triglyceride [Mass/Vol] 302 mg/dL [facility] Work Phone: Comment on above: The drugs N-Acetylcy steine and Metamizole may falsely depress this assay.Serum Triglycerides Reference Interval Normal <150 mg/dL Borderline high 150 - 199 mg/dL High 200 - 499 mg/dL Very High > or = 500 mg/dL WBC (Bld) [#/Vol] 5.2 10*3/uL 4.4-11.0 [facility] Work Phone: Blood erythrocytes count (nu mber/volume)on 09-29-2021 RBC (Bld) [#/Vol] 4.31 10*6/uL 4.2-5.4 [facility] Work Phone: Blood hemoglobin measurement (mass/volume)on 09-29-2021 Hemoglobin (Bld) [Mass/Vol] 12.3 g/dL 12.0-15.0 [facility] [place] Work Phone: Blood platelet mean volumeon 09-29-2021 Platelet mean volume (Bld) [Entitic vol] 10.3 fL 6.2-12.0 [facility] [place] Work Phone: Determination of erythrocyte mean corpuscular volume (MCV)on 09-29-2021 MCV (RBC) [Entitic vol] 86.1 fL 81-99 [facility] Work Phone: Hematocrit Auto (Bld) [Volum e fraction]on 09-29-2021 Hematocrit (Bld) [Volume fraction] 37.1 % 37-47 [facility] [place] Work Phone: Laboratory - Chemistry and C hemistry - challengeon 09-29-2021 ALP [Catalytic activity/Vol] 80 U/L 45-117 [facility] [place] Work Phone: ALT [Catalytic activity/Vol] 54 U/L 13-56 [facility] [place] Work Phone: CO2 [Moles/Vol] 27.0 mmol/L 21.0-32.0 [facility] [place] Work Phone: Globulin (S) [Mass/Vol] 4.2 g/dL 2.2-4.2 [facility] Work Phone: Urea nitrogen/Creatinine [Mass ratio] 18.1 mg/mg 10-20 [facility] [place] Work Phone: Laboratory - Hematology and Cell countson 09-29-2021 Erythrocyte distribution width (RBC) [Entitic vol] 43.5 fL 35.1-43.9 [facility] [place] Work Phone: Erythrocyte distribution width (RBC) [Ratio] 13.7 % 11.6-14.6 [facility] [place] Work Phone: MCH (RBC) [Entitic mass] 28.5 pg 27.0-32.0 [facility] [place] Work Phone: MCHC Auto (RBC) [Mass/Vol]on 09-29-2021 MCHC (RBC) [Mass/Vol] 33.2 g/dL 32-36 [facility] Work Phone: No Panel Informationon 09-29 Estimated GFR (MDRD) Amer 71 mL/min >60 [facility] [place] Work Phone: Comment on above: GFR Calc Estimated GFR (MDRD) Non-Af Amer 59 mL/min >60 [facility] [place] Work Phone: Comment on above: Non- GFR Calc Platelets bldon 09-29-2021 Platelets (Bld) [#/Vol] 267 10*3/uL 150-450 [facility] [place] Work Phone: Serum or plasma albumin shireen urement (mass/volume)on 09-29-2021 Albumin [Mass/Vol] 4.2 g/dL 3.2-5.0 [facility] Work Phone: Serum or plasma albumin/glob ulin mass ratioon 09-29-2021 Albumin/Globulin [Mass ratio] 1.0 {ratio} 0.9-2.4 [facility] [place] Work Phone: Serum or plasma calcium shireen urement (mass/volume)on 09-29-2021 Calcium [Mass/Vol] 9.4 mg/dL 8.5-10.1 [facility] Work Phone: Serum or plasma cholesterol in HDL measurement (mass/volume)on 09-29-2021 Cholesterol in HDL [Mass/Vol] 38 mg/dL [facility] [place] Work Phone: Comment on above: The drugs N-Acetylcy steine and Metamizole may falsely depress this assay. Reference Range HDL <40 mg/dL Low HDL Cholesterol HDL >or= 60 mg/dL High HDL Cholesterol Serum or plasma cholesterol in VLDL measurement (mass/volume)on 09-29-2021 Cholesterol in VLDL [Mass/Vol] 60 mg/dL 5-40 [facility] [place] Work Phone: Serum or plasma creatinine m easurement (mass/volume)on 09-29-2021 Creatinine [Mass/Vol] 1.05 mg/dL 0.55-1.02 [facility] Work Phone: Comment on above: The validity of the calculated GFR & GFRAA in patients over 70 years has not been determined. Clinical correlation is essential. Serum or plasma low density lipoprotein (LDL) cholesterol measurement (mass/volume)on 09-29-2021 Cholesterol in LDL [Mass/Vol] 80 mg/dL 0-130 [facility] [place] Work Phone: Serum or plasma urea nitroge n measurement (mass/volume)on 09-29-2021 Urea nitrogen [Mass/Vol] 19 mg/dL 7-18 [facility] [place] Work Phone: Thin prep Papanicolaou smear with manual screeningon 09-29-2021 Thin prep Papanicolaou smear with manual screening 42 U/L 15-37 [facility] [place] Work Phone: Thin prep Papanicolaou smear with manual screening 7 5-15 [facility] [place] Work Phone: No Panel Informationon 09-15 POC SARS CoV-2 Antigen Negative [facility] Work Phone: US THYROIDon 09-09-2021 US THYROID ORIGINAL EXAMINATION: ULTRASOUND OF THE THYROID WITH COLOR DOPPLER FLOW EVALUATION09/09/2021 11:26 am Ultrasound Thyroid COMPARISON: Ultrasound 05/11/2017 and 09/20/2015 HISTORY: ORDERING SYSTEM PROVIDED HISTORY: Reason for Exam: thyroid nodule, FINDINGS: Size right thyroid lobe: 3.3 x 0.6 x 0.9 cm Size left thyroid lobe: 3.6 x 1.1 x 1.3 cm Size isthmus: 0.2 cm Texture: Homogeneous with normal vascularity. Estimated total number of nodules greater than or equal to 1 cm: 1 Nodule#: # 1: This nodule was 2.4 x 1.3 x 1.3 cm in 2016. Maximum size: 1.6 cm . All dimensions: 1.6 x 1.0 x 1.0 cm Location: Left Lower Composition: mixed cystic and solid: 1 point Echogenicity: isoechoic: 1 point Shape: wider than tall: 0 points Margins: smooth: 0 points Echogenic foci: none: 0 points ACR Total Points: 2; ACR TI-RADS risk category: TR2 - nonsuspicious nodule. No other discrete thyroid nodule is seen. There is a reactive lymph node in the right side of the neck that is 1.7 x 0.4 x 1.1 cm. This has an echogenic hilum and was present the study of 2016 also. IMPRESSION: Left thyroid nodule is moderately smaller than prior studies and has benign characteristics. No follow-up is needed. 1. Nodule 1: ACR TI-RADS 2017 Category 2. Recommend: No further follow-up. ACR TI-RADS 2017 Recommendations: TR1(0 points) : No FNA or follow up TR2 (2 points) : No FNA or follow up TR3 (3 points) : FNA if >/= 2.5 cm, follow up if 1.5 - 2.4 cm in 1, 3, and 5 years TR4 (4-6 points) : FNA if >/= 1.5 cm, follow up if 1.0 - 1.4 cm in 1, 2, 3, and 5 years TR5 (>/= 7 points) : FNA if >/= 1.0 cm, follow up if 0.5 - 0.9 cm every year for 5 years *ACR TI-RADS recommends that no more than two nodules with the highest ACR TI-RADS total point should be biopsied and no more than four nodules should be followed. Interpreted by: Raheel Penny MD Preliminary Report By: Raheel Penny MD Electronically signed By Raheel Penny MD Dictated Date: 09/09/2021 11:34:31 AM Prelim Date: 09/09/2021 11:38:24 AM Sign Date: 09/09/2021 11:38:24 AM Ordering Provider: GILMA FELTON [facility] ([place]) Established Visit (Gastroent erology)on 07-16-2020 Established Visit (Gastroenterology) Diagnoses/Problems Assessed Chronic right upper quadrant pain (789.01,338.29) (R10.11,G89.29) GERD (gastroesophageal reflux disease) (530.81) (K21.9) Nausea in adult (787.02) (R11.0) Steatosis of liver (571.8) (K76.0) Orders Chronic right upper quadrant pain, Nausea in adult NM Biliary with EF w/wo CCK; Status:Hold For - Scheduling; Requested for:[id number]; Perform:[facility] Imaging; Due:[id number];Ordered; For:Chronic right upper quadrant pain, Nausea in adult; Ordered By:Matilde John; Radiologist to Determine Optimal Study : Y What are the patient's signs and symptoms? : Chronic RUQ pain and nausea Nausea in adult Start: Ondansetron HCl - 4 MG Oral Tablet; 1 TAB Q6HRS NEEDED FOR NAUSEA Rx By: Matilde John; Dispense: 0 Days ; #:30 Tablet; Refill: 0;For: Nausea in adult; GATO = N; Sent To: [facility] Patient Discussion/Summary 1. Upper GI series was reviewed with patient. She declines endoscopic evaluation. 2. Obtain HIDA scan. 3. Increase dicyclomine 20 mg every 6 hours. 4. Continue omeprazole 40 mg daily for GERD. May use Zofran 4 mg as needed for nausea. 5. Follow up to review the above. Chief Complaint A telephone visit (audio only) between the patient (at the originating site) and the provider (at the distant site) was utilized to provide this telehealth service. Verbal consent was requested and obtained from DARREL BENNETT on this date, 07/16/2020 10:00 AM , for a telehealth visit. Abdominal pain and nausea History of Present [id number] female spoken to over telephone as a follow-up from upper GI series performed on 07/03/2020 for abdominal pain and GERD. X-ray was normal without evidence of ulceration, hernia, or esophageal reflux. She continues to state that her reflux is well controlled with omeprazole 40 mg daily but suffers from intermittent episodes of right upper quadrant pain dating back to 2018. Pain is described as dull aching and occasionally occurs postprandially but positionally as well. It is associated with nausea at times but no recent vomiting. She is tolerating normal diet but notices worsening pain if she eats larger meals. This will occasionally lead to a bowel movement but she states stools have been moving regularly without hematochezia or melena. She feels her right side is swollen compared to her left but there is no tenderness with palpation. She was given dicyclomine for her upper abdominal pain as well as intermittent lower abdominal cramping but only took this twice and is unclear if this offered any alleviation in symptoms. She has a significant history of anxiety which is holding her from undergoing some testing but also may be exasperating her symptoms. She has undergone prior gallbladder work-up and is requesting a repeat HIDA scan. Review of Systems Const: Denies fatigue, fever and weight loss. CV: Denies chest pain, pacemaker, palpitations and valvular heart disease. Resp: Denies cough, sleep apnea, SOB and snoring. GI: Denies symptoms other than stated above. Musculo: Denies joint pain and muscle pain. Skin: Denies hives and rash. Neuro: Denies seizures and stroke. Psych: Denies anxiety and depression. Endocrine: Reports diabetes. Denies intolerance to cold, hot flashes. Yung/Lymph: Denies anemia, blood transfusions, chemotherapy, enlarged lymph nodes and radiation treatment of any kind. Active Problems Problems Chronic right upper quadrant pain (789.01,338.29) (R10.11,G89.29) GERD (gastroesophageal reflux disease) (530.81) (K21.9) Intermittent upper abdominal pain (789.09) (R10.10) Steatosis of liver (571.8) (K76.0) Past Medical History Problems History of cardiac murmur (V12.59) (Z86.79) History of diabetes mellitus (V12.29) (Z86.39) History of hypertension (V12.59) (Z86.79) History of thyroid nodule (V12.29) (Z86.39) History of Migraine (346.90) (G43.909) Surgical History Problems History of Oral surgery Family History Mother Family history of Alive and well Father Family history of Alive and well Other Denied: Family history of malignant neoplasm of colon Social History Problems Does not have living will Former cigarette smoker (V15.82) (Z87.891) History of body piercing (V45.89) (Z98.890) History of tattoo (709.09) (L81.8) No caffeine use No illicit drug use Rarely consumes alcohol (V49.89) (Z78.9) Allergies Medication No Known Drug Allergies Recorded By: Gunjan Morrison; 06/14/2020 10:08:18 AM Current Meds Medication NameInstruction Aspirin 81 81 MG Oral Tablet Delayed ReleaseTAKE 1 TABLET DAILY. Carvedilol 6.25 MG Oral TabletTAKE 1 TABLET BY MOUTH TWICE DAILY Dicyclomine HCl - 20 MG Oral TabletTAKE 1 TABLET EVERY 6 HOURS NEEDED. HumaLOG Mix 50/50 KwikPen (50-50) 100 UNIT/ML Subcutaneous Suspension Pen-injectorInject 35 units sub-q twice daily. HumaLOG Mix 50/50 KwikPen (50-50) 100 UNIT/ML SUSPUSE DIRECTED. hydrOXYzine Pamoate 25 MG Oral CapsuleTAKE 1 TABLET THREE TIMES DAILY As Needed for Anxiety Jardiance 10 MG Oral TabletTAKE 1 TABLET BY MOUTH EVERY MORNING Levothyroxine Sodium 88 MCG Oral TabletTAKE 1 TABLET DAILY. Lisinopril 30 MG Oral TabletTAKE 1 TABLET DAILY. metFORMIN HCl - 500 MG Oral TabletTAKE 1 TABLET DAILY DIRECTED. Omeprazole 40 MG Oral Capsule Delayed ReleaseTAKE 1 CAPSULE Before meals In The Morning tiZANidine HCl - 2 MG Oral TabletTAKE 1 TABLET THREE TIMES DAILY NEEDED FOR MUSCLE SPASTICITY. True Metrix Blood Glucose Test In Vitro Striptest THREE TIMES DAILY True Metrix Meter w/Device Kittest blood sugar DIRECTED Vitamin D (Ergocalciferol) 1.25 MG (22126 UT) Oral Capsuleonce a week Vitals Vital Signs Recorded: 16Jul2020 09:43AM Height5 ft 2 in [id number] lb BMI Sptmndukiu69.65 BSA Calculated1.84 Physical Exam Patient is alert and oriented throughout telephone call without conversational dyspnea or cough. Results/Data 1. Ultrasound 08/04/2018: Gallbladder sludge without cholecystitis. Mild steatosis. 2. HIDA scan 11/11/2018: Normal gallbladder filling with somewhat hyperkinetic contraction with EF 89%. 3. [facility] 10/24/2019 epigastric and chest pain: Negative chest x-ray, EKG, d-dimer, and troponin. 4. RUQ ultrasound 11/20/2019: Fatty infiltration of the liver. 5. Labs 04/18/2020: WBC 7.7, hemoglobin 11.6, hematocrit 35.4, platelet 272. Total bilirubin 0.7, direct bilirubin <0.2, alk phos 64, ALT 20, AST 17. Sodium 140, potassium 4.3, glucose 150, BUN 48, creatinine 4.88. 6. Upper GI series 07/03/2020: Normal. Time Time Stamp_: Time Spent With Patient: 20 minutes of which greater than 50 percent was spent counseling and or coordinating care. Signatures Electronically signed by : Matilde John PA-C; Jul 16 2020 10:31AM EST (Author) Normal [employer] Initial Visit (Gastroenterol ogy)on 06-14-2020 Initial Visit (Gastroenterology) Diagnoses/Problems Assessed Steatosis of liver (571.8) (K76.0) Chronic right upper quadrant pain (789.01,338.29) (R10.11,G89.29) GERD (gastroesophageal reflux disease) (530.81) (K21.9) Intermittent upper abdominal pain (789.09) (R10.10) Orders Chronic right upper quadrant pain Start: Dicyclomine HCl - 20 MG Oral Tablet; TAKE 1 TABLET EVERY 6 HOURS NEEDED Rx By: Matilde John; Dispense: 23 Days ; #:90 Tablet; Refill: 1;For: Chronic right upper quadrant pain; GATO = N; Verified Transmission to [facility]; Last Updated By: Elaine Mcadams; 06/14/2020 10:53:58 AM GERD (gastroesophageal reflux disease) Xray Upper GI without KUB; Status:Active; Requested for:[id number]; Perform:[facility] Services [facility]; Due:[id number]; Last Updated By:Gunjan Morrison; 06/14/2020 11:34:24 AM;Ordered; For:GERD (gastroesophageal reflux disease); Ordered By:Matilde John; Radiologist to Determine Optimal Study : Y What are the patient's signs and symptoms? : GERD and upper abdominal pain Patient Discussion/Summary 1. Outside records were reviewed. 2. Endoscopy was discussed and strongly declined by patient. Obtain upper GI series. 3. Continue omeprazole 40 mg once daily. Lifestyle changes to help alleviate heartburn/reflux were discussed. These include avoiding spicy and greasy foods, tomato based products, mint and caffeine. Alcohol and smoking should be avoided. Patient should keep at least 3 hours between eating and going to sleep. Being of a normal weight helps decrease heartburn symptoms. 4. Start dicyclomine 20 mg ever 6 hours for bowel spasm. 5. Fatty liver is a buildup of fat in the liver cells. This condition could cause inflammation in the liver which can lead to scarring or hardening of the liver. Extensive scarring is also called cirrhosis. Specific things that can cause fatty liver is alcohol, certain medications, high triglycerides, rapid weight loss, or obesity. Treatment includes reduction of your blood triglycerides, control of diabetes, weight loss, and avoiding alcohol. 6. Follow up in 4-6 weeks. Chief Complaint A telephone visit (audio only) between the patient (at the originating site) and the provider (at the distant site) was utilized to provide this telehealth service. Verbal consent was requested and obtained from DARREL BENNETT on this date, 06/14/2020 10:00 AM , for a telehealth visit. Diarrhea and fatty liver disease History of Present [id number] female spoken to over telephone regarding several GI complaints including diarrhea, abdominal pain, GERD, and fatty liver disease. She actually states her diarrhea has resolved and she believes she had an acute bug. Bowels are moving regularly without hematochezia or melena. She does complain of chronic right upper quadrant pain dating back to 2017 and ultrasound at that time demonstrated gallbladder sludge and mild steatosis. HIDA scan in 2018 revealed normal gallbladder filling and an ejection fraction of 89%. Given the continuous nature of her right upper quadrant pain, repeat gallbladder ultrasound this November revealed a normal gallbladder and fatty infiltration of the liver. It appears her AST and ALT have been elevated in the past but hepatic panel this April was normal. Her RUQ pain occurs randomly but not daily and improves if she sits up or lays down. However, bending over has elicited this pain. Defecation improves her pain as well as ibuprofen. It is described as a dull aching but is not tender to touch. This does increase when eating larger meals but no specific identified foods. She has had mild nausea without vomiting but attributes this to taking medications on an empty stomach. She also complains of epigastric pain which led her to [facility] this October. This was associated with burning chest pain and a cardiac work-up was negative. She is currently taking omeprazole 40 mg daily and is not having significant reflux at this time. She has no dysphagia. Patient does have significant anxiety. Review of Systems Const: Denies fatigue, fever and weight loss. CV: Denies chest pain, pacemaker, palpitations and valvular heart disease. Resp: Denies cough, sleep apnea, SOB and snoring. GI: Denies symptoms other than stated above. Musculo: Denies joint pain and muscle pain. Skin: Denies hives and rash. Neuro: Denies seizures and stroke. Psych: Denies anxiety and depression. Endocrine: Reports diabetes. Denies intolerance to cold, hot flashes. Yung/Lymph: Denies anemia, blood transfusions, chemotherapy, enlarged lymph nodes and radiation treatment of any kind. Active Problems Problems Steatosis of liver (571.8) (K76.0) Past Medical History Problems History of cardiac murmur (V12.59) (Z86.79) History of diabetes mellitus (V12.29) (Z86.39) History of hypertension (V12.59) (Z86.79) History of thyroid nodule (V12.29) (Z86.39) History of Migraine (346.90) (G43.909) Surgical History Problems History of Oral surgery Family History Mother Family history of Alive and well Father Family history of Alive and well Other Denied: Family history of malignant neoplasm of colon Social History Problems Does not have living will Former cigarette smoker (V15.82) (Z87.891) History of body piercing (V45.89) (Z98.890) History of tattoo (709.09) (L81.8) No caffeine use No illicit drug use Rarely consumes alcohol (V49.89) (Z78.9) Allergies Medication No Known Drug Allergies Recorded By: Gunjan Morrison; 06/14/2020 10:08:18 AM Current Meds Medication NameInstruction Aspirin 81 81 MG Oral Tablet Delayed ReleaseTAKE 1 TABLET DAILY. HumaLOG Mix 50/50 KwikPen (50-50) 100 UNIT/ML SUSPUSE DIRECTED. Levothyroxine Sodium 88 MCG Oral TabletTAKE 1 TABLET DAILY. Lisinopril 30 MG Oral TabletTAKE 1 TABLET DAILY. metFORMIN HCl - 500 MG Oral TabletTAKE 1 TABLET DAILY DIRECTED. Omeprazole 40 MG Oral Capsule Delayed ReleaseTAKE 1 CAPSULE Before meals In The Morning Vitamin D (Ergocalciferol) 1.25 MG (96965 UT) Oral Capsuleonce a week Vitals Vital Signs Recorded: 14Jun2020 10:08AM Height5 ft 2 in Tcsdeb401 lb BMI Pvbzpvjmok19.2 BSA Calculated1.86 [id number] Physical Exam Patient is alert and oriented throughout telephone call without conversational dyspnea or cough. Results/Data 1. Ultrasound 08/04/2018: Gallbladder sludge without cholecystitis. Mild steatosis. 2. HIDA scan 11/11/2018: Normal gallbladder filling with somewhat hyperkinetic contraction with EF 89%. 3. [facility] 10/24/2019 epigastric and chest pain: Negative chest x-ray, EKG, d-dimer, and troponin. 4. RUQ ultrasound 11/20/2019: Fatty infiltration of the liver. 5. Labs 04/18/2020: WBC 7.7, hemoglobin 11.6, hematocrit 35.4, platelet 272. Total bilirubin 0.7, direct bilirubin <0.2, alk phos 64, ALT 20, AST 17. Sodium 140, potassium 4.3, glucose 150, BUN 48, creatinine 4.88. Time Time Spent With Patient: 26 minutes of which greater than 50 percent was spent counseling and or coordinating care. Signatures Electronically signed by : Matilde John PA-C; Jun 14 2020 11:37AM EST (Author) Normal [facility] Vital Signs Date Time Vital Sign Value Performing Clinician Facility 12-04-2024 14:28-0400 Body height 157.[address] Herbert Watts MD Work Phone: [facility] [place] 12-04-2024 14:28-0400 Body mass index (BMI) [Ratio] 29.6 kg/m2 Dr. Herbert Watts MD Work Phone: [facility] [place] 12-04-2024 14:28-0400 Body weight 73.[address] Herbert Watts MD Work Phone: [facility] [place] 12-04-2024 14:28-0400 Diastolic blood pressure 70 mm[Hg] Dr. Herbert Watts MD Work Phone: [facility] [place] 12-04-2024 14:28-0400 Heart rate 84 /min Dr. Herbert Watts MD Work Phone: [facility] [place] 12-04-2024 14:28-0400 Respiratory rate 16 /min Dr. Herbert Watts MD Work Phone: [facility] [place] 12-04-2024 14:28-0400 SaO2% (BldA) [Mass fraction] 99 % Dr. Herbert Watts MD Work Phone: [facility] [place] 12-04-2024 14:28-0400 Systolic blood pressure 102 mm[Hg] Dr. Herbert Watts MD Work Phone: [facility] [place] 10-26-2024 07:59-0500 Body height 157.[address] Herbert Watts MD Work Phone: [facility] [place] 10-26-2024 07:59-0500 Body mass index (BMI) [Ratio] 29 kg/m2 Dr. Herbert Watts MD Work Phone: [facility] [place] 10-26-2024 07:59-0500 Body weight 72.[address] Herbert Watts MD Work Phone: [facility] [place] 09-18-2024 08:59-0500 Body mass index (BMI) [Ratio] 29.3 kg/m2 Dr. Herbert Watts MD Work Phone: [facility] [place] 09-18-2024 08:59-0500 Body temperature 96.4 [degF] Dr. Herbert Watts MD Work Phone: [facility] [place] 09-18-2024 08:59-0500 Body weight 72.[address] Herbert Watts MD Work Phone: [facility] [place] 09-18-2024 08:59-0500 Diastolic blood pressure 80 mm[Hg] Dr. Herbert Watts MD Work Phone: [facility] [place] 09-18-2024 08:59-0500 Heart rate 86 /min Dr. Herbert Watts MD Work Phone: [facility] [place] 09-18-2024 08:59-0500 Respiratory rate 16 /min Dr. Herbert Watts MD Work Phone: [facility] [place] 09-18-2024 08:59-0500 SaO2% (BldA) [Mass fraction] 97 % Dr. Herbert Watts MD Work Phone: [facility] [place] 09-18-2024 08:59-0500 Systolic blood pressure 138 mm[Hg] Dr. Herbert Watts MD Work Phone: [facility] [place] 01-11-2024 12:55-0400 Body height 157.5 cm Mri (I-Stat/1.5t) Work Phone: [facility] 01-11-2024 12:55-0400 Body mass index (BMI) [Ratio] 28.72 kg/m2 Mri (I-Stat/1.5t) Work Phone: [facility] 01-11-2024 12:55-0400 Body weight 71.22 kg Mri (I-Stat/1.5t) Work Phone: [facility] 01-11-2024 12:55-0400 Diastolic blood pressure 90 mm[Hg] Mri (I-Stat/1.5t) Work Phone: [facility] 01-11-2024 12:55-0400 Heart rate 111 /min Mri (I-Stat/1.5t) Work Phone: [facility] 01-11-2024 12:55-0400 Systolic blood pressure 149 mm[Hg] Mri (I-Stat/1.5t) Work Phone: [facility] 10-22-2023 10:33-0500 Body height 157.[address] Herbert Watts Work Phone: [facility] [place] 10-22-2023 10:33-0500 Body mass index (BMI) [Ratio] 29.4 kg/m2 Dr. Herbert Watts Work Phone: [facility] [place] 10-22-2023 10:33-0500 Body temperature 98 [degF] Dr. Herbert Watts Work Phone: [facility] [place] 10-22-2023 10:33-0500 Body weight 73.[address] Herbert Watts Work Phone: [facility] [place] 10-22-2023 10:33-0500 Diastolic blood pressure 74 mm[Hg] Dr. Herbert Watts Work Phone: [facility] [place] 10-22-2023 10:33-0500 Heart rate 64 /min Dr. Herbert Watts Work Phone: [facility] [place] 10-22-2023 10:33-0500 Respiratory rate 14 /min Dr. Herbert Watts Work Phone: [facility] [place] 10-22-2023 10:33-0500 SaO2% (BldA) [Mass fraction] 98 % Dr. Herbert Watts Work Phone: [facility] [place] 10-22-2023 10:33-0500 Systolic blood pressure 110 mm[Hg] Dr. Herbert Watts Work Phone: [facility] [place] 10-06-2023 10:03-0500 Body mass index (BMI) [Ratio] 29.8 kg/m2 Dr. Herbert Watts Work Phone: [facility] [place] 10-06-2023 10:03-0500 Body weight 73.[address] Herbert Watts Work Phone: [facility] [place] 10-06-2023 10:03-0500 Diastolic blood pressure 80 mm[Hg] Dr. Herbert Watts Work Phone: [facility] [place] 10-06-2023 10:03-0500 Heart rate 82 /min Dr. Herbert Watts Work Phone: [facility] [place] 10-06-2023 10:03-0500 Respiratory rate 16 /min Dr. Herbert Watts Work Phone: [facility] [place] 10-06-2023 10:03-0500 Systolic blood pressure 122 mm[Hg] Dr. Herbert Watts Work Phone: [facility] [place] 09-13-2023 15:07-0500 Body height 157.[address] Herbert Watts Work Phone: [facility] [place] 09-13-2023 15:07-0500 Body mass index (BMI) [Ratio] 30.3 kg/m2 Dr. Herbert Watts Work Phone: [facility] [place] 09-13-2023 15:07-0500 Body temperature 98.2 [degF] Dr. Herbert Watts Work Phone: [facility] [place] 09-13-2023 15:07-0500 Body weight 75.[address] Herbert Watts Work Phone: [facility] [place] 09-13-2023 15:07-0500 Diastolic blood pressure 86 mm[Hg] Dr. Herbert Watts Work Phone: [facility] [place] 09-13-2023 15:07-0500 Heart rate 107 /min Dr. Herbert Watts Work Phone: [facility] [place] 09-13-2023 15:07-0500 Respiratory rate 16 /min Dr. Herbert Watts Work Phone: [facility] [place] 09-13-2023 15:07-0500 SaO2% (BldA) [Mass fraction] 99 % Dr. Herbert Watts Work Phone: [facility] [place] 09-13-2023 15:07-0500 Systolic blood pressure 132 mm[Hg] Dr. Herbert Watts Work Phone: [facility] [place] 03-12-2023 14:04-0400 Body temperature 97.5 [degF] Dr. Herbert Watts Work Phone: [facility] [place] 03-12-2023 14:04-0400 Diastolic blood pressure 73 mm[Hg] Dr. Herbert Watts Work Phone: [facility] [place] 03-12-2023 14:04-0400 Heart rate 79 /min Dr. Herbert Watts Work Phone: [facility] [place] 03-12-2023 14:04-0400 Respiratory rate 16 /min Dr. Herbert Watts Work Phone: [facility] [place] 03-12-2023 14:04-0400 SaO2% (BldA) [Mass fraction] 99 % Dr. Herbert Watts Work Phone: [facility] [place] 03-12-2023 14:04-0400 Systolic blood pressure 113 mm[Hg] Dr. Herbert Watts Work Phone: [facility] [place] 03-12-2023 12:37-0400 Body height 157.[address] Herbert Watts Work Phone: [facility] [place] 03-12-2023 12:37-0400 Body mass index (BMI) [Ratio] 29 kg/m2 Dr. Herbert Watts Work Phone: [facility] [place] 03-12-2023 12:37-0400 Body weight 72.[address] Herbert Watts Work Phone: [facility] [place] 01-20-2023 09:35-0400 Body mass index (BMI) [Ratio] 30.2 kg/m2 Dr. Herbert Watts Work Phone: [facility] [place] 01-20-2023 09:35-0400 Body temperature 99.1 [degF] Dr. Herbert Watts Work Phone: [facility] [place] 01-20-2023 09:35-0400 Body weight 74.[address] Herbert Watts Work Phone: [facility] [place] 01-20-2023 09:35-0400 Diastolic blood pressure 80 mm[Hg] Dr. Herbert Watts Work Phone: [facility] [place] 01-20-2023 09:35-0400 Heart rate 82 /min Dr. Herbert Watts Work Phone: [facility] [place] 01-20-2023 09:35-0400 Respiratory rate 16 /min Dr. Herbert Watts Work Phone: [facility] [place] 01-20-2023 09:35-0400 SaO2% (BldA) [Mass fraction] 98 % Dr. Herbert Watts Work Phone: [facility] [place] 01-20-2023 09:35-0400 Systolic blood pressure 120 mm[Hg] Dr. Herbert Watts Work Phone: [facility] [place] 09-14-2022 09:08-0500 Body height 157.[address] Herbert Watts Work Phone: [facility] [place] 09-14-2022 09:08-0500 Body mass index (BMI) [Ratio] 30.2 kg/m2 Dr. Herbert Watts Work Phone: [facility] [place] 09-14-2022 09:08-0500 Body weight 74.[address] Herbert Watts Work Phone: [facility] [place] 09-14-2022 09:08-0500 Diastolic blood pressure 78 mm[Hg] Dr. Herbert Watts Work Phone: [facility] [place] 09-14-2022 09:08-0500 Heart rate 82 /min Dr. Herbert Watts Work Phone: [facility] [place] 09-14-2022 09:08-0500 SaO2% (BldA) [Mass fraction] 98 % Dr. Herbert Watts Work Phone: [facility] [place] 09-14-2022 09:08-0500 Systolic blood pressure 128 mm[Hg] Dr. Herbert Watts Work Phone: [facility] [place] 07-29-2022 11:33-0500 Body height 157.5 cm Evens Ferguson MD Work Phone: [facility] 07-29-2022 11:33-0500 Body temperature 98.2 [degF] Evens Ferguson MD Work Phone: [facility] 07-29-2022 11:33-0500 Body weight 74.39 kg Evens Ferguson MD Work Phone: [facility] 07-29-2022 11:33-0500 Diastolic blood pressure 89 mm[Hg] Evens Ferguson MD Work Phone: [facility] 07-29-2022 11:33-0500 Heart rate 79 /min Evens Ferguson MD Work Phone: [facility] 07-29-2022 11:33-0500 Systolic blood pressure 135 mm[Hg] Evens Ferguson MD Work Phone: [facility] 05-22-2022 09:27-0400 Body temperature 97.6 [degF] Dr. Herbert Watts Work Phone: [facility] [place] Work Phone: 05-22-2022 09:27-0400 Diastolic blood pressure 70 mm[Hg] Dr. Herbert Watts Work Phone: [facility] [place] Work Phone: 05-22-2022 09:27-0400 Heart rate 81 /min Dr. Herbert Watts Work Phone: [facility] [place] Work Phone: 05-22-2022 09:27-0400 Respiratory rate 16 /min Dr. Herbert Watts Work Phone: [facility] [place] Work Phone: 05-22-2022 09:27-0400 SaO2% (BldA) [Mass fraction] 99 % Dr. Herbert Watts Work Phone: [facility] [place] Work Phone: 05-22-2022 09:27-0400 Systolic blood pressure 150 mm[Hg] Dr. Herbert Watts Work Phone: [facility] [place] Work Phone: 04-20-2022 09:25-0400 Body height 157.[address] Herbert Watts Work Phone: [facility] [place] Work Phone: 04-20-2022 09:25-0400 Diastolic blood pressure 90 mm[Hg] Dr. Herbert Watts Work Phone: [facility] [place] Work Phone: 04-20-2022 09:25-0400 Heart rate 86 /min Dr. Herbert Watts Work Phone: [facility] [place] Work Phone: 04-20-2022 09:25-0400 SaO2% (BldA) [Mass fraction] 98 % Dr. Herbert Watts Work Phone: [facility] [place] Work Phone: 04-20-2022 09:25-0400 Systolic blood pressure 151 mm[Hg] Dr. Herbert Watts Work Phone: [facility] [place] Work Phone: 01-22-2022 09:02-0400 Body height 157.[address] Herbert Watts Work Phone: [facility] [place] Work Phone: 01-22-2022 09:02-0400 Body mass index (BMI) [Ratio] 31.5 kg/m2 Dr. Herbert Watts Work Phone: [facility] [place] Work Phone: 01-22-2022 09:02-0400 Body temperature 98.6 [degF] Dr. Herbert Watts Work Phone: [facility] [place] Work Phone: 01-22-2022 09:02-0400 Body weight 78.[address] Herbert Watts Work Phone: [facility] [place] Work Phone: 01-22-2022 09:02-0400 Diastolic blood pressure 110 mm[Hg] Dr. Herbert Watts Work Phone: [facility] [place] Work Phone: 01-22-2022 09:02-0400 Heart rate 97 /min Dr. Herbert Watts Work Phone: [facility] [place] Work Phone: 01-22-2022 09:02-0400 Respiratory rate 18 /min Dr. Herbert Watts Work Phone: [facility] [place] Work Phone: 01-22-2022 09:02-0400 SaO2% (BldA) [Mass fraction] 99 % Dr. Herbert Watts Work Phone: [facility] [place] Work Phone: 01-22-2022 09:02-0400 Systolic blood pressure 178 mm[Hg] Dr. Herbert Watts Work Phone: [facility] [place] Work Phone: 01-22-2022 09:02-0400 Body height 157.[address] Herbert Watts Work Phone: [facility] [place] Work Phone: 01-22-2022 09:02-0400 Body mass index (BMI) [Ratio] 31.5 kg/m2 Dr. Herbert Watts Work Phone: [facility] [place] Work Phone: 01-22-2022 09:02-0400 Body temperature 98.6 [degF] Dr. Herbert Watts Work Phone: [facility] [place] Work Phone: 01-22-2022 09:02-0400 Body weight 78.[address] Herbert Watts Work Phone: [facility] [place] Work Phone: 01-22-2022 09:02-0400 Diastolic blood pressure 110 mm[Hg] Dr. Herbert Watts Work Phone: [facility] [place] Work Phone: 01-22-2022 09:02-0400 Heart rate 97 /min Dr. Herbert Watts Work Phone: [facility] [place] Work Phone: 01-22-2022 09:02-0400 Respiratory rate 18 /min Dr. Herbert Watts Work Phone: [facility] [place] Work Phone: 01-22-2022 09:02-0400 SaO2% (BldA) [Mass fraction] 99 % Dr. Herbert Watts Work Phone: [facility] [place] Work Phone: 01-22-2022 09:02-0400 Systolic blood pressure 178 mm[Hg] Dr. Herbert Watts Work Phone: [facility] [place] Work Phone: 01-21-2022 10:49-0400 Body height 157.5 cm Evens Ferguson MD Work Phone: [facility] 01-21-2022 10:49-0400 Body temperature 98.71 [degF] vEens Ferguson MD Work Phone: [facility] 01-21-2022 10:49-0400 Body weight 78.02 kg Evens Ferguson MD Work Phone: [facility] 01-21-2022 10:49-0400 Diastolic blood pressure 98 mm[Hg] Evens Ferguson MD Work Phone: [facility] 01-21-2022 10:49-0400 Heart rate 96 /min Evens Ferguson MD Work Phone: [facility] 01-21-2022 10:49-0400 Systolic blood pressure 130 mm[Hg] Evens Ferguson MD Work Phone: [facility] 12-10-2021 10:25-0400 Body temperature 98.9 [degF] Dr. Herbert Watts Work Phone: [facility] [place] Work Phone: 12-10-2021 10:25-0400 Body weight 78.[address] Herbert Watts Work Phone: [facility] [place] Work Phone: 12-10-2021 10:25-0400 Diastolic blood pressure 86 mm[Hg] Dr. Herbert Watts Work Phone: [facility] [place] Work Phone: 12-10-2021 10:25-0400 Heart rate 88 /min Dr. Herbert Watts Work Phone: [facility] [place] Work Phone: 12-10-2021 10:25-0400 Respiratory rate 14 /min Dr. Herbert Watts Work Phone: [facility] [place] Work Phone: 12-10-2021 10:25-0400 SaO2% (BldA) [Mass fraction] 98 % Dr. Herbert Watts Work Phone: [facility] [place] Work Phone: 12-10-2021 10:25-0400 Systolic blood pressure 132 mm[Hg] Dr. Herbert Watts Work Phone: [facility] [place] Work Phone: 12-10-2021 10:25-0400 Body temperature 98.9 [degF] Dr. Herbert Watts Work Phone: [facility] [place] Work Phone: 12-10-2021 10:25-0400 Body weight 78.[address] Herbert Watts Work Phone: [facility] [place] Work Phone: 12-10-2021 10:25-0400 Diastolic blood pressure 86 mm[Hg] Dr. Herbert Watts Work Phone: [facility] [place] Work Phone: 12-10-2021 10:25-0400 Heart rate 88 /min Dr. Herbert Watts Work Phone: [facility] [place] Work Phone: 12-10-2021 10:25-0400 Respiratory rate 14 /min Dr. Herbert Watts Work Phone: [facility] [place] Work Phone: 12-10-2021 10:25-0400 SaO2% (BldA) [Mass fraction] 98 % Dr. Herbert Watts Work Phone: [facility] [place] Work Phone: 12-10-2021 10:25-0400 Systolic blood pressure 132 mm[Hg] Dr. Herbert Watts Work Phone: [facility] [place] Work Phone: 11-21-2021 13:17-0400 Body mass index (BMI) [Ratio] 32 kg/m2 Dr. Herbert Watts Work Phone: [facility] [place] Work Phone: 11-21-2021 13:17-0400 Body temperature 97 [degF] Dr. Herbert Watts Work Phone: [facility] [place] Work Phone: 11-21-2021 13:17-0400 Body weight 79.[address] Herbert Watts Work Phone: [facility] [place] Work Phone: 11-21-2021 13:17-0400 Diastolic blood pressure 90 mm[Hg] Dr. Herbert Watts Work Phone: [facility] [place] Work Phone: 11-21-2021 13:17-0400 Heart rate 95 /min Dr. Herbert Watts Work Phone: [facility] [place] Work Phone: 11-21-2021 13:17-0400 Respiratory rate 16 /min Dr. Herbert Watts Work Phone: [facility] [place] Work Phone: 11-21-2021 13:17-0400 SaO2% (BldA) [Mass fraction] 95 % Dr. Herbert Watts Work Phone: [facility] [place] Work Phone: 11-21-2021 13:17-0400 Systolic blood pressure 140 mm[Hg] Dr. Herbert Watts Work Phone: [facility] [place] Work Phone: 11-21-2021 13:17-0400 Body height 157.[address] Herbert Watts Work Phone: [facility] [place] Work Phone: 11-21-2021 13:17-0400 Body mass index (BMI) [Ratio] 32 kg/m2 Dr. Herbert Watts Work Phone: [facility] [place] Work Phone: 11-21-2021 13:17-0400 Body temperature 97 [degF] Dr. Herbert Watts Work Phone: [facility] [place] Work Phone: 11-21-2021 13:17-0400 Body weight 79.[address] Herbert [facility] Work [facility] [facility] [place] Work Phone: 11-21-2021 13:17-0400 Diastolic blood pressure 90 mm[Hg] Dr. Herbert Watts Work Phone: [facility] [place] Work Phone: 11-21-2021 13:17-0400 Heart rate 95 /min Dr. Herbert Watts Work Phone: [facility] [place] Work Phone: 11-21-2021 13:17-0400 Respiratory rate 16 /min Dr. Herbert Watts Work Phone: [facility] [place] Work Phone: 11-21-2021 13:17-0400 SaO2% (BldA) [Mass fraction] 95 % Dr. Herbert Watts Work Phone: [facility] [place] Work Phone: 11-21-2021 13:17-0400 Systolic blood pressure 140 mm[Hg] Dr. Herbert Watts Work Phone: [facility] [place] Work Phone: 10-09-2021 13:34-0500 Diastolic blood pressure 92 mm[Hg] Dr. Herbert Watts Work Phone: [facility] [place] Work Phone: 10-09-2021 13:34-0500 Heart rate 105 /min Dr. Herbert Watts Work Phone: [facility] [place] Work Phone: 10-09-2021 13:34-0500 SaO2% (BldA) [Mass fraction] 95 % Dr. Herbert Watts Work Phone: [facility] [place] Work Phone: 10-09-2021 13:34-0500 Systolic blood pressure 146 mm[Hg] Dr. Herbert Watts Work Phone: [facility] [place] Work Phone: 10-09-2021 11:50-0500 Body mass index (BMI) [Ratio] 32.7 kg/m2 Dr. Herbert Watts Work Phone: [facility] [place] Work Phone: 10-09-2021 11:50-0500 Body temperature 97.8 [degF] Dr. Herbert Watts Work Phone: [facility] [place] Work Phone: 10-09-2021 11:50-0500 Body weight 81.[address] Herbert Watts Work Phone: [facility] [place] Work Phone: 10-09-2021 11:50-0500 Respiratory rate 18 /min Dr. Herbert Watts Work Phone: [facility] [place] Work Phone: 10-05-2021 02:13-0500 Diastolic blood pressure 89 mm[Hg] Dr. Herbert Watts Work Phone: [facility] [place] Work Phone: 10-05-2021 02:13-0500 Heart rate 83 /min Dr. Herbert Watts Work Phone: [facility] [place] Work Phone: 10-05-2021 02:13-0500 Respiratory rate 18 /min Dr. Herbert aWtts Work Phone: [facility] [place] Work Phone: 10-05-2021 02:13-0500 SaO2% (BldA) [Mass fraction] 95 % Dr. Herbert Watts Work Phone: [facility] [place] Work Phone: 10-05-2021 02:13-0500 Systolic blood pressure 128 mm[Hg] Dr. Herbert Watts Work Phone: [facility] [place] Work Phone: 10-05-2021 00:05-0500 Body mass index (BMI) [Ratio] 32.7 kg/m2 Dr. Herbert Watts Work Phone: [facility] [place] Work Phone: 10-05-2021 00:05-0500 Body temperature 98.3 [degF] Dr. Herbert Watts Work Phone: [facility] [place] Work Phone: 10-05-2021 00:05-0500 Body weight 81.[address] Herbert Watts Work Phone: [facility] [place] Work Phone: 09-15-2021 09:22-0500 Body temperature 98.6 [degF] Dr. Herbert Watts Work Phone: [facility] [place] Work Phone: 09-15-2021 09:22-0500 Diastolic blood pressure 102 mm[Hg] Dr. Herbert Watts Work Phone: [facility] [place] Work Phone: 09-15-2021 09:22-0500 Heart rate 110 /min Dr. Herbert Watts Work Phone: [facility] [place] Work Phone: 09-15-2021 09:22-0500 Respiratory rate 15 /min Dr. Herbert Watts Work Phone: [facility] [place] Work Phone: 09-15-2021 09:22-0500 SaO2% (BldA) [Mass fraction] 98 % Dr. Herbert Watts Work Phone: [facility] [place] Work Phone: 09-15-2021 09:22-0500 Systolic blood pressure 152 mm[Hg] Dr. Herbert Watts Work Phone: [facility] [place] Work Phone: 07-21-2021 11:03-0500 Body height 157.5 cm Evens Ferguson MD Work Phone: [facility] 07-21-2021 11:03-0500 Body temperature 99.1 [degF] Evens Ferguson MD Work Phone: [facility] 07-21-2021 11:03-0500 Body weight 82.42 kg Evens Ferguson MD Work Phone: [facility] 07-21-2021 11:03-0500 Diastolic blood pressure 80 mm[Hg] Evens Ferguson MD Work Phone: [facility] 07-21-2021 11:03-0500 Heart rate 92 /min Evesn Ferguson MD Work Phone: [facility] 07-21-2021 11:03-0500 Systolic blood pressure 150 mm[Hg] Evens Ferguson MD Work Phone: [facility] 10-14-2020 11:01-0500 Body Temperature 98.71 [degF] Inderprit [facility] 10-14-2020 11:01-0500 Body weight 87.54 kg Inderprit [facility] 10-14-2020 11:01-0500 BP Diastolic 108 mm[Hg] Inderprit [facility] 10-14-2020 11:01-0500 BP Systolic 169 mm[Hg] Inderprit [facility] 10-14-2020 11:01-0500 [facility] 10-14-2020 11:01-0500 Pulse (Heart Rate) 103 /min Inderprit [facility] 07-23-2020 11:14-0500 Body Temperature 98.29 [degF] Inderprit [facility] 07-23-2020 11:14-0500 Body weight 85.55 kg Inderprit [facility] 07-23-2020 11:14-0500 BP Diastolic 103 mm[Hg] Inderprit [facility] 07-23-2020 11:14-0500 BP Systolic 144 mm[Hg] Inderprit [facility] 07-23-2020 11:14-0500 Height 158[facility] 07-23-2020 11:14-0500 Pulse (Heart Rate) 90 /min Inderprit [facility] robert Encounters Encounter Date Encounter Type Care Provider Facility Start: 03-14-2025 ambulatory Derek Anglin Facility :[facility] Start: 03-05-2025 End: 03-05-[address] Herbert Watts MD Work Phone: -Cardiovascular Services Start: 03-05-2025 End: 03-05-[address] Dheeraj Bird MD -Cardiovascular Services Work Phone: Start: 03-05-2025 ambulatory Dheeraj Bird Facility:[facility] Start: 03-05-2025 End: 03-05-2025 ambulatory Dheeraj Bird Facility:[facility] [place] Start: 02-14-2025 [facility] [place] Start: 01-27-2025 End: 01-27-[address] Herbert Watts MD Work Phone: [facility] [place] Work Phone: Start: 01-27-2025 End: 01-27-[address] Gilma Felton MD -Laboratory Work Phone: Start: 01-27-2025 End: 01-27-2025 ambulatory Gilma Felton Facility:[facility] [place] Start: 01-15-2025 End: 01-15-[address] Naren Norman MD -[facility] Work Phone: Start: 01-15-2025 End: 01-15-2025 ambulatory Naren Norman Facility:[facility] Start: 01-11-2025 [facility] ty:[facility] [place] Start: 12-04-2024 End: 12-04-[address] Dheeraj Bird MD -[facility] Work Phone: Start: 12-04-2024 End: 12-04-[address] Dheeraj Bird MD [facility] [place] Start: 12-04-2024 End: 12-04-2024 [facility] Start: 12-04-2024 End: 12-04-[address] Naren Norman MD -[facility] Work Phone: Start: 12-04-2024 End: 12-04-2024 ambulatory Naren Norman Facility:[facility] Start: 11-27-2024 End: 11-27-[address] Herbert Watts MD Work Phone: [facility] [place] Work Phone: Start: 11-27-2024 End: 11-27-[address] Naren Norman MD -MRI - [facility] Work Phone: Start: 11-27-2024 End: 11-27-2024 ambulatory Naren Norman Facility:[facility] [place] Start: 10-26-2024 End: 10-26-[address] Naren Norman MD -[facility] Work Phone: Start: 10-26-2024 End: 10-26-2024 ambulatory Efewongbe Oleghe Facility:[facility] Start: 09-18-2024 ambulatory Efewongbe Oleghe Facili ty:[facility] Start: 09-18-2024 End: 09-18-[address] Surya Markham MD -[facility] Start: 09-18-2024 End: 09-18-2024 ambulatory Efewongbe Oleghe Facility:[facility] Start: 09-18-2024 End: 09-18-[address] Herbert Watts MD -[facility] Work Phone: Start: 09-18-2024 End: 09-18-2024 ambulatory Efewongbe Oleghe Facility:[facility] Start: 09-15-2024 End: 09-15-[address] Gilma Felton MD -Ultrasound, [facility] Work Phone: Start: 09-15-2024 End: 09-15-2024 ambulatory Efewongbe Oleghe Facility:[facility] [place] Start: 08-16-2024 ambulatory HERBERT CARROLL MD Facility:[facility] Start: 07-24-2024 End: 07-24-2024 ambulatory Efewongbe Oleghe Facility:[facility] [place] Start: 07-11-2024 ambulatory Efewongbe Oleghe Facili ty:[facility] Start: 06-01-2024 End: 06-01-2024 ambulatory Derek Anglin Facility:[facility] [place] Start: 05-16-2024 End: 05-16-2024 ambulatory Efewongbe Oleghe Facility:[facility] Start: 01-11-2024 End: 01-11-2024 ambulatory RICARDO KAISER Facility:[facility] Start: 01-11-2024 End: 01-11-2024 Subsequent hospital visit by physician Mri [facility] 2 (I-Stat/1.5t) Work Phone: MRI J Comment on above: 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 Herbert Watts Work Phone: [facility] [place] Work Phone: Start: 12-14-2023 End: 12-14-[address] Herbert Watts Work Phone: [facility] [place]-Cardiovascular Services Work Phone: Start: 12-13-2023 End: 12-13-[address] Herbert Watts Work Phone: [facility] [place] Work Phone: Start: 12-13-2023 End: 12-13-[address] Herbert Watts Work Phone: [facility] [place]-Outpatient Breast Imaging Work Phone: Start: 10-22-2023 End: 10-22-[address] Herbert Watts Work Phone: [facility] [place] Work Phone: Start: 10-22-2023 End: 10-22-[address] Herbert Watts Work Phone: [facility] Work Phone: Start: 10-06-2023 End: 10-06-[address] Herbert Watts Work Phone: [facility] Work Phone: Start: 10-01-2023 End: 10-01-[address] Herbert Watts Work Phone: [facility] [place] Work Phone: Start: 10-01-2023 End: 10-01-[address] Herbert Watts Work Phone: [facility] [place]-Laboratory Work Phone: Start: 09-13-2023 End: 09-13-[address] Herbert Watts Work Phone: [facility] Work Phone: Start: 09-07-2023 End: 09-07-[address] [facility] Start: 04-19-2023 End: 04-19-[address] Herbert Watts Work Phone: [facility] [place] Work Phone: Start: 04-19-2023 End: 04-19-[address] Herbert Watts Work Phone: [facility] [place]-Laboratory Work Phone: Start: 03-12-2023 Non-patient / Non-visit Dr. Herbert Watts Work Phone: [facility] Start: 03-12-2023 End: 03-12-2023 Admission to same day surgery center Dr. Herbert Watts Work Phone: [facility] [place]-Endoscopy Work Phone: Start: 03-12-2023 End: 03-12-[address] Herbert Watts Work Phone: [facility] [place] Work Phone: Start: 01-20-2023 End: 01-20-[address] Herbert Watts Work Phone: [facility] [place]-Laboratory, [facility] Start: 01-20-2023 End: 01-20-[address] Herbert Watts Work Phone: [facility] Work Phone: Start: 12-09-2022 End: 12-09-[address] Herbert Watts Work Phone: [facility] [place] Work Phone: Start: 12-09-2022 End: 12-09-[address] Herbert Watts Work Phone: [facility] [place]-Outpatient Breast Imaging Start: 11-16-2022 End: 11-16-[address] Herbert Watts Work Phone: [facility] [place] Work Phone: Start: 11-16-2022 End: 11-16-[address] [facility] Start: 10-12-2022 End: 10-12-[address] Herbert Watts Work Phone: [facility] Start: 10-06-2022 End: 10-06-[address] Herbert Watts Work Phone: [facility] [place]-MRI - [facility] Start: 09-15-2022 End: 09-15-[address] Herbert Watts Work Phone: [facility] [place] Work Phone: Start: 09-15-2022 End: 09-15-[address] Herbert Watts Work Phone: [facility]-Laboratory, [facility] Start: 09-14-2022 End: 09-14-[address] Herbert Watts Work Phone: [facility] Start: 09-02-2022 End: 09-02-[address] Herbert Watts Work Phone: [facility] [place]-Ultrasound, [facility] Start: 07-29-2022 End: 07-29-2022 ambulatory EVENS FERGUSON Facility:[facility] Start: 07-29-2022 End: 07-29-2022 Patient encounter procedure Evens Ferguson MD Work Phone: [facility] [place] Comment on above: Chronic neck pain (P rimary Dx); Seronegative rheumatoid arthritis (HCC) Start: 07-27-2022 End: 07-27-[address] Herbert Watts Work Phone: [facility] Start: 07-22-2022 End: 07-22-[address] Herbert Watts Work Phone: [facility] [place] Work Phone: Start: 07-22-2022 End: 07-22-[address] Herbert Watts Work Phone: [facility] [place]-Physical Therapy Start: 07-14-2022 End: 07-14-[address] Herbert Watts Work Phone: [facility] [place]-Laboratory Start: 05-22-2022 End: 05-22-[address] Herbert Watts Work Phone: [facility] [place] Start: 04-29-2022 End: 04-29-[address] Herbert Watts Work Phone: [facility] [place] Work Phone: Start: 04-29-2022 End: 04-29-[address] Herbert Watts Work Phone: [facility] [place]-Laboratory, Specimen Start: 04-28-[address] [facility] Start: 04-21-[address] [facility] Start: 04-20-2022 End: 04-20-[address] Herbert Watts Work Phone: [facility] Start: 04-08-2022 End: 04-08-[address] Herbert Watts Work Phone: [facility] Start: 02-27-2022 End: 02-27-[address] Herbert Watts Work Phone: [facility] [place]-[facility], [facility] Start: 01-27-2022 End: 01-27-[address] Herbert Watts Work Phone: [facility] Start: 01-22-2022 End: 01-22-[address] Herbert Watts Work Phone: [facility] Start: 01-21-2022 End: 01-21-2022 ambulatory EVENS FERGUSON Facility:[facility] Start: 01-21-2022 End: 01-21-2022 Patient encounter procedure Evens Ferguson MD Work Phone: [facility] [place] Comment on above: Seronegative rheumat oid arthritis (HCC) (Primary Dx); Pain of upper abdomen; Elevated liver enzymes; Chronic neck pain Start: 01-19-2022 End: 01-19-[address] Herbert Watts Work Phone: [facility] [place]-Laboratory Start: 12-10-2021 End: 12-10-2021 Encounter for general adult medical examination without abnormal findings Dr. Herbert Watts Work Phone: [facility] Start: 12-10-2021 End: 12-10-[address] Herbert Watts Work Phone: [facility] Start: 12-08-2021 End: 12-08-[address] Herbert Watts Work Phone: [facility] [place]-Outpatient Breast Imaging Start: 11-21-2021 End: 11-21-[address] Herbert Watts Work Phone: [facility] Start: 10-09-2021 End: 10-09-2021 Emergency department patient visit Dr. Herbert Watts Work Phone: [facility] [place]-Emergency Department Start: 10-05-2021 End: 10-05-2021 Emergency department patient visit Dr. Herbert Watts Work Phone: [facility] [place]-Emergency Department Start: 09-29-2021 End: 09-29-[address] Herbert Watts Work Phone: [facility] [place]-Laboratory Start: 09-15-2021 End: 09-15-[address] Herbert Watts Work Phone: [facility] [place] Start: 07-30-2021 Telephone encounter Evens Ferguson MD Work Phone: [facility] [place] Comment on above: Results Start: 07-29-2021 Telephone encounter Evens Ferguson MD Work Phone: [facility] Comment on above: Medication Problem Start: 07-21-2021 End: 07-21-2021 Patient encounter procedure Evens Ferguson MD Work Phone: [facility] [place] Comment on above: Psoriatic arthropath y (HCC) (Primary Dx) Start: 05-21-[address] Herbert Watts Work Phone: [facility] [place] Start: 12-13-2020 End: 12-13-2020 Refill Sonasanto Ferguson Work Phone: [facility] Comment on above: Refill Request Start: 12-11-2020 End: 12-11-2020 Patient encounter procedure External Provider [facility] Start: 12-11-2020 Results Only External Provider Exter nal-Non[facility] Start: 11-08-2020 End: 11-08-2020 Patient encounter procedure External Provider [facility] Start: 11-08-2020 Results Only External Provider Exter nal-NonCCF Start: 10-14-2020 End: 10-14-2020 Telephone encounter Sonasanto Ferguson Work Phone: [facility] Comment on above: Future Appointment Results Start: 10-14-2020 End: 10-14-2020 Patient encounter procedure Indsanto Ferguson Work Phone: [facility] Comment on above: Seronegative rheumat oid arthritis (HCC) (Primary Dx) Start: 07-30-2020 End: 07-30-2020 Patient encounter procedure External Provider [facility] Start: 07-30-2020 Results Only External Provider Exter nal-NonCCF Start: 07-23-2020 End: 07-23-2020 Patient encounter procedure Evens Ferguson Work Phone: [facility] Comment on above: Inflammatory arthrit is (Primary Dx); Carpal tunnel syndrome, bilateral; Controlled type 2 diabetes mellitus without complication, with long-term current use of insulin ([facility]) Procedures Date Procedure Procedure Detail Performing Clinician Start: 01-27-2025 Urine microalbumin/creatinine ratio measurement Dr. Herbert Watts MD Work Phone: Comment on above: Previous reported re sult: 358.1 mg/g CREEdited by: TALA on 02/27/25:1054 AMENDED REPORT 02/27/25 1054 MALB:CREAT previously reported as: 358.1 mg/g CRE Start: 01-27-2025 Vitamin D, 25-hydrox y measurement Dr. Herbert Watts MD Work Phone: Comment on above: Vitamin D StatusDefi ciency: <20 ng/mL (50nmol/L)Insufficiency: 20-30 ng/mL (50-75 nmol/L)Sufficiency: 30-100 ng/mL (75-250 nmol/L)Toxicity: >100 ng/mL (>250 nmol/L) Start: 11-27-2024 MRI of joint of lowe r extremity Dr. Herbert Watts MD Work Phone: Start: 09-18-2024 Plain x-ray of humerus Dr. Herbert Watts MD Work Phone: Start: 09-15-2024 US scan of thyroid Dr. Herbert Watts MD Work Phone: Start: 01-11-2024 Cardiac mri w/wo con trast & further seq [facility] Provider Start: 12-13-2023 Screening mammography Clayton Watts Work Phone: Start: 03-12-[address] Fracisco Watts Work Phone: Start: 12-09-2022 Screening mammography D gurwinder Watts Work Phone: Start: 10-06-2022 MRI of cervical spine D gurwinder Watts Work Phone: Start: 09-02-[address] Herbert Watts Work Phone: Start: 09-02-[address] Herbert Watts Work Phone: Start: 04-08-2022 X-ray of cervical spine Dr. Herbert Watts Work Phone: Start: 02-27-[address] Herbert Watts Work Phone: Start: 06-24-[address] Herbert Watts Work Phone: Start: 12-08-2021 Screening mammography Clayton Watts Work Phone: Start: 10-09-2021 Plain chest X-ray Dr. Star Watts Work Phone: Start: 12-11-2020 EXTERNAL CARDIOLOGY Ext ernal Provider Start: 11-08-2020 EXTERNAL LAB External P rovider Start: 07-30-2020 EXTERNAL LAB External P rovider Plan of Treatment Date Care Activity Detail Author Start: 01-27-2026 Screening for malign ant neoplasm of colon [facility] Start: 09-18-2024 Patient referral [facility] Work Phone: Start: 05-07-2024 Influenza vaccination Influenz a Vaccine (Season Ended) [facility] Start: 01-11-2024 End: 01-11-2024 Patient encounter procedure 01/11/2024 1:00 PM EDT Appointment MRI J [address] [place] [address] Outside order scanned in epic MRI J Comment on above: Outside order scanne d in [facility] Start: 12-14-2023 Echo tthrc r-t 2d w/wom-mode compl spec&colr d TTE W/DOPPLER COMPLETE [facility] [place] Start: 10-22-2023 Patient referral [facility] Work Phone: Start: 09-06-2023 Behavioral Health Screening Behavioral Health Screening [facility] Start: 05-07-2023 Covid-19 Vaccine ( season) Covid-19 Vaccine ( season) [facility] Start: 03-12-2023 Colonoscopy flx dx w/collj spec when pfrmd [facility] [facility] [place] Start: 03-12-2023 Patient discharge [facility] Start: 05-07-2022 Influenza vaccination [facility] Start: 01-27-2022 Patient referral [facility] Work Phone: Start: 09-06-2021 DEPRESSION ASSESSMENT DEPRESSION ASS ESSMENT [facility] Start: 08-20-2021 End: 07-21-2022 CBC W Auto Differential panel - Blood CBC + DIFF Lab Routine Psoriatic arthropathy (HCC) Expected: 08/20/2021, Expires: 07/21/2022 [facility] Work Phone: Comment on above: Expected: 08/20/2021 , Expires: 07/21/2022 Start: 08-20-2021 End: 07-21-2022 Comprehensive metabolic 2000 panel - Serum or Plasma COMP METABOLIC PANEL Lab Routine Psoriatic arthropathy (HCC) Expected: 08/20/2021, Expires: 07/21/2022 [facility] Work Phone: Comment on above: Expected: 08/20/2021 , Expires: 07/21/2022 Start: 08-20-2021 End: 07-21-2022 Erythrocyte sedimentation rate SED RATE WESTERGREN Lab Routine Psoriatic arthropathy (HCC) Expected: 08/20/2021, Expires: 07/21/2022 [facility] Work Phone: Comment on above: Expected: 08/20/2021 , Expires: 07/21/2022 Start: 05-07-2021 Influenza vaccination [facility] Start: 2021 SHINGRIX VACCINE (1 of 2) SHINGRIX VACCINE (1 of 2) [facility] Start: 05-07-2020 Influenza vaccination INFLUENZA (#1) [facility] Start: 2016 COLOGUARD (FIT-DNA) COLOGUARD (FIT-D NA) [facility] Start: 2016 Colonoscopy COLONOSCOPY [facility] Start: 2016 COLORECTAL CANCER SCREENING COLORECTAL CANCER SCREENING [facility] Start: [address] COLONOGRAPHY [facility] Start: 2016 DIABETES SCREEN DIABETES SCREEN [facility] Start: 2016 Diabetes Screening Diabetes Screenin g [facility] Start: 2016 FECAL OCCULT BLOOD FECAL OCCULT BLOO D [facility] Start: 2016 Lipid panel Lipid Screening [facility] Start: 2016 LIPID SCREEN LIPID SCREEN [facility] Start: 2016 Screening for malign ant neoplasm of colon [facility] Start: 2016 SIGMOIDOSCOPY SIGMOIDOSCOPY [facility] Start: 2011 Mammography MAMMOGRAM [facility] Start: 2011 Screening for malign ant neoplasm of breast Mammogram Screening [facility] Start: 2001 HPV TESTING HPV TESTING [facility] Start: 2001 Screening for malign ant neoplasm of cervix HPV Testing [facility] Start: 1992 PAP TESTING PAP TESTING [facility] Start: 1992 Screening for malign ant neoplasm of cervix Pap Testing [facility] Start: 1990 Hepatitis B Vaccine (1 of 3 - 19+ 3-dose series) Hepatitis B Vaccine (1 of 3 - 19+ 3-dose series) [facility] Start: 1990 Urine microalbumin profile [facility] Start: 1989 HEPATITIS C SCREENING HEPATITIS C [facility] Start: 1989 Hepatitis C screening Hepatitis C [facility] Start: 1989 HIV SCREENING HIV SCREENING [facility] Start: 1989 HIV screening HIV Screening [facility] Start: 1983 Adult depression screening assessment DEPRESSION SCREENING [facility] Start: 1983 COVID-19 VACCINE (1) COVID-19 VACCIN E (1) [facility] Start: 1976 COVID-19 VACCINE (#1) COVID-19 VACCI NE (#1) [facility] Start: 1971 COVID-19 VACCINE (#1) COVID-19 VACCI NE (#1) [facility] Start: 1971 HEPATITIS B (1 of 3 - 3-dose series) HEPATITIS B (1 of 3 - 3-dose series) [facility] End: 07-23-2021 Acute hepatitis 2000 panel - Serum HEP ACUTE PANEL BL Lab Routine Inflammatory arthritis 1 Occurrences starting 07/23/2020 until 07/23/2021 [facility] Comment on above: 1 Occurrences starti ng 07/23/2020 until 07/23/2021 End: 07-23-2021 SEAMUS BY IFA SCREEN SEAMUS BY IFA SCREEN Lab Routine Inflammatory arthritis 1 Occurrences starting 07/23/2020 until 07/23/2021 [facility] Comment on above: 1 Occurrences starti ng 07/23/2020 until 07/23/2021 End: 07-23-2021 CRP [Mass/Vol] C-REACTIVE PROTEIN (CRP) Lab Routine Inflammatory arthritis 1 Occurrences starting 07/23/2020 until 07/23/2021 [facility] Comment on above: 1 Occurrences starti ng 07/23/2020 until 07/23/2021 End: 07-23-2021 Cyclic citrullinated peptide IgG Qn CCP ANTIBODY IGG Lab Routine Inflammatory arthritis 1 Occurrences starting 07/23/2020 until 07/23/2021 [facility] Comment on above: 1 Occurrences starti ng 07/23/2020 until 07/23/2021 End: 07-23-2021 ECG COMPLETE ECG COMPLETE ECG Routine Inflammatory arthritis 1 Occurrences starting 07/23/2020 until 07/23/2021 [facility] Comment on above: 1 Occurrences starti ng 07/23/2020 until 07/23/2021 End: 07-23-2021 ESR (Bld) [Velocity] SED RATE WESTERGREN Lab Routine Inflammatory arthritis 1 Occurrences starting 07/23/2020 until 07/23/2021 [facility] Comment on above: 1 Occurrences starti ng 07/23/2020 until 07/23/2021 MR Cervical spine [facility] Work Phone: MR Cervical spine [facility] Path report.final Dx Spec [facility] [place] Work Phone: Patient Education [facility] Work Phone: Patient referral [facility] Work Phone: End: 07-23-2021 RHEUMATOID FACTOR BL RHEUMATOID FACTOR BL Lab Routine Inflammatory arthritis 1 Occurrences starting 07/23/2020 until 07/23/2021 [facility] Comment on above: 1 Occurrences starti ng 07/23/2020 until 07/23/2021 Ultrasound elastography [facility] Work Phone: US [facility] Payers Date Payer Category Payer Self-pay [id number] 2024 Unknown [id number] 2003 Medicaid [id number]. [id number] 2003 Medicaid [id number] 2003 Unknown [id number] 1971 Unknown [id number] 2.16.8 [id number] Unknown [id number] 2.16.8 [id number] Unknown [id number] 2.16.8 [id number] Unknown [id number] 2.16.8 [id number] Unknown [id number] 2.16.8 40.1.934143.3.579.2.462 Unknown [id number] 2.16.8 40.1.354882.3.579.2.462 Unknown [id number] 2.16.8 40.1.958177.3.579.2.462 Unknown [id number] 2.16.8 40.1.563644.3.579.2.462 Unknown [id number] 2.16.8 40.1.399378.3.579.2.462 Unknown [id number] 2.16.8 40.1.885517.3.579.2.462 Unknown [id number] 2.16.8 40.1.586555.3.579.2.462 Unknown [id number] 2.16.8 40.1.009404.3.579.2.462 Unknown [id number] 2.16.8 40.1.295980.3.579.2.462 Unknown [id number] 2.16.8 40.1.526362.3.579.2.462 Unknown [id number] 2.16.8 40.1.409961.3.579.2.462 Unknown [id number] 2.16.8 40.1.510674.3.579.2.462 Unknown [id number] 2.16.8 40.1.675128.3.579.2.462 Unknown [id number] 2.16.8 40.1.119006.3.579.2.462 Unknown [id number] 2.16.8 [id number] Unknown [id number] 2.16.8 [id number] Social History Date Type Detail Facility Start: 07-23-2020 End: 10-22-2023 Tobacco smoking status NHIS Former smoker [facility] Start: 07-23-2020 End: 07-29-2022 Tobacco use and exposure [facility] Start: 07-23-2020 End: 07-29-2022 Alcohol intake Current drinker of alcohol (finding) [facility] Start: 07-23-2020 History SDOH Alcohol Frequency 2 [facility] Start: 1970 Sex Assigned At Not on file [facility] Start: 01-11-2022 End: 07-29-2022 Exposure to SARS-CoV-2 (event) Not sure [facility] Start: 12-10-2021 End: 10-22-2023 Tobacco smoking status OHIS Unknown if ever smoked [facility] [place] Start: 11-20-2019 Spouse/ Signif icant Other [facility] [place] Start: 10-24-2019 Cigarettes [employer] [facility] Start: 1970 Sex Assigned At Female [facility] History of tobacco use Current smoker [facility] History of tobacco use Cigarette Smoker [facility] Start: 07-29-2022 Alcohol Comment once a year: m ixed drink [facility] Start: 07-23-2020 End: 10-02-2022 History of Social function [facility] Start: 07-23-2020 End: 10-02-2022 Alcohol Use Disorder Identification Test - Consumption [AUDIT-C] [facility] How often to you hav e a drink containing alcohol? Monthly or less [facility] Average Number of Drinks Not on file [facility] How often do you hav e 6 or more drinks on 1 occasion? Less than monthly [facility] Start: 12-04-2024 Sex Female (finding) [facility] NEGATED: Highlighted row [facility] [place] Goals Date Patient Goal Desired Activity /State Mental Status Date Assessment Result Facility 03-12-2023 Cognitive function Voice/Name [facility] Work Phone: 10-09-2021 Cognitive function Level Of Cons ciousness Awake;Alert;Appropriate;Follow s Commands [facility] [place] Work Phone: 10-05-2021 Cognitive function Level Of Cons ciousness Awake;Alert;Appropriate;Follow s Commands [facility] [place] Work Phone: Clinical Notes 07-21-2021 to 12-04-2024 Note Date & Type Note Facility 12-04-2024 Evaluation note Diagnosis Onset Date Resolution Arthrosis of right acromioclavicular joint acute December 042024 8:41am Impingement of right shoulder acute December 04, 2024 8:41am Primary osteoarthritis, right shoulder acute December 04, 2024 8:41am Right rotator cuff tear acute M 2024 8:41am Superior labrum vswvsekz-ay-vxeqdzcqp (SLAP) tear of right shoulder acute December 04, 2024 8:41am Diabetes chronic December 04 2:13pm Hypertension chronic December 04, 2024 2:13pm Nonrheumatic pulmonary valve stenosis chronic December 04, 2024 2:13pm Preoperative cardiovascular examination noneactive December 04, 2024 2:13pm Arthrosis of right acromioclavicular joint acute January 7:51am Impingement of right shoulder acute January 15, 2025 7:51am Primary osteoarthritis, right shoulder acute January 15, 2025 7:51am Right rotator cuff tear acute 2024 7:51am Superior labrum bnkdwotq-wo-rbvvruosz (SLAP) tear of right shoulder acute January 15, 2025 7:51am [facility] [place] Work Phone: 1(148) 929-358202-20-2025 Evaluation note* Diagnosis Onset Date Resolution Status Admit Date Impingement of right shoulder acute October 26, 2024 7:41am Right arm pain chronic October 082024 7:41am Tendinitis chronic October 26, 2024 7:41am Arthrosis of right acromioclavicular joint acute December 042024 8:41am Impingement of right shoulder acute December 04, 2024 8:41am Primary osteoarthritis, righ t shoulder acute December 04, 2024 8:41am Right rotator cuff tear acute M 2024 8:41am Superior labrum rayemcjj-wy-cqzlbaxrp (SLAP) tear of right shoulder acute November 8:41am Diabetes chronic December 04 2:13pm Hypertension chronic December 04, 2024 2:13pm Nonrheumatic pulmonary valve stenosis chronic December 04, 2024 2:13pm Preoperative cardiovascular examination noneactive December 04, 2024 2:13pm Arthrosis of right acromioclavicular joint acute January 7:51am Impingement of right shoulder acute January 15, 2025 7:51am Primary osteoarthritis, righ t shoulder acute January 15, 2025 7 :51am Right rotator cuff tear acute [facility] 2024 7:51am Superior labrum jubaoyhh-tm-kydjoxyui (SLAP) tear of right shoulder acute January 15, 2025 7:51am [facility] [place] Work Phone: 1(747) 991-690101-13-2025 Evaluation note* Diagnosis Onset Date Resolution Status Admit Date Mixed hyperlipidemia acute Nima maya2024 8:51am Hypertension chronic September 8:51am Right arm pain chronic September 182024 8:51am Tendinitis chronic September 18, 2024 8:51am Type 2 diabetes mellitus chronic September 18, 2024 8:51am Impingement of right shoulder acute October 26, 2024 7:41am Right arm pain chronic October 082024 7:41am Tendinitis chronic October 26, 2024 7:41am Arthrosis of right acromioclavicular joint acute December 042024 8:41am Impingement of right shoulder acute December 04, 2024 8:41am Primary osteoarthritis, righ t shoulder acute December 04, 2024 8:41am Right rotator cuff tear acute 2024 8:41am Superior labrum xiynjrby-fh-rkmngpkfb (SLAP) tear of right shoulder acute November 8:41am [facility] [place] Work Phone: 1(232) 565-186705-07-2024 NoteHNO ID: [id number] Author: MOJGAN COOK RN Service: Radiology Author Type: Registered Nurse Type: Progress Notes Filed: 01/11/2024 13:00 Note Text: Radiology Service Progress Note DATE OF SERVICE: January 11, 2024 TIME: 12:56 PM PATIENT WEIGHT: 157 LBS PATIENT IDENTITY VERIFICATION COMPLETED USING TWO (2) STANDARD IDENTIFIERS: Name and Date of confirmed by patient verbally and Name and Date of confirmed by identification band. FALL SCREENING: Has the patient had 2 falls in the last year or 1 fall with injury or currently using an Ambulatory Assistive Device (Walker, Cane, Wheelchair, Crutches, etc.)? No PATIENT GENDER DATA: Female. status: : No status: NO. ALLERGIES: Reviewed and unchanged CONTRAST ALLERGY: No EXAM: MRI - CONTRAST TYPE: GROUP II IV SITE: Ambulatory: A peripheral IV was started in the Left antecubital site with a Angio cath: 20 gauge. and A Saline lock was inserted per protocol IV SITE APPEARANCE: Clean,Dry and Intact SIGNATURE: Mojgan Cook RN PATIENT NAME: Darrel Bennett DATE: January 11, 2024 TIME: 12:56 [facility]05-07-2024 NoteHNO ID: [id number] Author: EVITA KISER RT(Kimmie) Service: Radiology Author Type: Technologist Type: Progress Notes Filed: 01/11/2024 13:32 Note Text: Radiology Service Progress Note PATIENT NAME: Darrel Bennett DATE OF SERVICE: January 11, 2024 TIME: 1:28 PM PATIENT IDENTITY VERIFICATION COMPLETED USING TWO (2) IDENTIFIERS: Name and Date of confirmed by patient verbally and Name and Date of confirmed by identification band. FALL SCREENING: Has the patient had 2 falls in the last year or 1 fall with injury or currently using an Ambulatory Assistive Device (Walker, Cane, Wheelchair, Crutches, etc.)? No PATIENT GENDER DATA: Female. status: : No status: NO. PATIENT RELEVANT IMPLANT DATA REVIEWED: Yes PATIENT PRESENTS WITH AN IMPLANTABLE OR ATTACHED COMPREHENSIVE OPHTHALMOLOGIST: No RADIOLOGY DEPARTMENT: MR; Exam(s) Completed: Cardiac: Cardiac PERIPHERAL IV DATA: Site assessment: Clean,Dry and Intact, Site disposition Discontinued SIGNED BY: RT Ronni(R), RT Jerrica(R) January 11, 2024 1:28 [facility]05-07-2024 History of Present illness Narrative* Mojgan Cook RN - 01/11/2024 1:00 PM EDT Radiology Service Progress Note DATE OF SERVICE: January 11, 2024 TIME: 12:56 PM PATIENT WEIGHT: 157 LBS PATIENT IDENTITY VERIFICATION COMPLETED USING TWO (2) STANDARD IDENTIFIERS: Name and Date of confirmed by patient verbally and Name and Date of confirmed by identification band. FALL SCREENING: Has the patient had 2 falls in the last year or 1 fall with injury or currently using an Ambulatory Assistive Device (Walker, Cane, Wheelchair, Crutches, etc.)? No PATIENT GENDER DATA: Female. status: : No status: NO. ALLERGIES: Reviewed and unchanged CONTRAST ALLERGY: No EXAM: MRI - CONTRAST TYPE: GROUP II IV SITE: Ambulatory: A peripheral IV was started in the Left antecubital site with a Angio cath: 20gauge. and A Saline lock was inserted per protocol IV SITE APPEARANCE: Clean,Dry and Intact SIGNATURE: Mojgan Cook RN PATIENT NAME: Darrel Bennett DATE: January 11, 2024 TIME: 12:56 PM * Evita Kiser RT(R) - 01/11/2024 1:00 PM EDT Radiology Service Progress Note PATIENT NAME: Darrel Bennett DATE OF SERVICE: January 11, 2024 TIME: 1:28 PM PATIENT IDENTITY VERIFICATION COMPLETED USING TWO (2) IDENTIFIERS: Name and Date of confirmedby patient verbally and Name and Date of confirmed by identification band. FALL SCREENING: Has the patient had 2 falls in the last year or 1 fall with injury or currently using an Ambulatory Assistive Device (Walker, Cane, Wheelchair, Crutches, etc.)? No PATIENT GENDER DATA: Female. status: : No status: NO. PATIENT RELEVANT IMPLANT DATA REVIEWED: Yes PATIENT PRESENTS WITH AN IMPLANTABLE OR ATTACHED COMPREHENSIVE OPHTHALMOLOGIST: No RADIOLOGY DEPARTMENT: MR; Exam(s) Completed: Cardiac: Cardiac PERIPHERAL IV DATA: Site assessment: Clean,Dry and Intact, Site disposition Discontinued SIGNED BY: RT Ronni(R), RT Jerrica(R) January 11, 2024 1:28 PM [facility]24 NoteHNO ID: [id number] Author: SERENITY WORLEY RT(R) Service: Radiology Author Type: Staff Radiologist Type: Progress Notes Filed: 01/04/2024 10:00 Note Text: RADIOLOGY SERVICE PROGRESS NOTE DATE OF SERVICE: January 04, 2024 TIME OF SERVICE: 9:45am EVENT: EXAM/PROCEDURE NOT COMPLETED - Exam rescheduled for downtown . ADDITIONAL EVENT DETAILS: pt had outside order and this is a protocol we do not do at [facility] explained to pt that she will need to reschedule downtown, we will try to get her in [place] due to insurance SIGNATURE: RT Louie(Kimmie) PATIENT NAME: Darrel Bennett DATE: January 04, 2024 TIME: 9:58 AM PAGER/CONTACT #:[facility]04-30-2024 History of Present illness Narrative* Serenity Worley RT(Kimmie) - 01/04/2024 9:00 AM EDT RADIOLOGY SERVICE PROGRESS NOTE DATE OF SERVICE: January 04, 2024 TIME OF SERVICE: 9:45am EVENT: EXAM/PROCEDURE NOT COMPLETED - Exam rescheduled for downtown . ADDITIONAL EVENT DETAILS: pt had outside order and this is a protocol we do not do at [facility] explained to pt that she will need to reschedule downtown, we will try to get her in [place] due to insurance SIGNATURE: RT Louie(R) PATIENT NAME: Darrel Bennett DATE: January 04, 2024 TIME: 9:58 AM PAGER/CONTACT #: documented in this encounter[facility]07-07-[address] [facility]07[facility]07[facility] [facility]11-22-2022 NoteHNO ID: [id number] Author: Evens Ferguson MD Service: ? Author Type: Physician Type: Progress Notes Filed: 07/29/2022 12:40 PM Note Text: This note was created using USMD. Subjective Darrel Bennett is a 52 year old female. 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 ( recent [...] HTN ( worse in office ) : 2014 ? ( no [place] stroke ) Belly pain ( 2019 ) ( right upp (more content not included)...[facility]11-22-2022 History of Present illness Narrative* Evens Ferguson MD - 07/28/2022 9:28 PM EST This note was created using NoteWriter. Subjective Darrel Bennett is a 52 year old female. Neck pain Main issue Done PT Moderate better TENS + heat done and better Pain all the time Stressed from pain Daily pain Daily headache from this Issue getting sleep on account of the neck pain Seen technology infusion specialist MRI planned Decreased range of motion [...] C (98.2 F) Height 157.5 cm (5' 2) Weight 74.4 kg (164 lb) Body Mass [...] resume plaquenil ( most of issue today centeredaround CS ) 06/2021 cmp cbc normal cr 1.14 high 01/25 cbc normal ESR 24 mm .normal cmp AST 59 ASLT 65 07/28 cmp prot 7.9 alb 4.3, alk pohs 48, alt 35, ast 27 , cr 1.18 high ( < 1.02 ) high tsh normal HgAic 7.4 normal Dermatology note: [facility] : Diagnosis : Psoriasis plaque. ( recent [...] office ) : 2015 ? ( no [place] stroke ) Belly pain ( 2019 ) ( right upper quandrant ) ( Intermittent worse with bending and has extend tillbetter ) Fatty liver 05/2020 GI seen : Ultrasound 08/04/2018: Gallbladder sludge without cholecystitis. Mild steatosis. 2. HIDA scan 11/11/2018: Normal gallbladder filling with somewhat hyperkinetic contraction with EF 89%. 3. [facility] ER 10/24/2019 epigastric and chest pain: Negative chest x-ray, EKG, d- dimer, and troponin. 4. 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 2 brother alive ( oldest brother brain aneurysm ) One brother healthy 07/23/2020 Mom 76 Diabetes Mellitus Type II breast cancer surg done 07/23/2020 Father dementia issue epilepsy past 80 07/23/2020 documented in [facility] encounter[facility]-24-[facility]22 NotePap Smear Specimen AdequacyAugust 2021 9:23amComment.Satisfactory for evaluation. Endocervical and/or squamous metaplasticcells (endocervical component)are present.Areas of partially obscuring inflammatory exudate are present.[facility] A#[id number] [place] Work Phone: Comment on above:Satisfactory for evaluation. Endocervical and/or squamous metaplasticcells (endocervical component)are present.Areas of partially obscuring inflammatory exudate are present.01-21-2022 NoteHNO ID: [id number] Author: Evens Ferguson MD Service: ? Author Type: Physician Type: Progress Notes Filed: 01/21/2022 11:44 AM Note Text: This note was created using Abattis Bioceut[employer]riter. Subjective Darrel Bennett is a 51 year old female. Not [...] (98.7 ?F) (Temporal) Height 157.5 cm (5' 2) Weight 78 kg (172 lb) Body Mass [...] also but no visit . Dermatology note: [facility] : Diagnosis : Psoriasis plaque. ( recent [...] office ) : 2015 ? ( no [place] stroke ) Belly pain ( 2019 ) [...] just observe for no (more content not included)...[facility]05-18-2022 History of Present illness Narrative* Evens Ferguson MD - 01/21/2022 11:20 AM EDT This note was created using USMD. Subjective Darrel Bennett is a 51 year old female. Not [...] (98.7 F) (Temporal) Height 157.5 cm (5' 2) Weight 78 kg (172 lb) Body Mass [...] but no visit . Dermatology note: [facility] : Diagnosis : Psoriasis plaque. ( recent [...] office ) : 2015 ? ( no [place] stroke ) Belly pain ( 2019 ) ( right upper quandrant ) ( Intermittent worse with bending and has extend tillbetter ) Fatty liver 05/2020 GI seen : Ultrasound 08/04/2018: Gallbladder sludge without cholecystitis. Mild steatosis. 2. HIDA scan 11/11/2018: Normal gallbladder filling with somewhat hyperkinetic contraction with EF 89%. 3. [facility] ER 10/24/2019 epigastric and chest pain: Negative chest x-ray, EKG, d- dimer, and troponin. 4. 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 2 brother alive ( oldest brother brain aneurysm ) One brother healthy 07/23/2020 Mom 76 Diabetes Mellitus Type II breast cancer surg done 07/23/2020 Father dementia issue epilepsy past 80 07/23/2020 documented in this encounter[facility]11-25-2021 Miscellaneous Notes* Telephone Encounter - Evens Ferguson MD - 07/31/2021 3:46 PM EST GI upset Evens Ferguson MD OK to try 1/2 tid on sulfasalazine Agrees Evens Ferguson MD * Telephone Encounter - Arely Paredes MA - 07/29/2021 2:51 PM EST Pt left message stating sulfa is giving her stomach ache,headache and side pain. documented in this encounterUk Healthcare11-24-2021 Miscellaneous Notes* Telephone Encounter - Chelita Cruz LPN - 07/30/2021 4:27 PM EST [facility] medical records returned release of information sheet with the note that there are no xrays of the neck there and they have no record of the pt being seen there. Chelita Cruz LPN documented in this encounterUk Healthcare11-15-2021 History of Present illness Narrative* Evens Fergsuon MD - 07/21/2021 11:13 AM EST This note was created using [employer]ce[employer]. Subjective Darrel Bennett is a 51 year old female. I am doing OK Neck pain Getting therapy Feet achy Mild stiffness am Lot better than before Knee pain is there Feet pain is there. Review of Systems Respiratory: Negative. Cardiovascular: Positive for chest pain. Objective Blood Pressure 150/80 Pulse 92 Temperature 37.3 C (99.1 F) (Temporal) Height 157.5 cm (5' 2) Weight 82.4 kg (181 lb 11.2 oz) [...] normal cr 1.14 high Dermatology note: [facility] : Diagnosis : Psoriasis plaque. ( recent [...] office ) : 2015 ? 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 2 brother alive ( oldest brother brain aneurysm ) One brother healthy 07/23/2020 Mom 76 Diabetes Mellitus Type II breast cancer surg done 07/23/2020 Father dementia issue epilepsy past 80 07/23/2020 [facility] Diagnosis Psoriatic arthropathy (HCC)- Primary Psoriatic arthropathy [facility]* Diagnosis Psoriatic arthropathy (HCC) Psoriatic arthropathy [facility]* Diagnosis Onset Date Resolution Status Encounter for screening for COVID-19 acute Diabetes acute Mixed hyperlipidemia acute Obesity acute Postprocedural hypothyroidism acute Hypertension chronic Anxiety acute [facility] [place] Work Phone: Evaluation note* Diagnosis Seronegative rheumatoid arthritis (HCC)- Primary Rheumatoid arthritis Pain of upper abdomen Abdominal pain, other specified site Elevated liver enzymes Other nonspecific abnormal serum enzyme levels Chronic neck pain Cervicalgia [facility]* Diagnosis Onset Date Resolution Status Diabetes acute Mixed hyperlipidemia acute Obesity acute Postprocedural hypothyroidism acute Hypertension chronic Anxiety acute Hypertension chronic Fatty liver acute Obesity acute GERD (gastroesophageal reflux disease) chronic [facility] [place] Work Phone: Evaluation note* Diagnosis Onset Date Resolution Status Diabetes acute Mixed hyperlipidemia acute Obesity acute Postprocedural hypothyroidism acute Hypertension chronic Anxiety acute Encounter for preventative a dult health care examination noneactive Hypertension chronic Fatty liver acute Obesity acute GERD (gastroesophageal reflux disease) chronic [facility] [place] Work Phone: Evaluation note* Diagnosis Onset Date Resolution Status Hypertension chronic Fatty liver acute Obesity acute GERD (gastroesophageal reflux disease) chronic NAFLD (nonalcoholic fatty liver disease) acute GERD (gastroesophageal reflux disease) chronic [facility] [place] Work Phone: Evaluation note* Diagnosis Chronic neck pain- Primary Cervicalgia Seronegative rheumatoid arthritis (HCC) Rheumatoid arthritis [facility]* Diagnosis Onset Date Resolution Status Irritant dermatitis acute Grade Foreman's nodules acute Degenerative disc disease, cervical acute [facility] [place] Work Phone: Evaluation note* Diagnosis Onset Date Resolution Status Degenerative disc disease, cervical acute Epigastric abdominal pain ac porsha NAFLD (nonalcoholic fatty liver disease) acute [facility] [place] Work Phone: Evaluation note* Diagnosis Onset Date Resolution Status Degenerative disc disease, cervical acute Epigastric abdominal pain ac porsha NAFLD (nonalcoholic fatty liver disease) acute HNP (herniated nucleus pulposus), cervical acute [facility] [place] Work Phone: Evaluation note* Diagnosis Onset Date Resolution Status Epigastric abdominal pain ac porsha NAFLD (nonalcoholic fatty liver disease) acute HNP (herniated nucleus pulposus), cervical acute [facility] [place] Work Phone: Evaluation note* Diagnosis Onset Date Resolution Status Colon cancer screening acute Diabetes acute JO ANN (iron deficiency anemia) acute Vitamin deficiency acute GERD (gastroesophageal reflux disease) chronic Hypertension chronic [facility] [place] Work Phone: Evaluation note* Diagnosis Onset Date Resolution Status Acute pharyngitis, unspecified acute URI (upper respiratory infection) acute [facility] [place] Work Phone: Evaluation note* Diagnosis Onset Date Resolution Status Acute pharyngitis, unspecified acute URI (upper respiratory infection) acute Diabetes chronic Hypertension chronic Nonrheumatic pulmonary valve stenosis chronic Hypertension chronic Type 2 diabetes mellitus chr onic Vertigo chronic [facility] [place] Work Phone: History and physical note Author Derek Friend [facility] [place] March 12, 2023 1:24pm Note Date/Time March 12, 2023 1:24p m [facility] Medical Records Department [address] [place] [address] History & Physical Exam 03/12/23 1323 MR#: [id number] Acct: [id number] Name: DARREL BENNETT Fidelina Rep #:[id number] : 1970 52 From: Derek Anglin DO PCP: Dr. Herbert Watts MD Status:R [facility] Location: [place] [address] History and Physical Date of Admission: 03/12/23 52 F who presents to the office today for 4 month f/u NAFLD, GERD and a positiveCologuard She reports mild epigastric pain, no radiating pain, relieved with mylanta, certain foods cause it--spicy, tomato sauce. Still gets intermittent sternal pain, thinks might be related to anxiety. Not having RUQ pain any more. Reflux controlled with PPI. No nausea, vomiting, dysphagia. Bowels are regular, no constipation or diarrhea, no melena or hematochezia NAFLD -- started on vitamin E and ursodiol 03/03/22. 01/27/22 labs: AST 57, ALT 84, remaining labs for fatty liver w/u were unremarkable. She decreased ursodiolfrom BID to daily due to abdominal pain; decreasing to once a day resolved the pain. She also takes vitamin E. Repeat liver elastography in 08/2022 showed increase in liver stiffness from 8.3 kpa to 9.4 kpa. She continues to lose weight intentionally. NAFLD related to obesity, DM2. 07/2022 hgb a1c 7.4, normal bili/ast/alt/alk phos GERD -- well controlled with pantoprazole 40 mg daily She has not had a colonoscopy but underwent a Cologuard and it was positive. She arrives today to set up a colonoscopy. 09/02/22 US/Elastography Parenchyma/Organ IMPRESSION: Liver stiffness measures 9.4 kPa compatible with F2-F3 (Mild to moderate liver fibrosis) Metavir score. ROS Const Constitutional: No fatigue ENT ENT: No difficulty swallowing Gastro GI: No abdominal pain, belching, bloating, change in bowel habits, change in stool character, coffee ground emesis, constipation, cramping, diarrhea, heartburn, difficulty swallowing, feeling full early, excessive flatus, incontinent of stools, Vomiting blood/hematemesis, Blood in stool, loose stools,Black,tarry stools, nausea/dyspepsia, pain with swallowing, vomiting or other Musc Musculoskeletal: Positive for numbness, tingling and Arthritis; No joint pain or stiffness Skin Skin: No yellowing of the eye or itchy eyes Neuro Neurology: Positive for numbness and tingling Psych Psychiatric: Positive for anxiety and No depression Endo Endocrine: No fatigue Aller/Imm Allergy/Immunologic: No itchy eyes Yung/Lymp Hematologic/Lymphatic: No easy bleeding or easy bruising Exam Const General: cooperative and comfortable Orientation: alert, awake and oriented x3 GI Inspection: normal to inspection Palpation: soft, no hepatosplenomegaly, no masses and tender in the epigastrum Quality Reporting Tobacco Screening ([facility] 138) Smoking Status: Former smoker Assessment and Plan Assessment and Plan (1) Epigastric abdominal pain: Status: Acute Plan: She is very anxious about anesthesia and procedures, but would like to schedule EGD and colonoscopy. Will rx anxiolytic to take the morning of the procedure. Check fecal elastase (2) NAFLD (nonalcoholic fatty liver disease): Status: Acute Plan: ?why liver stiffness slightly worse continue once daily ursodiol, perhaps she can try bid dosing later continue vitamin E continue weight loss she reports improved glucose readings since her programs director added another med Orders: Orders (3) screening colonoscopy. She was explained alternatives, risk, benefits including outstanding bleeding, infection, sepsis, perforation, need for emergent . She will have an ASA of 3. Pancreatic Elastase, Fecal 09/15/22 R10.13 - Epigastric pain Medications: New alprazolam take 1 tablet by mouth 1 hour before procedure 1 TAB 0RF Discontinued famotidine Discontinued Reason: Pt no longer taking 20 mg PO 03/12/23 1324 <Electronically signed by Derek Anglin DO> Cosigner Signature (if applicable): CC: Dr. Herbert Watts MD; Derek Anglin DO~ Signed [facility] [place] Work Phone: Hospital Discharge instructionsAmbulatory Orders* Nutrition Referral Location: None Selected [facility] [place] Work Phone: Reason for referral (narrative)No reason for referral information [facility] Work Phone: Reason for visit Narrative* Diagnostic Procedure Only (Routine) - Closed Specialty Diagnoses / Procedures Referred By Contac t Referred To Contact [facility] Diagnoses MRI CARDIAC W/O CONTRAST W/ VELOCITY FLOW MAP Nonrheumatic pulmonary valve stenosis I37.0 Procedures MRI [facility] CARD 440 Ricardo Kaiser, METAL PATTERN MAKER [address] [facility] [address] [place] [address] [facility] [address] [place] [address] Referral ID Status Reason Start Date Expiration Date Visits Re quested Visits Authorized [id number] Closed 01/04/2024 01/04/2024 2 1 [facility] Summary Purpose Family History No Family History Records Found Relationship Condition Age at Onset Recorded Date/T selina Not Specified Sludge in gallbladder Unknown Nonalcoholic fatty liver disease Unknown brother Malignant neoplasm of lung Unknown Seizure Unknown mother Diabetes mellitus Unknown Malignant neoplasm of breast Unknown father Seizure Unknown Dementia Unknown Advance Directives No Advanced Directives Records Found Advance Directive Response Recorded Date/ Time Living Will No October 09 1:56pm Power of Steamer Operator No October 09, 2021 1:56pm Advance Directive Response Recorded Date/ Time Living Will No October 09 12:56pm Power of Steamer Operator No October 09, 2021 12:56pm Advance Directive Response Recorded Date/ Time Living Will No March 10, 2023 1 :43pm Power of Steamer Operator No March 10, 2023 1:43pm Advance Directive Response Recorded Date/ Time Living Will No March 10, 2023 1 2:43pm Power of Steamer Operator No March 10, 2023 12:43pm History of Present Illness * Evens Ferguson - 07/23/2020 11:32 AM EST This note was created using [employer]. Subjective Darrel Bennett is a 50 year old female. Am [...] (98.3 F) (Oral) Height 158.9 cm (5' 2.55) Weight 85.5 kg (188 lb 9.6 oz) [...] office ) : 2015 ? 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 documented in this encounter* Evens Ferguson - 10/14/2020 11:16 AM EST This note was created using NoteWriter. Subjective Darrel Bennett is a 50 year old female. I [...] (98.7 F) (Temporal) Height 157.5 cm (5' 2) Weight 87.5 kg (193 lb) Body Mass [...] office ) : 2015 ? 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-ROS&CONSENT ONLY SCREENING WELLNESS VISIT Reason for Visit Encounter for screen ing for COVID-19 Diabetes Mixed hyperlipidemia Obesity Postprocedural hypothyroidism Hypertension Anxiety Chief Complaint blood pressure high and anxiety 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-ROS&CONSENT ONLY SCREENING WELLNESS VISIT low BP readings ABD PAIN/HEARTBURN E ORDERS Reason for Visit Diabetes Mixed hyperlipidemia Obesity Postprocedural hypothyroidism Hypertension Anxiety Hypertension Fatty liver Obesity GERD (gastroesophageal reflux disease) Chief Complaint 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-ROS&CONSENT ONLY SCREENING WELLNESS VISIT low BP readings ABD PAIN/HEARTBURN E ORDERS Reason for Visit Diabetes Mixed hyperlipidemia Obesity Postprocedural hypothyroidism Hypertension Anxiety Hypertension Fatty liver Obesity GERD (gastroesophageal reflux disease) Chief Complaint 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 RX HERE Reason for Visit Hypertension Fatty liver Obesity GERD (gastroesophageal reflux disease) NAFLD (nonalcoholic fatty liver disease) GERD (gastroesophageal reflux disease) Chief Complaint ITCHING ALL OVER BOD Y DDD. RX HERE Cervical spine Reason for Visit Irritant dermatitis Grade Foreman's nodules Degenerative disc disease, cervical Chief Complaint DDD. RX HERE Cervical spine FATTY LIVER FU E ORDER Reason for Visit Degenerative disc di sease, cervical Epigastric abdominal pain NAFLD (nonalcoholic fatty liver disease) Chief Complaint Cervical spine FATTY LIVER FU E ORDER CERVICAL PAIN CERVICAL SPINE TYPE 2 DIABETES, HTN, HYPERLIPIDEMIA, VIT D DEFICI Reason for Visit Degenerative disc di sease, cervical Epigastric abdominal pain NAFLD (nonalcoholic fatty liver disease) HNP (herniated nucleus pulposus), cervical Chief Complaint FATTY LIVER FU E ORDER CERVICAL PAIN CERVICAL SPINE TYPE 2 DIABETES, HTN, HYPERLIPIDEMIA, VIT D DEFICI SCREENING Reason for Visit Epigastric abdominal pain NAFLD (nonalcoholic fatty liver disease) HNP (herniated nucleus pulposus), cervical Chief Complaint TYPE 2 DIABETES, HTN , HYPERLIPIDEMIA, VIT D DEFICI SCREENING chk up/kbloodwork Reason for Visit Colon cancer screeni ng Diabetes JO ANN (iron deficiency anemia) Vitamin deficiency GERD (gastroesophageal reflux disease) Hypertension Chief Complaint chk up/kbloodwork Reason for Visit Colon cancer screeni ng Diabetes JO ANN (iron deficiency anemia) Vitamin deficiency GERD (gastroesophageal reflux disease) Hypertension Chief Complaint Cough Reason for Visit Acute pharyngitis, u nspecified URI (upper respiratory infection) Chief Complaint Cough EST (SELF) CONTINUED DIZZINESS Reason for Visit Acute pharyngitis, u nspecified URI (upper respiratory infection) Diabetes Hypertension Nonrheumatic pulmonary valve stenosis Hypertension Type 2 diabetes mellitus Vertigo Chief Complaint Cough EST (SELF) CONTINUED DIZZINESS SCREENING ESSENTIAL 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 Reason for Visit Acute pharyngitis, u nspecified URI (upper respiratory infection) Diabetes Hypertension Nonrheumatic pulmonary valve stenosis Hypertension Type 2 diabetes mellitus Vertigo Chief Complaint Admit Date TYROID NODULE September 15, 2024 2 :32pm LEFT ARM PAIN FROM FALL September 18 8:51am XRAY September 18, 2024 1 1:53am RIGHT ARM October 26, 2024 7:41am PAIN, RULE OUT CUFF TEAR November 27 3:32pm RIGHT ARM December 04, 2024 8:4 1am Reason for Visit Admit Date Mixed hyperlipidemia September 18, 2024 8:51am Hypertension September 18, 2024 8 :51am Right arm pain September 18, 2024 8 :51am Tendinitis September 18, 2024 8 :51am Type 2 diabetes mellitus September 18, 025 8:51am Impingement of right shoulder October [id number] 7:41am Right arm pain October 26, 2024 7:41am Tendinitis October 26, 2024 7:41am Arthrosis of right acromioclavicular leticia nt December 04, 2024 8:41am Impingement of right shoulder November 8:41am Primary osteoarthritis, right shoulder M 2024 8:41am Right rotator cuff tear December 04, 2024 8:41am Superior labrum anterior-to- posterior (SLAP) tear of right shoulder December 04, 2024 8:41am Chief Complaint Admit Date RIGHT ARM October 26, 2024 7:41am PAIN, RULE OUT CUFF TEAR November 27 3:32pm RIGHT ARM December 04, 2024 8:4 1am 1 Y FU December 04, 2024 2:1 3pm RIGHT ARM January 15, 2025 7:51a m Reason for Visit Admit Date Impingement of right shoulder October 082024 7:41am Right arm pain October 26, 2024 7:41am Tendinitis October 26, 2024 7:41am Arthrosis of right acromioclavicular leticia nt December 04, 2024 8:41am Impingement of right shoulder November 8:41am Primary osteoarthritis, right shoulder M arch 2024 8:41am Right rotator cuff tear December 04, 2024 8:41am Superior labrum anterior-to- posterior (SLAP) tear of right shoulder December 04, 2024 8:41am Diabetes December 04, 2024 2:1 3pm Hypertension December 04, 2024 2:1 3pm Nonrheumatic pulmonary valve stenosis [facility] 2024 2:13pm Preoperative cardiovascular examination December 04, 2024 2:13pm Arthrosis of right acromioclavicular leticia nt January 15, 2025 7:51am Impingement of right shoulder January 15, 2025 7:51am Primary osteoarthritis, right shoulder M 2024 7:51am Right rotator cuff tear January 15, 2025 7 :51am Superior labrum anterior-to- posterior (SLAP) tear of right shoulder January 15, 2025 7:51am Chief Complaint Admit Date PAIN, RULE OUT CUFF TEAR November 27 3:32pm RIGHT ARM December 04, 2024 8:4 1am 1 Y FU December 04, 2024 2:1 3pm RIGHT ARM January 15, 2025 7:51a m VENTRICULAR PREMATURE DEPOLARIZATION Antoine e 2024 12:39pm Reason for Visit Admit Date Arthrosis of right acromioclavicular leticia nt December 04, 2024 8:41am Impingement of right shoulder November 8:41am Primary osteoarthritis, right shoulder M arch 2024 8:41am Right rotator cuff tear December 04, 2024 8:41am Superior labrum anterior-to- posterior (SLAP) tear of right shoulder December 04, 2024 8:41am Diabetes December 04, 2024 2:1 3pm Hypertension December 04, 2024 2:1 3pm Nonrheumatic pulmonary valve stenosis [facility] 2024 2:13pm Preoperative cardiovascular examination December 04, 2024 2:13pm Arthrosis of right acromioclavicular leticia nt January 15, 2025 7:51am Impingement of right shoulder January 15, 2025 7:51am Primary osteoarthritis, right shoulder M 2024 7:51am Right rotator cuff tear January 15, 2025 7 :51am Superior labrum anterior-to- posterior (SLAP) tear of right shoulder January 15, 2025 7:51am Additional Source Comments INFORMATION SOURCE (unrecogn ized section and content) DATE CREATED AUTHOR 07/16/2020 [employer] DATE CREATED AUTHOR AUTHOR'S ORGANIZ ATION 09/10/2021 [facility] ([place]) DATE CREATED AUTHOR AUTHOR'S ORGANIZ ATION 07/30/2022 [facility] DATE CREATED AUTHOR AUTHOR'S ORGANIZ ATION 01/05/2024 [facility] DATE CREATED AUTHOR AUTHOR'S ORGANIZ ATION 01/13/2024 [facility] DATE CREATED AUTHOR AUTHOR'S ORGANIZ ATION 08/19/2024 [facility] DATE CREATED AUTHOR AUTHOR'S ORGANIZ ATION 03/17/2025 [facility] Source Comments (unrecognize d section and content) In the event this informatio n is protected by the Federal Confidentiality of Alcohol and Drug Abuse Patient Records regulations: The Federal rules restrict any use of the information to criminally investigate or prosecute any alcohol or drug abuse patient.[facility] Healthcare[facility] the event this information is protected by the Federal Confidentiality of Alcohol and Drug Abuse Patient Records regulations: The Federal rules restrict any use of the information to criminally investigate or prosecute any alcohol or drug abuse patient.[facility] HealthcareIn the event this information is protected by the Federal Confidentiality of Alcohol and Drug Abuse Patient Records regulations: The Federal rules restrict any use of the information to criminally investigate or prosecute any alcohol or drug abuse patient.[facility] HealthcareIn the event this information is protected by the Federal Confidentiality of Alcohol and Drug Abuse Patient Records regulations: The Federal rules restrict any use of the information to criminally investigate or prosecute any alcohol or drug abuse patient.[facility] HealthcareIn the event this information is protected by the Federal Confidentiality of Alcohol and Drug Abuse Patient Records regulations: The Federal rules restrict any use of the information to criminally investigate or prosecute any alcohol or drug abuse patient.[facility] HealthcareIn the event this information is protected by the Federal Confidentiality of Alcohol and Drug Abuse Patient Records regulations: The Federal rules restrict any use of the information to criminally investigate or prosecute any alcohol or drug abuse patient.[facility] HealthcareIn the event this information is protected by the Federal Confidentiality of Alcohol and Drug Abuse Patient Records regulations: The Federal rules restrict any use of the information to criminally investigate or prosecute any alcohol or drug abuse patient.[facility] HealthcareIn the event this information is protected by the Federal Confidentiality of Alcohol and Drug Abuse Patient Records regulations: The Federal rules restrict any use of the information to criminally investigate or prosecute any alcohol or drug abuse patient.[facility] HealthcareIn the event this information is protected by the Federal Confidentiality of Alcohol and Drug Abuse Patient Records regulations: The Federal rules restrict any use of the information to criminally investigate or prosecute any alcohol or drug abuse patient.[facility] HealthcareIn the event this information is protected by the Federal Confidentiality of Alcohol and Drug Abuse Patient Records regulations: The Federal rules restrict any use of the information to criminally investigate or prosecute any alcohol or drug abuse patient.[facility] HealthcareIn the event this information is protected by the Federal Confidentiality of Alcohol and Drug Abuse Patient Records regulations: The Federal rules restrict any use of the information to criminally investigate or prosecute any alcohol or drug abuse patient.[facility] HealthcareIn the event this information is protected by the Federal Confidentiality of Alcohol and Drug Abuse Patient Records regulations: The Federal rules restrict any use of the information to criminally investigate or prosecute any alcohol or drug abuse patient.[facility] HealthcareIn the event this information is protected by the Federal Confidentiality of Alcohol and Drug Abuse Patient Records regulations: The Federal rules restrict any use of the information to criminally investigate or prosecute any alcohol or drug abuse patient.[facility] HealthcareIn the event this information is protected by the Federal Confidentiality of Alcohol and Drug Abuse Patient Records regulations: The Federal rules restrict any use of the information to criminally investigate or prosecute any alcohol or drug abuse patient.[facility] HealthcareIn the event this information is protected by the Federal Confidentiality of Alcohol and Drug Abuse Patient Records regulations: The Federal rules restrict any use of the information to criminally investigate or prosecute any alcohol or drug abuse patient.[facility] Reason for Visit (unrecogniz ed section and content) Reason Comments New Patient Finger Pain Reason Comments Follow Up no pain Reason Comments Future Appointment Reason Comments Results Reason Comments Refill Request Reason Comments Pain neck Reason Comments Medication Problem Reason Comments Pain neck,arms,elbows Reason Comments Rheumatoid Arthritis Reason Comments Radiology MRI Specialty Diagnoses / Procedures Referred By Contac t Referred To Contact RADIO MRI [facility] Diagnoses Nonrheumatic pulmonary valve stenosis MRI - Cardiac WWO Contrast w/ Velocity Flow Map Elevated gradients across pulmonic valve I37.0 Nonrheumatic pulmonary valve stenosis Procedures CARDIAC MRI FOR VELOCITY FLOW MAPPING MRI WWO CARD 440 Ricardo Kaiser, METAL PATTERN MAKER [address] [address] Radio Mri [facility] [address] [place] [address] Referral ID Status Reason Start Date Expiration Date V isits Requested Visits Authorized [id number] Closed OON/Self Pay Override 01/04/2024 02/03/2024 1 1 Telephone Encounter - Evens Ferguson - 10/14/2020 1:00 PM ESTTelephone Encounter - [...] to us. Brittney Walker EKG done at [place] get report Evens Ferguson MD documented in this encounter Pharmacy faxed requesting the following refill. Pending Prescriptions Disp Refills HYDROXYCHLOROQUINE 200 MG TABLET 90 tablet 1 Sig: Take 1.5 tablets by mouth once daily. GATO: Yes Patient last appointment: 10/14/2020 Next Appointment: 04/14/2021 Patient Phone numbers: [phone] (home) Request is for script(s) to be escript to pharmacy. Sudarshan Powell CMA documented in this encounter Goals (unrecognized section and content) Goals may be documented in a n alternate sectionGoals may be documented in an alternate sectionGoals may be documented in an alternate sectionGoals may be documented in an alternate sectionGoals may be documented in an alternate sectionGoals may be documented in an alternate sectionGoals may be documented in an alternate sectionGoals may be documented in an alternate sectionGoals may be documented in an alternate sectionGoals may be documented in an alternate sectionGoals may be documented in an alternate sectionGoals may be documented in an alternate sectionGoals may be documented in an alternate sectionGoals may be documented in an alternate sectionGoals may be documented in an alternate sectionGoals may be documented in an alternate sectionGoals may be documented in an alternate sectionGoals may be documented in an alternate sectionGoals may be documented in an alternate section Care Teams (unrecognized sec tion and content) Team Status: Active Member Role Status Dates Dr. Herbert Watts MD Family Provider Active Dr. Herbert Watts MD Primary Care Provider Active Team Status: Inactive Member Role Status Dates Dr. Herbert Watts MD Primary Care Provider, Refer ring Provider Active Darrel Hurst FOREST ENGINEER, FOREST ENGINEER-C Attending Provider Active Team Status: Inactive Member Role Status Dates Dr. Herbert Watts MD Primary Care Provider, Refer ring Provider Active Dr. Brandon Saunders DO Attending Provider Active Team Status: Inactive Member Role Status Dates Dr. Herbert Watts MD Primary Care Provider Active Dr. Brandon Saunders DO Attending Provider, Referring P rovider Active Team Status: Inactive Member Role Status Dates Dr. Herbert Watts MD Primary Care Provider Active Darrel Hurst FOREST ENGINEER, FOREST ENGINEER-C Attending Provider Active Team Status: Inactive Member Role Status Dates Dr. Herbert Watts MD Primary Care Provider Active Dr. Gilma Felton MD Attending Provider, Re ferring Provider Active Team Status: Inactive Member Role Status Dates Dr. Herbert Watts MD Primary Care Provider Active Dr. Dariela Simpson DO Attending Provider Active Team Status: Inactive Member Role Status Dates Dr. Herbert Watts MD Primary Care Provider, Refer ring Provider Active Jericho Degroot FOREST ENGINEER, FOREST ENGINEER-C Attending Provider Active Team Status: Active Member Role Status Dates Dr. Herbert Watts MD Primary Care Provider, Refer ring Provider Active Dr. Derek Anglin DO Attending Provider, Other Prov ider Active Team Status: Inactive Member Role Status Dates Dr. Herbert Watts MD Primary Care Provider Active Jericho Degroot FOREST ENGINEER, FOREST ENGINEER-C Attending Provider, Referring Prov ider Active Team Status: Inactive Member Role Status Dates Dr. Herbert Watts MD Primary Care Provider, Refer ring Provider Active Dr. Derek Anglin DO Attending Provider Active Team Status: Inactive Member Role Status Dates Dr. Herbert Watts MD Primary Care Provider, Refer ring Provider Active Randall Hardin PA, PA Attending Provider Active Team Status: Inactive Member Role Status Dates Dr. Herbert Watts MD Primary Care Provider, Refer ring Provider Active Dr. Dheeraj Bird MD Attending Provider Active Team Status: Inactive Member Role Status Dates Dr. Herbert Watts MD Primary Care P ropingder, Attending Provider, Referring Provider Active Team Status: Inactive Member Role Status Dates Dr. Herbert Watts MD Primary Care Provider, Atten ding Provider Active Team Status: Active Member Role Status Dates Dr. Herbert Watts MD Primary Care Provider Active Dr. Dheeraj Bird MD Attending Provider, Referring Pr ovider Active Team Status: Inactive Member Role Status Dates Dr. Herbert Watts MD Primary Care Provider Active Kassandra Hernández NP-C Attending Provider, Referring Pro vider Active Team Status: Inactive Member Role Status Dates Dr. Herbert Watts MD Primary Care Provider Active Dr. Dheeraj Bird MD Attending Provider, Referring Pr ovider Active Team Status: Active Member Role Status Dates Dr. Herbert Watts MD Primary Care Provider Active Team Status: Inactive Member Role Status Dates Dr. Herbert Watts MD Primary Care Provider Active Start: September 15, 2024 End: September 15, 2024 Dr. Gilma Felton MD Attending Provider Active Start: September 15, 2024 End: September 15, 2024 Dr. Gilma Felton MD Referring Provider Active Start: September 15, 2024 End: September 15, 2024 Team Status: Inactive Member Role Status Dates Dr. Herbert Watts MD Primary Care Provider Active Start: September 18, 2024 End: September 18, 2024 Dr. Herbert Watts MD Attending Provider Active Start: September 18, 2024 End: September 18, 2024 Dr. Herbert Watts MD Referring Provider Active Start: September 18, 2024 End: September 18, 2024 Team Status: Inactive Member Role Status Dates Dr. Herbert Watts MD Primary Care Provider Active Start: September 18, 2024 End: September 18, 2024 Dr. Surya Marhkam MD Attending Provider Active S tart: September 18, 2024 End: September 18, 2024 Team Status: Inactive Member Role Status Dates Dr. Herbert Watts MD Primary Care Provider Active Start: October 26, 2024 End: October 26, 2024 Dr. Herbert Watts MD Referring Provider Active Start: October 26, 2024 End: October 26, 2024 Naren Norman MD Attending Provider Active St art: October 26, 2024 End: October 26, 2024 Team Status: Inactive Member Role Status Dates Dr. Herbert Watts MD Primary Care Provider Active Start: November 27, 2024 End: November 27, 2024 Naren Norman MD Attending Provider Active St art: November 27, 2024 End: November 27, 2024 Naren Norman MD Referring Provider Active St art: November 27, 2024 End: November 27, 2024 Team Status: Active Member Role Status Dates Dr. Herbert Watts MD Primary Care Provider Active Start: December 04, 2024 Dr. Herbert Watts MD Referring Provider Active Start: December 04, 2024 Naren Norman MD Attending Provider Active St art: December 04, 2024 Team Status: Inactive Member Role Status Dates Dr. Herbert Watts MD Primary Care Provider Active Start: December 04, 2024 End: December 04, 2024 Dr. Herbert Watts MD Referring Provider Active Start: December 04, 2024 End: December 04, 2024 Naren Norman MD Attending Provider Active St art: December 04, 2024 End: December 04, 2024 Team Status: Inactive Member Role Status Dates Dr. Herbert Watts MD Primary Care Provider Active Start: December 04, 2024 End: December 04, 2024 Dr. Herbert Watts MD Referring Provider Active Start: December 04, 2024 End: December 04, 2024 Dr. Dheeraj Bird MD Attending Provider Active Start: December 04, 2024 End: December 04, 2024 Team Status: Inactive Member Role Status Dates Dr. Herbert Watts MD Primary Care Provider Active Start: January 15, 2025 End: January 15, 2025 Dr. Herbert Watts MD Referring Provider Active Start: January 15, 2025 End: January 15, 2025 Naren Norman MD Attending Provider Active St art: January 15, 2025 End: January 15, 2025 Team Status: Inactive Member Role Status Dates Dr. Herbert Watts MD Primary Care Provider Active Start: January 27, 2025 End: January 27, 2025 Dr. Gilma Felton MD Attending Provider Act bobby Start: January 27, 2025 End: January 27, 2025 Dr. Gilma Felton MD Referring Provider Act bobby Start: January 27, 2025 End: January 27, 2025 Team Status: Active Member Role/Relationship Status Dates Dr. Herbert Watts MD Primary Care Provider Active Team Status: Inactive Member Role/Relationship Status Dates Dr. Herbert Watts MD Primary Care Provider Active Start: November 27, 2024 End: November 27, 2024 Naren Norman MD Attending Provider Active St art: November 27, 2024 End: November 27, 2024 Naren Norman MD Referring Provider Active St art: November 27, 2024 End: November 27, 2024 Team Status: Inactive Member Role/Relationship Status Dates Dr. Herbert Watts MD Primary Care Provider Active Start: December 04, 2024 End: December 04, 2024 Dr. Herbert Watts MD Referring Provider Active Start: December 04, 2024 End: December 04, 2024 Naren Norman MD Attending Provider Active St art: December 04, 2024 End: December 04, 2024 Team Status: Inactive Member Role/Relationship Status Dates Dr. Herbert Watts MD Primary Care Provider Active Start: December 04, 2024 End: December 04, 2024 Dr. Herbert Wtats MD Referring Provider Active Start: December 04, 2024 End: December 04, 2024 Dr. Dheeraj Bird MD Attending Provider Active Start: December 04, 2024 End: December 04, 2024 Team Status: Inactive Member Role/Relationship Status Dates Dr. Herbert Watts MD Primary Care Provider Active Start: January 15, 2025 End: January 15, 2025 Dr. Herbert Watts MD Referring Provider Active Start: January 15, 2025 End: January 15, 2025 Naren Norman MD Attending Provider Active St art: January 15, 2025 End: January 15, 2025 Team Status: Inactive Member Role/Relationship Status Dates Dr. Herbert Watts MD Primary Care Provider Active Start: January 27, 2025 End: January 27, 2025 Dr. Gilma Felton MD Attending Provider Act bobby Start: January 27, 2025 End: January 27, 2025 Dr. Gilma Felton MD Referring Provider Act bobby Start: January 27, 2025 End: January 27, 2025 Team Status: Inactive Member Role/Relationship Status Dates Dr. Herbert Watst MD Primary Care Provider Active Start: March 05, 2025 End: March 05, 2025 Dr. Dheeraj Bird MD Attending Provider Active Start: March 05, 2025 End: March 05, 2025 Dr. Dheeraj Bird MD Referring Provider Active Start: March 05, 2025 End: March 05, 2025 FOR RECORDS PERTAINING TO PATIENTS WHO ARE [...] BE BASED ON THE PRIMARY CLINICAL RECORDS. [facility] [employer] provides no warranty or guarantee of the accuracy or completeness of information in this document.
[2025-03-25 23:07] VITALS: BP 127/79; PULSE 73; RESP 16; O2SAT 99
[2025-03-26 00:44] VITALS: BP 123/67; PULSE 67; RESP 16; TEMP 36.1; O2SAT 95
== END 2025-03-26 00:47 | disposition home or self-care (01) ==
PROVIDERS: Emergency Provider Emergency Medicine; PCP Internal Medicine; Referring Provider Emergency Medicine; Visit Provider Emergency Medicine
DX: E11.65 Type 2 diabetes mellitus with hyperglycemia (principal); I10 Essential (primary) hypertension; Z87.891 Personal history of nicotine dependence; Z79.84 Long term (current) use of oral hypoglycemic drugs
CPT/HCPCS: 82962; 99282; A4216

== ENCOUNTER → 2025-04-18 | Outpatient (CLI) | payer MEDICAID, SELFPAY | END | disposition home or self-care (01) | LOC: PSN 08:44 | PROVIDERS: PCP Internal Medicine; Referring Provider Nurse Practitioner Gerontology; Visit Provider Nurse Practitioner Gerontology | DX: R00.2 Palpitations (principal) | CPT/HCPCS: 93225; 93226 ==

== ENCOUNTER → 2025-05-01 | Outpatient (CLI) | payer MEDICAID, SELFPAY ==
[2025-05-01 10:28] LABS: Creatinine, Urine (random) 104.00 mg/dL (28.00-217.00); Microalbumin,Random Urine < 12.0 mg/L (<20 mg/L)
[2025-05-01 10:34] LABS: AST(SGOT) 21 U/L (<=31); Alanine Aminotransfer ALT/SGPT 22 U/L (<=34); Albumin, Serum 4.7 g/dL (3.5-5.0); Alkaline Phosphatase 52 U/L (35-104); Anion Gap 14 (5-15); BUN 23 mg/dL (4-19); BUN/Creat Ratio 20.6 RATIO (10-20); Calcium,Total 10.0 mg/dL (7.6-11.0); Carbon Dioxide 23.7 mmol/L (21.0-32.0); Chloride 102 mmol/L (98-108); Cholesterol 141 mg/dL (<=200); Free T3 2.8 pg/mL (2.18-3.98); Globulin 2.8 g/dL (2.2-4.2); Glucose 158 mg/dL (70-99); Low Density Lipoprotein Calc. 81 mg/dL; Potassium 4.1 mmol/L (3.3-5.1); Triglycerides 84 mg/dL; Very Low Density Lipoprotein 17 mg/dL (5-40); cholesterol:hdl ratio screen 3.30
== END | disposition home or self-care (01) ==
LOC: MTLAB 08:46
PROVIDERS: PCP Internal Medicine; Referring Provider Internal Medicine Endocrinology, Diabetes & Metabolism; Visit Provider Internal Medicine Endocrinology, Diabetes & Metabolism
DX: E11.65 Type 2 diabetes mellitus with hyperglycemia (principal); E78.5 Hyperlipidemia, unspecified; E55.9 Vitamin D deficiency, unspecified; I10 Essential (primary) hypertension; E03.9 Hypothyroidism, unspecified
CPT/HCPCS: 36415; 80053; 80061; 82043; 82570; 84439; 84443; 84481

== ENCOUNTER → 2025-06-13 | Outpatient (CLI) | payer MEDICAID, SELFPAY ==
--- NOTE | 2025-06-13 08:30 | BI_ITS ---
EXAM: SCRN MAMM (CAD)W/AARON BILAT DATE: 06/13/2025 CLINICAL HISTORY: F, Age 55 y/o , BREAST CANCER SCREENING Mother with breast cancer. TECHNIQUE: Procedure Code: [id number] Modality: MG Procedure: SCRN MAMM (CAD)W/AARON BILAT COMPARISON: Prior exam(s) dated December 13, 2023.. FINDINGS: TISSUE DENSITY: There are scattered areas of fibroglandular density. Bilateral Breast Mammographic Findings: No significant masses, calcifications or other abnormalities are identified. Stable 7 mm well-defined nodule in the upper-outer quadrant of the left breast. Prior sonogram demonstrated this to be a small intramammary lymph node. Stable small benign-appearing bilateral axillary lymph nodes. No suspicious masses, areas of developing architectural distortion, or suspicious calcifications. There has been no significant interval change. BI/SCRN MAMM (CAD)W/AARON BILAT IMPRESSION: Stable bilateral screening mammogram. OVERALL FINAL ASSESSMENT BI-RADS 2: BENIGN RECOMMENDATION: Routine annual follow-up in 1 Year Additional Recommendation none A letter with findings and recommendations will be mailed to the patient. Reading Location: [facility]
== END | disposition home or self-care (01) ==
PROVIDERS: PCP Internal Medicine; Referring Provider Internal Medicine; Visit Provider Internal Medicine
DX: Z12.31 Encounter for screening mammogram for malignant neoplasm of breast (principal)
CPT/HCPCS: 77063; 77067

== ENCOUNTER → 2025-07-31 | Outpatient (CLI) | payer MEDICAID, SELFPAY ==
[2025-07-31 13:09] LABS: Anion Gap 10 (5-15); BUN 29 mg/dL (4-19); BUN/Creat Ratio 22.9 RATIO (10-20); Calcium,Total 9.9 mg/dL (7.6-11.0); Carbon Dioxide 26.7 mmol/L (21.0-32.0); Chloride 103 mmol/L (98-108); Free T3 3.0 pg/mL (2.18-3.98); Glucose 171 mg/dL (70-99); Potassium 5.1 mmol/L (3.3-5.1)
== END | disposition home or self-care (01) ==
LOC: MTLAB 09:09
PROVIDERS: PCP Internal Medicine; Referring Provider Internal Medicine Endocrinology, Diabetes & Metabolism; Visit Provider Internal Medicine Endocrinology, Diabetes & Metabolism
DX: E11.65 Type 2 diabetes mellitus with hyperglycemia (principal); E55.9 Vitamin D deficiency, unspecified; E03.9 Hypothyroidism, unspecified; E78.5 Hyperlipidemia, unspecified; I10 Essential (primary) hypertension
CPT/HCPCS: 36415; 80048; 83525; 84439; 84443; 84481; 84681